=== PATIENT | female | born 1935 | race Caucasian/White ===

== ENCOUNTER 2019-09-27 05:43 | Day surgery (SDC) | payer MEDICARE, BC ==
[2019-09-24 12:20] VITALS: BMI 39.8
[2019-09-27] MEDS ORDERED: LACTATED RINGERS 1,000 ML IV SCH (05:56)
[2019-09-27] MEDS ORDERED: SODIUM CHLORIDE 0.9% 1,000 ML IV SCH ×2 (05:56)
[2019-09-27 06:38] LABS: Basophils # (A) 0.1 k/uL (0-0.2); Basophils % (A) 1 %; Eosinophils # (A) 0.2 k/uL (0-0.7); Eosinophils % (A) 2 %; HGB 14.3 gm/dL (11.4-16.0); Lymphocytes # (A) 1.1 k/uL (1.0-4.8); Lymphocytes % (A) 14 %; MCH 30.5 pg (25.0-35.0); MCHC 33.2 g/dL (31.0-37.0); MCV 91.9 fL (80.0-100.0); Mean Platelet Volume 8.2; Monocytes # (A) 0.4 k/uL (0-1.0); Monocytes % (A) 5 %; Neutrophils % (A) 77 %; Platelet Count 179 k/uL (150-450); RBC 4.68 m/uL (3.80-5.40); RDW 13.7 % (11.5-15.5); WBC 7.8 k/uL (3.8-10.6)
[2019-09-27 06:41] LABS: Prothrombin Time 19.2 sec (9.0-12.0)
[2019-09-27 06:56] LABS: Calcium 9.5 mg/dL (8.4-10.2); Potassium 4.6 mmol/L (3.5-5.1)
[2019-09-27] MEDS ORDERED: ceFAZolin 1,000 MG in SODIUM CHLORIDE 0.9% IRRIGATIO 250 ML IRRIGATION ONE (07:00)
[2019-09-27] MEDS ORDERED: PROPOFOL 10 MG/ML 20 ML VIAL IV ONE (07:13)
[2019-09-27] MEDS ORDERED: VANCOMYCIN 1,000 MG VIAL ONE (07:13)
[2019-09-27] MEDS ORDERED: MIDAZOLAM 2 MG/2 ML VIAL ONE (07:13)
[2019-09-27] MEDS ORDERED: fentaNYL (PF) 50 MCG/ML 2 ML AMP ONE (07:13)
[2019-09-27] MEDS ORDERED: IOPAMIDOL-250 50ML BTL IV ONE (08:05)
[2019-09-27] MEDS ORDERED: LIDOCAINE 1% INJ 10MG/ML (20 ML MDV) SQ ONE (08:37)
[2019-09-27] MEDS ORDERED: ACETAMINOPHEN IV (For NPO) 1,000 MG in EMPTY BAG 1 BAG IVPB ONE (10:29)
[2019-09-27] MEDS ORDERED: HYDROcodone/APAP 5-325MG 1 EACH TAB PO PRN (10:29)
[2019-09-27] MEDS ORDERED: ACETAMINOPHEN TAB 325 MG TAB PO PRN (10:29)
[2019-09-27] MEDS ORDERED: FUROSEMIDE 20 MG TAB PO PRN (10:31)
[2019-09-27] MEDS ORDERED: METOPROLOL SUCCINATE (ER) 50 MG TAB.ER.24H PO STA (13:03)
--- NOTE | 2019-09-27 17:48 | PCN ---
PROCEDURE NOTE This patient is an 84-year-old female with a history of nonischemic cardiomyopathy and class 2 CHF, severe LV dysfunction, ejection fraction 35%, and an underlying QRS which is very wide at 187 milliseconds, right bundle branch block morphology, left anterior fascicular block. Her device is at [facility] and she was brought in for an ICD generator change with likely upgrade for physiologic septal pacing. Patient was brought to the EP lab in a fasting state. Written informed consent was obtained prior to the procedure. IV antibiotics were administered. An incision was made directly over the previous surgical site and carried down to the level of the generator. The generator was explanted. A left upper extremity venogram had been performed previously which showed a patent subclavian venous system. This was accessed and an 8-Emirati sheath was placed. Via this, a His bundle sheath and a His bundle lead were placed in the right atrium for physiologic septal pacing. The His bundle lead was secured in the His bundle area. Current of injury was noted in the His bundle. Narrowing of the QRS with near-normalization was noted. With His bundle pacing, QRS width was about 127 milliseconds, significant narrowing of the QRS with near-normalization of the morphology. The sheaths were removed. The lead was secured to the underlying pectoralis muscle and the new generator was implanted. The chronic atrial lead was capped and secured to the muscle. The His bundle lead, model #[id number], was connected to the atrial port. The ICD lead was connected to the usual RV port and the SVC port was plugged. To promote physiologic septal pacing, DDD mode at 80 beats was programmed. Currently the patient is on 50 mg of metoprolol and I am increasing the dose to 100 mg p.o. daily; and subsequently we will cut down the rate to 60 bpm in the next one week. The RV threshold was 1.5 V at 1 millisecond. Pacing impedance 475 ohms. R-waves 8.9 mV. The absolute loss of capture in the His bundle lead was 1.5 V at 1 millisecond, pacing impedance of 456 ohms. Near-selective His bundle pacing was noted. The sequence of His bundle pacing was as follows: At high output there was non- selective capture with near-normalization followed by selective capture with normalization followed by fusion with RV inflow capture. The patient tolerated the procedure well without any acute complications. DFT was deferred at this time, and she will be brought back in the future for DFT testing in about 3 months. The patient tolerated the procedure well without any acute complications. A dual- chamber ICD was implanted. The dual-chamber ICD was [employer] model number [id number], serial number [id number]. JULISSA / WENDY: [id number] /
[2019-09-27] MEDS ORDERED: ATORVASTATIN 10 MG TAB PO SCH (21:00)
[2019-09-27] MEDS ORDERED: MELATONIN 3 MG TABLET PO SCH (21:00)
[2019-09-28 06:25] LABS: INR 1.7 (<1.2); Prothrombin Time 17.1 sec (9.0-12.0)
--- NOTE | 2019-09-28 07:20 | XR ---
EXAMINATION TYPE: XR chest 2V DATE OF EXAM: 09/28/2019 COMPARISON: 08/22/2013 HISTORY: Shortness of breath TECHNIQUE: Frontal and lateral views of the chest are obtained. FINDINGS: Scattered senescent parenchymal changes noted. Hyperinflation compatible with COPD. No evidence for infiltrate. No evidence for atelectasis. Heart size is stable. Mediastinal structures are stable and grossly unremarkable. No evidence for hilar prominence. Degenerative changes dorsal spine. IMPRESSION: 1. No evidence for acute pulmonary disease.
--- NOTE | 2019-09-28 08:02 | P.DS ---
Providers Attending physician: Fritz Castrejon Primary care physician: [facility] Course: Patient is doing well. No chest discomfort dizziness tightness. She does have tenderness in the left pectoral area but no hematoma no swelling Breath sounds are clear no rhonchi no crackles Normal heart sounds no murmurs no gallops No lower extremity edema No JVD Impression Upgrade to physiologic septal pacing yesterday His bundle lead implanted Dual-chamber ICD generator change His bundle connected to the atrial port Plan Device interrogation today Chest x-ray is within normal limits IV antibiotics are completed If interrogation is within normal limits she may go home today Device VAD programmed to a base rate of 60 bpm Dose of metoprolol is being increased to 100 mg by mouth daily She will take lisinopril 20 mg daily in the evening Discussed with patient Plan - Discharge Summary Discharge Rx Participant: No New Discharge Prescriptions: New Metoprolol Succinate (ER) [Toprol XL] 100 mg PO DAILY #90 tab Continue Spironolactone [Aldactone] 25 mg PO DAILY Meloxicam 15 mg PO DAILY Atorvastatin [Lipitor] 10 mg PO HS Acetaminophen [Tylenol] 325 mg PO Q4H PRN PRN Reason: Pain Warfarin [Coumadin] 5 mg PO DAILY Furosemide [Lasix] 20 mg PO DIRECTED PRN PRN Reason: Edema Lisinopril 20 mg PO DAILY Discontinued Metoprolol Succinate (ER) [Toprol Xl] 50 mg PO DAILY Discharge Medication List Acetaminophen [Tylenol] 325 mg PO Q4H PRN 08/20/13 [History] Atorvastatin [Lipitor] 10 mg PO HS 08/20/13 [History] Meloxicam 15 mg PO DAILY 08/20/13 [History] Spironolactone [Aldactone] 25 mg PO DAILY 08/20/13 [History] Furosemide [Lasix] 20 mg PO DIRECTED PRN 09/24/19 [History] Lisinopril 20 mg PO DAILY 09/24/19 [History] Warfarin [Coumadin] 5 mg PO DAILY 09/24/19 [History] Metoprolol Succinate (ER) [Toprol XL] 100 mg PO DAILY #90 tab 09/27/19 [Rx] Follow up Appointment(s)/Referral(s): Fritz Castrejon MD [STAFF PHYSICIAN] - 1 Week Activity/Diet/Wound Care/Special Instructions: PATIENT EDUCATION MATERIAL Instructions following a heart rhythm device implant. 1. Keep dressing DRY for 5 DAYS. You may cover the area with Saran or Cling Wrap, prior to a shower. 2. The dressing will be removed in the Device Clinic at [facility]. Absorbable sutures were used to close the wound. 3. Avoid raising the left arm above the shoulder level. 4 week restriction 4. Avoid arm movements, like backscratching, rubbing the head, or pulling on a cord. 4 weeks restriction 5. Gentle range of motion movements of the shoulder, closest to the incision should be performed to avoid a frozen shoulder. (Pendulum exercises of the shoulder) 6. The opposite arm may be used freely. 7. Avoid driving for 7 days. 8. Avoid activities such as golfing, swimming, weed whacking, lifting more than 10 pounds weight, bowling, gymnastics and weight training/lifting. (6 weeks restriction) 9. Activities such as wood chopping with an axe, pull-ups in the gymnasium, power lifting, arc-welding, being close to home induction cooktops will always be a problem. 10. Arm sling is only a reminder not to raise the arm above the head. You do not need to keep the arm completely immobilized. Your free to move the arm and use it and for normal activities. In case of any problems, please call [facility], Barrett Ugalde, @ [phone], Attention: Device Clinic Device clinic follow-up in 5 days Follow-up with primary newsroom intern in 2-3 months Increase metoprolol succinate to 100 mg by mouth daily in a.m. Continue all other medications as before Lisinopril to be taken in the evening
[2019-09-28 08:03] VITALS: BP 133/63; PULSE 80; RESP 18; TEMP 97.5
[2019-09-28] MEDS ORDERED: lisinopriL 20 MG TAB PO SCH ×2 (09:00→21:00)
[2019-09-28] MEDS ORDERED: WARFARIN 2.5 MG TAB PO ONE (09:00)
[2019-09-28] MEDS ORDERED: METOPROLOL SUCCINATE (ER) 50 MG TAB.ER.24H PO SCH (09:00)
[2019-09-28] MEDS ORDERED: SPIRONOLACTONE 25 MG TAB PO SCH (09:00)
[2019-09-28] MEDS ORDERED: WARFARIN 5 MG TAB PO SCH (18:00)
== END 2019-09-28 13:24 | disposition home or self-care (01) ==
LOC: CATHEP 05:43 → 1SOBS 11:28 → CATHEP 09-28 13:24
PROVIDERS: ATTEND Internal Medicine Clinical Cardiac Electrophysiology
DX: I42.0 Dilated cardiomyopathy (principal); I11.0 Hypertensive heart disease with heart failure; I50.1 Left ventricular failure, unspecified; I45.2 Bifascicular block; I48.11 Longstanding persistent atrial fibrillation; I08.1 Rheumatic disorders of both mitral and tricuspid valves; I27.20 Pulmonary hypertension, unspecified; E78.5 Hyperlipidemia, unspecified; I49.5 Sick sinus syndrome; R60.0 Localized edema; I25.10 Atherosclerotic heart disease of native coronary artery without angina pectoris; E66.9 Obesity, unspecified; Z68.39 Body mass index [BMI] 39.0-39.9, adult; Z79.01 Long term (current) use of anticoagulants; Z95.810 Presence of automatic (implantable) cardiac defibrillator; Z79.899 Other long term (current) drug therapy; Z79.1 Long term (current) use of non-steroidal anti-inflammatories (NSAID); Z88.8 Allergy status to other drugs, medicaments and biological substances; Z97.2 Presence of dental prosthetic device (complete) (partial); Z87.891 Personal history of nicotine dependence; Z98.890 Other specified postprocedural states; Z90.710 Acquired absence of both cervix and uterus; Z82.49 Family history of ischemic heart disease and other diseases of the circulatory system
CPT/HCPCS: 93005; 33225; 33263; 80048; 85025; 85610 ×2; 71046; C1769 ×2; C1892; C1898; C1721; J2250; J3370; J0690 ×2; J2001; J3010; J2704; Q9966

== ENCOUNTER 2019-10-24 12:38 | Inpatient (IN) | payer MEDICARE, BC ==
[2019-10-24] MEDS ORDERED: SODIUM CHLORIDE 0.9% 500 ML 500 ML IV STA (13:05)
[2019-10-24] MEDS ORDERED: DIPH,PERTUS(ACELL)TETVAC-LF 0.5 ML VIAL IM ONE (13:08)
--- NOTE | 2019-10-24 13:10 | ED ---
General Adult HPI - General Chief complaint: Fall Stated complaint: Weakness and fall Time Seen by Provider: 10/24/19 12:54 Source: patient, EMS, RN notes reviewed, old records reviewed Mode of arrival: EMS Limitations: physical limitation - History of Present Illness Initial comments: 84-year-old female presents status post fall. Patient fell yesterday evening around 6 PM. She was unable to stand after the fall and had to wait for her son to calm at 11 AM this morning. She states she tripped which was reason for her fall. She does report several episodes of vomiting over the past 72 hours after eating a sandwich that she states was "not right". She denies fever. She denies head or neck trauma. She denies loss of consciousness. She has no pain complaints the time my evaluation. She states she did hit her right elbow and had some minimal bleeding in the skin tear at this location. No current abdominal pain. No chest pain. She had pacemaker placed 2 weeks ago at this institution. - Related Data Home Medications Medication Instructions Recorded Confirmed Atorvastatin [Lipitor] 10 mg PO HS 08/20/13 09/27/19 Meloxicam 15 mg PO DAILY 08/20/13 09/27/19 Spironolactone [Aldactone] 25 mg PO DAILY 08/20/13 09/27/19 Warfarin [Coumadin] 5 mg PO DAILY 09/24/19 09/27/19 lisinopriL 20 mg PO DAILY 09/24/19 09/27/19 Warfarin [Coumadin] 2.5 mg PO MOWEFR@2100 10/24/19 10/24/19 Previous Rx's Medication Instructions Recorded Metoprolol Succinate (ER) [Toprol 100 mg PO DAILY #90 tab 09/27/19 XL] Allergies Allergy/AdvReac Type Severity Reaction Status Date / Time dofetilide [From Tikosyn] Allergy Severe Unknown Verified 10/24/19 16:28 prolonged QT medications Allergy Severe Unknown Uncoded 10/24/19 16:28 Review of Systems ROS Statement: Those systems with pertinent positive or pertinent negative responses have been documented in the HPI. ROS Other: All systems not noted in ROS Statement are negative. Past Medical History Past Medical History: Atrial Fibrillation, Hypertension, Osteoarthritis (OA) Additional Past Medical History / Comment(s): pacemaker/aicd, See [facility] History of Any Multi-Drug Resistant Organisms: None Reported Past Surgical History: Bladder Surgery, Cardiac Ablation, Heart Catheterization, Hysterectomy Additional Past Surgical History / Comment(s): cardioversion, D & C, 08-21-13 DUAL CHAMBER A.I.C.D IMPLANTED Past Anesthesia/Blood Transfusion Reactions: No Reported Reaction Type of Cardiac Device: Permanent Pacemaker, AICD Device Placement Date:: 08-21-13 Past Psychological History: No Psychological Hx Reported Smoking Status: Former smoker Past Alcohol Use History: None Reported Past Drug Use History: None Reported - Past Family History Mother Family Medical History: Cancer Sister(s) Family Medical History: No Reported History General Exam Limitations: physical limitation General appearance: alert, in no apparent distress Head exam: Present: atraumatic, normocephalic Eye exam: Present: normal appearance, PERRL ENT exam: Present: mucous membranes dry Neck exam: Present: normal inspection. Absent: tenderness, meningismus Respiratory exam: Present: normal lung sounds bilaterally. Absent: respiratory distress, wheezes Cardiovascular Exam: Present: regular rate, normal rhythm GI/Abdominal exam: Present: soft. Absent: distended, tenderness, guarding Extremities exam: Present: other (2 cm skin tear on the right elbow, no active bleeding, no repairable laceration, normal range of motion.) Neurological exam: Present: alert, oriented X3, CN II-XII intact. Absent: motor sensory deficit Psychiatric exam: Present: normal affect, normal mood Skin exam: Present: warm, dry, abrasion (Right elbow) Course Vital Signs 10/24/19 10/24/19 10/24/19 12:44 14:09 15:48 Temperature 97.3 F L 98.9 F Pulse Rate 98 91 90 Respiratory 18 18 18 Rate Blood Pressure 121/73 134/74 154/81 O2 Sat by Pulse 95 96 95 Oximetry EKG Findings - EKG Comments: EKG Findings:: Wide-complex rhythm, irregular, Rate of 87, QRS duration 168, QTC 527, I do not see pacer spikes he is to read bundle branch block, left anterior fascicular block. Medical Decision Making - Medical Decision Making 84-year-old female presenting with fall and a significant amount of downtime, laying on the floor. She has no real complaints time my evaluation. She has a skin tear to the left elbow, otherwise no external signs of trauma. She does not have head or neck trauma. Patient has an x-ray of the chest is negative for acute cardio pulmonary disease, pelvis x-ray obtained negative for fracture dislocation, x-ray of the elbow is negative for fracture dislocation. Laboratory testing is delayed secondary to difficulty obtaining blood samples. She has a white blood cell count of 18,000, her INR is elevated at 6 and she is on Coumadin, no active bleeding and a stable hemoglobin of 14.7. She has a lactic acid of 3.0 which I suspect is predominantly from dehydration. She has elevated AST and ALT as well as on significantly elevated total bilirubin of 6.5. She has no abdominal pain or tenderness. She did report several episodes of vomiting over the past several days. Her creatinine kinase is elevated at 4000. Urinalysis is consistent with UTI and infection. She's given IV hydration, placed on continuous normal saline infusion, started on IV antibiotics. Ultrasound is obtained these results are pending and this elevated bilirubin. Her Coumadin will be held. She will be admitted to Dr. Arshad who is aware of the patient. - Lab Data Result diagrams: 10/24/19 15:07 10/24/19 15:07 Lab Results 10/24/19 10/24/19 10/24/19 Range/Units 15:07 15:07 15:07 WBC 18.6 H (3.8-10.6) k/uL RBC 4.97 (3.80-5.40) m/uL Hgb 14.6 (11.4-16.0) gm/dL Hct 46.6 H (34.0-46.0) % MCV 93.7 (80.0-100.0) fL MCH 29.4 (25.0-35.0) pg MCHC 31.4 (31.0-37.0) g/dL RDW 14.0 (11.5-15.5) % Plt Count 169 (150-450) k/uL Neutrophils % 95 % Lymphocytes % 1 % Monocytes % 3 % Eosinophils % 0 % Basophils % 0 % Neutrophils # 17.6 H (1.3-7.7) k/uL Lymphocytes # 0.3 L (1.0-4.8) k/uL Monocytes # 0.5 (0-1.0) k/uL Eosinophils # 0.0 (0-0.7) k/uL Basophils # 0.1 (0-0.2) k/uL Hypochromasia Slight PT 60.2 H (9.0-12.0) sec INR 6.0 H* (<1.2) APTT 47.0 H (22.0-30.0) sec Sodium 135 L (137-145) mmol/L Potassium 4.0 (3.5-5.1) mmol/L Chloride 102 (98-107) mmol/L Carbon Dioxide 24 (22-30) mmol/L Anion Gap 9 mmol/L BUN 24 H (7-17) mg/dL Creatinine 0.95 (0.52-1.04) mg/dL Est GFR (CKD-EPI)AfAm 65 (>60 ml/min/1.73 sqM) Est GFR (CKD-EPI)NonAf 56 (>60 ml/min/1.73 sqM) Glucose 248 H (74-99) mg/dL Plasma Lactic Acid Sammy (0.7-2.0) mmol/L Calcium 8.8 (8.4-10.2) mg/dL Magnesium 1.4 L (1.6-2.3) mg/dL Total Bilirubin 6.5 H (0.2-1.3) mg/dL AST 216 H (14-36) U/L ALT 97 H (4-34) U/L Alkaline Phosphatase 816 H (38-126) U/L Creatine Kinase 4046 H* (30-135) U/L Total Protein 6.7 (6.3-8.2) g/dL Albumin 3.5 (3.5-5.0) g/dL Urine Color Urine Appearance (Clear) Urine pH (5.0-8.0) Ur Specific Beaver (1.001-1.035) Urine Protein (Negative) Urine Glucose (UA) (Negative) Urine Ketones (Negative) Urine Blood (Negative) Urine Nitrite (Negative) Urine Bilirubin (Negative) Urine Urobilinogen (<2.0) mg/dL Ur Leukocyte Esterase (Negative) Urine RBC (0-5) /hpf Urine WBC (0-5) /hpf Ur Squamous Epith Cells (0-4) /hpf Amorphous Sediment (None) /hpf Urine Bacteria (None) /hpf Hyaline Casts (0-2) /lpf Urine Mucus (None) /hpf 10/24/19 10/24/19 Range/Units 15:07 15:47 WBC (3.8-10.6) k/uL RBC (3.80-5.40) m/uL Hgb (11.4-16.0) gm/dL Hct (34.0-46.0) % MCV (80.0-100.0) fL MCH (25.0-35.0) pg MCHC (31.0-37.0) g/dL RDW (11.5-15.5) % Plt Count (150-450) k/uL Neutrophils % % Lymphocytes % % Monocytes % % Eosinophils % % Basophils % % Neutrophils # (1.3-7.7) k/uL Lymphocytes # (1.0-4.8) k/uL Monocytes # (0-1.0) k/uL Eosinophils # (0-0.7) k/uL Basophils # (0-0.2) k/uL Hypochromasia PT (9.0-12.0) sec INR (<1.2) APTT (22.0-30.0) sec Sodium (137-145) mmol/L Potassium (3.5-5.1) mmol/L Chloride (98-107) mmol/L Carbon Dioxide (22-30) mmol/L Anion Gap mmol/L BUN (7-17) mg/dL Creatinine (0.52-1.04) mg/dL Est GFR (CKD-EPI)AfAm (>60 ml/min/1.73 sqM) Est GFR (CKD-EPI)NonAf (>60 ml/min/1.73 sqM) Glucose (74-99) mg/dL Plasma Lactic Acid Sammy 3.0 H* (0.7-2.0) mmol/L Calcium (8.4-10.2) mg/dL Magnesium (1.6-2.3) mg/dL Total Bilirubin (0.2-1.3) mg/dL AST (14-36) U/L ALT (4-34) U/L Alkaline Phosphatase (38-126) U/L Creatine Kinase (30-135) U/L Total Protein (6.3-8.2) g/dL Albumin (3.5-5.0) g/dL Urine Color Dark Yellow Urine Appearance Cloudy H (Clear) Urine pH 5.5 (5.0-8.0) Ur Specific Beaver 1.022 (1.001-1.035) Urine Protein 1+ H (Negative) Urine Glucose (UA) Trace H (Negative) Urine Ketones Trace H (Negative) Urine Blood Large H (Negative) Urine Nitrite Positive H (Negative) Urine Bilirubin 2+ H (Negative) Urine Urobilinogen 4.0 (<2.0) mg/dL Ur Leukocyte Esterase Moderate H (Negative) Urine RBC 8 H (0-5) /hpf Urine WBC 26 H (0-5) /hpf Ur Squamous Epith Cells 1 (0-4) /hpf Amorphous Sediment Rare H (None) /hpf Urine Bacteria Moderate H (None) /hpf Hyaline Casts 1 (0-2) /lpf Urine Mucus Rare H (None) /hpf Critical Care Time Critical Care Time: Yes Total Critical Care Time: 35 Disposition Clinical Impression: Rhabdomyolysis, Dehydration, Supratherapeutic INR, Hypomagnesemia, UTI (urinary tract infection) Disposition: ADMITTED IP TO THIS [facility] Condition: Stable Is patient prescribed a controlled substance at d/c from ED?: No Referrals: Alaina Ambrose MD [Primary Care Provider] - 1-2 days Decision to Admit Reason: Admit from EC Decision Date: 10/24/19 Decision Time: 16:54
--- NOTE | 2019-10-24 14:48 | XR ---
EXAMINATION TYPE: XR pelvis AP view DATE OF EXAM: 10/24/2019 CLINICAL HISTORY: Fall injury with pain. TECHNIQUE: A single AP view of the pelvis is obtained. COMPARISON: None. FINDINGS: Suboptimal due to body habitus. There is no acute fracture/dislocation evident in the pelv is. Moderate axial joint space loss in both hips with moderate acetabular spurring. Pubic symphysis i s intact. Sacroiliac joints felt within normal limits. Some left-sided vascular calcification. Occasi onal scattered pelvic phleboliths. IMPRESSION: There is no acute fracture or dislocation in the pelvis.
--- NOTE | 2019-10-24 14:59 | XR ---
EXAMINATION TYPE: XR elbow complete RT DATE OF EXAM: 10/24/2019 COMPARISON: None HISTORY: Fall, pain TECHNIQUE: Three-view right elbow FINDINGS: Radius aligns normally humerus. No acute fractures or dislocations are evident. Tiny (spur is present. Anterior fat pad is normal. No elevation posterior fat pad is evident. IMPRESSION: 1. Normal three-view right elbow. 2. Follow-up exams can be performed 7-10 days from acute trauma for continued pain.
--- NOTE | 2019-10-24 15:00 | XR ---
EXAMINATION TYPE: XR chest 2V DATE OF EXAM: 10/24/2019 COMPARISON: 09/28/2019 INDICATION: Weakness TECHNIQUE: Frontal and lateral views of the chest are obtained. FINDINGS: The heart size is enlarged. There is a pacemaker overlies left chest. The pulmonary vasculature is normal. The lungs are clear. IMPRESSION: 1. No acute pulmonary process.
[2019-10-24 15:32] LABS: Basophils # (A) 0.1 k/uL (0-0.2); Basophils % (A) 0 %; Eosinophils % (A) 0 %; HCT 46.6 % (34.0-46.0); HGB 14.6 gm/dL (11.4-16.0); Hypochromasia Slight; Lymphocytes # (A) 0.3 k/uL (1.0-4.8); Lymphocytes % (A) 1 %; MCH 29.4 pg (25.0-35.0); MCHC 31.4 g/dL (31.0-37.0); MCV 93.7 fL (80.0-100.0); Mean Platelet Volume 8.7; Monocytes # (A) 0.5 k/uL (0-1.0); Monocytes % (A) 3 %; Neutrophils # (A) 17.6 k/uL (1.3-7.7); Neutrophils % (A) 95 %; Platelet Count 169 k/uL (150-450); RBC 4.97 m/uL (3.80-5.40); WBC 18.6 k/uL (3.8-10.6)
[2019-10-24 15:51] LABS: Albumin 3.5 g/dL (3.5-5.0); Calcium 8.8 mg/dL (8.4-10.2); Magnesium 1.4 mg/dL (1.6-2.3); Total Bilirubin 6.5 mg/dL (0.2-1.3); Total Protein 6.7 g/dL (6.3-8.2)
[2019-10-24 16:06] LABS: Prothrombin Time 60.2 sec (9.0-12.0)
[2019-10-24 16:12] LABS: Amorphous Sediment,Urine Rare /hpf; Appearance,Urine Cloudy (Clear); Bacteria,Urine Moderate /hpf; Bilirubin,Urine 2+ (Negative); Blood,Urine Large (Negative); Color,Urine Dark Yellow; Glucose,Urine (UA) Trace (Negative); Hyaline Casts,Urine 1 /lpf (0-2); Ketones,Urine Trace (Negative); Leukocyte Esterase,Urine Moderate (Negative); Mucus,Urine Rare /hpf; Nitrite,Urine Positive (Negative); PH, Urine 5.5 (5.0-8.0); Protein,Urine 1+ (Negative); RBC,Urine 8 /hpf (0-5); Specific Gravity,Urine 1.022 (1.001-1.035); Squamous Epithelial Cell,Urine 1 /hpf (0-4); WBC,Urine 26 /hpf (0-5)
[2019-10-24] MEDS ORDERED: cefTRIAXone IN SWFI 1,000 MG/10 ML SYRINGE IVP STA (16:26)
[2019-10-24] MEDS ORDERED: SODIUM CHLORIDE 0.9% 500 ML 500 ML IV ONE (16:26)
[2019-10-24] MEDS ORDERED: NALOXONE 0.4 MG/ML 1 ML VIAL IV PRN (16:31)
[2019-10-24] MEDS: SODIUM CHLORIDE 0.9% 1,000 ML IV SCH ×2 (16:45→20:11)
[2019-10-24] MEDS ORDERED: MAGNESIUM SULFATE-D5W PMX 1 GM in DEXTROSE/WATER 1 100ML.BAG IVPB ONE (16:47)
--- NOTE | 2019-10-24 17:27 | US ---
EXAMINATION TYPE: US gallbladder DATE OF EXAM: 10/24/2019 COMPARISON: NONE CLINICAL HISTORY: vomiting. EXAM MEASUREMENTS: Liver Length: 15.5 cm Gallbladder Wall: 0.3 cm CBD: 0.2 cm Right Kidney: 10.0 x 4.6 x 4.7 cm Patient of large body habitus with severe overlying bowel gas. Pancreas: hyperechoic, mostly obscured by bowel gas Liver: there appears to be thrombus in the portal vein, unable to visualize liver in it's entirety d ue to overlying bowel gas Gallbladder: sludge ball Evidence for sonographic Jasmine's sign: CBD: wnl, as seen Right Kidney: No hydronephrosis or masses seen, partial visualization IMPRESSION: There is portal vein thrombosis. Liver shows no focal defect. No dilated ducts. Echogenic bile and large area of the gallbladder. No gallstones seen. No ascites.
[2019-10-24] MEDS ORDERED: IPRATROPIUM-ALBUTEROL 3 ML NEB INHALATION PRN (18:40)
[2019-10-24] MEDS: IPRATROPIUM-ALBUTEROL 3 ML NEB INHALATION SCH (19:33)
[2019-10-24] MEDS ORDERED: DEXTROSE 5% IN WATER 100 ML with AMIODARONE 150 MG IV ONE (20:00)
[2019-10-24] MEDS ORDERED: AMIODARONE 360 MG in DEXTROSE 5% IN WATER 200 ML IV ONE ×2 (20:00)
[2019-10-24 20:10] LABS: Glucose,Whole Blood 243 mg/dL (75-99)
[2019-10-24] MEDS ORDERED: SODIUM CHLORIDE 0.9% 1,000 ML IV ONE (20:10)
[2019-10-24] MEDS ORDERED: Potassium Replacement Protocol 1 EACH MISC MISCELLANE PRN (20:29)
[2019-10-24] MEDS ORDERED: Magnesium Replacement Protocol 1 EACH MISC MISCELLANE PRN (20:29)
[2019-10-24 20:44] LABS: Glucose,Whole Blood 235 mg/dL (75-99)
[2019-10-24 20:46] LABS: Calcium 8.4 mg/dL (8.4-10.2); Magnesium 1.7 mg/dL (1.6-2.3); Potassium 4.2 mmol/L (3.5-5.1)
--- NOTE | 2019-10-24 21:08 | XR ---
EXAMINATION TYPE: XR chest 1V portable DATE OF EXAM: 10/24/2019 COMPARISON: 10/24/2019. 6 hours ago. HISTORY: Respiratory distress TECHNIQUE: FINDINGS: Heart is enlarged. There is minimal reticular interstitial density at the lateral right vibha g base. There is no heart failure. Thoracic aorta shows mild atheromatous change. There is left axill keila pacemaker. There is no pleural effusion or pneumothorax. IMPRESSION: Mild pulmonary interstitial density. Inspiration slightly decreased compared to recent ex am. No heart failure seen.
[2019-10-24 21:10] LABS: ABG Base Excess -6.7 mmol/L; ABG HCO3 18 mmol/L (21-25); ABG Oxygen Saturation 99.6 % (94-97); ABG PCO2 31 mmHg (35-45); ABG PH 7.38 (7.35-7.45); ABG PO2 387 mmHg (83-108); ABG TCO2 19 mmol/L (19-24); Allen Test Performed? Yes
--- NOTE | 2019-10-24 21:30 | HP ---
HISTORY AND PHYSICAL CHIEF COMPLAINTS: Fall and weakness. HISTORY OF PRESENT ILLNESS: This 84-year-old woman with a past medical history of multiple medical problems including atrial fibrillation, hypertension, DJD, history of pacemaker, history of bladder surgery, cardiac ablation, cardioversion, being followed by Dr. Ambrose in the outpatient setting, apparently fell yesterday. The exact details of the fall is unknown at this time. The patient probably tripped, but the patient never lost any consciousness. Patient was unable to get up and the patient was lying there at least half a day according to her and subsequently patient was complaining of some weakness and fall and patient taken to [facility] and admitted to the hospital for further evaluation and treatment. The admission labs showed WBC 18.6, hemoglobin is 14.6. Lactic acid 3 and creatinine kinase is 4046 indicating acute rhabdomyolysis. UA was abnormal with possible UTI and the patient also had a chest x-ray which was reviewed personally by me showed some minimal increased bronchovascular markings with no acute pulmonary process. The patient had some fever prior to admission and also complains of cough and some nausea also. The patient did not have any sick contacts with any individuals, but apparently patient is pretty independent doing things like chores like shopping by herself. There is no history of any fever, rigor or chills at this time. PAST MEDICAL HISTORY: History of atrial fibrillation, hypertension, DJD, pacemaker, bladder surgery, cardiac ablation. MEDICATIONS: Home medications are: 1. Lipitor. 2. Lisinopril. 3. Coumadin. 4. Aldactone. 5. Toprol-XL. 7. Doses reviewed. ALLERGIES: TIKOSYN MEDICATION. FAMILY HISTORY: History of cancer. SOCIAL HISTORY: Previous history of smoking. REVIEW OF SYSTEMS: ENT diminished vision. Diminished hearing. CARDIOVASCULAR system as mentioned earlier. RESPIRATORY: As mentioned earlier. GI: As mentioned earlier. : As mentioned earlier. NERVOUS SYSTEM as mentioned earlier. ALLERGY/IMMUNOLOGY: No asthma or hayfever. MUSCULOSKELETAL as mentioned earlier. HEMATOLOGY/ONCOLOGY: No history of anemia. ENDOCRINE: No history of diabetes or hypothyroidism. CONSTITUTIONAL: As mentioned earlier. DERMATOLOGY: Negative. RHEUMATOLOGY: Negative. PSYCHIATRIC: As mentioned earlier. PHYSICAL EXAM: Alert and oriented times three. Pulse 91, blood pressure 130/70, respiration 18, temp 97.8, pulse ox 96% on room air. HEENT: Conjunctivae normal. Oral mucosa moist. NECK is no jugular venous distention. No carotid bruit. No lymph node enlargement. CARDIOVASCULAR: S1, S2 muffled. No S3, no S4. RESPIRATIONS: Breath sounds diminished in the bases. A few scattered rhonchi. No crackles. ABDOMEN: Soft, obese, nontender. No mass palpable. LEGS: Bilateral leg edema. NERVOUS SYSTEM: Higher functions as mentioned earlier. Moves all 4 limbs. No focal motor or sensory deficits. LYMPHATICS: No lymph nodes palpable in the neck, axillae or groin. SKIN: No ulcer, rash or bleeding. JOINTS: No active deforming arthropathy. LABS: WBC 18.6. INR is 6. Sodium is 135. Other labs are noted. ASSESSMENT: 1. Fall and acute rhabdomyolysis. 2. Fever, possible acute bilateral interstitial pneumonia possibly aspiration pneumonia, rule out COVID-19 with sepsis. 3. Increased WBC. 4. Coagulopathy Coumadin. 5. Hyponatremia. 6. Diabetes mellitus type 2. 7. Elevated plasma lactic acid secondary to sepsis. 8. Hypomagnesemia. 9. Hyperbilirubinemia with acute hepatitis. 10.Increased creatinine kinase and alk phosphatase. 11.Possible acute urinary tract infection present on admission. 12.Atrial fibrillation. 13.Hypertension. 14.Pacemaker AICD. 15.Cardiac ablation. 16.History of cardioversion. 17.Remote history of nicotine dependence. 18.Obesity with body mass of 35.4. RECOMMENDATIONS AND DISCUSSION: This 84-year-old woman who presented with multiple complex medical issues, at this time we will monitor the patient closely, continue the current medications, symptomatic treatment. We will initiate broad-spectrum IV antibiotics. Otherwise cardiology evaluation. Telemetry. Cautious IV fluids. Monitor creatinine kinase closely. The patient also had jaundice and hyperbilirubinemia at this time. Avoid hepatotoxic medications. Overall prognosis extremely guarded because of multiple complex medical issues. Further recommendations to follow. I would also recommend a 2D echo with Doppler as well. A copy of this dictation being forwarded to Dr. Ambrose who is the primary physician. Also recommend PT/OT evaluation and evaluate the patient for possible ECF rehab also. MMODL / IJN: [id number] / MTDPiter
[2019-10-24] MEDS ORDERED: ACETAMINOPHEN TAB 500 MG TAB PO PRN (21:41)
[2019-10-24] MEDS: METOPROLOL SUCCINATE (ER) 100 MG TAB.ER.24H PO SCH (22:13)
[2019-10-24] MEDS: PANTOPRAZOLE 40 MG/10 ML VIAL IVP SCH (22:13)
[2019-10-24] MEDS: PIPERACILLIN-TAZOBACTAM 3.375 GM in SODIUM CHLORIDE 0.9% 100 ML IVPB SCH ×2 (22:14→23:57)
[2019-10-25] MEDS: AMIODARONE 300 MG in DEXTROSE 5% IN WATER 250 ML IV SCH ×4 (02:39→07:12)
[2019-10-25 03:55] LABS: Hepatitis A Antibody IgM Non-Reactive (Non-Reactive); Hepatitis B Core IgM Non-Reactive (Non-Reactive); Hepatitis B Surface Antigen Non-Reactive (Non-Reactive); Hepatitis C IgG Antibody Non-Reactive (Non-Reactive)
[2019-10-25] MEDS: PIPERACILLIN-TAZOBACTAM 3.375 GM in SODIUM CHLORIDE 0.9% 100 ML IVPB SCH ×3 (04:21→18:12)
[2019-10-25 05:11] LABS: HCT 40.3 % (34.0-46.0); HGB 12.9 gm/dL (11.4-16.0); Hypochromasia Slight; MCH 30.3 pg (25.0-35.0); MCHC 31.9 g/dL (31.0-37.0); Mean Platelet Volume 8.6; Platelet Count 146 k/uL (150-450); RBC 4.25 m/uL (3.80-5.40); RDW 14.1 % (11.5-15.5); WBC 22.5 k/uL (3.8-10.6)
[2019-10-25 05:19] LABS: Prothrombin Time 63.6 sec (9.0-12.0)
[2019-10-25 05:20] LABS: INR 6.3 (<1.2)
[2019-10-25 05:24] LABS: Albumin 2.8 g/dL (3.5-5.0); Calcium 8.1 mg/dL (8.4-10.2); Potassium 3.8 mmol/L (3.5-5.1); Total Bilirubin 6.7 mg/dL (0.2-1.3); Total Protein 5.5 g/dL (6.3-8.2)
[2019-10-25 05:40] LABS: Band Neutrophils % 20 %; Lymphocytes # (M) 0.68 k/uL (1.0-4.8); Metamyelocytes # (M) 0.23 k/uL (0); Metamyelocytes % 1 %; Neutrophils % (M) 72 %; Nucleated Red Blood Cells 0 /100 WBC (0-0); Total Cells Counted 200
[2019-10-25 05:41] LABS: Toxic Granulation Present; Toxic Vacuolation Present
[2019-10-25 06:03] LABS: Glucose,Whole Blood 271 mg/dL (75-99)
[2019-10-25] MEDS: SODIUM CHLORIDE 0.9% 1,000 ML IV SCH ×2 (06:15→11:44)
[2019-10-25] MEDS: INSULIN ASPART (NovoLOG) 100 UNIT/ML VIAL SQ SCH ×4 (06:20→19:45)
[2019-10-25] MEDS ORDERED: Potassium Replacement Protocol 1 EACH MISC MISCELLANE PRN (06:30)
[2019-10-25] MEDS: MAGNESIUM SULFATE-D5W PMX 1 GM in DEXTROSE/WATER 1 100ML.BAG IVPB SCH ×2 (06:49→09:29)
[2019-10-25] MEDS ORDERED: POTASSIUM CHLORIDE ER 20 MEQ TAB.ER PO SCH (07:00)
[2019-10-25] MEDS: IPRATROPIUM-ALBUTEROL 3 ML NEB INHALATION SCH ×3 (07:03→19:28)
--- NOTE | 2019-10-25 07:31 | P.CRDCN ---
History of Present Illness Consult date: 10/25/19 Chief complaint: Generalized weakness History of present illness: This is a very pleasant 84-year-old male patient with a past medical history si gnificant for nonischemic cardiomyopathy and status post AICD, long standing persistent atrial fibrillation on oral anticoagulation with Coumadin, who was admitted to the hospital for further evaluation and management of rhabdomyolysis. The patient was in her usual state of health until yesterday w hen she fell at home without losing her consciousness. She does not recall having any symptoms of dizziness or lightheadedness, heart racing or fluttering, or loss of consciousness. No symptoms of chest pain or chest discomfort. No fever or chills. No cough or sputum production. She was laying on the floor for several hours before she was able to call her son. Subsequently the patient was brought to the hospital for further evaluation. She was diagnosed with rhabdomyolysis. CK was more than 1000. Subsequently the patient was admitted to the intensive care unit and she was started on IV fluid. She was seen this morning. Overall she is feeling better. She remains asymptomatic from a cardiovascular standpoint of view. She remains in atrial fibrillation was controlled heart rate. Currently she is on amiodarone IV. She is on oral anticoagulation was Coumadin INR this morning is more than 6. I am going to decrease the dose of IV fluid to 75 mL per hour. We'll obtain a BNP. Please note that the chest x-ray yesterday showed no evidence of pulmonary vascular congestions with this morning did show mild pulmonary vascular congestions. I would hold Coumadin for today because the INR is elevated. We'll repeat INR tomorrow. Also will obtain an echocardiogram was Doppler. Beside that I'm going to stop the amiodarone in view of the elevated liver function tests. She is in atrial fibrillation with her heart rate has been under reasonable control at this point. We'll continue following up with the patient. Past Medical History Past Medical History: Atrial Fibrillation, Hypertension, Osteoarthritis (OA) Additional Past Medical History / Comment(s): pacemaker/aicd, See Cardiology [facility]. History of Any Multi-Drug Resistant Organisms: None Reported Past Surgical History: Bladder Surgery, Cardiac Ablation, Heart Catheterization, Hysterectomy Additional Past Surgical History / Comment(s): cardioversion, D & C, 08-21-13 DUAL CHAMBER A.I.C.D IMPLANTED Past Anesthesia/Blood Transfusion Reactions: No Reported Reaction Type of Cardiac Device: Permanent Pacemaker, AICD Device Placement Date:: 08-21-13 Past Psychological History: No Psychological Hx Reported Smoking Status: Former smoker Past Alcohol Use History: None Reported Additional Past Alcohol Use History / Comment(s): quit smoking 12-13 yrs ago (2007) Past Drug Use History: None Reported - Past Family History Mother Family Medical History: Cancer Sister(s) Family Medical History: No Reported History Medications and Allergies Home Medications Medication Instructions Recorded Confirmed Type Atorvastatin [Lipitor] 10 mg PO HS 08/20/13 10/24/19 History Meloxicam 15 mg PO DAILY PRN 08/20/13 10/24/19 History Spironolactone [Aldactone] 25 mg PO DAILY 08/20/13 10/24/19 History Warfarin [Coumadin] 5 mg PO SUTUTHSA@2100 09/24/19 10/24/19 History lisinopriL 20 mg PO HS 09/24/19 10/24/19 History Metoprolol Succinate (ER) [Toprol 100 mg PO DAILY #90 tab 09/27/19 10/24/19 Rx XL] Warfarin [Coumadin] 2.5 mg PO MOWEFR@2100 10/24/19 10/24/19 History Allergies Allergy/AdvReac Type Severity Reaction Status Date / Time dofetilide [From Tikosyn] Allergy Severe Unknown Verified 10/24/19 16:28 prolonged QT medications Allergy Severe Unknown Uncoded 10/24/19 16:28 Physical Exam Vitals: Vital Signs Temp Pulse Pulse Pulse Resp BP BP 10/25/19 07:17 70 10/25/19 07:03 68 10/25/19 07:00 64 23 99/60 10/25/19 06:00 65 20 117/54 10/25/19 05:00 64 14 111/68 10/25/19 04:00 99.3 F 65 20 112/48 10/25/19 03:00 64 36 H 98/47 10/25/19 02:00 99.7 F H 64 23 101/51 10/25/19 01:00 75 34 H 108/42 10/25/19 00:09 85 24 108/42 10/25/19 00:00 101.1 F H 89 32 H 109/57 10/24/19 23:00 100.9 F H 96 12 107/53 10/24/19 22:00 99 30 H 103/59 10/24/19 21:50 93 29 H 103/59 10/24/19 21:40 110 H 38 H 103/59 10/24/19 21:30 103 F H 101 H 32 H 130/67 10/24/19 21:20 108 H 37 H 130/67 10/24/19 21:10 102 H 24 130/67 10/24/19 21:00 109 H 40 H 135/56 10/24/19 20:12 152 H 110/74 10/24/19 20:00 100.9 F H 174 H 22 10/24/19 19:44 88 18 10/24/19 19:33 84 18 10/24/19 18:15 98.4 F 81 81 18 10/24/19 18:01 99.9 F H 84 18 117/88 10/24/19 17:29 99.1 F 10/24/19 17:23 89 18 135/88 10/24/19 15:48 98.9 F 90 18 154/81 10/24/19 14:09 91 18 134/74 10/24/19 12:44 97.3 F L 98 18 121/73 BP Pulse Ox 10/25/19 07:17 10/25/19 07:03 10/25/19 07:00 97 10/25/19 06:00 97 10/25/19 05:00 92 L 10/25/19 04:00 96 10/25/19 03:00 95 10/25/19 02:00 96 10/25/19 01:00 95 10/25/19 00:09 96 10/25/19 00:00 96 10/24/19 23:00 96 10/24/19 22:00 96 10/24/19 21:50 95 10/24/19 21:40 94 L 10/24/19 21:30 94 L 10/24/19 21:20 94 L 10/24/19 21:10 96 10/24/19 21:00 96 10/24/19 20:12 10/24/19 20:00 120/74 100 10/24/19 19:44 10/24/19 19:33 98 10/24/19 18:15 180/79 90 L 10/24/19 18:01 98 10/24/19 17:29 10/24/19 17:23 94 L 10/24/19 15:48 95 10/24/19 14:09 96 10/24/19 12:44 95 Intake and Output 10/24/19 10/25/19 10/25/19 22:59 06:59 14:59 Intake Total 230 1200 75 Output Total 115 20 Balance 230 1085 55 Intake: IV 150 1200 75 Sodium Chloride 0.9% 1, 150 1200 75 000 ml @ 75 mls/hr IV . [id number] Rx#:[id number] Oral 80 Output: Urine 115 20 Other: Voiding Method Indwelling Catheter # Voids 1 0 Weight 102.4 kg 102.4 kg - Constitutional General appearance: no acute distress - Respiratory Respiratory: bilateral: diminished - Cardiovascular Rhythm: irregularly irregular Heart sounds: normal: S1, S2 Results 10/25/19 04:46 10/25/19 04:46 Cardiac Enzymes 10/24/19 10/25/19 Range/Units 15:07 04:46 AST 216 H 178 H (14-36) U/L Coagulation 10/24/19 10/25/19 Range/Units 15:07 04:46 PT 60.2 H 63.6 H (9.0-12.0) sec APTT 47.0 H (22.0-30.0) sec CBC 10/24/19 10/25/19 Range/Units 15:07 04:46 WBC 18.6 H 22.5 H (3.8-10.6) k/uL RBC 4.97 4.25 (3.80-5.40) m/uL Hgb 14.6 12.9 (11.4-16.0) gm/dL Hct 46.6 H 40.3 (34.0-46.0) % Plt Count 169 146 L (150-450) k/uL Comprehensive Metabolic Panel 10/24/19 10/24/19 10/25/19 Range/Units 15:07 20:10 04:46 Sodium 135 L 135 L 133 L (137-145) mmol/L Potassium 4.0 4.2 3.8 (3.5-5.1) mmol/L Chloride 102 103 102 (98-107) mmol/L Carbon Dioxide 24 19 L 20 L (22-30) mmol/L BUN 24 H 23 H 26 H (7-17) mg/dL Creatinine 0.95 0.93 1.23 H (0.52-1.04) mg/dL Glucose 248 H 236 H 262 H (74-99) mg/dL Calcium 8.8 8.4 8.1 L (8.4-10.2) mg/dL AST 216 H 178 H (14-36) U/L ALT 97 H 90 H (4-34) U/L Alkaline Phosphatase 816 H 728 H (38-126) U/L Total Protein 6.7 5.5 L (6.3-8.2) g/dL Albumin 3.5 2.8 L (3.5-5.0) g/dL Current Medications Generic Name Dose Route Start Last Admin Trade Name Freq PRN Reason Stop Dose Admin Acetaminophen 500 mg 10/24/19 21:41 Tylenol Tab PO Q6HR PRN Fever and/ or Pain Albuterol/Ipratropium 3 ml 10/24/19 20:00 10/25/19 07:03 Duoneb 0.5 Mg-3 Mg/3 Ml Soln INHALATION 3 ml RT-TID ANUJA Administration Albuterol/Ipratropium 3 ml 10/24/19 18:40 Duoneb 0.5 Mg-3 Mg/3 Ml Soln INHALATION RT-TID PRN Shortness Of Breath Or Wheezing Hydromorphone HCl 0.5 mg 10/24/19 18:41 Dilaudid IVP Q6HR PRN Severe Pain Sodium Chloride 1,000 mls @ 75 mls/hr 10/24/19 16:30 10/25/19 06:15 Saline 0.9% IV Not Given .[id number] ANUJA Piperacillin Sod/Tazobactam 100 mls @ 25 mls/hr 10/24/19 19:00 10/25/19 04:21 Sod 3.375 gm/ Sodium Chloride IVPB 25 mls/hr Q8H ANUJA Administration Magnesium Sulfate/Dextrose 1 100 mls @ 100 mls/hr 10/25/19 07:00 10/25/19 06:49 gm/ IV Solution IVPB 10/25/19 08:59 100 mls/hr Q1H ANUJA Administration Insulin Aspart 0 unit 10/25/19 07:30 10/25/19 06:20 Novolog SQ 4 unit ACHS ANUJA Administration Protocol Metoprolol Succinate 100 mg 10/24/19 19:46 10/24/19 22:13 Toprol Xl PO 100 mg DAILY ANUJA Administration Miscellaneous Information 1 each 10/24/19 20:29 Magnesium Per Protocol MISCELLANE DAILY PRN Per Protocol Protocol Miscellaneous Information 1 each 10/24/19 20:29 Potassium Per Protocol MISCELLANE DAILY PRN Per Protocol Protocol Miscellaneous Information 1 each 10/25/19 06:30 Potassium Per Protocol MISCELLANE DAILY PRN Per Protocol Protocol Naloxone HCl 0.2 mg 10/24/19 16:31 Narcan IV Q2M PRN Opioid Reversal Pantoprazole Sodium 40 mg 10/24/19 18:45 10/24/19 22:13 Protonix IVP 40 mg DAILY ANUJA Administration Intake and Output 10/24/19 10/25/19 10/25/19 22:59 06:59 14:59 Intake Total 230 1200 75 Output Total 115 20 Balance 230 1085 55 Intake: IV 150 1200 75 Sodium Chloride 0.9% 1, 150 1200 75 000 ml @ 75 mls/hr IV . [id number] ANUJA Rx#:[id number] Oral 80 Output: Urine 115 20 Other: Voiding Method Indwelling Catheter # Voids 1 0 Weight 102.4 kg 102.4 kg 10/25/19 04:46 10/25/19 04:46 Assessment and Plan Assessment: Assessment #1 rhabdomyolysis #2 atrial fibrillation was controlled heart rate. The patient does have long-standing persistent atrial fibrillation #3 nonischemic cardiomyopathy and status post AICD #4 supratherapeutic INR #5 multiple comorbid conditions Plan #1 decrease the dose of IV fluid to followed #2 obtain BNP #3 obtain an echocardiogram was Doppler #4 stop amiodarone #5 continue the rest of the current medical regimen #6 hold Coumadin today #7 monitor the INR #8 follow-up with the patient
[2019-10-25] MEDS ORDERED: PHYTONADIONE ORAL 5 MG/5 ML ORAL.SYRG PO STA (07:46)
[2019-10-25] MEDS ORDERED: IOPAMIDOL CONTRAST (ORAL USE) VIAL PO PRN (07:47)
[2019-10-25] MEDS ORDERED: METOPROLOL SUCCINATE (ER) 100 MG TAB.ER.24H PO SCH (09:00)
[2019-10-25] MEDS ORDERED: AMIODARONE 200 MG TAB PO SCH (09:00)
[2019-10-25] MEDS: METOPROLOL SUCCINATE (ER) 100 MG TAB.ER.24H PO SCH (09:29)
[2019-10-25] MEDS: PANTOPRAZOLE 40 MG/10 ML VIAL IVP SCH (09:29)
--- NOTE | 2019-10-25 09:35 | CT ---
EXAMINATION TYPE: CT abdomen pelvis w con DATE OF EXAM: 10/25/2019 HISTORY: Portal vein thrombosis. Abnormal ultrasound. CT DLP: 2018mGycm Automated Exposure Control for Dose Reduction was Utilized. CONTRAST: CT scan of the abdomen and pelvis is performed without oral but with IV Contrast, patient injected wi th 80 mL of Isovue 300. COMPARISON: Gallbladder ultrasound earlier today. FINDINGS: LUNG BASES: There is cardiomegaly with right-sided pacemaker leads. Moderate to severe biatrial dilat ation and moderate left ventricular dilatation. [id number] right basilar linear scarring and/or atelectasis. LIVER/GB: Visualized liver is heterogeneously hypodense corresponding to heterogeneity on ultrasound. Some lobulated contour is present. Liver size is normal. Portal vein is patent and not dilated. Ther e is however moderate to severe extrahepatic biliary dilatation greatest at chandni hepatis with some t apering towards the ampulla. There is additional mild to moderate central intrahepatic biliary dilata tion. Gallbladder has distended margins with intraluminal gallstones and gallbladder sludge. Suspect technologist misinterpreted biliary dilatation as portal vein thrombus. PANCREAS: No pancreatic ductal dilatation. SPLEEN: Mild splenomegaly at 13.5 cm long axis coronal image 73. Scattered low dense lesions througho ut the spleen. ADRENALS: Slight nodular thickening to both adrenal glands favoring benign lipid rich hyperplasia. KIDNEYS: Some cortical thinning in both kidneys without hydronephrosis seen bilaterally. Sheridan cathet er in decompressed bladder. BOWEL: Some hyperdense material in right and transverse colon could reflect ingested medication. No s uspicious small or large bowel dilatation. Stomach is poorly distended and thus suboptimally evaluate d. Sigmoid colonic diverticulosis. There is 2.4 cm duodenal diverticulum along mesenteric surface bor kevin of second and third portions of duodenum coronal image 49. UTERUS/ADNEXA: Uterus is surgically absent or markedly atrophic. Scattered pelvic phleboliths are see n. LYMPH NODES: No greater than 1cm abdominal or pelvic lymph nodes are appreciated. OSSEOUS STRUCTURES: Slight underlying scoliotic curvature with moderate to severe multilevel spurring . Multilevel facet arthropathy in the mid to lower lumbar spine. Moderate to severe narrowing and mod erate spurring in both hip joints. OTHER: Moderate calcified plaque of the aorta extending into branch vessels. Tortuous course without aneurysm. IMPRESSION: 1. Patent nondilated portal vein. Moderate to severe extrahepatic along with mild to moderate intrahe patic biliary dilatation. Gallbladder has small stones and gallbladder sludge with distended margins. Consider obstructing CBD stone near ampulla. No pancreatic ductal dilatation. Advise ERCP to further evaluate and/or treat. Cannot exclude underlying cirrhosis. Correlate clinically. 2. Nonspecific scattered low dense lesions throughout the spleen majority subcentimeter in size favor ed benign in etiology. Follow-up advised.
--- NOTE | 2019-10-25 09:50 | ECHOF ---
Referral Reason:heart failure MEASUREMENTS -------- HEIGHT: 160.0 cm WEIGHT: 102.1 kg BP: 117/54 IVSd: 1.6 cm (0.6 - 1.1) LVIDd: 4.4 cm (3.9 - 5.3) LVPWd: 1.4 cm (0.6 - 1.1) IVSs: 1.6 cm LVIDs: 4.5 cm LVPWs: 1.7 cm LA Diam: 4.0 cm (2.7 - 3.8) RVIDd: 3.5 cm (< 3.3) LAESV Index (A-L): 30.71 ml/m Ao Diam: 3.0 cm (2.0 - 3.7) AV Cusp: 1.3 cm (1.5 - 2.6) EPSS: 1.6 cm RAP: 15.00 mmHg RVSP: 41.33 mmHg MV EF SLOPE: 17.79 mm/s (70 - 150) MV EXCURSION: 11.39 mm (> 18.000) FINDINGS -------- Paced rhythm. This was a technically difficult study with suboptimal views. The left ventricular size is normal. There is moderate concentric left ventricular hypertrophy. O verall left ventricular systolic function is moderate-severely impaired with, an EF between 30 - 35 % . Basal inferior LV wall motion is hypokinetic. Basal inferoseptal LV wall motion is hypokinetic . The right ventricle is mildly enlarged. LA is midly dilated 29-33ml/m2. The right atrium is normal in size. Lumason used Interatrial and interventricular septum intact. There is mild aortic valve sclerosis. The mitral valve leaflets are mildly thickened. Mild mitral annular calcification present. Mild m itral regurgitation is present. Mild tricuspid regurgitation present. There is mild pulmonary hypertension. The right ventricular systolic pressure, as measured by Doppler, is 41.33mmHg. Trace/mild (physiologic) pulmonic regurgitation. The aortic root size is normal. Normal inferior vena cava with less than 50% inspiratory collapse consistent with estimated right atr ial pressure of 15 mmHg. There is no pericardial effusion. CONCLUSIONS -------- 1. Paced rhythm. 2. The left ventricular size is normal. 3. There is moderate concentric left ventricular hypertrophy. 4. Overall left ventricular systolic function is moderate-severely impaired with, an EF between 30 - 35 %. 5. Basal inferior LV wall motion is hypokinetic. 6. Basal inferoseptal LV wall motion is hypokinetic. 7. The right ventricle is mildly enlarged. 8. LA is midly dilated 29-33ml/m2. 9. Lumason used 10. There is mild aortic valve sclerosis. 11. The mitral valve leaflets are mildly thickened. 12. Mild mitral annular calcification present. 13. Mild mitral regurgitation is present. 14. Mild tricuspid regurgitation present. 15. There is mild pulmonary hypertension. 16. The right ventricular systolic pressure, as measured by Doppler, is 41.33mmHg. 17. Trace/mild (physiologic) pulmonic regurgitation. 18. Normal inferior vena cava with less than 50% inspiratory collapse consistent with estimated right atrial pressure of 15 mmHg. 19. There is no pericardial effusion. REHABILITATION DIRECTOR: Jossie Eller RDCS
--- NOTE | 2019-10-25 11:39 | P.CNPUL ---
History of Present Illness Consult date: 10/25/19 Chief complaint: Atrial fibrillation, fall, rhabdomyolysis History of present illness: 84-year-old female patient was found on the floor as the patient tripped and she was unable to get herself up. She is known to have advanced cardiac disease, nonischemic artery myopathy was been followed up by Dr. Murray on outpatient basis. The patient has a AICD in place. She has a long history of persistent atrial fibrillation and she has limited articulation with warfarin. The patient denied having any loss in consciousness. She felt a week. She denies having any chest pain. No focal neurological deficit. No change in her speech. No headaches. No neck stiffness. No change in her vision. She stayed on the floor for several hours and her son picked her up and she was brought into the emergency room with the patient was found to be a mild degree of rhabdomyolysis. The liver function tests were also abnormal and the patient underwent an ultrasound of the liver that also raised the possibility of a portal vein thrombosis. Overnight, the patient got transferred to the intensive care unit as the patient became tachycardic with atrial fibrillation. She was given amiodarone and this was discontinued this morning by cardiology after patient had is up-to-date on the better control. She is currently on metoprolol in the milligrams by mouth daily and she is also on no Coumadin as the patient's PT/INR was supratherapeutic above 6. No nausea. No vomiting. No abdominal pain. No chest pain. She is still in atrial fibrillation at this point in time. No abdominal distention. Review of Systems Constitutional: Reports fatigue, Reports weakness Eyes: denies as per HPI, denies blurred vision, denies bulging eye, denies decreased vision, denies diplopia, denies discharge, denies dry eye, denies irritation, denies itching, denies pain, denies photophobia, denies loss of peripheral vision, denies loss of vision, denies tunnel vision/blind spots Ears: deny: decreased hearing, ear discharge, earache, tinnitus Ears, nose, mouth and throat: Denies headache, Denies sore throat Breasts: absent: as per HPI, change in shape, gynecomastia, masses, nipple discharge, pain, skin changes, swelling Cardiovascular: Reports decreased exercise tolerance, Reports dyspnea on exertion, Reports shortness of breath Respiratory: Reports dyspnea Gastrointestinal: Reports as per HPI Genitourinary: Reports as per HPI Menstruation: Reports as per HPI Musculoskeletal: Reports as per HPI, Reports frequent falls Musculoskeletal: absent: ankle pain, ankle stiffness, ankle swelling Integumentary: Reports as per HPI Neurological: Reports as per HPI, Reports weakness Psychiatric: Reports as per HPI Endocrine: Reports as per HPI, Reports fatigue Allergic/Immunologic: Reports as per HPI Past Medical History Past Medical History: Atrial Fibrillation, Heart Failure, Hyperlipidemia, Hypertension, Osteoarthritis (OA) Additional Past Medical History / Comment(s): pacemaker/AICD History of Any Multi-Drug Resistant Organisms: None Reported Past Surgical History: Bladder Surgery, Cardiac Ablation, Heart Catheterization, Hysterectomy Additional Past Surgical History / Comment(s): cardioversion, D & C, 08-21-13 DUAL CHAMBER A.I.C.D IMPLANTED Past Anesthesia/Blood Transfusion Reactions: No Reported Reaction Type of Cardiac Device: Permanent Pacemaker, AICD Device Placement Date:: 08-21-13 Past Psychological History: No Psychological Hx Reported Smoking Status: Former smoker Past Alcohol Use History: None Reported Additional Past Alcohol Use History / Comment(s): quit smoking 12-13 yrs ago ( 2007) Past Drug Use History: None Reported - Past Family History Mother Family Medical History: Cancer Sister(s) Family Medical History: No Reported History Medications and Allergies Home Medications Medication Instructions Recorded Confirmed Type Atorvastatin [Lipitor] 10 mg PO HS 08/20/13 10/24/19 History Meloxicam 15 mg PO DAILY PRN 08/20/13 10/24/19 History Spironolactone [Aldactone] 25 mg PO DAILY 08/20/13 10/24/19 History Warfarin [Coumadin] 5 mg PO SUTUTHSA@209909/24/19 10/24/19 History lisinopriL 20 mg PO HS 09/24/19 10/24/19 History Metoprolol Succinate (ER) [Toprol 100 mg PO DAILY #90 tab 09/27/19 10/24/19 Rx XL] Warfarin [Coumadin] 2.5 mg PO MOWEFR@209910/24/19 10/24/19 History Allergies Allergy/AdvReac Type Severity Reaction Status Date / Time dofetilide [From Tikosyn] Allergy Severe Unknown Verified 10/24/19 16:28 prolonged QT medications Allergy Severe Unknown Uncoded 10/24/19 16:28 Physical Exam Vitals: Vital Signs Temp Pulse Pulse Pulse Resp BP BP 10/25/19 10:00 62 17 115/54 10/25/19 09:00 97/45 10/25/19 08:00 99.0 F 65 20 113/56 10/25/19 07:17 70 10/25/19 07:03 68 10/25/19 07:00 64 23 99/60 10/25/19 06:00 65 20 117/54 10/25/19 05:00 64 14 111/68 10/25/19 04:00 99.3 F 65 20 112/48 10/25/19 03:00 64 36 H 98/47 10/25/19 02:00 99.7 F H 64 23 101/51 10/25/19 01:00 75 34 H 108/42 10/25/19 00:09 85 24 108/42 10/25/19 00:00 101.1 F H 89 32 H 109/57 10/24/19 23:00 100.9 F H 96 12 107/53 10/24/19 22:00 99 30 H 103/59 10/24/19 21:50 93 29 H 103/59 10/24/19 21:40 110 H 38 H 103/59 10/24/19 21:30 103 F H 101 H 32 H 130/67 10/24/19 21:20 108 H 37 H 130/67 10/24/19 21:10 102 H 24 130/67 10/24/19 21:00 109 H 40 H 135/56 10/24/19 20:12 152 H 110/74 10/24/19 20:00 100.9 F H 174 H 22 10/24/19 19:44 88 18 10/24/19 19:33 84 18 10/24/19 18:15 98.4 F 81 81 18 10/24/19 18:01 99.9 F H 84 18 117/88 10/24/19 17:29 99.1 F 10/24/19 17:23 89 18 135/88 10/24/19 15:48 98.9 F 90 18 154/81 10/24/19 14:09 91 18 134/74 10/24/19 12:44 97.3 F L 98 18 121/73 BP Pulse Ox 10/25/19 10:00 91 L 10/25/19 09:00 10/25/19 08:00 96 10/25/19 07:17 10/25/19 07:03 10/25/19 07:00 97 10/25/19 06:00 97 10/25/19 05:00 92 L 10/25/19 04:00 96 10/25/19 03:00 95 10/25/19 02:00 96 10/25/19 01:00 95 10/25/19 00:09 96 10/25/19 00:00 96 10/24/19 23:00 96 10/24/19 22:00 96 10/24/19 21:50 95 10/24/19 21:40 94 L 10/24/19 21:30 94 L 10/24/19 21:20 94 L 10/24/19 21:10 96 10/24/19 21:00 96 10/24/19 20:12 10/24/19 20:00 120/74 100 10/24/19 19:44 10/24/19 19:33 98 10/24/19 18:15 180/79 90 L 10/24/19 18:01 98 10/24/19 17:29 10/24/19 17:23 94 L 10/24/19 15:48 95 10/24/19 14:09 96 10/24/19 12:44 95 Intake and Output 10/24/19 10/25/19 10/25/19 22:59 06:59 14:59 Intake Total 230 1200 640 Output Total 115 120 Balance 230 1085 520 Intake: IV 150 1200 300 Sodium Chloride 0.9% 1, 150 1200 300 000 ml @ 75 mls/hr IV . [id number] ANUJA Rx#:[id number] Intake, IV Titration 100 Amount Magnesium Sulfate-D5w Pmx 100 1 gm In Dextrose/Water 1 100ml.bag @ 100 mls/hr IVPB Q1H ANUJA Rx#: [id number] Oral 80 240 Output: Urine 115 120 Other: Voiding Method Indwelling Catheter Indwelling Catheter # Voids 1 0 Weight 102.4 kg 102.4 kg Gen. appearance, comfortable no acute distress Head exam was generally normal. There was no scleral icterus or corneal arcus. Mucous membranes were moist. Neck was supple and without jugular venous distension, thyromegaly, or carotid bruits. Carotids were easily palpable bilaterally. There was no adenopathy. Lungs sounds are diminished bilaterally especially in lung bases Cardiac exam revealed the PMI to be normally situated and sized. The rhythm is irregular consistent with atrial fibrillation. There is no extrasystoles were noted during several minutes of auscultation. The first and second heart sounds were normal and physiologic splitting of the second heart sound was noted. There were no murmurs, rubs, clicks, or gallops. Abdominal exam revealed normal bowel sounds. The abdomen was soft, non-tender, and without masses, organomegaly, or appreciable enlargement of the abdominal aorta. Examination of the extremities revealed easily palpable radial, femoral and pedal pulses. There was no cyanosis, clubbing or edema. Examination of the skin revealed no evidence of significant rashes, suspicious appearing nevi or other concerning lesions. Neurologically, the patient is awake and alert and the patient does not have any focal neurological deficit. Cranial nerves are essentially intact. Results - Laboratory Findings CBC and BMP: 10/25/19 04:46 10/25/19 04:46 ABG ABG pH 7.38 (7.35-7.45) 10/24/19 21:05 ABG pCO2 31 mmHg (35-45) L 10/24/19 21:05 ABG pO2 387 mmHg (83-108) H 10/24/19 21:05 ABG O2 Saturation 99.6 % (94-97) H 10/24/19 21:05 PT/INR, D-dimer PT 63.6 sec (9.0-12.0) H 10/25/19 04:46 INR 6.3 (<1.2) H* 10/25/19 04:46 Abnormal lab findings: Abnormal Labs 10/24/19 10/24/19 10/24/19 15:07 15:07 15:07 WBC 18.6 H Hct 46.6 H Plt Count Neutrophils # 17.6 H Neutrophils # (Manual) Lymphocytes # 0.3 L Lymphocytes # (Manual) Metamyelocytes # (Man) PT 60.2 H INR 6.0 H* APTT 47.0 H ABG pCO2 ABG pO2 ABG HCO3 ABG O2 Saturation Sodium 135 L Carbon Dioxide BUN 24 H Creatinine Glucose 248 H POC Glucose (mg/dL) Plasma Lactic Acid Sammy Calcium Magnesium 1.4 L Total Bilirubin 6.5 H AST 216 H ALT 97 H Alkaline Phosphatase 816 H Creatine Kinase 4046 H* Total Protein Albumin Urine Appearance Urine Protein Urine Glucose (UA) Urine Ketones Urine Blood Urine Nitrite Urine Bilirubin Ur Leukocyte Esterase Urine RBC Urine WBC Amorphous Sediment Urine Bacteria Urine Mucus 10/24/19 10/24/19 10/24/19 15:07 15:47 18:38 WBC Hct Plt Count Neutrophils # Neutrophils # (Manual) Lymphocytes # Lymphocytes # (Manual) Metamyelocytes # (Man) PT INR APTT ABG pCO2 ABG pO2 ABG HCO3 ABG O2 Saturation Sodium Carbon Dioxide BUN Creatinine Glucose POC Glucose (mg/dL) Plasma Lactic Acid Sammy 3.0 H* 2.8 H* Calcium Magnesium Total Bilirubin AST ALT Alkaline Phosphatase Creatine Kinase Total Protein Albumin Urine Appearance Cloudy H Urine Protein 1+ H Urine Glucose (UA) Trace H Urine Ketones Trace H Urine Blood Large H Urine Nitrite Positive H Urine Bilirubin 2+ H Ur Leukocyte Esterase Moderate H Urine RBC 8 H Urine WBC 26 H Amorphous Sediment Rare H Urine Bacteria Moderate H Urine Mucus Rare H 10/24/19 10/24/19 10/24/19 19:51 20:10 20:10 WBC Hct Plt Count Neutrophils # Neutrophils # (Manual) Lymphocytes # Lymphocytes # (Manual) Metamyelocytes # (Man) PT INR APTT ABG pCO2 ABG pO2 ABG HCO3 ABG O2 Saturation Sodium 135 L Carbon Dioxide 19 L BUN 23 H Creatinine Glucose 236 H POC Glucose (mg/dL) 243 H Plasma Lactic Acid Sammy 4.0 H* Calcium Magnesium Total Bilirubin AST ALT Alkaline Phosphatase Creatine Kinase Total Protein Albumin Urine Appearance Urine Protein Urine Glucose (UA) Urine Ketones Urine Blood Urine Nitrite Urine Bilirubin Ur Leukocyte Esterase Urine RBC Urine WBC Amorphous Sediment Urine Bacteria Urine Mucus 10/24/19 10/24/19 10/24/19 20:43 21:05 23:40 WBC Hct Plt Count Neutrophils # Neutrophils # (Manual) Lymphocytes # Lymphocytes # (Manual) Metamyelocytes # (Man) PT INR APTT ABG pCO2 31 L ABG pO2 387 H ABG HCO3 18 L ABG O2 Saturation 99.6 H Sodium Carbon Dioxide BUN Creatinine Glucose POC Glucose (mg/dL) 235 H Plasma Lactic Acid Sammy 2.7 H* Calcium Magnesium Total Bilirubin AST ALT Alkaline Phosphatase Creatine Kinase Total Protein Albumin Urine Appearance Urine Protein Urine Glucose (UA) Urine Ketones Urine Blood Urine Nitrite Urine Bilirubin Ur Leukocyte Esterase Urine RBC Urine WBC Amorphous Sediment Urine Bacteria Urine Mucus 10/25/19 10/25/19 10/25/19 02:42 04:46 04:46 WBC 22.5 H Hct Plt Count 146 L Neutrophils # Neutrophils # (Manual) 20.70 H Lymphocytes # Lymphocytes # (Manual) 0.68 L Metamyelocytes # (Man) 0.23 H PT 63.6 H INR 6.3 H* APTT ABG pCO2 ABG pO2 ABG HCO3 ABG O2 Saturation Sodium Carbon Dioxide BUN Creatinine Glucose POC Glucose (mg/dL) Plasma Lactic Acid Sammy 2.1 H* Calcium Magnesium Total Bilirubin AST ALT Alkaline Phosphatase Creatine Kinase Total Protein Albumin Urine Appearance Urine Protein Urine Glucose (UA) Urine Ketones Urine Blood Urine Nitrite Urine Bilirubin Ur Leukocyte Esterase Urine RBC Urine WBC Amorphous Sediment Urine Bacteria Urine Mucus 10/25/19 10/25/19 04:46 06:02 WBC Hct Plt Count Neutrophils # Neutrophils # (Manual) Lymphocytes # Lymphocytes # (Manual) Metamyelocytes # (Man) PT INR APTT ABG pCO2 ABG pO2 ABG HCO3 ABG O2 Saturation Sodium 133 L Carbon Dioxide 20 L BUN 26 H Creatinine 1.23 H Glucose 262 H POC Glucose (mg/dL) 271 H Plasma Lactic Acid Sammy Calcium 8.1 L Magnesium Total Bilirubin 6.7 H AST 178 H ALT 90 H Alkaline Phosphatase 728 H Creatine Kinase 1439 H* Total Protein 5.5 L Albumin 2.8 L Urine Appearance Urine Protein Urine Glucose (UA) Urine Ketones Urine Blood Urine Nitrite Urine Bilirubin Ur Leukocyte Esterase Urine RBC Urine WBC Amorphous Sediment Urine Bacteria Urine Mucus - Diagnostic Findings Chest x-ray: image reviewed Assessment and Plan Plan: 1 fall without any significant skeletal injuries 2 mild rhabdomyolysis 3 portal vein thrombosis, will need further investigation. 4 nonischemic cardiomyopathy compensated at this point in time. 5 history of AICD placement or cardiomyopathy 6 chronic atrial fibrillation 7 supratherapeutic PT/INR without evidence of any bleed 8 hypertension 9 osteoarthritis Plan Hold Coumadin Give the patient to milligrams of vitamin K orally Repeat PT/INR CAT scan of the abdomen and pelvis with oral contrast and delayed images regarding the possibility of portal vein thrombosis Continue monitoring the renal function Gentle hydration with normal saline at rate of 75 mL's an hour Monitor CPK levels Discontinue the amiodarone and the patient is currently on oral metoprolol for rate control Dilaudid for pain control We'll continue following this patient ICU
[2019-10-25 13:05] LABS: Glucose,Whole Blood 318 mg/dL (75-99)
--- NOTE | 2019-10-25 16:47 | PN ---
PROGRESS NOTE DATE OF SERVICE: 10/25/2019 This 84-year-old woman who was admitted with a fall and acute rhabdomyolysis is being closely monitored at this time. The patient also had a fever with possible acute interstitial pneumonia. Multiple consultants are following the patient closely. The patient also had a 2D echo with Doppler which showed ejection fraction about 30% to 35%, indicating chronic systolic dysfunction. A CT scan of the abdomen and pelvis was also done which showed a patent non-dilated portal vein; no evidence of any clot was noted. Gallbladder had small stones and sludge and distended margin also. ERCP was recommended. Patient is being closely monitored at this time. The gallbladder ultrasound showed suspected portal thrombosis and lab-williamson the WBC is still elevated 22.5. INR is 6.3. Creatinine is 1.23, creatinine kinase 1439. The patient is on broad- spectrum IV antibiotics in the form of Zosyn. The culture which was ordered yesterday was negative so far. Past medical history reviewed. REVIEW OF SYSTEMS: CARDIOVASCULAR SYSTEM: No angina, palpitations. RESPIRATORY SYSTEM: As mentioned earlier. GI: As mentioned earlier. : No dysuria or retention. NERVOUS SYSTEM: No numbness, weakness. CURRENT MEDICATIONS: Reviewed. They include Tylenol, DuoNeb, Dilaudid, NovoLog, Toprol-XL, replacement protocol, Protonix, Zosyn. PHYSICAL EXAMINATION: Patient alert and oriented x2. Pulse 69, blood pressure 114/59, respiration 30, temperature normal, pulse ox 94% on 2 L. HEENT: Conjunctivae normal. Oral mucosa moist. NECK: No jugular venous distention. No carotid bruit. No lymph node enlargement. CARDIOVASCULAR SYSTEM: S1, S2 muffled. RESPIRATORY SYSTEM: Breath sounds diminished at the bases. No rhonchi. No crackles. ABDOMEN: Soft, non-tender. No mass palpable. LEGS: No edema. No swelling. NERVOUS SYSTEM: Diffusely weak. LABS: WBC 22.5. INR 6.3. Creatine kinase 1439. Hepatitis panel is negative. ASSESSMENT: 1. Fall and acute rhabdomyolysis. 2. Fever, possible acute bilateral interstitial pneumonia, possibly aspiration. Rule out COVID-19 with sepsis. 3. Increased white count. 4. Coagulopathy Coumadin. 5. Hyponatremia. 6. Diabetes mellitus, type 2. 7. Elevated plasma lactic acid secondary to sepsis. 8. Hypomagnesemia. 9. Hypobilirubinemia with acute hepatitis. 10.Possible cholelithiasis and common bile duct obstruction with a dilated bile duct without any evidence of portal vein thrombosis. 11.Increased creatine kinase with alkaline phosphatase. 12.Possible acute urinary tract infection, present on admission. 13.Atrial fibrillation, chronic. 14.Hypertension. 15.Pacemaker, automated implantable cardioverter defibrillator. 16.History of cardiac ablation. 17.History of cardioversion. 18.Remote history of nicotine dependence. 19.Obesity with body mass index of 35.4. 20.FULL CODE. RECOMMENDATIONS AND DISCUSSION: In this 84-year-old woman who presented with multiple complex medical issues, we will monitor the patient closely, continue the current medications, continue symptomatic treatment, continue with the broad-spectrum antibiotics. Closely follow with multiple consultants. Otherwise, repeat labs. I would also recommend gastroenterology surgical evaluation because of the CBD and other gallbladder issues. The prognosis is guarded because of multiple complex medical issues. Further recommendations to follow. MMODL / IJN: [id number] /
[2019-10-25 17:20] LABS: Glucose,Whole Blood 195 mg/dL (75-99)
[2019-10-25] MEDS: METOCLOPRAMIDE 5 MG/ML 2 ML VIAL IVP PRN (19:18)
[2019-10-25] MEDS: HYDROmorphone 0.5 MG/0.5 ML SYRINGE IVP PRN (19:42)
[2019-10-25 19:46] LABS: Glucose,Whole Blood 191 mg/dL (75-99)
[2019-10-26] MEDS: SODIUM CHLORIDE 0.9% 1,000 ML IV SCH ×2 (01:25→15:47)
[2019-10-26] MEDS: HYDROmorphone 0.5 MG/0.5 ML SYRINGE IVP PRN (03:59)
[2019-10-26] MEDS: PIPERACILLIN-TAZOBACTAM 3.375 GM in SODIUM CHLORIDE 0.9% 100 ML IVPB SCH ×3 (03:59→19:19)
[2019-10-26] MEDS: METOCLOPRAMIDE 5 MG/ML 2 ML VIAL IVP PRN (03:59)
[2019-10-26 05:06] LABS: INR 3.2 (<1.2); Prothrombin Time 31.5 sec (9.0-12.0)
[2019-10-26 05:19] LABS: Basophils % (A) 0 %; Eosinophils # (A) 0.1 k/uL (0-0.7); Eosinophils % (A) 1 %; HCT 43.4 % (34.0-46.0); HGB 13.4 gm/dL (11.4-16.0); Hypochromasia Slight; Lymphocytes # (A) 0.3 k/uL (1.0-4.8); Lymphocytes % (A) 3 %; MCV 93.8 fL (80.0-100.0); Mean Platelet Volume 9.1; Monocytes # (A) 0.4 k/uL (0-1.0); Monocytes % (A) 3 %; Neutrophils % (A) 91 %; Platelet Count 136 k/uL (150-450); RBC 4.63 m/uL (3.80-5.40); RDW 14.1 % (11.5-15.5)
[2019-10-26 05:36] LABS: Albumin 2.6 g/dL (3.5-5.0); Calcium 8.3 mg/dL (8.4-10.2); Magnesium 2.5 mg/dL (1.6-2.3); Potassium 3.9 mmol/L (3.5-5.1); Total Bilirubin 6.1 mg/dL (0.2-1.3); Total Protein 5.3 g/dL (6.3-8.2)
--- NOTE | 2019-10-26 07:27 | P.PN ---
Subjective Progress Note Date: 10/26/19 Principal diagnosis: Rhabdomyolysis This is a very pleasant 84-year-old male patient with a past medical history significant for nonischemic cardiomyopathy and status post AICD, long standing persistent atrial fibrillation on oral anticoagulation with Coumadin, who was admitted to the hospital for further evaluation and management of rhabdomyolysis. The patient was in her usual state of health until yesterday when she fell at home without losing her consciousness. She does not recall having any symptoms of dizziness or lightheadedness, heart racing or fluttering, or loss of consciousness. No symptoms of chest pain or chest discomfort. No fever or chills. No cough or sputum production. She was laying on the floor for several hours before she was able to call her son. Subsequently the patient was brought to the hospital for further evaluation. She was diagnosed with rhabdomyolysis. CK was more than 1000. Subsequently the patient was admitted to the intensive care unit and she was started on IV fluid. She was seen this morning. Overall she is feeling better. She remains asymptomatic from a cardiovascular standpoint of view. She remains in atrial fibrillation was controlled heart rate. Currently she is on amiodarone IV. She is on oral anticoagulation was Coumadin INR this morning is more than 6. I am going to decrease the dose of IV fluid to 75 mL per hour. We'll obtain a BNP. Please note that the chest x-ray yesterday showed no evidence of pulmonary vascular congestions with this morning did show mild pulmonary vascular congestions. The patient was seen today, October [id number]. Clinically she is doing better. Hemodynamically she is a stable was marginally low blood pressure. She is only on metoprolol which I would keep to control the heart rate in view of her long- standing persistent atrial fibrillation. The CK has came down. The INR is better as well. She underwent a CT of the abdomen which showed patent portal vein. From the cardiovascular standpoint overview, the patient can be transferred out of the ICU. I would continue the current medical regimen. Continue monitor the INR. And give the Coumadin based on the INR. Please note that the echo revealed impaired LV function was EF around 30-35%. Objective - Vital Signs Vital signs: Vital Signs Temp 97.9 F 10/26/19 04:00 Pulse 79 10/26/19 07:00 Resp 22 10/26/19 07:00 BP 110/88 10/26/19 07:00 Pulse Ox 91 L 10/26/19 07:00 Intake & Output 10/25/19 10/26/19 10/26/19 18:59 06:59 18:59 Intake Total 1340 1000 75 Output Total 370 645 Balance 970 355 75 Weight 103.1 kg Intake: IV 900 900 75 Sodium Chloride 0.9% 1, 900 900 75 000 ml @ 75 mls/hr IV . [id number] ANUJA Rx#:[id number] Intake, IV Titration 200 100 Amount Magnesium Sulfate-D5w Pmx 100 1 gm In Dextrose/Water 1 100ml.bag @ 100 mls/hr IVPB Q1H ANUJA Rx#: [id number] Piperacillin-Tazobactam 3 100 100 .375 gm In Sodium Chloride 0.9% 100 ml @ 25 mls/hr IVPB Q8H ANUJA Rx#: [id number] Oral 240 Output: Urine 370 645 Other: Voiding Method Indwelling Catheter Indwelling Catheter # Voids 0 - Constitutional General appearance: Present: no acute distress - Respiratory Respiratory: bilateral: diminished - Cardiovascular Rhythm: irregularly irregular Heart sounds: normal: S1, S2 - Labs CBC & Chem 7: 10/26/19 04:41 10/26/19 04:41 Labs: Abnormal Lab Results - Last 24 Hours (Table) 10/25/19 10/25/19 10/25/19 Range/Units 13:04 17:18 19:45 WBC (3.8-10.6) k/uL Plt Count (150-450) k/uL Neutrophils # (1.3-7.7) k/uL Lymphocytes # (1.0-4.8) k/uL PT (9.0-12.0) sec INR (<1.2) Sodium (137-145) mmol/L Carbon Dioxide (22-30) mmol/L BUN (7-17) mg/dL Glucose (74-99) mg/dL POC Glucose (mg/dL) 318 H 195 H 191 H (75-99) mg/dL Calcium (8.4-10.2) mg/dL Magnesium (1.6-2.3) mg/dL Total Bilirubin (0.2-1.3) mg/dL AST (14-36) U/L ALT (4-34) U/L Alkaline Phosphatase (38-126) U/L Creatine Kinase (30-135) U/L Total Protein (6.3-8.2) g/dL Albumin (3.5-5.0) g/dL 10/26/19 10/26/19 10/26/19 Range/Units 04:41 04:41 04:41 WBC 11.0 H (3.8-10.6) k/uL Plt Count 136 L (150-450) k/uL Neutrophils # 10.0 H (1.3-7.7) k/uL Lymphocytes # 0.3 L (1.0-4.8) k/uL PT 31.5 H (9.0-12.0) sec INR 3.2 H (<1.2) Sodium 135 L (137-145) mmol/L Carbon Dioxide 21 L (22-30) mmol/L BUN 32 H (7-17) mg/dL Glucose 118 H (74-99) mg/dL POC Glucose (mg/dL) (75-99) mg/dL Calcium 8.3 L (8.4-10.2) mg/dL Magnesium 2.5 H (1.6-2.3) mg/dL Total Bilirubin 6.1 H (0.2-1.3) mg/dL AST 216 H (14-36) U/L ALT 130 H (4-34) U/L Alkaline Phosphatase 671 H (38-126) U/L Creatine Kinase 381 H (30-135) U/L Total Protein 5.3 L (6.3-8.2) g/dL Albumin 2.6 L (3.5-5.0) g/dL Microbiology - Last 24 Hours (Table) 10/24/19 18:38 Blood Culture - Preliminary Blood No Growth after 24 hours 10/24/19 15:47 Urine Culture - Preliminary Urine,Catheterized Gram Neg Bacilli Assessment and Plan Assessment: Assessment #1 rhabdomyolysis #2 atrial fibrillation was controlled heart rate. The patient does have long- standing persistent atrial fibrillation #3 nonischemic cardiomyopathy and status post AICD #4 supratherapeutic INR #5 multiple comorbid conditions Plan #1 continue the current medical regimen #2 continue monitor the INR #3 continue the Coumadin #4 the patient can be transferred out of the ICU
[2019-10-26] MEDS: INSULIN ASPART (NovoLOG) 100 UNIT/ML VIAL SQ SCH ×4 (07:33→21:41)
[2019-10-26] MEDS: IPRATROPIUM-ALBUTEROL 3 ML NEB INHALATION SCH ×3 (07:38→19:51)
[2019-10-26] MEDS: PANTOPRAZOLE 40 MG/10 ML VIAL IVP SCH (09:25)
[2019-10-26] MEDS: METOPROLOL SUCCINATE (ER) 100 MG TAB.ER.24H PO SCH (09:25)
[2019-10-26 11:47] LABS: Glucose,Whole Blood 131 mg/dL (75-99)
--- NOTE | 2019-10-26 12:09 | P.PN ---
Subjective Progress Note Date: 10/26/19 84-year-old female patient was found on the floor as the patient tripped and she was unable to get herself up. She is known to have advanced cardiac disease, nonischemic artery myopathy was been followed up by Dr. Murray on outpatient basis. The patient has a AICD in place. She has a long history of persistent atrial fibrillation and she has limited articulation with warfarin. The patient denied having any loss in consciousness. She felt a week. She denies having any chest pain. No focal neurological deficit. No change in her speech. No headaches. No neck stiffness. No change in her vision. She stayed on the floor for several hours and her son picked her up and she was brought into the emergency room with the patient was found to be a mild degree of rhabdomyolysis. The liver function tests were also abnormal and the patient underwent an ultrasound of the liver that also raised the possibility of a portal vein thrombosis. Overnight, the patient got transferred to the intensive care unit as the patient became tachycardic with atrial fibrillation. She was given amiodarone and this was discontinued this morning by cardiology after patient had is up-to-date on the better control. She is currently on metoprolol in the milligrams by mouth daily and she is also on no Coumadin as the patient's PT/INR was supratherapeutic above 6. No nausea. No vomiting. No abdominal pain. No chest pain. She is still in atrial fibrillation at this point in time. No abdominal distention. 10/26/2019, the patient is doing well. No specific complaints. She has some abdominal tenderness patient the right upper quadrant. I repeated the CAT scan of the abdomen and pelvis and I reviewed the films. There is no evidence of any portal vein thrombosis. Nevertheless, there is dilatation of the intrahepatic and extrahepatic biliary ducts and dilation of the common bile duct. Gallbladde r is also distended and the weeks are thickened and the patient has sludge. There is also cholelithiasis. LFTs are normal including elevated bilirubin and the patient may have an obstructive pattern on the liver function tests. GI has been consulted for the possibility or the need of ERCP. The patient is on antibiotics. The patient is doing well and she has diminished appetite and she has been taken on a clear liquid diet. Room air pulse ox 95%. She remains on normal saline at the rate of 75 mL an hour. CPK has dropped and the patient is recovering from a rhabdomyolysis. No signs of any fluid overload. No signs of any respiratory distress. Awaiting a GI consultation for possible ERCP. Coagulopathy has been reversed after being given 2 mg of vitamin K and INR is down to 3.2. Objective - Vital Signs Vital signs: Vital Signs Temp 97.8 F 10/26/19 08:00 Pulse 80 10/26/19 11:00 Resp 17 10/26/19 11:00 BP 115/68 10/26/19 11:00 Pulse Ox 91 L 10/26/19 11:00 Intake & Output 10/25/19 10/26/19 10/26/19 18:59 06:59 18:59 Intake Total 1340 1000 375 Output Total 370 645 350 Balance 970 355 25 Weight 103.1 kg Intake: IV 900 900 375 Sodium Chloride 0.9% 1, 900 900 375 000 ml @ 75 mls/hr IV . [id number] ANUJA Rx#:[id number] Intake, IV Titration 200 100 Amount Magnesium Sulfate-D5w Pmx 100 1 gm In Dextrose/Water 1 100ml.bag @ 100 mls/hr IVPB Q1H ANUJA Rx#: [id number] Piperacillin-Tazobactam 3 100 100 .375 gm In Sodium Chloride 0.9% 100 ml @ 25 mls/hr IVPB Q8H ANUJA Rx#: [id number] Oral 240 Output: Urine 370 645 350 Other: Voiding Method Indwelling Catheter Indwelling Catheter Indwelling Catheter # Voids 0 - Exam Gen. appearance, comfortable no acute distress Head exam was generally normal. There was no scleral icterus or corneal arcus. Mucous membranes were moist. Neck was supple and without jugular venous distension, thyromegaly, or carotid bruits. Carotids were easily palpable bilaterally. There was no adenopathy. Lungs sounds are diminished bilaterally especially in lung bases Cardiac exam revealed the PMI to be normally situated and sized. The rhythm is irregular consistent with atrial fibrillation. There is no extrasystoles were noted during several minutes of auscultation. The first and second heart sounds were normal and physiologic splitting of the second heart sound was noted. There were no murmurs, rubs, clicks, or gallops. Abdominal exam revealed normal bowel sounds. The abdomen was soft, and without masses, organomegaly, or appreciable enlargement of the abdominal aorta. The patient has some tenderness in the right upper quadrant. Examination of the extremities revealed easily palpable radial, femoral and pedal pulses. There was no cyanosis, clubbing or edema. Examination of the skin revealed no evidence of significant rashes, suspicious appearing nevi or other concerning lesions. Neurologically, the patient is awake and alert and the patient does not have any focal neurological deficit. Cranial nerves are essentially intact. - Labs CBC & Chem 7: 10/26/19 04:41 10/26/19 04:41 Labs: Abnormal Lab Results - Last 24 Hours (Table) 10/25/19 10/25/19 10/25/19 Range/Units 13:04 17:18 19:45 WBC (3.8-10.6) k/uL Plt Count (150-450) k/uL Neutrophils # (1.3-7.7) k/uL Lymphocytes # (1.0-4.8) k/uL PT (9.0-12.0) sec INR (<1.2) Sodium (137-145) mmol/L Carbon Dioxide (22-30) mmol/L BUN (7-17) mg/dL Glucose (74-99) mg/dL POC Glucose (mg/dL) 318 H 195 H 191 H (75-99) mg/dL Calcium (8.4-10.2) mg/dL Magnesium (1.6-2.3) mg/dL Total Bilirubin (0.2-1.3) mg/dL AST (14-36) U/L ALT (4-34) U/L Alkaline Phosphatase (38-126) U/L Creatine Kinase (30-135) U/L Total Protein (6.3-8.2) g/dL Albumin (3.5-5.0) g/dL 10/26/19 10/26/19 10/26/19 Range/Units 04:41 04:41 04:41 WBC 11.0 H (3.8-10.6) k/uL Plt Count 136 L (150-450) k/uL Neutrophils # 10.0 H (1.3-7.7) k/uL Lymphocytes # 0.3 L (1.0-4.8) k/uL PT 31.5 H (9.0-12.0) sec INR 3.2 H (<1.2) Sodium 135 L (137-145) mmol/L Carbon Dioxide 21 L (22-30) mmol/L BUN 32 H (7-17) mg/dL Glucose 118 H (74-99) mg/dL POC Glucose (mg/dL) (75-99) mg/dL Calcium 8.3 L (8.4-10.2) mg/dL Magnesium 2.5 H (1.6-2.3) mg/dL Total Bilirubin 6.1 H (0.2-1.3) mg/dL AST 216 H (14-36) U/L ALT 130 H (4-34) U/L Alkaline Phosphatase 671 H (38-126) U/L Creatine Kinase 381 H (30-135) U/L Total Protein 5.3 L (6.3-8.2) g/dL Albumin 2.6 L (3.5-5.0) g/dL 10/26/19 Range/Units 11:46 WBC (3.8-10.6) k/uL Plt Count (150-450) k/uL Neutrophils # (1.3-7.7) k/uL Lymphocytes # (1.0-4.8) k/uL PT (9.0-12.0) sec INR (<1.2) Sodium (137-145) mmol/L Carbon Dioxide (22-30) mmol/L BUN (7-17) mg/dL Glucose (74-99) mg/dL POC Glucose (mg/dL) 131 H (75-99) mg/dL Calcium (8.4-10.2) mg/dL Magnesium (1.6-2.3) mg/dL Total Bilirubin (0.2-1.3) mg/dL AST (14-36) U/L ALT (4-34) U/L Alkaline Phosphatase (38-126) U/L Creatine Kinase (30-135) U/L Total Protein (6.3-8.2) g/dL Albumin (3.5-5.0) g/dL Microbiology - Last 24 Hours (Table) 10/24/19 18:38 Blood Culture - Preliminary Blood No Growth after 24 hours 10/24/19 15:47 Urine Culture - Preliminary Urine,Catheterized Gram Neg Bacilli Assessment and Plan Plan: 1 fall without any significant skeletal injuries 2 mild rhabdomyolysis, improving and the CPKs on the decline 3 obstructive jaundice with moderate to severe extrahepatic along with some mild intrahepatic biliary dilatation. There are gallstones and biliary sludge and possible obstruction of the common bile duct related to a stone at the level of the ampulla. GI consultation is pending. The patient does have some right upper quadrant tenderness.. 4 nonischemic cardiomyopathy compensated at this point in time. 5 history of AICD placement or cardiomyopathy 6 chronic atrial fibrillation 7 supratherapeutic PT/INR without evidence of any bleed, INR is down to 3 after being given vitamin K. 8 hypertension 9 osteoarthritis Plan Keep the Coumadin on Hold Coumadin Repeat PT/INR CAT scan of the abdomen and pelvis with oral contrast and delayed images showed no evidence of any portal vein thrombosis. The patient has dilatation of common bile duct with possible stone and the patient may need an ERCP and GI consultation has been placed. The patient is currently on IV Zosyn. Continue monitoring the renal function Gentle hydration with normal saline at rate of 75 mL's an hour CPK levels have been dropping and the patient's abnormal masses improving. Dilaudid for pain control We'll continue following this patient ICU
--- NOTE | 2019-10-26 14:05 | P.GSCN ---
History of Present Illness Consult date: 10/26/19 History of present illness: CHIEF COMPLAINT: abdominal pain HISTORY OF PRESENT ILLNESS: this is a 84-year-old female with a known history of atrial fibrillation anticoagulated with Coumadin, nonischemic cardiomyopathy with AICD, hyperlipidemia and hypertension. She initially presented to the hospital after having a fall in which she laid on the ground for several hours and was found to have evidence of rhabdomyolysis. she had no loss of consciousness. patient had elevated LFTs and then underwent ultrasound of the liver that also showed evidence of portal vein thrombosis. and no gallstones. However, patient did complain of right upper quadrant abdominal pain with nausea over the last couple of days after eating a [employer] sandwich. She is currently seen and examined in the ICU. She is in the ICU after having an episode of tachycardia with her atrial fibrillation. Cardiology is following closely. Patient denies any change in bowel movements. She denies any vomiting. Denies any fevers chills or sweats. Patient did have a fever of 101.1 yesterday mor joshua. PAST MEDICAL HISTORY: See list. PAST SURGICAL HISTORY: See list. MEDICATIONS: See list. ALLERGIES: See list. SOCIAL HISTORY: No illicit drug use. REVIEW OF SYSTEMS: CONSTITUTIONAL: Denies fever or chills. HEENT: Denies blurred vision, vision changes, or eye pain. Denies hemoptysis CARDIOVASCULAR: Denies chest pain or pressure. RESPIRATORY: No shortness of breath. GASTROINTESTINAL: See HPI for pertinent findings HEMATOLOGIC: Denies bleeding disorders. GENITOURINARY: Denies any blood in urine or increased urinary frequency. SKIN: Denies pruitis. Denies rash. PHYSICAL EXAM: VITAL SIGNS: Reviewed GENERAL: Well-developed in no acute distress. HEENT: No sclera icterus. Extraocular movements grossly intact. Moist buccal mucosa. Head is atraumatic, normocephalic. No nasal drainage. ABDOMEN: Soft. Nondistended. Tenderness with palpation to right upper quadrant NEUROLOGIC: Alert and oriented. Cranial nerves II through XII grossly intact. LABORATORY DATA: white count 22.5 down to 11, lactic acid 2.7 down to 1.7, INR 3.2, total bilirubin 6.5 down to 6.1, AST 216, ALT 1:30 alk phos 671 lipase normal at 101 IMAGING: computed tomography scan of the abdomen showing patent non-dilated portal vein. Moderate to severe extrahepatic with mild to moderate intrahepatic biliary dilation. Gallbladder has small stones and gallbladder sludge with distended margins. Consider obstructing CBD stone near ampulla. No pancreatic ductal dilation. ASSESSMENT: 1. Probable chronic cholecystitis 2. Nonischemic cardiomyopathy with history of AICD 3. Chronic atrial fibrillation anticoagulated with Coumadin 4. Rhabdomyolysis PLAN: 1. Anticipate laparoscopic cholecystectomy when patient is medically stable. Physician Bearingizer note has been reviewed by physician. Signing provider agrees with the documented findings, assessment, and plan of care. Past Medical History Past Medical History: Atrial Fibrillation, Heart Failure, Hyperlipidemia, Hypertension, Osteoarthritis (OA) Additional Past Medical History / Comment(s): pacemaker/AICD History of Any Multi-Drug Resistant Organisms: None Reported Past Surgical History: Bladder Surgery, Cardiac Ablation, Heart Catheterization, Hysterectomy Additional Past Surgical History / Comment(s): cardioversion, D & C, 08-21-13 DUAL CHAMBER A.I.C.D IMPLANTED Past Anesthesia/Blood Transfusion Reactions: No Reported Reaction Type of Cardiac Device: Permanent Pacemaker, AICD Device Placement Date:: 08-21-13 Past Psychological History: No Psychological Hx Reported Smoking Status: Former smoker Past Alcohol Use History: None Reported Additional Past Alcohol Use History / Comment(s): quit smoking 12-13 yrs ago (2007) Past Drug Use History: None Reported - Past Family History Mother Family Medical History: Cancer Sister(s) Family Medical History: No Reported History Medications and Allergies Home Medications Medication Instructions Recorded Confirmed Type Atorvastatin [Lipitor] 10 mg PO HS 08/20/13 10/24/19 History Meloxicam 15 mg PO DAILY PRN 08/20/13 10/24/19 History Spironolactone [Aldactone] 25 mg PO DAILY 08/20/13 10/24/19 History Warfarin [Coumadin] 5 mg PO SUTUTHSA@209909/24/19 10/24/19 History lisinopriL 20 mg PO HS 09/24/19 10/24/19 History Metoprolol Succinate (ER) [Toprol 100 mg PO DAILY #90 tab 09/27/19 10/24/19 Rx XL] Warfarin [Coumadin] 2.5 mg PO MOWEFR@209910/24/19 10/24/19 History Allergies Allergy/AdvReac Type Severity Reaction Status Date / Time dofetilide [From Tikosyn] Allergy Severe Unknown Verified 10/24/19 16:28 prolonged QT medications Allergy Severe Unknown Uncoded 10/24/19 16:28 Surgical - Exam Vital Signs Temp Pulse Resp BP Pulse Ox 97.3 F L 98 18 121/73 95 10/24/19 12:44 10/24/19 12:44 10/24/19 12:44 10/24/19 12:44 10/24/19 12:44 Results - Labs 10/26/19 04:41 10/26/19 04:41 Abnormal Lab Results - Last 24 Hours (Table) 10/25/19 10/25/19 10/26/19 Range/Units 17:18 19:45 04:41 WBC 11.0 H (3.8-10.6) k/uL Plt Count 136 L (150-450) k/uL Neutrophils # 10.0 H (1.3-7.7) k/uL Lymphocytes # 0.3 L (1.0-4.8) k/uL PT (9.0-12.0) sec INR (<1.2) Sodium (137-145) mmol/L Carbon Dioxide (22-30) mmol/L BUN (7-17) mg/dL Glucose (74-99) mg/dL POC Glucose (mg/dL) 195 H 191 H (75-99) mg/dL Calcium (8.4-10.2) mg/dL Magnesium (1.6-2.3) mg/dL Total Bilirubin (0.2-1.3) mg/dL AST (14-36) U/L ALT (4-34) U/L Alkaline Phosphatase (38-126) U/L Creatine Kinase (30-135) U/L Total Protein (6.3-8.2) g/dL Albumin (3.5-5.0) g/dL 10/26/19 10/26/19 10/26/19 Range/Units 04:41 04:41 11:46 WBC (3.8-10.6) k/uL Plt Count (150-450) k/uL Neutrophils # (1.3-7.7) k/uL Lymphocytes # (1.0-4.8) k/uL PT 31.5 H (9.0-12.0) sec INR 3.2 H (<1.2) Sodium 135 L (137-145) mmol/L Carbon Dioxide 21 L (22-30) mmol/L BUN 32 H (7-17) mg/dL Glucose 118 H (74-99) mg/dL POC Glucose (mg/dL) 131 H (75-99) mg/dL Calcium 8.3 L (8.4-10.2) mg/dL Magnesium 2.5 H (1.6-2.3) mg/dL Total Bilirubin 6.1 H (0.2-1.3) mg/dL AST 216 H (14-36) U/L ALT 130 H (4-34) U/L Alkaline Phosphatase 671 H (38-126) U/L Creatine Kinase 381 H (30-135) U/L Total Protein 5.3 L (6.3-8.2) g/dL Albumin 2.6 L (3.5-5.0) g/dL Microbiology - Last 24 Hours (Table) 10/24/19 18:38 Blood Culture - Preliminary Blood No Growth after 24 hours 10/24/19 15:47 Urine Culture - Preliminary Urine,Catheterized Gram Neg Bacilli Diabetes panel 10/26/19 Range/Units 04:41 Sodium 135 L (137-145) mmol/L Potassium 3.9 (3.5-5.1) mmol/L Chloride 105 (98-107) mmol/L Carbon Dioxide 21 L (22-30) mmol/L BUN 32 H (7-17) mg/dL Creatinine 1.04 (0.52-1.04) mg/dL Glucose 118 H (74-99) mg/dL Calcium 8.3 L (8.4-10.2) mg/dL AST 216 H (14-36) U/L ALT 130 H (4-34) U/L Alkaline Phosphatase 671 H (38-126) U/L Total Protein 5.3 L (6.3-8.2) g/dL Albumin 2.6 L (3.5-5.0) g/dL Calcium panel 10/26/19 Range/Units 04:41 Calcium 8.3 L (8.4-10.2) mg/dL Albumin 2.6 L (3.5-5.0) g/dL Pituitary panel 10/26/19 Range/Units 04:41 Sodium 135 L (137-145) mmol/L Potassium 3.9 (3.5-5.1) mmol/L Chloride 105 (98-107) mmol/L Carbon Dioxide 21 L (22-30) mmol/L BUN 32 H (7-17) mg/dL Creatinine 1.04 (0.52-1.04) mg/dL Glucose 118 H (74-99) mg/dL Calcium 8.3 L (8.4-10.2) mg/dL Adrenal panel 10/26/19 Range/Units 04:41 Sodium 135 L (137-145) mmol/L Potassium 3.9 (3.5-5.1) mmol/L Chloride 105 (98-107) mmol/L Carbon Dioxide 21 L (22-30) mmol/L BUN 32 H (7-17) mg/dL Creatinine 1.04 (0.52-1.04) mg/dL Glucose 118 H (74-99) mg/dL Calcium 8.3 L (8.4-10.2) mg/dL Total Bilirubin 6.1 H (0.2-1.3) mg/dL AST 216 H (14-36) U/L ALT 130 H (4-34) U/L Alkaline Phosphatase 671 H (38-126) U/L Total Protein 5.3 L (6.3-8.2) g/dL Albumin 2.6 L (3.5-5.0) g/dL
[2019-10-26] MEDS ORDERED: PHYTONADIONE 10 MG in SODIUM CHLORIDE 0.9% 50 ML IVPB STA (15:13)
--- NOTE | 2019-10-26 16:00 | PN ---
PROGRESS NOTE DATE OF SERVICE: 10/26/2019 This 84-year-old woman who was admitted with a fall and acute rhabdomyolysis also had a fever. The patient is being followed by multiple consultants, including Dr. Layne. There is no evidence of portal vein thrombosis at this time. Surgery has seen the patient and recommended laparoscopic cholecystectomy when the patient is stable. Patient is being closely monitored. Past medical history reviewed. REVIEW OF SYSTEMS: CARDIOVASCULAR SYSTEM: No angina, palpitations. RESPIRATORY SYSTEM: As mentioned earlier. GI: As mentioned earlier. : No dysuria or retention. NERVOUS SYSTEM: No numbness, weakness. CURRENT MEDICATIONS: Reviewed. They include: 1. Tylenol p.r.n. 2. [place] 5 mg. 3. DuoNeb q.i.d. and p.r.n. 4. Dilaudid. 5. NovoLog. 6. Reglan. 7. Toprol-XL. 8. Replacement protocol. 9. Protonix. 10.Zosyn. PHYSICAL EXAMINATION: Patient is alert, oriented x3. Pulse is 73, blood pressure 118/95, respiration 20, temperature 98.4, pulse ox 92% on room air. HEENT: Conjunctivae normal. NECK: No jugular venous distention. CARDIOVASCULAR SYSTEM: S1, S2 muffled. RESPIRATORY SYSTEM: Breath sounds diminished at the bases. No rhonchi. No crackles. ABDOMEN: Soft. Mild diffuse discomfort on palpation. LEGS: No edema. No swelling. NERVOUS SYSTEM: No focal deficit. LABS: WBC 11. Multiple abnormalities noted. INR is 3.2. Otherwise, magnesium is 2.5. Total bilirubin 6.1. AST is 216, ALT is 130. Creatine kinase is elevated at 671. Acute hepatitis panel is negative. ASSESSMENT: 1. Fall and acute rhabdomyolysis. 2. Fever; possible acute bilateral interstitial pneumonia, possibly aspiration. COVID- 19 ruled out. Possible sepsis. 3. Increased white count. 4. Coumadin coagulopathy. 5. Hyponatremia. 6. Elevated AST, ALT, possibly hepatitis secondary to sepsis. 7. Diabetes mellitus, type 2. 8. Elevated plasma lactic acid secondary to sepsis. 9. Hypomagnesemia. 10.Hyperbilirubinemia and acute hepatitis. 11.Possible cholelithiasis and common bile duct obstruction with dilated bile duct without any evidence of any portal vein thrombosis. 12.Possible chronic cholecystitis per Surgery. 13.Increased creatinine kinase with alkaline phosphatase. 14.Possible acute urinary tract infection, present on admission. 15.Atrial fibrillation, chronic. 16.Hypertension. 17.Pacemaker, AICD. 18.History of cardiac ablation. 19.History of cardioversion. 20.Remote history of nicotine dependence. 21.Obesity with body mass index of 35.4. 22.FULL CODE. RECOMMENDATIONS AND DISCUSSION: I recommend to continue current medications, continue with the monitoring, symptomatic treatment. Urine culture showed Gram-negative bacilli. I would recommend continuing with the empiric antibiotics, IV Zosyn. Continue the rest of the medications. Surgery evaluation appreciated. Continue with the cautious IV fluids. Repeat labs. Avoid hepatotoxic medications. Prognosis guarded because of multiple complex medical issues. Further recommendations to follow. Discussed with staff. The patient is being monitored in the ICU at this time. JULISSA / WENDY: [id number] /
[2019-10-26 17:45] LABS: Glucose,Whole Blood 150 mg/dL (75-99)
[2019-10-26] MEDS: HYDROcodone/APAP 5-325MG 1 EACH TAB PO PRN (19:56)
[2019-10-26 20:38] LABS: Prothrombin Time 19.3 sec (9.0-12.0)
[2019-10-26 21:39] LABS: Glucose,Whole Blood 137 mg/dL (75-99)
[2019-10-26] MEDS ORDERED: PHYTONADIONE 10 MG in SODIUM CHLORIDE 0.9% 50 ML IVPB ONE (22:00)
[2019-10-27] MEDS: PIPERACILLIN-TAZOBACTAM 3.375 GM in SODIUM CHLORIDE 0.9% 100 ML IVPB SCH ×3 (03:03→18:22)
[2019-10-27] MEDS: SODIUM CHLORIDE 0.9% 1,000 ML IV SCH (04:29)
[2019-10-27 04:47] LABS: Basophils % (A) 0 %; Eosinophils # (A) 0.1 k/uL (0-0.7); Eosinophils % (A) 1 %; HCT 40.6 % (34.0-46.0); HGB 12.4 gm/dL (11.4-16.0); Hypochromasia Moderate; Lymphocytes # (A) 0.4 k/uL (1.0-4.8); Lymphocytes % (A) 3 %; MCH 28.8 pg (25.0-35.0); MCHC 30.5 g/dL (31.0-37.0); MCV 94.5 fL (80.0-100.0); Mean Platelet Volume 9.3; Monocytes # (A) 0.3 k/uL (0-1.0); Monocytes % (A) 3 %; Neutrophils % (A) 91 %; Platelet Count 152 k/uL (150-450); RDW 14.3 % (11.5-15.5); WBC 12.1 k/uL (3.8-10.6)
[2019-10-27 04:55] LABS: INR 1.3 (<1.2); Prothrombin Time 12.6 sec (9.0-12.0)
[2019-10-27 04:57] LABS: Albumin 2.5 g/dL (3.5-5.0); Calcium 8.5 mg/dL (8.4-10.2); Potassium 4.1 mmol/L (3.5-5.1); Total Bilirubin 8.4 mg/dL (0.2-1.3); Total Protein 5.2 g/dL (6.3-8.2)
--- NOTE | 2019-10-27 06:23 | P.PN ---
Subjective Progress Note Date: 10/27/19 Principal diagnosis: Rhabdomyolysis This is a very pleasant 84-year-old male patient with a past medical history significant for nonischemic cardiomyopathy and status post AICD, long standing persistent atrial fibrillation on oral anticoagulation with Coumadin, who was admitted to the hospital for further evaluation and management of rhabdomyolysis. The patient was in her usual state of health until yesterday when she fell at home without losing her consciousness. She does not recall having any symptoms of dizziness or lightheadedness, heart racing or fluttering, or loss of consciousness. No symptoms of chest pain or chest discomfort. No fever or chills. No cough or sputum production. She was laying on the floor for several hours before she was able to call her son. Subsequently the patient was brought to the hospital for further evaluation. She was diagnosed with rhabdomyolysis. CK was more than 1000. Subsequently the patient was admitted to the intensive care unit and she was started on IV fluid. She was seen this morning. Overall she is feeling better. She remains asymptomatic from a cardiovascular standpoint of view. She remains in atrial fibrillation was controlled heart rate. Currently she is on amiodarone IV. She is on oral anticoagulation was Coumadin INR this morning is more than 6. I am going to decrease the dose of IV fluid to 75 mL per hour. We'll obtain a BNP. Please note that the chest x-ray yesterday showed no evidence of pulmonary vascular congestions with this morning did show mild pulmonary vascular congestions. The patient was seen today 10/27/2019. Clinically she denies any chest pain or chest discomfort but she does have some abdominal discomfort. She is in process of having ERCP later on today and for that reason the Coumadin is on hold. I advised to restart the patient on Coumadin as well as heparin as soon as finishing the ERCP because she is at high risk of stroke. The echo revealed impaired LV function was EF between 30-35%. She is in atrial fibrillation was controlled heart rate and sometimes paced rhythm. Objective - Vital Signs Vital signs: Vital Signs Temp 98.0 F 10/27/19 04:00 Pulse 74 10/27/19 06:00 Resp 18 10/27/19 06:00 BP 129/82 10/27/19 06:00 Pulse Ox 92 L 10/27/19 06:00 Intake & Output 10/26/19 10/26/19 10/27/19 06:59 18:59 06:59 Intake Total 1000 900 900 Output Total 645 680 550 Balance 355 220 350 Weight 103.1 kg 105.1 kg Intake: IV 900 900 900 Sodium Chloride 0.9% 1, 900 900 900 000 ml @ 75 mls/hr IV . [id number] COUNT INCLUDES THE [facility] Rx#:[id number] Intake, IV Titration 100 Amount Piperacillin-Tazobactam 3 100 .375 gm In Sodium Chloride 0.9% 100 ml @ 25 mls/hr IVPB Q8H ANU[facility] Rx#: [id number] Output: Urine 645 680 550 Other: Voiding Method Indwelling Catheter Indwelling Catheter Indwelling Catheter - Constitutional General appearance: Present: no acute distress - Respiratory Respiratory: bilateral: diminished - Cardiovascular Rhythm: irregularly irregular Heart sounds: normal: S1, S2 - Labs CBC & Chem 7: 10/27/19 04:23 10/27/19 04:23 Labs: Abnormal Lab Results - Last 24 Hours (Table) 10/26/19 10/26/19 10/26/19 Range/Units 11:46 17:42 20:05 WBC (3.8-10.6) k/uL MCHC (31.0-37.0) g/dL Neutrophils # (1.3-7.7) k/uL Lymphocytes # (1.0-4.8) k/uL PT 19.3 H (9.0-12.0) sec INR 2.0 H (<1.2) Sodium (137-145) mmol/L Carbon Dioxide (22-30) mmol/L BUN (7-17) mg/dL Glucose (74-99) mg/dL POC Glucose (mg/dL) 131 H 150 H (75-99) mg/dL Total Bilirubin (0.2-1.3) mg/dL AST (14-36) U/L ALT (4-34) U/L Alkaline Phosphatase (38-126) U/L Total Protein (6.3-8.2) g/dL Albumin (3.5-5.0) g/dL 10/26/19 10/27/19 10/27/19 Range/Units 21:36 04:23 04:23 WBC 12.1 H (3.8-10.6) k/uL MCHC 30.5 L (31.0-37.0) g/dL Neutrophils # 11.0 H (1.3-7.7) k/uL Lymphocytes # 0.4 L (1.0-4.8) k/uL PT 12.6 H (9.0-12.0) sec INR 1.3 H (<1.2) Sodium (137-145) mmol/L Carbon Dioxide (22-30) mmol/L BUN (7-17) mg/dL Glucose (74-99) mg/dL POC Glucose (mg/dL) 137 H (75-99) mg/dL Total Bilirubin (0.2-1.3) mg/dL AST (14-36) U/L ALT (4-34) U/L Alkaline Phosphatase (38-126) U/L Total Protein (6.3-8.2) g/dL Albumin (3.5-5.0) g/dL 10/27/19 Range/Units 04:23 WBC (3.8-10.6) k/uL MCHC (31.0-37.0) g/dL Neutrophils # (1.3-7.7) k/uL Lymphocytes # (1.0-4.8) k/uL PT (9.0-12.0) sec INR (<1.2) Sodium 136 L (137-145) mmol/L Carbon Dioxide 16 L (22-30) mmol/L BUN 33 H (7-17) mg/dL Glucose 135 H (74-99) mg/dL POC Glucose (mg/dL) (75-99) mg/dL Total Bilirubin 8.4 H (0.2-1.3) mg/dL AST 120 H (14-36) U/L ALT 107 H (4-34) U/L Alkaline Phosphatase 862 H (38-126) U/L Total Protein 5.2 L (6.3-8.2) g/dL Albumin 2.5 L (3.5-5.0) g/dL Microbiology - Last 24 Hours (Table) 10/24/19 15:47 Urine Culture - Final Urine,Catheterized Escherichia coli 10/24/19 18:38 Blood Culture - Preliminary Blood No Growth after 48 hours Assessment and Plan Assessment: Assessment #1 rhabdomyolysis #2 atrial fibrillation was controlled heart rate. The patient does have long- standing persistent atrial fibrillation #3 nonischemic cardiomyopathy and status post AICD #4 supratherapeutic INR #5 multiple comorbid conditions Plan #1 continue the current medical regimen #2 restart the patient back on Coumadin with heparin as soon as the ERCPs over #3 follow-up with the patient
[2019-10-27 07:08] LABS: Glucose,Whole Blood 141 mg/dL (75-99)
[2019-10-27] MEDS: INSULIN ASPART (NovoLOG) 100 UNIT/ML VIAL SQ SCH ×4 (07:11→22:52)
[2019-10-27] MEDS: IPRATROPIUM-ALBUTEROL 3 ML NEB INHALATION SCH ×3 (07:54→20:28)
[2019-10-27] MEDS: METOPROLOL SUCCINATE (ER) 100 MG TAB.ER.24H PO SCH (08:23)
[2019-10-27] MEDS: PANTOPRAZOLE 40 MG/10 ML VIAL IVP SCH (08:23)
[2019-10-27] MEDS ORDERED: INDOMETHACIN 50MG SUPPOSITORY RECTAL ONE ×2 (10:00→10:41)
[2019-10-27] MEDS ORDERED: SUCCINYLCHOLINE CHLORIDE 100 MG/5 ML SYR IV ONE (10:27)
[2019-10-27] MEDS ORDERED: fentaNYL (PF) 50 MCG/ML 2 ML AMP ONE (10:27)
[2019-10-27] MEDS ORDERED: LIDOCAINE 1% INJ 10MG/ML (20 ML MDV) ONE (10:27)
[2019-10-27] MEDS ORDERED: IV FLUID CONTINUATION 1,000 ML IV ONE (10:27)
[2019-10-27] MEDS ORDERED: PROPOFOL 10 MG/ML 20 ML VIAL IV ONE (10:27)
--- NOTE | 2019-10-27 10:36 | P.CONS ---
History of Present Illness - Reason for Consult Consult date: 10/26/19 Elevated bilirubin, dilated bile ducts Requesting physician: Ana Layne - Chief Complaint Mechanical fall - History of Present Illness 84-year-old pleasant female with medical history significant for nonischemic cardiomyopathy with AICD, hyperlipidemia, hypertension and known atrophic relation on anticoagulation therapy who presented to the hospital after a mechanical fall. She denies any loss of consciousness and is being treated for rhabdomyolysis. Patient was found to have elevation in her liver enzymes on presentation and underwent ultrasound of the liver with suggestion of possible portal vein thrombosis. The patient denied any right upper quadrant abdominal pain but did report some tenderness in that area as well as nausea over the past few days worse with eating. Currently the patient is being treated in the ICU where she is been started on broad-spectrum antibiotic therapy. Patient underwent further imaging with computed tomography scan of the abdomen showing a patent nondilated portal vein with intra-and extrahepatic biliary dilation. L aboratory evaluation was significant for total bilirubin 6.1, alkaline phosphatase 671, AST 2016 and ALT 130. Review of Systems REVIEW OF SYSTEMS: CONSTITUTIONAL: Denies any fevers, chills, weight change or fatigue, the patient did have fevers reported on presentation. CARDIOVASCULAR: Denies any chest pain, palpitations high or low blood pressures RESPIRATORY: Denies any shortness of breath, hemoptysis or cough. GENITOURINARY: No dysuria or hematuria. MUSCULOSKELETAL: No weakness reported. SKIN: Denies any new rashes or lesions, or pallor jaundice noted PSYCHIATRIC: Denies any depression or anxiety. NEUROLOGY: Denies headache, denies any new focal deficits. EARS/NOSE/THROAT: No recent hearing change, congestion, nasal discharge or sore throat. EYES: No pain in eyes, discharge or change in vision. GASTROINTESTINAL: As per HPI. Past Medical History Past Medical History: Atrial Fibrillation, Heart Failure, Hyperlipidemia, Hypertension, Osteoarthritis (OA) Additional Past Medical History / Comment(s): pacemaker/AICD History of Any Multi-Drug Resistant Organisms: None Reported Past Surgical History: Bladder Surgery, Cardiac Ablation, Heart Catheterization, Hysterectomy Additional Past Surgical History / Comment(s): cardioversion, D & C, 08-21-13 DUAL CHAMBER A.I.C.D IMPLANTED Past Anesthesia/Blood Transfusion Reactions: No Reported Reaction Type of Cardiac Device: Permanent Pacemaker, AICD Device Placement Date:: 6-3-14 Past Psychological History: No Psychological Hx Reported Smoking Status: Former smoker Past Alcohol Use History: None Reported Additional Past Alcohol Use History / Comment(s): quit smoking 12-13 yrs ago (2007) Past Drug Use History: None Reported - Past Family History Mother Family Medical History: Cancer Sister(s) Family Medical History: No Reported History Medications and Allergies Home Medications Medication Instructions Recorded Confirmed Type Atorvastatin [Lipitor] 10 mg PO HS 08/20/13 10/24/19 History Meloxicam 15 mg PO DAILY PRN 08/20/13 10/24/19 History Spironolactone [Aldactone] 25 mg PO DAILY 08/20/13 10/24/19 History Warfarin [Coumadin] 5 mg PO SUTUTHSA@209909/24/19 10/24/19 History lisinopriL 20 mg PO HS 09/24/19 10/24/19 History Metoprolol Succinate (ER) [Toprol 100 mg PO DAILY #90 tab 09/27/19 10/24/19 Rx XL] Warfarin [Coumadin] 2.5 mg PO MOWEFR@209910/24/19 10/24/19 History Allergies Allergy/AdvReac Type Severity Reaction Status Date / Time dofetilide [From Tikosyn] Allergy Severe Unknown Verified 10/24/19 16:28 prolonged QT medications Allergy Severe Unknown Uncoded 10/24/19 16:28 Physical Exam Vitals: Vital Signs Temp Pulse Resp BP Pulse Ox 10/26/19 18:00 86 18 108/87 93 L 10/26/19 17:00 69 21 116/79 93 L 10/26/19 16:00 98.2 F 77 23 112/47 93 L 10/26/19 15:00 71 27 H 98/57 94 L 10/26/19 14:00 79 25 H 112/79 91 L 10/26/19 13:00 80 33 H 126/71 91 L 10/26/19 12:00 98.4 F 73 28 H 118/95 92 L 10/26/19 11:00 80 17 115/68 91 L 10/26/19 10:00 81 16 122/78 92 L 10/26/19 09:00 80 27 H 104/82 94 L 10/26/19 08:00 97.8 F 81 15 135/73 91 L 10/26/19 07:00 79 22 110/88 91 L 10/26/19 06:00 82 13 98/50 90 L 10/26/19 05:00 85 26 H 122/69 88 L 10/26/19 04:00 97.9 F 81 24 106/68 92 L 10/26/19 03:00 71 21 119/73 92 L 10/26/19 02:00 69 23 117/68 92 L 10/26/19 01:00 82 17 112/71 93 L 10/26/19 00:03 75 18 112/71 91 L 10/26/19 00:00 98.4 F 71 18 115/55 91 L 10/25/19 23:00 64 16 103/71 90 L 10/25/19 22:00 70 17 110/64 92 L 10/25/19 21:00 72 16 116/57 91 L 10/25/19 20:00 97.7 F 73 16 125/80 89 L 10/25/19 19:00 73 29 H 107/78 94 L Intake and Output 10/26/19 10/26/19 10/26/19 06:59 14:59 22:59 Intake Total 600 600 300 Output Total 580 450 230 Balance 20 150 70 Intake: IV 600 600 300 Sodium Chloride 0.9% 1, 600 600 300 000 ml @ 75 mls/hr IV . [id number] [facility] Rx#:[id number] Output: Urine 580 450 230 Other: Voiding Method Indwelling Catheter Indwelling Catheter Indwelling Catheter Weight 103.1 kg On physical examination, patient appears comfortable in no apparent distress. HEAD: Normocephalic, atraumatic. EYES: Scleral icterus. No conjunctival injection. MOUTH: No lesions, tongue midline. NECK: Trachea midline, no gross abnormalities. CHEST: Decreased air entry in all lung garcia. HEART: S1-S2 appreciated. ABDOMEN: Soft, mildly distended tender to palpation in the right upper quadrant. Bowel sounds are positive. No organomegaly. No guarding or rigidity. EXTREMITIES: No pedal edema. SKIN: No rashes, jaundice. NEUROLOGIC: Alert and oriented x3. No focal deficits. Results CBC & Chem 7: 10/27/19 04:23 10/27/19 04:23 Labs: Abnormal Lab Results - Last 24 Hours (Table) 10/25/19 10/26/19 10/26/19 Range/Units 19:45 04:41 04:41 WBC 11.0 H (3.8-10.6) k/uL Plt Count 136 L (150-450) k/uL Neutrophils # 10.0 H (1.3-7.7) k/uL Lymphocytes # 0.3 L (1.0-4.8) k/uL PT 31.5 H (9.0-12.0) sec INR 3.2 H (<1.2) Sodium (137-145) mmol/L Carbon Dioxide (22-30) mmol/L BUN (7-17) mg/dL Glucose (74-99) mg/dL POC Glucose (mg/dL) 191 H (75-99) mg/dL Calcium (8.4-10.2) mg/dL Magnesium (1.6-2.3) mg/dL Total Bilirubin (0.2-1.3) mg/dL AST (14-36) U/L ALT (4-34) U/L Alkaline Phosphatase (38-126) U/L Creatine Kinase (30-135) U/L Total Protein (6.3-8.2) g/dL Albumin (3.5-5.0) g/dL 10/26/19 10/26/19 10/26/19 Range/Units 04:41 11:46 17:42 WBC (3.8-10.6) k/uL Plt Count (150-450) k/uL Neutrophils # (1.3-7.7) k/uL Lymphocytes # (1.0-4.8) k/uL PT (9.0-12.0) sec INR (<1.2) Sodium 135 L (137-145) mmol/L Carbon Dioxide 21 L (22-30) mmol/L BUN 32 H (7-17) mg/dL Glucose 118 H (74-99) mg/dL POC Glucose (mg/dL) 131 H 150 H (75-99) mg/dL Calcium 8.3 L (8.4-10.2) mg/dL Magnesium 2.5 H (1.6-2.3) mg/dL Total Bilirubin 6.1 H (0.2-1.3) mg/dL AST 216 H (14-36) U/L ALT 130 H (4-34) U/L Alkaline Phosphatase 671 H (38-126) U/L Creatine Kinase 381 H (30-135) U/L Total Protein 5.3 L (6.3-8.2) g/dL Albumin 2.6 L (3.5-5.0) g/dL Microbiology - Last 24 Hours (Table) 10/24/19 18:38 Blood Culture - Preliminary Blood No Growth after 24 hours 10/24/19 15:47 Urine Culture - Preliminary Urine,Catheterized Gram Neg Bacilli CT scan - abdomen: report reviewed (Computed tomography scan of the abdomen showing a patent nondilated portal vein with intra-and extrahepatic biliary dilation) Assessment and Plan (1) Dilated bile duct Narrative/Plan: 84-year-old female multiple medical comorbidities who presented to the hospital due to mechanical fall and was being treated in the ICU for abnormalities this. Patient had persistently elevated liver enzymes with total bilirubin 6.1, alkaline phosphatase 671, AST 2016 and ALT 130 with computed tomography scan of the abdomen performed in evaluation significant for dilated bile ducts. Concern is for possible biliary obstruction either from stricturing, external compr ession or biliary stone. Patient has AICD and has not candidate for MRCP. Current Visit: Yes Status: Acute Code(s): K83.8 - OTHER SPECIFIED DISEASES OF BILIARY TRACT SNOMED Code(s): 740562821 (2) Elevated liver enzymes Current Visit: Yes Status: Acute Code(s): R74.8 - ABNORMAL LEVELS OF OTHER SERUM ENZYMES SNOMED Code(s): 260636676 (3) Elevated bilirubin Current Visit: Yes Status: Acute Code(s): R17 - UNSPECIFIED JAUNDICE SNOMED Code(s): 62092078 (4) Rhabdomyolysis Current Visit: Yes Status: Acute Code(s): M62.82 - RHABDOMYOLYSIS SNOMED Code(s): 005007299 Plan: Supportive care Okay for diet Nothing by mouth after midnight Plan for ERCP for evaluation tomorrow All of the risks, benefits and possible palpitations of the procedure discussed with the patient at length with all of her questions answered to her satisfaction. Continue broad-spectrum antibiotic therapy Thank you for allowing us to participate in the care of the patient
--- NOTE | 2019-10-27 10:43 | P.PN ---
Subjective Progress Note Date: 10/27/19 Principal diagnosis: Biliary obstruction Patient denies pain. She does state it hurts when people examine her upper abdomen particularly on the right-hand side. White blood cell count 12.1, bilirubin 8.4, alk phos 862. Liver enzymes have increased. Scheduled for ERCP today. Objective - Vital Signs Vital signs: Vital Signs Temp 97.4 F L 10/27/19 08:00 Pulse 75 10/27/19 10:00 Resp 14 10/27/19 10:00 BP 132/87 10/27/19 10:00 Pulse Ox 94 L 10/27/19 10:00 Intake & Output 10/26/19 10/27/19 10/27/19 18:59 06:59 18:59 Intake Total 900 900 300 Output Total 680 550 190 Balance 220 350 110 Weight 105.1 kg Intake: IV 900 900 300 Sodium Chloride 0.9% 1, 900 900 300 000 ml @ 75 mls/hr IV . [id number] [facility] Rx#:[id number] Output: Urine 680 550 190 Other: Voiding Method Indwelling Catheter Indwelling Catheter Indwelling Catheter - Exam Abdomen: Soft, mild distention, mild right upper quadrant tenderness - Labs CBC & Chem 7: 10/27/19 04:23 10/27/19 04:23 Labs: Abnormal Lab Results - Last 24 Hours (Table) 10/26/19 10/26/19 10/26/19 Range/Units 11:46 17:42 20:05 WBC (3.8-10.6) k/uL MCHC (31.0-37.0) g/dL Neutrophils # (1.3-7.7) k/uL Lymphocytes # (1.0-4.8) k/uL PT 19.3 H (9.0-12.0) sec INR 2.0 H (<1.2) Sodium (137-145) mmol/L Carbon Dioxide (22-30) mmol/L BUN (7-17) mg/dL Glucose (74-99) mg/dL POC Glucose (mg/dL) 131 H 150 H (75-99) mg/dL Total Bilirubin (0.2-1.3) mg/dL AST (14-36) U/L ALT (4-34) U/L Alkaline Phosphatase (38-126) U/L Total Protein (6.3-8.2) g/dL Albumin (3.5-5.0) g/dL 10/26/19 10/27/19 10/27/19 Range/Units 21:36 04:23 04:23 WBC 12.1 H (3.8-10.6) k/uL MCHC 30.5 L (31.0-37.0) g/dL Neutrophils # 11.0 H (1.3-7.7) k/uL Lymphocytes # 0.4 L (1.0-4.8) k/uL PT 12.6 H (9.0-12.0) sec INR 1.3 H (<1.2) Sodium (137-145) mmol/L Carbon Dioxide (22-30) mmol/L BUN (7-17) mg/dL Glucose (74-99) mg/dL POC Glucose (mg/dL) 137 H (75-99) mg/dL Total Bilirubin (0.2-1.3) mg/dL AST (14-36) U/L ALT (4-34) U/L Alkaline Phosphatase (38-126) U/L Total Protein (6.3-8.2) g/dL Albumin (3.5-5.0) g/dL 10/27/19 10/27/19 Range/Units 04:23 07:06 WBC (3.8-10.6) k/uL MCHC (31.0-37.0) g/dL Neutrophils # (1.3-7.7) k/uL Lymphocytes # (1.0-4.8) k/uL PT (9.0-12.0) sec INR (<1.2) Sodium 136 L (137-145) mmol/L Carbon Dioxide 16 L (22-30) mmol/L BUN 33 H (7-17) mg/dL Glucose 135 H (74-99) mg/dL POC Glucose (mg/dL) 141 H (75-99) mg/dL Total Bilirubin 8.4 H (0.2-1.3) mg/dL AST 120 H (14-36) U/L ALT 107 H (4-34) U/L Alkaline Phosphatase 862 H (38-126) U/L Total Protein 5.2 L (6.3-8.2) g/dL Albumin 2.5 L (3.5-5.0) g/dL Microbiology - Last 24 Hours (Table) 10/24/19 15:47 Urine Culture - Final Urine,Catheterized Escherichia coli 10/24/19 18:38 Blood Culture - Preliminary Blood No Growth after 48 hours Assessment and Plan (1) Dilated bile duct Narrative/Plan: Await ERCP today. Continue antibiotics. Will follow. Current Visit: Yes Status: Acute Code(s): K83.8 - OTHER SPECIFIED DISEASES OF BILIARY TRACT SNOMED Code(s): 666002863
[2019-10-27] MEDS ORDERED: IOPAMIDOL-300 50ML BTL MISCELLANE ONE (11:00)
[2019-10-27] MEDS ORDERED: SODIUM CHLORIDE 0.9% 1,000 ML IV ONE ×2 (11:00→14:33)
[2019-10-27] MEDS: DEXTROSE 5% IN WATER 1,000 ML with SODIUM BICARB (1 MEQ/ML) 150 ML IV SCH (11:10)
--- NOTE | 2019-10-27 11:47 | P.PCN ---
Date of Procedure: 10/27/19 Description of Procedure: Brief history: 84-year-old pleasant female with medical history significant for nonischemic cardiomyopathy with AICD, hyperlipidemia, hypertension and known atrophic relation on anticoagulation therapy who presented to the hospital after a mechanical fall. She denies any loss of consciousness and is being treated for rhabdomyolysis. Patient was found to have elevation in her liver enzymes on presentation and underwent ultrasound of the liver with suggestion of possible portal vein thrombosis. The patient denied any right upper quadrant abdominal pain but did report some tenderness in that area as well as nausea over the past few days worse with eating. Currently the patient is being treated in the ICU where she is been started on broad-spectrum antibiotic therapy. Patient underwent further imaging with computed tomography scan of the abdomen showing a patent nondilated portal vein with intra-and extrahepatic biliary dilation. Laboratory evaluation was significant for total bilirubin 6.1, alkaline phosphatase 671, AST 216 and ALT 130. Procedure performed: ERCP with cholangiogram, and biliary stent placement Preoperative diagnoses: Elevated bilirubin, abnormal computed tomography scan abdomen, elevated liver enzymes, suspected choledocholithiasis, CBD dilation IV sedation per anesthesia Estimated blood loss: Minimal. Procedure: After informed consent was obtained from the patient and after the risks benefits and complications including bleeding perforation and pancreatitis explained in detail the patient was brought into the endoscopy unit. The patient was placed in prone position and IV conscious sedation was administered by anesthesia under continuous monitoring. The Olympus side-viewing duodenoscope was then inserted into the mouth and esophagus intubated without any difficulty. The scope was gradually advanced into the stomach and duodenum. The major papilla was identified with some technical difficulty as the ampulla was located in a diverticulum. The common duct bile duct was able to be cannulated with a sphincterotome and wire passed into the CBD. Cholangiogram was performed and significant for a diffusely dilated CBD with smooth tapering of the CBD before the ampulla. There did appear to be filling defects suggestive of choledocholithiasis. Given the difficult position and sphincterotomy was not performed and the sphincterotome was exchanged over the wire for a 7 cm 5-Chinese double pigtail stent which was placed in the CBD. The patient tolerated the procedure well. The pancreatic duct was not cannulated or injected. Impression: Ampulla with a diverticular relationship. Diffuse CBD dilation with tapering in the distal CBD and filling defect suggestive of choledocholithiasis. ERCP with cholangiogram and placement of a double pigtail biliary plastic stent. Recommendations: The findings of this examination were discussed with the patient. Okay for diet. Continue respiratory antibiotic therapy. Continue other medical management. Patient sent back to the ICU for continued care. Patient will need referral to tertiary center for ERCP and possible EUS after discharge.
--- NOTE | 2019-10-27 11:51 | FL ---
EXAMINATION TYPE: FL ERCP HISTORY: Fluoroscopy time Impression: 1. Fluoroscopy support provided to the referring physician. 8 Seconds provided.
[2019-10-27 12:10] LABS: Glucose,Whole Blood 154 mg/dL (75-99)
--- NOTE | 2019-10-27 12:10 | P.PN ---
Subjective Progress Note Date: 10/27/19 84-year-old female patient was found on the floor as the patient tripped and she was unable to get herself up. She is known to have advanced cardiac disease, nonischemic artery myopathy was been followed up by Dr. Murray on outpatient basis. The patient has a AICD in place. She has a long history of persistent atrial fibrillation and she has limited articulation with warfarin. The patient denied having any loss in consciousness. She felt a week. She denies having any chest pain. No focal neurological deficit. No change in her speech. No headaches. No neck stiffness. No change in her vision. She stayed on the floor for several hours and her son picked her up and she was brought into the emergency room with the patient was found to be a mild degree of rhabdomyolysis. The liver function tests were also abnormal and the patient underwent an ultrasound of the liver that also raised the possibility of a portal vein thrombosis. Overnight, the patient got transferred to the intensive care unit as the patient became tachycardic with atrial fibrillation. She was given amiodarone and this was discontinued this morning by cardiology after patient had is up-to-date on the better control. She is currently on metoprolol in the milligrams by mouth daily and she is also on no Coumadin as the patient's PT/INR was supratherapeutic above 6. No nausea. No vomiting. No abdominal pain. No chest pain. She is still in atrial fibrillation at this point in time. No abdominal distention. 10/26/2019, the patient is doing well. No specific complaints. She has some abdominal tenderness patient the right upper quadrant. I repeated the CAT scan of the abdomen and pelvis and I reviewed the films. There is no evidence of any portal vein thrombosis. Nevertheless, there is dilatation of the intrahepatic and extrahepatic biliary ducts and dilation of the common bile duct. Gallbladde r is also distended and the weeks are thickened and the patient has sludge. There is also cholelithiasis. LFTs are normal including elevated bilirubin and the patient may have an obstructive pattern on the liver function tests. GI has been consulted for the possibility or the need of ERCP. The patient is on antibiotics. The patient is doing well and she has diminished appetite and she has been taken on a clear liquid diet. Room air pulse ox 95%. She remains on normal saline at the rate of 75 mL an hour. CPK has dropped and the patient is recovering from a rhabdomyolysis. No signs of any fluid overload. No signs of any respiratory distress. Awaiting a GI consultation for possible ERCP. Coagulopathy has been reversed after being given 2 mg of vitamin K and INR is down to 3.2. 10/27/2019, the patient is on room air oxygen. No respiratory difficulties. She still having some abdominal tenderness specifically in the right upper quadrant area. Bilirubin is on the rise. She has jaundice. Her total bilirubin is at 8.4. AST is 120. ALT is 107. Alkaline phosphatase is 862. Total protein is at 5.2 with a albumin level of 2.5. INR is down to 1.3. The patient will be undergoing an ERCP this morning. The patient is on empiric antibiotic coverage with IV Zosyn. The patient is nothing by mouth awaiting her ERCP. The patient also is normal saline and the serum bicarb is down to 16 and the patient will be. Sodium bicarb infusion. No other significant events otherwise for now. She was given vitamin K which further improved her coagulopathy. Objective - Vital Signs Vital signs: Vital Signs Temp 97.4 F L 10/27/19 08:00 Pulse 75 10/27/19 10:00 Resp 14 10/27/19 10:00 BP 132/87 10/27/19 10:00 Pulse Ox 94 L 10/27/19 10:00 Intake & Output 10/26/19 10/27/19 10/27/19 18:59 06:59 18:59 Intake Total 590 327 7365 Output Total 680 550 190 Balance 873 316 8717 Weight 105.1 kg 105.1 kg Intake: IV 490 557 7658 Sodium Chloride 0.9% 1, 900 900 300 000 ml @ 75 mls/hr IV . [id number] [facility] Rx#:[id number] Output: Urine 680 550 190 Other: Voiding Method Indwelling Catheter Indwelling Catheter Indwelling Catheter - Exam Gen. appearance, comfortable no acute distress Head exam was generally normal. There was no scleral icterus or corneal arcus. Mucous membranes were moist. Neck was supple and without jugular venous distension, thyromegaly, or carotid bruits. Carotids were easily palpable bilaterally. There was no adenopathy. Lungs sounds are diminished bilaterally especially in lung bases Cardiac exam revealed the PMI to be normally situated and sized. The rhythm is irregular consistent with atrial fibrillation. There is no extrasystoles were noted during several minutes of auscultation. The first and second heart sounds were normal and physiologic splitting of the second heart sound was noted. There were no murmurs, rubs, clicks, or gallops. Abdominal exam revealed normal bowel sounds. The abdomen was soft, and without masses, organomegaly, or appreciable enlargement of the abdominal aorta. The patient has some tenderness in the right upper quadrant. Examination of the extremities revealed easily palpable radial, femoral and pedal pulses. There was no cyanosis, clubbing or edema. Examination of the skin revealed no evidence of significant rashes, suspicious appearing nevi or other concerning lesions. Neurologically, the patient is awake and alert and the patient does not have any focal neurological deficit. Cranial nerves are essentially intact. - Labs CBC & Chem 7: 10/27/19 04:23 10/27/19 04:23 Labs: Abnormal Lab Results - Last 24 Hours (Table) 10/26/19 10/26/19 10/26/19 Range/Units 17:42 20:05 21:36 WBC (3.8-10.6) k/uL MCHC (31.0-37.0) g/dL Neutrophils # (1.3-7.7) k/uL Lymphocytes # (1.0-4.8) k/uL PT 19.3 H (9.0-12.0) sec INR 2.0 H (<1.2) Sodium (137-145) mmol/L Carbon Dioxide (22-30) mmol/L BUN (7-17) mg/dL Glucose (74-99) mg/dL POC Glucose (mg/dL) 150 H 137 H (75-99) mg/dL Total Bilirubin (0.2-1.3) mg/dL AST (14-36) U/L ALT (4-34) U/L Alkaline Phosphatase (38-126) U/L Total Protein (6.3-8.2) g/dL Albumin (3.5-5.0) g/dL 10/27/19 10/27/19 10/27/19 Range/Units 04:23 04:23 04:23 WBC 12.1 H (3.8-10.6) k/uL MCHC 30.5 L (31.0-37.0) g/dL Neutrophils # 11.0 H (1.3-7.7) k/uL Lymphocytes # 0.4 L (1.0-4.8) k/uL PT 12.6 H (9.0-12.0) sec INR 1.3 H (<1.2) Sodium 136 L (137-145) mmol/L Carbon Dioxide 16 L (22-30) mmol/L BUN 33 H (7-17) mg/dL Glucose 135 H (74-99) mg/dL POC Glucose (mg/dL) (75-99) mg/dL Total Bilirubin 8.4 H (0.2-1.3) mg/dL AST 120 H (14-36) U/L ALT 107 H (4-34) U/L Alkaline Phosphatase 862 H (38-126) U/L Total Protein 5.2 L (6.3-8.2) g/dL Albumin 2.5 L (3.5-5.0) g/dL 10/27/19 Range/Units 07:06 WBC (3.8-10.6) k/uL MCHC (31.0-37.0) g/dL Neutrophils # (1.3-7.7) k/uL Lymphocytes # (1.0-4.8) k/uL PT (9.0-12.0) sec INR (<1.2) Sodium (137-145) mmol/L Carbon Dioxide (22-30) mmol/L BUN (7-17) mg/dL Glucose (74-99) mg/dL POC Glucose (mg/dL) 141 H (75-99) mg/dL Total Bilirubin (0.2-1.3) mg/dL AST (14-36) U/L ALT (4-34) U/L Alkaline Phosphatase (38-126) U/L Total Protein (6.3-8.2) g/dL Albumin (3.5-5.0) g/dL Microbiology - Last 24 Hours (Table) 10/24/19 15:47 Urine Culture - Final Urine,Catheterized Escherichia coli 10/24/19 18:38 Blood Culture - Preliminary Blood No Growth after 48 hours Assessment and Plan Plan: 1 fall without any significant skeletal injuries 2 mild rhabdomyolysis, improving and the CPKs on the decline, and CPK has essentially normalized 3 obstructive jaundice with moderate to severe extrahepatic along with some mild intrahepatic biliary dilatation. There are gallstones and biliary sludge and possible obstruction of the common bile duct related to a stone at the level of the ampulla. GI consultation is pending. The patient does have some right upper quadrant tenderness.. The patient is an On IV Zosyn. The patient will be taken for ERCP today. 4 nonischemic cardiomyopathy compensated at this point in time. 5 history of AICD placement or cardiomyopathy 6 chronic atrial fibrillation, rate is controlled and the patient is on no anticoagulants for now 7 supratherapeutic PT/INR, treated in the patient's INR is down to 1.3 awaiting ERCP 8 hypertension 9 osteoarthritis 10 non-anion gap metabolic acidosis Plan Switch this patient to a bicarb infusion at the rate of 75 mL an hour Keep the Coumadin on hold ERCP today Possible intubation and mechanical ventilation at time of the procedure Continue IV Zosyn Switch this patient a bicarb infusion GI is on the case General surgeries on the case We'll continue to follow
[2019-10-27 16:51] LABS: Glucose,Whole Blood 173 mg/dL (75-99)
[2019-10-27 22:49] LABS: Glucose,Whole Blood 209 mg/dL (75-99)
[2019-10-28] MEDS: DEXTROSE 5% IN WATER 1,000 ML with SODIUM BICARB (1 MEQ/ML) 150 ML IV SCH ×2 (01:39→17:08)
[2019-10-28] MEDS: PIPERACILLIN-TAZOBACTAM 3.375 GM in SODIUM CHLORIDE 0.9% 100 ML IVPB SCH ×3 (03:16→18:51)
[2019-10-28 04:32] LABS: Basophils % (A) 0 %; Eosinophils # (A) 0.1 k/uL (0-0.7); Eosinophils % (A) 1 %; HCT 40.5 % (34.0-46.0); HGB 12.3 gm/dL (11.4-16.0); Hypochromasia Marked; Lymphocytes # (A) 0.5 k/uL (1.0-4.8); Lymphocytes % (A) 5 %; MCHC 30.4 g/dL (31.0-37.0); MCV 95.2 fL (80.0-100.0); Mean Platelet Volume 8.9; Monocytes # (A) 0.4 k/uL (0-1.0); Monocytes % (A) 4 %; Neutrophils # (A) 7.5 k/uL (1.3-7.7); Neutrophils % (A) 88 %; Platelet Count 138 k/uL (150-450); RBC 4.25 m/uL (3.80-5.40); RDW 13.9 % (11.5-15.5); WBC 8.6 k/uL (3.8-10.6)
[2019-10-28 04:55] LABS: Calcium 7.9 mg/dL (8.4-10.2); Potassium 3.6 mmol/L (3.5-5.1)
[2019-10-28] MEDS: HYDROmorphone 0.5 MG/0.5 ML SYRINGE IVP PRN (06:12)
[2019-10-28 06:32] LABS: Glucose,Whole Blood 211 mg/dL (75-99)
[2019-10-28] MEDS: INSULIN ASPART (NovoLOG) 100 UNIT/ML VIAL SQ SCH ×4 (06:38→20:14)
[2019-10-28] MEDS ORDERED: Potassium Replacement Protocol 1 EACH MISC MISCELLANE PRN (06:47)
--- NOTE | 2019-10-28 06:54 | P.PN ---
Subjective Progress Note Date: 10/28/19 Principal diagnosis: Rhabdomyolysis This is a very pleasant 84-year-old male patient with a past medical history significant for nonischemic cardiomyopathy and status post AICD, long standing persistent atrial fibrillation on oral anticoagulation with Coumadin, who was admitted to the hospital for further evaluation and management of rhabdomyolysis. The patient was in her usual state of health until yesterday when she fell at home without losing her consciousness. She does not recall having any symptoms of dizziness or lightheadedness, heart racing or fluttering, or loss of consciousness. No symptoms of chest pain or chest discomfort. No fever or chills. No cough or sputum production. She was laying on the floor for several hours before she was able to call her son. Subsequently the patient was brought to the hospital for further evaluation. She was diagnosed with rhabdomyolysis. CK was more than 1000. Subsequently the patient was admitted to the intensive care unit and she was started on IV fluid. She was experiencing abdominal discomfort and ultrasound of the liver was performed and revealed common bile duct dilatation. The patient was seen today October [id number]. She is feeling better indeterminable of abdominal discomfort. No chest pain or chest discomfort. No shortness of breath at this point. She underwent yesterday an ERCP and placeme nt of stent in the common bile duct for "a filling defect grossing narrowing in the common bile duct". I am going to restart the patient back on Coumadin and giving the patient 5 mg of Coumadin today and continue monitoring the INR. Otherwise he with intermittent she continues to be in atrial fibrillation was controlled heart rate. She is hemodynamic is stable as well in terms off of pressure. Objective - Vital Signs Vital signs: Vital Signs Temp 97.7 F 10/28/19 00:00 Pulse 90 10/28/19 06:00 Resp 16 10/28/19 06:00 BP 113/51 10/28/19 06:00 Pulse Ox 96 10/28/19 06:00 Intake & Output 10/27/19 10/27/19 10/28/19 06:59 18:59 06:59 Intake Total 900 2975 840 Output Total 550 315 225 Balance 350 2660 615 Weight 105.1 kg 105.1 kg 107.5 kg Intake: IV 900 1350 Sodium Chloride 0.9% 1, 900 300 000 ml @ 75 mls/hr IV . [id number] [facility] Rx#:[id number] Intake, IV Titration 1625 840 Amount Dextrose 5% in Water 1, 525 765 000 ml @ 75 mls/hr IV . [id number] [facility] with Sodium Bicarb (1 Meq/ml) 150 ml Rx#:[id number] Piperacillin-Tazobactam 3 100 .375 gm In Sodium Chloride 0.9% 100 ml @ 25 mls/hr IVPB Q8H [facility] Rx#: [id number] Sodium Chloride 0.9% 1, 1000 75 000 ml @ 999 mls/hr IV . Q1H1M [facility] Rx#:[id number] Output: Urine 550 315 225 Other: Voiding Method Indwelling Catheter Indwelling Catheter Indwelling Catheter - Constitutional General appearance: Present: no acute distress - Respiratory Respiratory: bilateral: diminished - Cardiovascular Rhythm: irregularly irregular Heart sounds: normal: S1, S2 - Labs CBC & Chem 7: 10/28/19 03:46 10/28/19 03:46 Labs: Abnormal Lab Results - Last 24 Hours (Table) 10/27/19 10/27/19 10/27/19 Range/Units 07:06 12:09 16:49 MCHC (31.0-37.0) g/dL Plt Count (150-450) k/uL Lymphocytes # (1.0-4.8) k/uL Sodium (137-145) mmol/L BUN (7-17) mg/dL Glucose (74-99) mg/dL POC Glucose (mg/dL) 141 H 154 H 173 H (75-99) mg/dL Calcium (8.4-10.2) mg/dL 10/27/19 10/28/19 10/28/19 Range/Units 22:47 03:46 03:46 MCHC 30.4 L (31.0-37.0) g/dL Plt Count 138 L (150-450) k/uL Lymphocytes # 0.5 L (1.0-4.8) k/uL Sodium 136 L (137-145) mmol/L BUN 38 H (7-17) mg/dL Glucose 205 H (74-99) mg/dL POC Glucose (mg/dL) 209 H (75-99) mg/dL Calcium 7.9 L (8.4-10.2) mg/dL 10/28/19 Range/Units 06:30 MCHC (31.0-37.0) g/dL Plt Count (150-450) k/uL Lymphocytes # (1.0-4.8) k/uL Sodium (137-145) mmol/L BUN (7-17) mg/dL Glucose (74-99) mg/dL POC Glucose (mg/dL) 211 H (75-99) mg/dL Calcium (8.4-10.2) mg/dL Microbiology - Last 24 Hours (Table) 10/24/19 18:38 Blood Culture - Preliminary Blood No Growth after 72 hours Assessment and Plan Assessment: Assessment #1 rhabdomyolysis #2 atrial fibrillation was controlled heart rate. The patient does have long-s tanding persistent atrial fibrillation #3 nonischemic cardiomyopathy and status post AICD #4 supratherapeutic INR #5 status post common bile duct stenting Plan #1 continue the current medical regimen #2 restart the patient on Coumadin #3 follow-up with the patient
[2019-10-28] MEDS ORDERED: POTASSIUM CHLORIDE ER 20 MEQ TAB.ER PO SCH (07:00)
[2019-10-28] MEDS: IPRATROPIUM-ALBUTEROL 3 ML NEB INHALATION SCH ×3 (07:33→19:23)
[2019-10-28] MEDS: METOPROLOL SUCCINATE (ER) 100 MG TAB.ER.24H PO SCH (08:04)
[2019-10-28] MEDS: PANTOPRAZOLE 40 MG/10 ML VIAL IVP SCH (08:04)
[2019-10-28 09:33] LABS: Prothrombin Time 10.3 sec (9.0-12.0)
[2019-10-28 10:44] LABS: Albumin 2.4 g/dL (3.5-5.0); Bilirubin, Conjugated 3.5 mg/dL (0.0-0.3); Bilirubin,Unconjugated 1.2 mg/dL (0.0-1.1); Total Bilirubin 6.7 mg/dL (0.2-1.3); Total Protein 4.9 g/dL (6.3-8.2)
--- NOTE | 2019-10-28 11:01 | P.PN ---
Subjective Progress Note Date: 10/28/19 Principal diagnosis: Biliary obstruction Patient doing well today. Says her pain is improved. Bilirubin down to 6. ERCP results noted. Stent was placed. Probable stone distal CBD. Objective - Vital Signs Vital signs: Vital Signs Temp 97.5 F L 10/28/19 08:00 Pulse 89 10/28/19 10:00 Resp 12 10/28/19 10:00 BP 99/60 10/28/19 10:00 Pulse Ox 95 10/28/19 10:00 Intake & Output 10/27/19 10/28/19 10/28/19 18:59 06:59 18:59 Intake Total 2975 840 150 Output Total 315 225 40 Balance 2660 615 110 Weight 105.1 kg 107.5 kg Intake: IV 1350 Sodium Chloride 0.9% 1, 300 000 ml @ 75 mls/hr IV . [id number] [facility] Rx#:[id number] Intake, IV Titration 1625 840 150 Amount Dextrose 5% in Water 1, 525 765 150 000 ml @ 75 mls/hr IV . [id number] [facility] with Sodium Bicarb (1 Meq/ml) 150 ml Rx#:[id number] Piperacillin-Tazobactam 3 100 .375 gm In Sodium Chloride 0.9% 100 ml @ 25 mls/hr IVPB Q8H [facility] Rx#: [id number] Sodium Chloride 0.9% 1, 1000 75 000 ml @ 999 mls/hr IV . Q1H1M [facility] Rx#:[id number] Output: Urine 315 225 40 Other: Voiding Method Indwelling Catheter Indwelling Catheter Indwelling Catheter - Exam Abdomen: Soft, mild right upper quadrant tenderness, no rebound or guarding - Labs CBC & Chem 7: 10/28/19 03:46 10/28/19 09:02 Labs: Abnormal Lab Results - Last 24 Hours (Table) 10/27/19 10/27/19 10/27/19 Range/Units 12:09 16:49 22:47 MCHC (31.0-37.0) g/dL Plt Count (150-450) k/uL Lymphocytes # (1.0-4.8) k/uL Sodium (137-145) mmol/L BUN (7-17) mg/dL Glucose (74-99) mg/dL POC Glucose (mg/dL) 154 H 173 H 209 H (75-99) mg/dL Calcium (8.4-10.2) mg/dL Total Bilirubin (0.2-1.3) mg/dL Conjugated Bilirubin (0.0-0.3) mg/dL Unconjugated Bilirubin (0.0-1.1) mg/dL Delta Bilirubin (0.0-0.2) mg/dL AST (14-36) U/L ALT (4-34) U/L Alkaline Phosphatase (38-126) U/L Total Protein (6.3-8.2) g/dL Albumin (3.5-5.0) g/dL 10/28/19 10/28/19 10/28/19 Range/Units 03:46 03:46 06:30 MCHC 30.4 L (31.0-37.0) g/dL Plt Count 138 L (150-450) k/uL Lymphocytes # 0.5 L (1.0-4.8) k/uL Sodium 136 L (137-145) mmol/L BUN 38 H (7-17) mg/dL Glucose 205 H (74-99) mg/dL POC Glucose (mg/dL) 211 H (75-99) mg/dL Calcium 7.9 L (8.4-10.2) mg/dL Total Bilirubin (0.2-1.3) mg/dL Conjugated Bilirubin (0.0-0.3) mg/dL Unconjugated Bilirubin (0.0-1.1) mg/dL Delta Bilirubin (0.0-0.2) mg/dL AST (14-36) U/L ALT (4-34) U/L Alkaline Phosphatase (38-126) U/L Total Protein (6.3-8.2) g/dL Albumin (3.5-5.0) g/dL 10/28/19 Range/Units 09:02 MCHC (31.0-37.0) g/dL Plt Count (150-450) k/uL Lymphocytes # (1.0-4.8) k/uL Sodium (137-145) mmol/L BUN (7-17) mg/dL Glucose (74-99) mg/dL POC Glucose (mg/dL) (75-99) mg/dL Calcium (8.4-10.2) mg/dL Total Bilirubin 6.7 H (0.2-1.3) mg/dL Conjugated Bilirubin 3.5 H (0.0-0.3) mg/dL Unconjugated Bilirubin 1.2 H (0.0-1.1) mg/dL Delta Bilirubin 2.0 H (0.0-0.2) mg/dL AST 69 H (14-36) U/L ALT 74 H (4-34) U/L Alkaline Phosphatase 798 H (38-126) U/L Total Protein 4.9 L (6.3-8.2) g/dL Albumin 2.4 L (3.5-5.0) g/dL Microbiology - Last 24 Hours (Table) 10/24/19 18:38 Blood Culture - Preliminary Blood No Growth after 72 hours Assessment and Plan (1) Dilated bile duct Narrative/Plan: Patient doing better. Resume diet. Continue empiric antibiotics. Will eventually require advanced endoscopic evaluation with stent removal and stone extraction. Current Visit: Yes Status: Acute Code(s): K83.8 - OTHER SPECIFIED DISEASES OF BILIARY TRACT SNOMED Code(s): 192804023
[2019-10-28 11:46] LABS: Glucose,Whole Blood 255 mg/dL (75-99)
--- NOTE | 2019-10-28 11:52 | P.PN ---
Subjective Progress Note Date: 10/28/19 84-year-old female patient was found on the floor as the patient tripped and she was unable to get herself up. She is known to have advanced cardiac disease, nonischemic artery myopathy was been followed up by Dr. Murray on outpatient basis. The patient has a AICD in place. She has a long history of persistent atrial fibrillation and she has limited articulation with warfarin. The patient denied having any loss in consciousness. She felt a week. She denies having any chest pain. No focal neurological deficit. No change in her speech. No headaches. No neck stiffness. No change in her vision. She stayed on the floor for several hours and her son picked her up and she was brought into the emergency room with the patient was found to be a mild degree of rhabdomyolysis. The liver function tests were also abnormal and the patient underwent an ultrasound of the liver that also raised the possibility of a portal vein thrombosis. Overnight, the patient got transferred to the intensive care unit as the patient became tachycardic with atrial fibrillation. She was given amiodarone and this was discontinued this morning by cardiology after patient had is up-to-date on the better control. She is currently on metoprolol in the milligrams by mouth daily and she is also on no Coumadin as the patient's PT/INR was supratherapeutic above 6. No nausea. No vomiting. No abdominal pain. No chest pain. She is still in atrial fibrillation at this point in time. No abdominal distention. 10/26/2019, the patient is doing well. No specific complaints. She has some abdominal tenderness patient the right upper quadrant. I repeated the CAT scan of the abdomen and pelvis and I reviewed the films. There is no evidence of any portal vein thrombosis. Nevertheless, there is dilatation of the intrahepatic and extrahepatic biliary ducts and dilation of the common bile duct. Gallbladde r is also distended and the weeks are thickened and the patient has sludge. There is also cholelithiasis. LFTs are normal including elevated bilirubin and the patient may have an obstructive pattern on the liver function tests. GI has been consulted for the possibility or the need of ERCP. The patient is on antibiotics. The patient is doing well and she has diminished appetite and she has been taken on a clear liquid diet. Room air pulse ox 95%. She remains on normal saline at the rate of 75 mL an hour. CPK has dropped and the patient is recovering from a rhabdomyolysis. No signs of any fluid overload. No signs of any respiratory distress. Awaiting a GI consultation for possible ERCP. Coagulopathy has been reversed after being given 2 mg of vitamin K and INR is down to 3.2. 10/27/2019, the patient is on room air oxygen. No respiratory difficulties. She still having some abdominal tenderness specifically in the right upper quadrant area. Bilirubin is on the rise. She has jaundice. Her total bilirubin is at 8.4. AST is 120. ALT is 107. Alkaline phosphatase is 862. Total protein is at 5.2 with a albumin level of 2.5. INR is down to 1.3. The patient will be undergoing an ERCP this morning. The patient is on empiric antibiotic coverage with IV Zosyn. The patient is nothing by mouth awaiting her ERCP. The patient also is normal saline and the serum bicarb is down to 16 and the patient will be. Sodium bicarb infusion. No other significant events otherwise for now. She was given vitamin K which further improved her coagulopathy. 10/28/2019, the patient is doing well. The patient's post-ERCP and insertion of a biliary stent. The bilirubin is down to 6.7 on today's evaluation. LFTs are also improving with AST of 69, ALT of 74, alkaline phosphatase of 794. The renal function is stable. Creatinine is at 0.8. The patient has no significant tenderness in the right upper quadrant. White cell count at 8.6. Hemoglobin is at 12.4. The patient remains on empiric antibiotic coverage with IV Zosyn. Coumadin is on hold and this will be restarted today at a dose of 5 mg by mouth daily. She remains on bicarb infusion at the rate of 75 mL an hour. No other significant events over night. She is on 2 L about 2 by nasal cannula. Objective - Vital Signs Vital signs: Vital Signs Temp 97.5 F L 10/28/19 08:00 Pulse 75 10/28/19 11:00 Resp 21 10/28/19 11:00 BP 121/81 10/28/19 11:00 Pulse Ox 97 10/28/19 11:00 Intake & Output 10/27/19 10/28/19 10/28/19 18:59 06:59 18:59 Intake Total 2975 840 475 Output Total 315 225 130 Balance 2668 755 345 Weight 105.1 kg 107.5 kg Intake: IV 1350 Sodium Chloride 0.9% 1, 300 000 ml @ 75 mls/hr IV . [id number] ANUJA Rx#:[id number] Intake, IV Titration 1625 840 475 Amount Dextrose 5% in Water 1, 525 765 375 000 ml @ 75 mls/hr IV . [id number] ANUJA with Sodium Bicarb (1 Meq/ml) 150 ml Rx#:[id number] Piperacillin-Tazobactam 3 100 100 .375 gm In Sodium Chloride 0.9% 100 ml @ 25 mls/hr IVPB Q8H ANUJA Rx#: [id number] Sodium Chloride 0.9% 1, 1000 75 000 ml @ 999 mls/hr IV . Q1H1M ONE Rx#:[id number] Output: Urine 315 225 130 Other: Voiding Method Indwelling Catheter Indwelling Catheter Indwelling Catheter - Exam Gen. appearance, comfortable no acute distress Head exam was generally normal. There was no scleral icterus or corneal arcus. Mucous membranes were moist. Neck was supple and without jugular venous distension, thyromegaly, or carotid bruits. Carotids were easily palpable bilaterally. There was no adenopathy. Lungs sounds are diminished bilaterally especially in lung bases Cardiac exam revealed the PMI to be normally situated and sized. The rhythm is irregular consistent with atrial fibrillation. There is no extrasystoles were noted during several minutes of auscultation. The first and second heart sounds were normal and physiologic splitting of the second heart sound was noted. There were no murmurs, rubs, clicks, or gallops. Abdominal exam revealed normal bowel sounds. The abdomen was soft, and without masses, organomegaly, or appreciable enlargement of the abdominal aorta. The patient has some tenderness in the right upper quadrant. Examination of the extremities revealed easily palpable radial, femoral and pedal pulses. There was no cyanosis, clubbing or edema. Examination of the skin revealed no evidence of significant rashes, suspicious appearing nevi or other concerning lesions. Neurologically, the patient is awake and alert and the patient does not have any focal neurological deficit. Cranial nerves are essentially intact. - Labs CBC & Chem 7: 10/28/19 03:46 10/28/19 09:02 Labs: Abnormal Lab Results - Last 24 Hours (Table) 10/27/19 10/27/19 10/27/19 Range/Units 12:09 16:49 22:47 MCHC (31.0-37.0) g/dL Plt Count (150-450) k/uL Lymphocytes # (1.0-4.8) k/uL Sodium (137-145) mmol/L BUN (7-17) mg/dL Glucose (74-99) mg/dL POC Glucose (mg/dL) 154 H 173 H 209 H (75-99) mg/dL Calcium (8.4-10.2) mg/dL Total Bilirubin (0.2-1.3) mg/dL Conjugated Bilirubin (0.0-0.3) mg/dL Unconjugated Bilirubin (0.0-1.1) mg/dL Delta Bilirubin (0.0-0.2) mg/dL AST (14-36) U/L ALT (4-34) U/L Alkaline Phosphatase (38-126) U/L Total Protein (6.3-8.2) g/dL Albumin (3.5-5.0) g/dL 10/28/19 10/28/19 10/28/19 Range/Units 03:46 03:46 06:30 MCHC 30.4 L (31.0-37.0) g/dL Plt Count 138 L (150-450) k/uL Lymphocytes # 0.5 L (1.0-4.8) k/uL Sodium 136 L (137-145) mmol/L BUN 38 H (7-17) mg/dL Glucose 205 H (74-99) mg/dL POC Glucose (mg/dL) 211 H (75-99) mg/dL Calcium 7.9 L (8.4-10.2) mg/dL Total Bilirubin (0.2-1.3) mg/dL Conjugated Bilirubin (0.0-0.3) mg/dL Unconjugated Bilirubin (0.0-1.1) mg/dL Delta Bilirubin (0.0-0.2) mg/dL AST (14-36) U/L ALT (4-34) U/L Alkaline Phosphatase (38-126) U/L Total Protein (6.3-8.2) g/dL Albumin (3.5-5.0) g/dL 10/28/19 10/28/19 Range/Units 09:02 11:43 MCHC (31.0-37.0) g/dL Plt Count (150-450) k/uL Lymphocytes # (1.0-4.8) k/uL Sodium (137-145) mmol/L BUN (7-17) mg/dL Glucose (74-99) mg/dL POC Glucose (mg/dL) 255 H (75-99) mg/dL Calcium (8.4-10.2) mg/dL Total Bilirubin 6.7 H (0.2-1.3) mg/dL Conjugated Bilirubin 3.5 H (0.0-0.3) mg/dL Unconjugated Bilirubin 1.2 H (0.0-1.1) mg/dL Delta Bilirubin 2.0 H (0.0-0.2) mg/dL AST 69 H (14-36) U/L ALT 74 H (4-34) U/L Alkaline Phosphatase 798 H (38-126) U/L Total Protein 4.9 L (6.3-8.2) g/dL Albumin 2.4 L (3.5-5.0) g/dL Microbiology - Last 24 Hours (Table) 10/24/19 18:38 Blood Culture - Preliminary Blood No Growth after 72 hours Assessment and Plan Plan: 1 fall without any significant skeletal injuries 2 mild rhabdomyolysis, improving and the CPKs on the decline, and CPK has essentially normalized 3 obstructive jaundice with moderate to severe extrahepatic along with some mild intrahepatic biliary dilatation. There are gallstones and biliary sludge and possible obstruction of the common bile duct related to a stone at the level of the ampulla. GI consultation is pending. The patient does have some right upper quadrant tenderness.. The patient is an On IV Zosyn. The patient underwen t ERCP yesterday and the patient had a insertion of a biliary stent. LFTs are slightly improved compared to yesterday. The patient remains jaundiced. We'll continue monitoring liver function tests. These the patient remains on IV Zosyn. The patient has taken clear liquid diet. 4 nonischemic cardiomyopathy compensated at this point in time. 5 history of AICD placement or cardiomyopathy 6 chronic atrial fibrillation, rate is controlled and the patient is on no anticoagulants for now 7 long-term articulation with warfarin and this will be restarted today 8 hypertension 9 osteoarthritis 10 non-anion gap metabolic acidosis, currently on a bicarb infusion Plan bicarb infusion at the rate of 75 mL an hour Coumadin to be restarted at a dose of 5 mg by mouth daily with daily PT/INR m onitoring ERCP completed and will going to monitor the LFTs Continue IV Zosyn GI is on the case General surgeries on the case We'll continue to follow
[2019-10-28 12:04] LABS: Glucose,Whole Blood 308 mg/dL (75-99)
[2019-10-28 12:04] LABS: Glucose,Whole Blood 242 mg/dL (75-99)
[2019-10-28 16:52] LABS: Glucose,Whole Blood 263 mg/dL (75-99)
[2019-10-28] MEDS ORDERED: WARFARIN 5 MG TAB PO ONE (18:00)
[2019-10-28] MEDS: HYDROcodone/APAP 5-325MG 1 EACH TAB PO PRN (20:13)
[2019-10-28 20:14] LABS: Glucose,Whole Blood 242 mg/dL (75-99)
--- NOTE | 2019-10-28 21:15 | P.PN ---
Subjective Progress Note Date: 10/28/19 Principal diagnosis: Elevated liver enzymes, elevated bilirubin, dilated bile duct, suspected choledocholithiasis Patient is seen sitting bedside today. She is denying any abdominal pain. She is tolerating her diet reporting decreased appetite. Objective - Vital Signs Vital signs: Vital Signs Temp 97.5 F L 10/28/19 08:00 Pulse 89 10/28/19 10:00 Resp 12 10/28/19 10:00 BP 99/60 10/28/19 10:00 Pulse Ox 95 10/28/19 10:00 Intake & Output 10/27/19 10/28/19 10/28/19 18:59 06:59 18:59 Intake Total 2975 840 150 Output Total 315 225 40 Balance 2660 615 110 Weight 105.1 kg 107.5 kg Intake: IV 1350 Sodium Chloride 0.9% 1, 300 000 ml @ 75 mls/hr IV . [id number] ANUJA Rx#:[id number] Intake, IV Titration 1625 840 150 Amount Dextrose 5% in Water 1, 525 765 150 000 ml @ 75 mls/hr IV . [id number] ANUJA with Sodium Bicarb (1 Meq/ml) 150 ml Rx#:[id number] Piperacillin-Tazobactam 3 100 .375 gm In Sodium Chloride 0.9% 100 ml @ 25 mls/hr IVPB Q8H ANUJA Rx#: [id number] Sodium Chloride 0.9% 1, 1000 75 000 ml @ 999 mls/hr IV . Q1H1M ONE Rx#:[id number] Output: Urine 315 225 40 Other: Voiding Method Indwelling Catheter Indwelling Catheter Indwelling Catheter - Exam On physical examination, patient appears comfortable in no apparent distress. HEAD: Normocephalic, atraumatic. EYES: No scleral icterus. No conjunctival injection. MOUTH: No lesions, tongue midline. NECK: Trachea midline, no gross abnormalities. ABDOMEN: Soft, obese. Bowel sounds are positive. No organomegaly. No guarding or rigidity. EXTREMITIES: No pedal edema. SKIN: No rashes, no jaundice. NEUROLOGIC: Alert and oriented x3. No focal deficits. - Labs CBC & Chem 7: 10/28/19 03:46 10/28/19 09:02 Labs: Abnormal Lab Results - Last 24 Hours (Table) 10/27/19 10/27/1910/26/20 Range/Units 12:09 16:49 22:47 MCHC (31.0-37.0) g/dL Plt Count (150-450) k/uL Lymphocytes # (1.0-4.8) k/uL Sodium (137-145) mmol/L BUN (7-17) mg/dL Glucose (74-99) mg/dL POC Glucose (mg/dL) 154 H 173 H 209 H (75-99) mg/dL Calcium (8.4-10.2) mg/dL Total Bilirubin (0.2-1.3) mg/dL Conjugated Bilirubin (0.0-0.3) mg/dL Unconjugated Bilirubin (0.0-1.1) mg/dL Delta Bilirubin (0.0-0.2) mg/dL AST (14-36) U/L ALT (4-34) U/L Alkaline Phosphatase (38-126) U/L Total Protein (6.3-8.2) g/dL Albumin (3.5-5.0) g/dL 10/28/19 10/28/19 10/28/19 Range/Units 03:46 03:46 06:30 MCHC 30.4 L (31.0-37.0) g/dL Plt Count 138 L (150-450) k/uL Lymphocytes # 0.5 L (1.0-4.8) k/uL Sodium 136 L (137-145) mmol/L BUN 38 H (7-17) mg/dL Glucose 205 H (74-99) mg/dL POC Glucose (mg/dL) 211 H (75-99) mg/dL Calcium 7.9 L (8.4-10.2) mg/dL Total Bilirubin (0.2-1.3) mg/dL Conjugated Bilirubin (0.0-0.3) mg/dL Unconjugated Bilirubin (0.0-1.1) mg/dL Delta Bilirubin (0.0-0.2) mg/dL AST (14-36) U/L ALT (4-34) U/L Alkaline Phosphatase (38-126) U/L Total Protein (6.3-8.2) g/dL Albumin (3.5-5.0) g/dL 10/28/19 Range/Units 09:02 MCHC (31.0-37.0) g/dL Plt Count (150-450) k/uL Lymphocytes # (1.0-4.8) k/uL Sodium (137-145) mmol/L BUN (7-17) mg/dL Glucose (74-99) mg/dL POC Glucose (mg/dL) (75-99) mg/dL Calcium (8.4-10.2) mg/dL Total Bilirubin 6.7 H (0.2-1.3) mg/dL Conjugated Bilirubin 3.5 H (0.0-0.3) mg/dL Unconjugated Bilirubin 1.2 H (0.0-1.1) mg/dL Delta Bilirubin 2.0 H (0.0-0.2) mg/dL AST 69 H (14-36) U/L ALT 74 H (4-34) U/L Alkaline Phosphatase 798 H (38-126) U/L Total Protein 4.9 L (6.3-8.2) g/dL Albumin 2.4 L (3.5-5.0) g/dL Microbiology - Last 24 Hours (Table) 10/24/19 18:38 Blood Culture - Preliminary Blood No Growth after 72 hours Assessment and Plan (1) Dilated bile duct Narrative/Plan: 84-year-old female multiple medical comorbidities who presented to the hospital due to mechanical fall and was being treated in the ICU for abnormalities this. Patient had persistently elevated liver enzymes with total bilirubin 6.1, alkaline phosphatase 671, AST 2016 and ALT 130 with computed tomography scan of the abdomen performed in evaluation significant for dilated bile ducts. ERCP performed with findings of a markedly dilated bile duct with filling defect suggestive of choledocholithiasis and tapering in the distal CBD status post stent placement. Current Visit: Yes Status: Acute Code(s): K83.8 - OTHER SPECIFIED DISEASES OF BILIARY TRACT SNOMED Code(s): 480569652 (2) Elevated liver enzymes Current Visit: Yes Status: Acute Code(s): R74.8 - ABNORMAL LEVELS OF OTHER SERUM ENZYMES SNOMED Code(s): 658839657 (3) Elevated bilirubin Current Visit: Yes Status: Acute Code(s): R17 - UNSPECIFIED JAUNDICE SN OMED Code(s): 54172819 (4) Rhabdomyolysis Current Visit: Yes Status: Acute Code(s): M62.82 - RHABDOMYOLYSIS SNOMED Code(s): 862311116 Plan: Supportive care Okay for diet Continue broad-spectrum antibiotic therapy Continue to monitor CBC, BMP, LFTs Okay to resume Coumadin Patient is status post ERCP with stent placement, technically difficult secondary to the ampulla being located within a diverticulum, patient will need follow-up with gastroenterology and referral to a tertiary center for ERCP with stent removal as well as possible sphincterotomy after discharge Thank you for allowing us to participate in the care of the patient
--- NOTE | 2019-10-28 22:55 | P.PN ---
Subjective Progress Note Date: 10/27/19 Principal diagnosis: S/P Fall Ms. Rios is a 84-year-old female with a past medical history of atrial fibrillation, congestive heart failure status post AICD placement, hypertension, hyperlipidemia, osteoarthritis admitted to the hospital after having a fall. Patient stayed on the floor for several hours before her son could get her to the hospital. She was found to have mild degree of rhabdomyolysis. Eventually she was transferred to the ICU as she became tachycardic with atrial fibrillation. Currently multiple consultants following the patient. She had a CT of the abdomen and pelvis with no evidence of portal vein thrombosis. Patient continues to be in the ICU setting. Overnight no acute events reported by nursing staff. Patient states that she still has right-sided abdominal pain, but denies having any nausea or vomiting. She also thinks that she has increased swelling of her legs as she is not moving much. Patient's vitals have been reviewed and are within normal limits. Active Medications Acetaminophen (Tylenol Tab) 500 mg PO Q6HR PRN Hydrocodone Bitart/Acetaminophen (Wisner 5-325) 1 each PO Q6HR PRN Albuterol/Ipratropium (Duoneb 0.5 Mg-3 Mg/3 Ml Soln) 3 ml INHALATION RT-TID ANUJA Albuterol/Ipratropium (Duoneb 0.5 Mg-3 Mg/3 Ml Soln) 3 ml INHALATION RT-TID PRN Hydromorphone HCl (Dilaudid) 0.5 mg IVP Q6HR PRN Piperacillin Sod/Tazobactam (Sod 3.375 gm/ Sodium Chloride) 100 mls @ 25 mls/hr IVPB Q8H ANUJA Sodium Bicarbonate 150 ml/ (Dextrose/Water) 1,150 mls @ 75 mls/hr IV .[id number] ANUJA Insulin Aspart (Novolog) 0 unit SQ ACHS ANUJA; Protocol Metoclopramide HCl (Reglan) 5 mg IVP Q6HR PRN Metoprolol Succinate (Toprol Xl) 100 mg PO DAILY Pantoprazole Sodium (Protonix) 40 mg IVP DAILY ANUJA Objective - Vital Signs Vital signs: Vital Signs Temp 98.1 F 10/27/19 16:00 Pulse 64 10/27/19 16:00 Resp 28 H 10/27/19 16:00 BP 135/73 10/27/19 16:00 Pulse Ox 95 10/27/19 16:00 Intake & Output 10/26/19 10/27/19 10/27/19 18:59 06:59 18:59 Intake Total 766 260 5968 Output Total 680 550 280 Balance 963 562 4058 Weight 105.1 kg 105.1 kg Intake: IV 969 560 6100 Sodium Chloride 0.9% 1, 900 900 300 000 ml @ 75 mls/hr IV . [id number] ANUJA Rx#:[id number] Intake, IV Titration 1475 Amount Dextrose 5% in Water 1, 375 000 ml @ 75 mls/hr IV . [id number] ANUJA with Sodium Bicarb (1 Meq/ml) 150 ml Rx#:[id number] Piperacillin-Tazobactam 3 100 .375 gm In Sodium Chloride 0.9% 100 ml @ 25 mls/hr IVPB Q8H ANUJA Rx#: [id number] Sodium Chloride 0.9% 1, 1000 000 ml @ 999 mls/hr IV . Q1H1M ONE Rx#:[id number] Output: Urine 680 550 280 Other: Voiding Method Indwelling Catheter Indwelling Catheter Indwelling Catheter - Exam PHYSICAL EXAM GENERAL :patient is alert oriented x3, appears to be no acute distress HEENT: Conjunctiva is normal, sclerae icterus positive CARDIOVASCULAR: Space S1-S2 heard RESPIRATORY: Bilateral breath sounds diminished in the lower lung bases. No wheeze or crackles. GI: Abdomen is soft, tenderness positive in the right upper quadrant. Bowel sounds positive. 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 - Labs CBC & Chem 7: 10/28/19 03:46 10/28/19 09:02 Labs: Abnormal Lab Results - Last 24 Hours (Table) 10/26/19 10/26/19 10/26/19 Range/Units 17:42 20:05 21:36 WBC (3.8-10.6) k/uL MCHC (31.0-37.0) g/dL Neutrophils # (1.3-7.7) k/uL Lymphocytes # (1.0-4.8) k/uL PT 19.3 H (9.0-12.0) sec INR 2.0 H (<1.2) Sodium (137-145) mmol/L Carbon Dioxide (22-30) mmol/L BUN (7-17) mg/dL Glucose (74-99) mg/dL POC Glucose (mg/dL) 150 H 137 H (75-99) mg/dL Total Bilirubin (0.2-1.3) mg/dL AST (14-36) U/L ALT (4-34) U/L Alkaline Phosphatase (38-126) U/L Total Protein (6.3-8.2) g/dL Albumin (3.5-5.0) g/dL 10/27/19 10/27/19 10/27/19 Range/Units 04:23 04:23 04:23 WBC 12.1 H (3.8-10.6) k/uL MCHC 30.5 L (31.0-37.0) g/dL Neutrophils # 11.0 H (1.3-7.7) k/uL Lymphocytes # 0.4 L (1.0-4.8) k/uL PT 12.6 H (9.0-12.0) sec INR 1.3 H (<1.2) Sodium 136 L (137-145) mmol/L Carbon Dioxide 16 L (22-30) mmol/L BUN 33 H (7-17) mg/dL Glucose 135 H (74-99) mg/dL POC Glucose (mg/dL) (75-99) mg/dL Total Bilirubin 8.4 H (0.2-1.3) mg/dL AST 120 H (14-36) U/L ALT 107 H (4-34) U/L Alkaline Phosphatase 862 H (38-126) U/L Total Protein 5.2 L (6.3-8.2) g/dL Albumin 2.5 L (3.5-5.0) g/dL 10/27/19 10/27/19 Range/Units 07:06 12:09 WBC (3.8-10.6) k/uL MCHC (31.0-37.0) g/dL Neutrophils # (1.3-7.7) k/uL Lymphocytes # (1.0-4.8) k/uL PT (9.0-12.0) sec INR (<1.2) Sodium (137-145) mmol/L Carbon Dioxide (22-30) mmol/L BUN (7-17) mg/dL Glucose (74-99) mg/dL POC Glucose (mg/dL) 141 H 154 H (75-99) mg/dL Total Bilirubin (0.2-1.3) mg/dL AST (14-36) U/L ALT (4-34) U/L Alkaline Phosphatase (38-126) U/L Total Protein (6.3-8.2) g/dL Albumin (3.5-5.0) g/dL Microbiology - Last 24 Hours (Table) 10/24/19 15:47 Urine Culture - Final Urine,Catheterized Escherichia coli 10/24/19 18:38 Blood Culture - Preliminary Blood No Growth after 48 hours Assessment and Plan Assessment: ASSESSMENT Acute rhabdomyolysis status post fall Obstructive jaundice with moderate to severe extrahepatic biliary dilation Hypercoagulability-Coumadin toxicity Hyponatremia Acute hepatitis Type 2 diabetes mellitus Hypomagnesemia Possible cholelithiasis Chronic atrial fibrillation Acute kidney injury Urinary tract infection with E. coli Hypertension Pacemaker /AICD History of cardiac ablation History of cardioversion Remote history of nicotine dependence Obesity with BMI of 35.4 Moderate protein calorie malnutrition Plan: She is status post ERCP with stent placement, LFTs slowly trending down. PT/INR trended down, patient has been restarted on Coumadin. Continue with broad-spectrum antibiotic coverage with Zosyn. Continue with the rest of her current medication regimen. Overall prognosis is poor secondary to chronic multiple medical conditions. Further recommendations depending on the progress of the patient.
--- NOTE | 2019-10-28 22:58 | P.PN ---
Subjective Progress Note Date: 10/28/19 Principal diagnosis: S/P Fall Ms. Rios is a 84-year-old female with a past medical history of atrial fibrillation, congestive heart failure status post AICD placement, hypertension, hyperlipidemia, osteoarthritis admitted to the hospital after having a fall. Patient stayed on the floor for several hours before her son could get her to the hospital. She was found to have mild degree of rhabdomyolysis. Eventually she was transferred to the ICU as she became tachycardic with atrial fibrillation. Currently multiple consultants following the patient. She had a CT of the abdomen and pelvis with no evidence of portal vein thrombosis. Patient continues to be in the ICU setting. Overnight no acute events reported by nursing staff. Patient states that she still has right-sided abdominal pain, but denies having any nausea or vomiting. She also thinks that she has increased swelling of her legs as she is not moving much. Patient's vitals have been reviewed and are within normal limits. On 10/28/2019 -patient is still in the ICU. Overnight no acute events reported by nursing staff. Patient still complains of pain in the right upper quadrant of her abdomen. She denies having any nausea or vomiting. Patient states that her last bowel movement was couple of days back. Patient vitals have been reviewed afebrile for the past 24 hours, blood pressure 102/70, saturating at 95% on room air. Patient's labs are reviewed LFTs trending down, bilirubin trending down. Blood sugars trending on the higher side. Active Medications Acetaminophen (Tylenol Tab) 500 mg PO Q6HR PRN PRN Reason: Fever and/ or Pain Last Admin: 10/26/19 12:58 Dose: 500 mg Documented by: Hydrocodone Bitart/Acetaminophen ([place] 5-325) 1 each PO Q6HR PRN PRN Reason: Pain Last Admin: 10/28/19 20:13 Dose: 1 each Documented by: Albuterol/Ipratropium (Duoneb 0.5 Mg-3 Mg/3 Ml Soln) 3 ml INHALATION RT-TID ANUJA Last Admin: 10/28/19 19:23 Dose: Not Given Documented by: Albuterol/Ipratropium (Duoneb 0.5 Mg-3 Mg/3 Ml Soln) 3 ml INHALATION RT-TID PRN PRN Reason: Shortness Of Breath Or Wheezing Hydromorphone HCl (Dilaudid) 0.5 mg IVP Q6HR PRN PRN Reason: Severe Pain Last Admin: 10/28/19 06:12 Dose: 0.5 mg Documented by: Piperacillin Sod/Tazobactam (Sod 3.375 gm/ Sodium Chloride) 100 mls @ 25 mls/hr IVPB Q8H [facility] Last Admin: 10/28/19 18:51 Dose: 25 mls/hr Documented by: Sodium Bicarbonate 150 ml/ (Dextrose/Water) 1,150 mls @ 75 mls/hr IV .[id number] [facility] Last Admin: 10/28/19 17:08 Dose: 75 mls/hr Documented by: Insulin Aspart (Novolog) 0 unit SQ ACHS [facility]; Protocol Last Admin: 10/28/19 20:14 Dose: 3 unit Documented by: Metoclopramide HCl (Reglan) 5 mg IVP Q6HR PRN PRN Reason: Nausea And Vomiting Last Admin: 10/26/19 03:59 Dose: 5 mg Documented by: Metoprolol Succinate (Toprol Xl) 100 mg PO DAILY [facility] Last Admin: 10/28/19 08:04 Dose: 100 mg Documented by: Miscellaneous Information (Magnesium Per Protocol) 1 each MISCELLANE DAILY PRN; Protocol PRN Reason: Per Protocol Miscellaneous Information (Potassium Per Protocol) 1 each MISCELLANE DAILY PRN; Protocol PRN Reason: Per Protocol Miscellaneous Information (Potassium Per Protocol) 1 each MISCELLANE DAILY PRN; Protocol PRN Reason: Per Protocol Miscellaneous Information (Potassium Per Protocol) 1 each MISCELLANE DAILY PRN; Protocol PRN Reason: Per Protocol Miscellaneous Information (Coumadin Per Pharmacy) 0 each MISCELLANE DIRECTED PRN PRN Reason: INR Naloxone HCl (Narcan) 0.2 mg IV Q2M PRN PRN Reason: Opioid Reversal Pantoprazole Sodium (Protonix) 40 mg IVP DAILY [facility] Last Admin: 10/28/19 08:04 Dose: 40 mg Documented by: Objective - Vital Signs Vital signs: Vital Signs Temp 98 F 10/28/19 20:00 Pulse 75 10/28/19 21:00 Resp 16 10/28/19 21:00 BP 115/64 10/28/19 21:00 Pulse Ox 95 10/28/19 21:00 Intake & Output 10/28/19 10/28/19 10/29/19 06:59 18:59 06:59 Intake Total 840 1000 225 Output Total 225 406 115 Balance 615 594 110 Weight 107.5 kg Intake: IV 150 Dextrose 5% in Water 1, 150 000 ml @ 75 mls/hr IV . [id number] ANUJA with Sodium Bicarb (1 Meq/ml) 150 ml Rx#:[id number] Intake, IV Titration 840 1000 75 Amount Dextrose 5% in Water 1, 765 900 75 000 ml @ 75 mls/hr IV . [id number] ANUJA with Sodium Bicarb (1 Meq/ml) 150 ml Rx#:[id number] Piperacillin-Tazobactam 3 100 .375 gm In Sodium Chloride 0.9% 100 ml @ 25 mls/hr IVPB Q8H ANUJA Rx#: [id number] Sodium Chloride 0.9% 1, 75 000 ml @ 999 mls/hr IV . Q1H1M ONE Rx#:[id number] Output: Urine 225 406 115 Other: Voiding Method Indwelling Catheter Indwelling Catheter Indwelling Catheter - Exam PHYSICAL EXAM GENERAL :patient is alert oriented x3, appears to be no acute distress HEENT: Conjunctiva is normal, sclerae icterus positive CARDIOVASCULAR: Space S1-S2 heard RESPIRATORY: Bilateral breath sounds diminished in the lower lung bases. No wheeze or crackles. GI: Abdomen is soft, tenderness positive in the right upper quadrant. Bowel sounds positive. EXTREMITIES: Mild pitting edema CLINICAL IMMUNOLOGIST: No focal neurological deficits on gross exam SKIN : No rash - Labs CBC & Chem 7: 10/28/19 03:46 10/28/19 09:02 Labs: Abnormal Lab Results - Last 24 Hours (Table) 10/27/19 10/28/19 10/28/19 Range/Units 22:47 03:46 03:46 MCHC 30.4 L (31.0-37.0) g/dL Plt Count 138 L (150-450) k/uL Lymphocytes # 0.5 L (1.0-4.8) k/uL Sodium 136 L (137-145) mmol/L BUN 38 H (7-17) mg/dL Glucose 205 H (74-99) mg/dL POC Glucose (mg/dL) 209 H (75-99) mg/dL Calcium 7.9 L (8.4-10.2) mg/dL Total Bilirubin (0.2-1.3) mg/dL Conjugated Bilirubin (0.0-0.3) mg/dL Unconjugated Bilirubin (0.0-1.1) mg/dL Delta Bilirubin (0.0-0.2) mg/dL AST (14-36) U/L ALT (4-34) U/L Alkaline Phosphatase (38-126) U/L Total Protein (6.3-8.2) g/dL Albumin (3.5-5.0) g/dL 10/28/19 10/28/19 10/28/19 Range/Units 06:30 09:02 11:43 MCHC (31.0-37.0) g/dL Plt Count (150-450) k/uL Lymphocytes # (1.0-4.8) k/uL Sodium (137-145) mmol/L BUN (7-17) mg/dL Glucose (74-99) mg/dL POC Glucose (mg/dL) 211 H 255 H (75-99) mg/dL Calcium (8.4-10.2) mg/dL Total Bilirubin 6.7 H (0.2-1.3) mg/dL Conjugated Bilirubin 3.5 H (0.0-0.3) mg/dL Unconjugated Bilirubin 1.2 H (0.0-1.1) mg/dL Delta Bilirubin 2.0 H (0.0-0.2) mg/dL AST 69 H (14-36) U/L ALT 74 H (4-34) U/L Alkaline Phosphatase 798 H (38-126) U/L Total Protein 4.9 L (6.3-8.2) g/dL Albumin 2.4 L (3.5-5.0) g/dL 10/28/19 10/28/19 10/28/19 Range/Units 12:01 12:02 16:50 MCHC (31.0-37.0) g/dL Plt Count (150-450) k/uL Lymphocytes # (1.0-4.8) k/uL Sodium (137-145) mmol/L BUN (7-17) mg/dL Glucose (74-99) mg/dL POC Glucose (mg/dL) 308 H 242 H 263 H (75-99) mg/dL Calcium (8.4-10.2) mg/dL Total Bilirubin (0.2-1.3) mg/dL Conjugated Bilirubin (0.0-0.3) mg/dL Unconjugated Bilirubin (0.0-1.1) mg/dL Delta Bilirubin (0.0-0.2) mg/dL AST (14-36) U/L ALT (4-34) U/L Alkaline Phosphatase (38-126) U/L Total Protein (6.3-8.2) g/dL Albumin (3.5-5.0) g/dL 10/28/19 Range/Units 20:02 MCHC (31.0-37.0) g/dL Plt Count (150-450) k/uL Lymphocytes # (1.0-4.8) k/uL Sodium (137-145) mmol/L BUN (7-17) mg/dL Glucose (74-99) mg/dL POC Glucose (mg/dL) 242 H (75-99) mg/dL Calcium (8.4-10.2) mg/dL Total Bilirubin (0.2-1.3) mg/dL Conjugated Bilirubin (0.0-0.3) mg/dL Unconjugated Bilirubin (0.0-1.1) mg/dL Delta Bilirubin (0.0-0.2) mg/dL AST (14-36) U/L ALT (4-34) U/L Alkaline Phosphatase (38-126) U/L Total Protein (6.3-8.2) g/dL Albumin (3.5-5.0) g/dL Microbiology - Last 24 Hours (Table) 10/24/19 18:38 Blood Culture - Preliminary Blood No Growth after 96 hours Assessment and Plan Assessment: ASSESSMENT Acute rhabdomyolysis status post fall Obstructive jaundice with moderate to severe extrahepatic biliary dilation Hypercoagulability-Coumadin toxicity - resolved Hyponatremia Acute hepatitis Type 2 diabetes mellitus Hypomagnesemia Possible cholelithiasis Chronic atrial fibrillation Acute kidney injury Urinary tract infection with E. coli Hypertension Pacemaker /AICD History of cardiac ablation History of cardioversion Remote history of nicotine dependence Obesity with BMI of 35.4 Moderate protein calorie malnutrition Plan: She is status post ERCP with stent placement, LFTs slowly trending down. PT/INR trended down, patient has been restarted on Coumadin. Continue with b road-spectrum antibiotic coverage with Zosyn. Continue with the rest of her current medication regimen. Overall prognosis is poor secondary to chronic multiple medical conditions. Further recommendations depending on the progress of the patient.
[2019-10-29] MEDS: PIPERACILLIN-TAZOBACTAM 3.375 GM in SODIUM CHLORIDE 0.9% 100 ML IVPB SCH ×3 (02:56→19:53)
[2019-10-29 04:24] LABS: HCT 37.4 % (34.0-46.0); HGB 11.4 gm/dL (11.4-16.0); Hypochromasia Moderate; MCH 28.8 pg (25.0-35.0); MCHC 30.6 g/dL (31.0-37.0); MCV 94.2 fL (80.0-100.0); Mean Platelet Volume 9.1; Platelet Count 124 k/uL (150-450); RBC 3.97 m/uL (3.80-5.40); RDW 14.2 % (11.5-15.5); WBC 7.8 k/uL (3.8-10.6)
[2019-10-29 04:28] LABS: Prothrombin Time 10.3 sec (9.0-12.0)
[2019-10-29 04:38] LABS: African American GFR (CKD) >90 (>60 ml/min/1.73 sqM); Anion Gap 4 mmol/L; Blood Urea Nitrogen 32 mg/dL (7-17); Calcium 7.7 mg/dL (8.4-10.2); Carbon Dioxide 29 mmol/L (22-30); Chloride 101 mmol/L (98-107); Glucose 156 mg/dL (74-99); Non-African American GFR(CKD) 84 (>60 ml/min/1.73 sqM); Potassium 3.6 mmol/L (3.5-5.1); Sodium 134 mmol/L (137-145)
[2019-10-29] MEDS ORDERED: POTASSIUM BICARBONATE/CIT AC 20 MEQ TABLET.EFF NG-TUBE SCH (06:00)
[2019-10-29 06:49] LABS: Glucose,Whole Blood 165 mg/dL (75-99)
[2019-10-29] MEDS: INSULIN ASPART (NovoLOG) 100 UNIT/ML VIAL SQ SCH ×4 (06:49→20:14)
[2019-10-29] MEDS: IPRATROPIUM-ALBUTEROL 3 ML NEB INHALATION SCH ×3 (07:11→20:03)
[2019-10-29] MEDS: DEXTROSE 5% IN WATER 1,000 ML with SODIUM BICARB (1 MEQ/ML) 150 ML IV SCH (09:17)
[2019-10-29] MEDS: METOPROLOL SUCCINATE (ER) 100 MG TAB.ER.24H PO SCH (09:19)
[2019-10-29] MEDS: PANTOPRAZOLE 40 MG/10 ML VIAL IVP SCH (09:19)
[2019-10-29] MEDS ORDERED: ONDANSETRON 4 MG/2 ML VIAL IVP PRN (09:40)
[2019-10-29 09:46] LABS: ALT 59 U/L (4-34); AST 54 U/L (14-36); Alkaline Phosphatase 734 U/L (38-126); Total Bilirubin 4.4 mg/dL (0.2-1.3); Total Protein 4.4 g/dL (6.3-8.2)
--- NOTE | 2019-10-29 11:54 | PN ---
PROGRESS NOTE Mrs. Rios is an 84-year-old female with history of nonischemic cardiomyopathy, ICD implantation, history of atrial fibrillation, anticoagulated, who presented with rhabdomyolysis. She is more awake and alert this morning. She has underwent ERCP with frequent stenting. Her abdomen feels better, although her appetite is poor. She denies any symptoms of chest pain. She denies any dizziness or palpitation. She denies any nausea. Her urine output has been stable. She continues to be at this time on metoprolol succinate 100 mg daily. She is on IV sodium bicarb and was started back on Coumadin yesterday. PHYSICAL EXAMINATION: Blood pressure running in the 110s with a heart rate in 60s to 70s. LUNGS: Clear. HEART: Irregular, regular, S1, S2. No S3 with a systolic murmur, no diastolic murmur. ABDOMEN: Soft, nontender. EXTREMITIES: No edema. LAB DATA: Revealed from yesterday, BUN and creatinine 38 and 0.88. Her total bilirubin yesterday was 6.7. IMPRESSION: 1. Rhabdomyolysis. 2. Chronic persistent atrial fibrillation. 3. Nonischemic cardiomyopathy, status post ICD implantation. 4. Status post ERCP and placement of stent. RECOMMENDATION: From the cardiac standpoint will continue present therapy, follow her INR, continue anticoagulation. Follow her blood pressure to see further adjustment for antihypertensive regimen is needed. MMODL / IJN: [id number] /
[2019-10-29 11:55] LABS: Glucose,Whole Blood 261 mg/dL (75-99)
--- NOTE | 2019-10-29 12:44 | P.PN ---
Subjective Progress Note Date: 10/29/19 Principal diagnosis: Obstructive jaundice and acute rhabdomyolysis secondary to fall. 84-year-old female patient was found on the floor as the patient tripped and she was unable to get herself up. She is known to have advanced cardiac disease, nonischemic artery myopathy was been followed up by Dr. Murray on outpatient basis. The patient has a AICD in place. She has a long history of persistent atrial fibrillation and she has limited articulation with warfarin. The patient denied having any loss in consciousness. She felt a week. She denies having any chest pain. No focal neurological deficit. No change in her speech. No headaches. No neck stiffness. No change in her vision. She stayed on the floor for several hours and her son picked her up and she was brought into the emergency room with the patient was found to be a mild degree of rhabdomyolysis. The liver function tests were also abnormal and the patient underwent an ultrasound of the liver that also raised the possibility of a portal vein thrombosis. Overnight, the patient got transferred to the intensive care unit as the patient became tachycardic with atrial fibrillation. She was given amiod arone and this was discontinued this morning by cardiology after patient had is up-to-date on the better control. She is currently on metoprolol in the milligrams by mouth daily and she is also on no Coumadin as the patient's PT/INR was supratherapeutic above 6. No nausea. No vomiting. No abdominal pain. No chest pain. She is still in atrial fibrillation at this point in time. No abdominal distention. 10/26/2019, the patient is doing well. No specific complaints. She has some abdominal tenderness patient the right upper quadrant. I repeated the CAT scan of the abdomen and pelvis and I reviewed the films. There is no evidence of any portal vein thrombosis. Nevertheless, there is dilatation of the intrahepatic and extrahepatic biliary ducts and dilation of the common bile duct. Gallbladder is also distended and the weeks are thickened and the patient has sludge. There is also cholelithiasis. LFTs are normal including elevated bilirubin and the patient may have an obstructive pattern on the liver function tests. GI has been consulted for the possibility or the need of ERCP. The patient is on antibiotics. The patient is doing well and she has diminished appetite and she has been taken on a clear liquid diet. Room air pulse ox 95%. She remains on normal saline at the rate of 75 mL an hour. CPK has dropped and the patient is recovering from a rhabdomyolysis. No signs of any fluid overload. No signs of any respiratory distress. Awaiting a GI consultation for possible ERCP. Coagulopathy has been reversed after being given 2 mg of vitamin K and INR is down to 3.2. 10/27/2019, the patient is on room air oxygen. No respiratory difficulties. She still having some abdominal tenderness specifically in the right upper quadrant area. Bilirubin is on the rise. She has jaundice. Her total bilirubin is at 8.4. AST is 120. ALT is 107. Alkaline phosphatase is 862. Total protein is at 5.2 with a albumin level of 2.5. INR is down to 1.3. The patient will be undergoing an ERCP this morning. The patient is on empiric antibiotic coverage with IV Zosyn. The patient is nothing by mouth awaiting her ERCP. The patient also is normal saline and the serum bicarb is down to 16 and the patient will be. Sodium bicarb infusion. No other significant events otherwise for now. She was given vitamin K which further improved her coagulopathy. 10/28/2019, the patient is doing well. The patient's post-ERCP and insertion of a biliary stent. The bilirubin is down to 6.7 on today's evaluation. LFTs are also improving with AST of 69, ALT of 74, alkaline phosphatase of 794. The renal function is stable. Creatinine is at 0.8. The patient has no significant tenderness in the right upper quadrant. White cell count at 8.6. Hemoglobin is at 12.4. The patient remains on empiric antibiotic coverage with IV Zosyn. Coumadin is on hold and this will be restarted today at a dose of 5 mg by mouth daily. She remains on bicarb infusion at the rate of 75 mL an hour. No other significant events over night. She is on 2 L about 2 by nasal cannula. Patient was reevaluated today on 10/29/19, remains in the ICU. Patient is status post biliary stent placement, and her liver profile seems to be steadily improving. Her CPK is also improving and renal profile is almost back to normal. Patient denies any specific complaints. She is on 2 L nasal cannula, O2 saturations 97%. CBC is relatively normal basic metabolic profile is normal total bilirubin is down to 4.4. And her renal profile showed a BUN of 52 creatinine 0.63. Overall the patient is doing great. Hence the plan is to discontinue sodium bicarb. Patient is back on her oral Coumadin. She remains in atrial fibrillation but rate seems to be fairly well controlled. Plan is to transfer the patient out of the ICU to a monitor bed on selective Objective - Vital Signs Vital signs: Vital Signs Temp 97.7 F 10/29/19 08:00 Pulse 80 10/29/19 09:00 Resp 10 L 10/29/19 09:00 BP 117/53 10/29/19 09:00 Pulse Ox 97 10/29/19 09:00 Intake & Output 10/28/19 10/29/19 10/29/19 18:59 06:59 18:59 Intake Total 1000 900 220 Output Total 406 450 190 Balance 594 450 30 Weight 109.3 kg 109.3 kg Intake: IV 825 150 Dextrose 5% in Water 1, 825 150 000 ml @ 75 mls/hr IV . [id number] ANUJA with Sodium Bicarb (1 Meq/ml) 150 ml Rx#:[id number] Intake, IV Titration 1000 75 Amount Dextrose 5% in Water 1, 900 75 000 ml @ 75 mls/hr IV . [id number] ANUJA with Sodium Bicarb (1 Meq/ml) 150 ml Rx#:[id number] Piperacillin-Tazobactam 3 100 .375 gm In Sodium Chloride 0.9% 100 ml @ 25 mls/hr IVPB Q8H ANUJA Rx#: [id number] Oral 70 Output: Urine 406 450 190 Other: Voiding Method Indwelling Catheter Indwelling Catheter Indwelling Catheter - Exam Physical Exam: Revealed a 85-year-old female, pleasant, in no distress. Head: Atraumatic normocephalic. HEENT:[Neck is supple.] [No neck masses.] [No thyromegaly.] [No JVD.] EOMI, slight icterus noted. Chest: [Diminished at the bases symmetrical chest expansion no crackles or rhonchi or wheezes. Cardiac Exam: Irregular irregular rhythm. [Normal S1 and S2, no S3 gallop, no murmur.] Abdomen: [Soft, nontender, no megaly, no rebound, no guarding, normal bowel sounds.] Extremities: [No clubbing, no edema, no cyanosis.] Good pulses bilaterally. Neurological Exam: [No focal neurologic deficit.] Alert oriented 3. Psychiatric: Normal mood affect and normal mental status examination. Skin: No rashes. Lymphatics: No lymphadenopathy. - Labs CBC & Chem 7: 10/29/19 03:57 10/29/19 03:57 Labs: Abnormal Lab Results - Last 24 Hours (Table) 10/28/19 10/28/19 10/29/19 Range/Units 16:50 20:02 03:57 MCHC 30.6 L (31.0-37.0) g/dL Plt Count 124 L (150-450) k/uL Sodium (137-145) mmol/L BUN (7-17) mg/dL Glucose (74-99) mg/dL POC Glucose (mg/dL) 263 H 242 H (75-99) mg/dL Calcium (8.4-10.2) mg/dL Total Bilirubin (0.2-1.3) mg/dL AST (14-36) U/L ALT (4-34) U/L Alkaline Phosphatase (38-126) U/L Total Protein (6.3-8.2) g/dL Albumin (3.5-5.0) g/dL 10/29/19 10/29/19 10/29/19 Range/Units 03:57 06:36 11:54 MCHC (31.0-37.0) g/dL Plt Count (150-450) k/uL Sodium 134 L (137-145) mmol/L BUN 32 H (7-17) mg/dL Glucose 156 H (74-99) mg/dL POC Glucose (mg/dL) 165 H 261 H (75-99) mg/dL Calcium 7.7 L (8.4-10.2) mg/dL Total Bilirubin 4.4 H (0.2-1.3) mg/dL AST 54 H (14-36) U/L ALT 59 H (4-34) U/L Alkaline Phosphatase 734 H (38-126) U/L Total Protein 4.4 L (6.3-8.2) g/dL Albumin 2.0 L (3.5-5.0) g/dL Microbiology - Last 24 Hours (Table) 10/24/19 18:38 Blood Culture - Preliminary Blood No Growth after 96 hours Assessment and Plan Assessment: Impression: Acute mild rhabdomyolysis secondary to fall and increased CPK. Normalized at present. Fall without any significant skeletal injuries. Obstructive jaundice requiring biliary stent placement. ERCP. Liver profile is improving. Nonischemic cardiomyopathy. History of AICD placement for her cardiomyopathy. Chronic atrial fibrillation. Benign essential hypertension. Non-anion gap metabolic acidosis, resolved. Recommendation: Discontinue sodium bicarb and IV fluid. Continue Coumadin until therapeutic and the dose will be adjusted accordingly. Continue to monitor liver profile on a daily basis. Arrange for the patient to transfer out of the ICU to a monitor bed on selective. Will continue to follow. Time with Patient: Less than 30
--- NOTE | 2019-10-29 13:03 | P.PN ---
Subjective Progress Note Date: 10/29/19 CHIEF COMPLAINT: Biliary obstruction HISTORY OF PRESENT ILLNESS: Patient sitting up in bed today. Remains in ICU. Tolerating diet. Occasional nausea. Denies any abdominal pain. INR 1.0. AST 54 ALT 59 alk phos 734 total bilirubin 4.4 WBC 7.8. Afebrile. PHYSICAL EXAM: VITAL SIGNS: Reviewed. GENERAL: Well-developed in no acute distress. HEENT: No sclera icterus. Extraocular movements grossly intact. Moist buccal mucosa. Head is atraumatic, normocephalic. ABDOMEN: Soft. Nondistended. Nontender. NEUROLOGIC: Alert and oriented. Cranial nerves II through XII grossly intact. ASSESSMENT: 1. Dilated bile ducts status post ERCP with biliary stent placement by GI service 2. Choledocholithiasis 3. Probable Chronic cholecystitis: gallbladder has small stones and gallbladder sludge with distended margins noted on CAT scan 4. Rhabdomyolysis 5. Chronic atrial fibrillation 6. Nonischemic cardiomyopathy with history of AICD PLAN: -Continue antibiotics -Patient will eventually require advanced endoscopic evaluation with stent removal and stone extraction. -Patient will need laparoscopic cholecystectomy when stable -Patient to be transferred to [address] [place] [address] Physician Asphalt Worker note has been reviewed by physician. Signing provider agrees with the documented findings, assessment, and plan of care. Objective - Vital Signs Vital signs: Vital Signs Temp 97.7 F 10/29/19 08:00 Pulse 80 10/29/19 09:00 Resp 10 L 10/29/19 09:00 BP 117/53 10/29/19 09:00 Pulse Ox 97 10/29/19 09:00 Intake & Output 10/28/19 10/29/19 10/29/19 18:59 06:59 18:59 Intake Total 1000 900 150 Output Total 406 450 115 Balance 594 450 35 Weight 109.3 kg Intake: IV 825 150 Dextrose 5% in Water 1, 825 150 000 ml @ 75 mls/hr IV . [id number] ANUJA with Sodium Bicarb (1 Meq/ml) 150 ml Rx#:[id number] Intake, IV Titration 1000 75 Amount Dextrose 5% in Water 1, 900 75 000 ml @ 75 mls/hr IV . [id number] ANUJA with Sodium Bicarb (1 Meq/ml) 150 ml Rx#:[id number] Piperacillin-Tazobactam 3 100 .375 gm In Sodium Chloride 0.9% 100 ml @ 25 mls/hr IVPB Q8H [facility] Rx#: [id number] Output: Urine 406 450 115 Other: Voiding Method Indwelling Catheter Indwelling Catheter Indwelling Catheter - Labs CBC & Chem 7: 10/29/19 03:57 10/29/19 03:57 Labs: Abnormal Lab Results - Last 24 Hours (Table) 10/28/19 10/28/19 10/28/19 Range/Units 09:02 11:43 12:01 MCHC (31.0-37.0) g/dL Plt Count (150-450) k/uL Sodium (137-145) mmol/L BUN (7-17) mg/dL Glucose (74-99) mg/dL POC Glucose (mg/dL) 255 H 308 H (75-99) mg/dL Calcium (8.4-10.2) mg/dL Total Bilirubin 6.7 H (0.2-1.3) mg/dL Conjugated Bilirubin 3.5 H (0.0-0.3) mg/dL Unconjugated Bilirubin 1.2 H (0.0-1.1) mg/dL Delta Bilirubin 2.0 H (0.0-0.2) mg/dL AST 69 H (14-36) U/L ALT 74 H (4-34) U/L Alkaline Phosphatase 798 H (38-126) U/L Total Protein 4.9 L (6.3-8.2) g/dL Albumin 2.4 L (3.5-5.0) g/dL 10/28/19 10/28/19 10/28/19 Range/Units 12:02 16:50 20:02 MCHC (31.0-37.0) g/dL Plt Count (150-450) k/uL Sodium (137-145) mmol/L BUN (7-17) mg/dL Glucose (74-99) mg/dL POC Glucose (mg/dL) 242 H 263 H 242 H (75-99) mg/dL Calcium (8.4-10.2) mg/dL Total Bilirubin (0.2-1.3) mg/dL Conjugated Bilirubin (0.0-0.3) mg/dL Unconjugated Bilirubin (0.0-1.1) mg/dL Delta Bilirubin (0.0-0.2) mg/dL AST (14-36) U/L ALT (4-34) U/L Alkaline Phosphatase (38-126) U/L Total Protein (6.3-8.2) g/dL Albumin (3.5-5.0) g/dL 10/29/19 10/29/19 10/29/19 Range/Units 03:57 03:57 06:36 MCHC 30.6 L (31.0-37.0) g/dL Plt Count 124 L (150-450) k/uL Sodium 134 L (137-145) mmol/L BUN 32 H (7-17) mg/dL Glucose 156 H (74-99) mg/dL POC Glucose (mg/dL) 165 H (75-99) mg/dL Calcium 7.7 L (8.4-10.2) mg/dL Total Bilirubin (0.2-1.3) mg/dL Conjugated Bilirubin (0.0-0.3) mg/dL Unconjugated Bilirubin (0.0-1.1) mg/dL Delta Bilirubin (0.0-0.2) mg/dL AST (14-36) U/L ALT (4-34) U/L Alkaline Phosphatase (38-126) U/L Total Protein (6.3-8.2) g/dL Albumin (3.5-5.0) g/dL Microbiology - Last 24 Hours (Table) 10/24/19 18:38 Blood Culture - Preliminary Blood No Growth after 96 hours
[2019-10-29] MEDS: HYDROcodone/APAP 5-325MG 1 EACH TAB PO PRN (14:09)
[2019-10-29 17:23] LABS: Glucose,Whole Blood 188 mg/dL (75-99)
[2019-10-29] MEDS ORDERED: WARFARIN 5 MG TAB PO ONE (18:00)
[2019-10-29] MEDS ORDERED: SENNOSIDES 8.6 MG TAB PO PRN (19:33)
[2019-10-29 20:14] LABS: Glucose,Whole Blood 197 mg/dL (75-99)
--- NOTE | 2019-10-30 01:45 | P.PN ---
Subjective Progress Note Date: 10/29/19 Principal diagnosis: S/P Fall Ms. Rios is a 84-year-old female with a past medical history of atrial fibrillation, congestive heart failure status post AICD placement, hypertension, hyperlipidemia, osteoarthritis admitted to the hospital after having a fall. Patient stayed on the floor for several hours before her son could get her to the hospital. She was found to have mild degree of rhabdomyolysis. Eventually she was transferred to the ICU as she became tachycardic with atrial fibrillation. Currently multiple consultants following the patient. She had a CT of the abdomen and pelvis with no evidence of portal vein thrombosis. Patient continues to be in the ICU setting. Overnight no acute events reported by nursing staff. Patient states that she still has right-sided abdominal pain, but denies having any nausea or vomiting. She also thinks that she has increased swelling of her legs as she is not moving much. Patient's vitals have been reviewed and are within normal limits. On 10/28/2019 -patient is still in the ICU. Overnight no acute events reported by nursing staff. Patient still complains of pain in the right upper quadrant of her abdomen. She denies having any nausea or vomiting. Patient states that her last bowel movement was couple of days back. Patient vitals have been reviewed afebrile for the past 24 hours, blood pressure 102/70, saturating at 95% on room air. Patient's labs are reviewed LFTs trending down, bilirubin trending down. Blood sugars trending on the higher side. On 10/28 - Patient is comfortably lying in the bed, still in the ICU. No acute events reported by nursing staff. Patient's vitals from this morning are reviewed temperature 98.4, blood pressure 100 x 61, saturating at 97% on 2 L of nasal cannula. Patient denies having any acute complaints. She continues to be on antibiotic in the form of Zosyn. On reviewing her labs her LFTs are trending down. Active Medications Acetaminophen (Tylenol Tab) 500 mg PO Q6HR PRN PRN Reason: Fever and/ or Pain Last Admin: 10/26/19 12:58 Dose: 500 mg Documented by: Hydrocodone Bitart/Acetaminophen (Lyndon 5-325) 1 each PO Q6HR PRN PRN Reason: Pain Last Admin: 10/29/19 14:09 Dose: 1 each Documented by: Albuterol/Ipratropium (Duoneb 0.5 Mg-3 Mg/3 Ml Soln) 3 ml INHALATION RT-TID [facility] Last Admin: 10/29/19 20:03 Dose: Not Given Documented by: Albuterol/Ipratropium (Duoneb 0.5 Mg-3 Mg/3 Ml Soln) 3 ml INHALATION RT-TID PRN PRN Reason: Shortness Of Breath Or Wheezing Docusate Sodium (Colace) 100 mg PO DAILY PRN PRN Reason: Constipation Hydromorphone HCl (Dilaudid) 0.5 mg IVP Q6HR PRN PRN Reason: Severe Pain Last Admin: 10/28/19 06:12 Dose: 0.5 mg Documented by: Piperacillin Sod/Tazobactam (Sod 3.375 gm/ Sodium Chloride) 100 mls @ 25 mls/hr IVPB Q8H [facility] Last Admin: 10/29/19 19:53 Dose: 25 mls/hr Documented by: Insulin Aspart (Novolog) 0 unit SQ ACHS [facility]; Protocol Last Admin: 10/29/19 20:14 Dose: 2 unit Documented by: Metoclopramide HCl (Reglan) 5 mg IVP Q6HR PRN PRN Reason: Nausea And Vomiting Last Admin: 10/26/19 03:59 Dose: 5 mg Documented by: Metoprolol Succinate (Toprol Xl) 100 mg PO DAILY [facility] Last Admin: 10/29/19 09:19 Dose: 100 mg Documented by: Miscellaneous Information (Magnesium Per Protocol) 1 each MISCELLANE DAILY PRN; Protocol PRN Reason: Per Protocol Miscellaneous Information (Potassium Per Protocol) 1 each MISCELLANE DAILY PRN; Protocol PRN Reason: Per Protocol Miscellaneous Information (Coumadin Per Pharmacy) 0 each MISCELLANE DIRECTED PRN PRN Reason: INR Naloxone HCl (Narcan) 0.2 mg IV Q2M PRN PRN Reason: Opioid Reversal Ondansetron HCl (Zofran) 4 mg IVP Q6HR PRN PRN Reason: Nausea And Vomiting Pantoprazole Sodium (Protonix) 40 mg IVP DAILY [facility] Last Admin: 10/29/19 09:19 Dose: 40 mg Documented by: Senna (Senokot) 8.6 mg PO DAILY PRN PRN Reason: Constipation Objective - Vital Signs Vital signs: Vital Signs Temp 99.0 F 10/29/19 12:00 Pulse 80 10/29/19 13:00 Resp 23 10/29/19 13:00 BP 121/58 10/29/19 13:00 Pulse Ox 97 10/29/19 13:00 Intake & Output 10/28/19 10/29/19 10/29/19 18:59 06:59 18:59 Intake Total 1000 900 370 Output Total 406 450 300 Balance 594 450 70 Weight 109.3 kg 109.3 kg Intake: IV 825 150 Dextrose 5% in Water 1, 825 150 000 ml @ 75 mls/hr IV . [id number] ANUJA with Sodium Bicarb (1 Meq/ml) 150 ml Rx#:[id number] Intake, IV Titration 1000 75 Amount Dextrose 5% in Water 1, 900 75 000 ml @ 75 mls/hr IV . [id number] ANJUA with Sodium Bicarb (1 Meq/ml) 150 ml Rx#:[id number] Piperacillin-Tazobactam 3 100 .375 gm In Sodium Chloride 0.9% 100 ml @ 25 mls/hr IVPB Q8H ANUJA Rx#: [id number] Oral 220 Output: Urine 406 450 300 Other: Voiding Method Indwelling Catheter Indwelling Catheter Indwelling Catheter - Exam PHYSICAL EXAM GENERAL :patient is alert oriented x3, appears to be no acute distress HEENT: Conjunctiva is normal, sclerae icterus positive CARDIOVASCULAR: Space S1-S2 heard RESPIRATORY: Bilateral breath sounds diminished in the lower lung bases. No wheeze or crackles. GI: Abdomen is soft, tenderness positive in the right upper quadrant. Bowel sounds positive. EXTREMITIES: Mild pitting edema [employer]: No focal neurological deficits on gross exam SKIN : Actinic keratosis - Labs CBC & Chem 7: 10/29/19 03:57 10/29/19 03:57 Labs: Abnormal Lab Results - Last 24 Hours (Table) 10/28/19 10/29/19 10/29/19 Range/Units 20:02 03:57 03:57 MCHC 30.6 L (31.0-37.0) g/dL Plt Count 124 L (150-450) k/uL Sodium 134 L (137-145) mmol/L BUN 32 H (7-17) mg/dL Glucose 156 H (74-99) mg/dL POC Glucose (mg/dL) 242 H (75-99) mg/dL Calcium 7.7 L (8.4-10.2) mg/dL Total Bilirubin 4.4 H (0.2-1.3) mg/dL AST 54 H (14-36) U/L ALT 59 H (4-34) U/L Alkaline Phosphatase 734 H (38-126) U/L Total Protein 4.4 L (6.3-8.2) g/dL Albumin 2.0 L (3.5-5.0) g/dL 10/29/19 10/29/19 10/29/19 Range/Units 06:36 11:54 17:21 MCHC (31.0-37.0) g/dL Plt Count (150-450) k/uL Sodium (137-145) mmol/L BUN (7-17) mg/dL Glucose (74-99) mg/dL POC Glucose (mg/dL) 165 H 261 H 188 H (75-99) mg/dL Calcium (8.4-10.2) mg/dL Total Bilirubin (0.2-1.3) mg/dL AST (14-36) U/L ALT (4-34) U/L Alkaline Phosphatase (38-126) U/L Total Protein (6.3-8.2) g/dL Albumin (3.5-5.0) g/dL Microbiology - Last 24 Hours (Table) 10/24/19 18:38 Blood Culture - Preliminary Blood No Growth after 96 hours Assessment and Plan Assessment: ASSESSMENT Acute rhabdomyolysis status post fall Obstructive jaundice with moderate to severe extrahepatic biliary dilation Hypercoagulability-Coumadin toxicity - resolved Hyponatremia Acute hepatitis Type 2 diabetes mellitus Hypomagnesemia Possible cholelithiasis Chronic atrial fibrillation Acute kidney injury Urinary tract infection with E. coli Hypertension Pacemaker /AICD History of cardiac ablation History of cardioversion Remote history of nicotine dependence Obesity with BMI of 35.4 Moderate protein calorie malnutrition Plan: She is status post ERCP with stent placement, LFTs slowly trending down. Patient has been restarted on Coumadin but her INR is still around ~1 . Continue with broad-spectrum antibiotic coverage with Zosyn. Continue with the rest of her current medication regimen. Overall prognosis is poor secondary to chronic multiple medical conditions. Further recommendations depending on the progress of the patient.
[2019-10-30] MEDS: PIPERACILLIN-TAZOBACTAM 3.375 GM in SODIUM CHLORIDE 0.9% 100 ML IVPB SCH ×3 (02:09→20:19)
[2019-10-30] MEDS: HYDROcodone/APAP 5-325MG 1 EACH TAB PO PRN (02:16)
[2019-10-30 05:18] LABS: HCT 39.2 % (34.0-46.0); HGB 11.9 gm/dL (11.4-16.0); Hypochromasia Marked; MCH 28.8 pg (25.0-35.0); MCHC 30.3 g/dL (31.0-37.0); Mean Platelet Volume 8.9; Platelet Count 156 k/uL (150-450); RBC 4.13 m/uL (3.80-5.40); RDW 13.8 % (11.5-15.5); WBC 8.5 k/uL (3.8-10.6)
[2019-10-30 05:23] LABS: INR 1.1 (<1.2)
[2019-10-30 05:24] LABS: Prothrombin Time 10.9 sec (9.0-12.0)
[2019-10-30 05:26] LABS: ALT 48 U/L (4-34); AST 51 U/L (14-36); African American GFR (CKD) >90 (>60 ml/min/1.73 sqM); Albumin 2.3 g/dL (3.5-5.0); Alkaline Phosphatase 884 U/L (38-126); Anion Gap 5 mmol/L; Blood Urea Nitrogen 23 mg/dL (7-17); Calcium 7.8 mg/dL (8.4-10.2); Carbon Dioxide 31 mmol/L (22-30); Chloride 98 mmol/L (98-107); Glucose 125 mg/dL (74-99); Non-African American GFR(CKD) 85 (>60 ml/min/1.73 sqM); Potassium 3.8 mmol/L (3.5-5.1); Sodium 134 mmol/L (137-145); Total Bilirubin 3.8 mg/dL (0.2-1.3); Total Protein 4.9 g/dL (6.3-8.2)
--- NOTE | 2019-10-30 06:24 | P.PN ---
Subjective Progress Note Date: 10/29/19 Principal diagnosis: Elevated liver enzymes, elevated bilirubin, dilated bile duct, suspected choledocholithiasis Patient is seen sitting bedside again today. She continues to report no nausea or vomiting that she is tolerating her diet. No signs or symptoms of GI bleeding. Objective - Vital Signs Vital signs: Vital Signs Temp 99.0 F 10/29/19 12:00 Pulse 80 10/29/19 13:00 Resp 23 10/29/19 13:00 BP 121/58 10/29/19 13:00 Pulse Ox 97 10/29/19 13:00 Intake & Output 10/28/19 10/29/19 10/29/19 18:59 06:59 18:59 Intake Total 1000 900 370 Output Total 406 450 270 Balance 594 450 100 Weight 109.3 kg 109.3 kg Intake: IV 825 150 Dextrose 5% in Water 1, 825 150 000 ml @ 75 mls/hr IV . [id number] ANUJA with Sodium Bicarb (1 Meq/ml) 150 ml Rx#:[id number] Intake, IV Titration 1000 75 Amount Dextrose 5% in Water 1, 900 75 000 ml @ 75 mls/hr IV . [id number] ANUJA with Sodium Bicarb (1 Meq/ml) 150 ml Rx#:[id number] Piperacillin-Tazobactam 3 100 .375 gm In Sodium Chloride 0.9% 100 ml @ 25 mls/hr IVPB Q8H ANUJA Rx#: [id number] Oral 220 Output: Urine 406 450 270 Other: Voiding Method Indwelling Catheter Indwelling Catheter Indwelling Catheter - Exam On physical examination, patient appears comfortable in no apparent distress. HEAD: Normocephalic, atraumatic. EYES: No scleral icterus. No conjunctival injection. MOUTH: No lesions, tongue midline. NECK: Trachea midline, no gross abnormalities. ABDOMEN: Soft, obese. Bowel sounds are positive. No organomegaly. No guarding or rigidity. EXTREMITIES: No pedal edema. SKIN: No rashes, no jaundice. NEUROLOGIC: Alert and oriented x3. No focal deficits. - Labs CBC & Chem 7: 10/30/19 04:47 10/30/19 04:47 Labs: Abnormal Lab Results - Last 24 Hours (Table) 10/28/19 10/28/19 10/29/19 Range/Units 16:50 20:02 03:57 MCHC 30.6 L (31.0-37.0) g/dL Plt Count 124 L (150-450) k/uL Sodium (137-145) mmol/L BUN (7-17) mg/dL Glucose (74-99) mg/dL POC Glucose (mg/dL) 263 H 242 H (75-99) mg/dL Calcium (8.4-10.2) mg/dL Total Bilirubin (0.2-1.3) mg/dL AST (14-36) U/L ALT (4-34) U/L Alkaline Phosphatase (38-126) U/L Total Protein (6.3-8.2) g/dL Albumin (3.5-5.0) g/dL 10/29/19 10/29/19 10/29/19 Range/Units 03:57 06:36 11:54 MCHC (31.0-37.0) g/dL Plt Count (150-450) k/uL Sodium 134 L (137-145) mmol/L BUN 32 H (7-17) mg/dL Glucose 156 H (74-99) mg/dL POC Glucose (mg/dL) 165 H 261 H (75-99) mg/dL Calcium 7.7 L (8.4-10.2) mg/dL Total Bilirubin 4.4 H (0.2-1.3) mg/dL AST 54 H (14-36) U/L ALT 59 H (4-34) U/L Alkaline Phosphatase 734 H (38-126) U/L Total Protein 4.4 L (6.3-8.2) g/dL Albumin 2.0 L (3.5-5.0) g/dL Microbiology - Last 24 Hours (Table) 10/24/19 18:38 Blood Culture - Preliminary Blood No Growth after 96 hours Assessment and Plan (1) Dilated bile duct Narrative/Plan: 84-year-old female multiple medical comorbidities who presented to the hospital due to mechanical fall and was being treated in the ICU for abnormalities this. Patient had persistently elevated liver enzymes with total bilirubin 6.1, alkaline phosphatase 671, AST 2016 and ALT 130 with computed tomography scan of the abdomen performed in evaluation significant for dilated bile ducts. ERCP performed with findings of a markedly dilated bile duct with filling defect suggestive of choledocholithiasis and tapering in the distal CBD status post stent placement. Current Visit: Yes Status: Acute Code(s): K83.8 - OTHER SPECIFIED DISEASES OF BILIARY TRACT SNOMED Code(s): 472016136 (2) Elevated liver enzymes Current Visit: Yes Status: Acute Code(s): R74.8 - ABNORMAL LEVELS OF OTHER SERUM ENZYMES SNOMED Code(s): 177306296 (3) Elevated bilirubin Current Visit: Yes Status: Acute Code(s): R17 - UNSPECIFIED JAUNDICE SNOMED Code(s): 06441332 (4) Rhabdomyolysis Current Visit: Yes Status: Acute Code(s): M62.82 - RHABDOMYOLYSIS SNOMED Code(s): 998390379 Plan: Supportive care Okay for diet Continue broad-spectrum antibiotic therapy Continue to monitor CBC, BMP, LFTs Okay to resume Coumadin Patient is status post ERCP with stent placement, technically difficult secondary to the ampulla being located within a diverticulum, patient will need follow-up with gastroenterology and referral to a tertiary center for ERCP with stent removal as well as possible sphincterotomy after discharge Thank you for allowing us to participate in the care of the patient
[2019-10-30] MEDS: INSULIN ASPART (NovoLOG) 100 UNIT/ML VIAL SQ SCH ×4 (06:37→21:17)
[2019-10-30 06:42] LABS: Glucose,Whole Blood 120 mg/dL (75-99)
[2019-10-30] MEDS: IPRATROPIUM-ALBUTEROL 3 ML NEB INHALATION SCH ×3 (07:14→20:10)
--- NOTE | 2019-10-30 09:18 | PN ---
PROGRESS NOTE Mrs. Rios is an 84-year-old female who has history of atrial fibrillation, anticoagulated who presented with rhabdomyolysis. She has a known history of nonischemic cardiomyopathy, status post ICD implantation. She is feeling better overall. Her appetite remains poor, but she has no chest discomfort. Her breathing is stable. She denies any dizziness or palpitation. She denies any nausea. Hemodynamically, she has been stable. She continues to be at this time on metoprolol succinate 100 mg daily and she was restarted on Coumadin. PHYSICAL EXAMINATION: Blood pressure 107/60 with a heart rate in the 60s. LUNGS: Clear. HEART: Irregular, regular, S1, S2. No S3 with systolic murmur, no diastolic murmur, no rub. ABDOMEN: Soft, nontender, positive bowel sounds. EXTREMITIES: No edema. LAB DATA: Revealed hemoglobin of 11.9, BUN and creatinine 23 and 0.6. Her INR is 1.1. Her AST is 51, ALT is 48, alkaline phosphatase 884. IMPRESSION: 1. History of nonischemic cardiomyopathy status post ICD implantation, stable. 2. Acute rhabdomyolysis, resolving. 3. Obstructive jaundice with biliary stent with improvement liver function test. 4. Chronic persistent atrial fibrillation, anticoagulation re-initiated. 5. History of hypertension. RECOMMENDATION: From the cardiac standpoint, will continue on the anticoagulation with Coumadin. Will follow her INR and increase her activity. I would expect she should be able to transfer to the telemetry floor and depending on her progress, further recommendation will be made. MMODL / IJN: [id number] /
[2019-10-30] MEDS: PANTOPRAZOLE 40 MG/10 ML VIAL IVP SCH (09:50)
[2019-10-30] MEDS: METOPROLOL SUCCINATE (ER) 100 MG TAB.ER.24H PO SCH (09:50)
[2019-10-30] MEDS: DOCUSATE 100 MG CAP PO PRN (09:50)
--- NOTE | 2019-10-30 11:26 | P.PN ---
Subjective Progress Note Date: 10/30/19 CHIEF COMPLAINT: Biliary obstruction HISTORY OF PRESENT ILLNESS: Patient sitting up in bed today. Remains in ICU as overflow. Tolerating diet. Denies any abdominal pain. She is passing gas. No nausea or vomiting. It is been a few days since a bowel movement. Stool softeners ordered by medicine. Afebrile. WBC 8.5, total bilirubin 3.8, AST 51, ALT 54, alk phos 884 PHYSICAL EXAM: VITAL SIGNS: Reviewed. GENERAL: Well-developed in no acute distress. HEENT: No sclera icterus. Extraocular movements grossly intact. Moist buccal mucosa. Head is atraumatic, normocephalic. ABDOMEN: Soft. Nondistended. Nontender. NEUROLOGIC: Alert and oriented. Cranial nerves II through XII grossly intact. ASSESSMENT: 1. Dilated bile ducts status post ERCP with biliary stent placement by GI service 2. Choledocholithiasis 3. Probable Chronic cholecystitis: gallbladder has small stones and gallbladder sludge with distended margins noted on CAT scan PLAN: -Continue antibiotics -Patient will eventually require advanced endoscopic evaluation with stent removal and stone extraction. -Patient will need laparoscopic cholecystectomy when stable -Patient to be transferred to regular medical floor today Physician Clinical Coordinator note has been reviewed by physician. Signing provider agrees with the documented findings, assessment, and plan of care. Objective - Vital Signs Vital signs: Vital Signs Temp 97.5 F L 10/30/19 08:00 Pulse 71 10/30/19 08:00 Resp 27 H 10/30/19 08:00 BP 121/62 10/30/19 08:00 Pulse Ox 97 10/30/19 00:00 Intake & Output 10/29/19 10/30/19 10/30/19 18:59 06:59 18:59 Intake Total 520 120 Output Total 430 420 165 Balance 90 -420 -45 Weight 109.3 kg 109.7 kg Intake: IV 150 Dextrose 5% in Water 1, 150 000 ml @ 75 mls/hr IV . [id number] ANUJA with Sodium Bicarb (1 Meq/ml) 150 ml Rx#:[id number] Oral 370 120 Output: Urine 430 420 165 Other: Voiding Method Indwelling Catheter Indwelling Catheter - Labs CBC & Chem 7: 10/30/19 04:47 10/30/19 04:47 Labs: Abnormal Lab Results - Last 24 Hours (Table) 10/29/19 10/29/19 10/29/19 Range/Units 11:54 17:21 20:12 MCHC (31.0-37.0) g/dL Sodium (137-145) mmol/L Carbon Dioxide (22-30) mmol/L BUN (7-17) mg/dL Glucose (74-99) mg/dL POC Glucose (mg/dL) 261 H 188 H 197 H (75-99) mg/dL Calcium (8.4-10.2) mg/dL Total Bilirubin (0.2-1.3) mg/dL AST (14-36) U/L ALT (4-34) U/L Alkaline Phosphatase (38-126) U/L Total Protein (6.3-8.2) g/dL Albumin (3.5-5.0) g/dL 10/30/19 10/30/19 10/30/19 Range/Units 04:47 04:47 06:31 MCHC 30.3 L (31.0-37.0) g/dL Sodium 134 L (137-145) mmol/L Carbon Dioxide 31 H (22-30) mmol/L BUN 23 H (7-17) mg/dL Glucose 125 H (74-99) mg/dL POC Glucose (mg/dL) 120 H (75-99) mg/dL Calcium 7.8 L (8.4-10.2) mg/dL Total Bilirubin 3.8 H (0.2-1.3) mg/dL AST 51 H (14-36) U/L ALT 48 H (4-34) U/L Alkaline Phosphatase 884 H (38-126) U/L Total Protein 4.9 L (6.3-8.2) g/dL Albumin 2.3 L (3.5-5.0) g/dL Microbiology - Last 24 Hours (Table) 10/24/19 18:38 Blood Culture - Preliminary Blood No Growth after 120 hours
[2019-10-30 12:05] LABS: Glucose,Whole Blood 171 mg/dL (75-99)
--- NOTE | 2019-10-30 13:06 | P.PN ---
Subjective Progress Note Date: 10/30/19 Principal diagnosis: Obstructive jaundice and acute rhabdomyolysis secondary to fall. 84-year-old female patient was found on the floor as the patient tripped and she was unable to get herself up. She is known to have advanced cardiac disease, nonischemic artery myopathy was been followed up by Dr. Murray on outpatient basis. The patient has a AICD in place. She has a long history of persistent atrial fibrillation and she has limited articulation with warfarin. The patient denied having any loss in consciousness. She felt a week. She denies having any chest pain. No focal neurological deficit. No change in her speech. No headaches. No neck stiffness. No change in her vision. She stayed on the floor for several hours and her son picked her up and she was brought into the emergency room with the patient was found to be a mild degree of rhabdomyolysis. The liver function tests were also abnormal and the patient underwent an ultrasound of the liver that also raised the possibility of a portal vein thrombosis. Overnight, the patient got transferred to the intensive care unit as the patient became tachycardic with atrial fibrillation. She was given amiod arone and this was discontinued this morning by cardiology after patient had is up-to-date on the better control. She is currently on metoprolol in the milligrams by mouth daily and she is also on no Coumadin as the patient's PT/INR was supratherapeutic above 6. No nausea. No vomiting. No abdominal pain. No chest pain. She is still in atrial fibrillation at this point in time. No abdominal distention. 10/26/2019, the patient is doing well. No specific complaints. She has some abdominal tenderness patient the right upper quadrant. I repeated the CAT scan of the abdomen and pelvis and I reviewed the films. There is no evidence of any portal vein thrombosis. Nevertheless, there is dilatation of the intrahepatic and extrahepatic biliary ducts and dilation of the common bile duct. Gallbladder is also distended and the weeks are thickened and the patient has sludge. There is also cholelithiasis. LFTs are normal including elevated bilirubin and the patient may have an obstructive pattern on the liver function tests. GI has been consulted for the possibility or the need of ERCP. The patient is on antibiotics. The patient is doing well and she has diminished appetite and she has been taken on a clear liquid diet. Room air pulse ox 95%. She remains on normal saline at the rate of 75 mL an hour. CPK has dropped and the patient is recovering from a rhabdomyolysis. No signs of any fluid overload. No signs of any respiratory distress. Awaiting a GI consultation for possible ERCP. Coagulopathy has been reversed after being given 2 mg of vitamin K and INR is down to 3.2. 10/27/2019, the patient is on room air oxygen. No respiratory difficulties. She still having some abdominal tenderness specifically in the right upper quadrant area. Bilirubin is on the rise. She has jaundice. Her total bilirubin is at 8.4. AST is 120. ALT is 107. Alkaline phosphatase is 862. Total protein is at 5.2 with a albumin level of 2.5. INR is down to 1.3. The patient will be undergoing an ERCP this morning. The patient is on empiric antibiotic coverage with IV Zosyn. The patient is nothing by mouth awaiting her ERCP. The patient also is normal saline and the serum bicarb is down to 16 and the patient will be. Sodium bicarb infusion. No other significant events otherwise for now. She was given vitamin K which further improved her coagulopathy. 10/28/2019, the patient is doing well. The patient's post-ERCP and insertion of a biliary stent. The bilirubin is down to 6.7 on today's evaluation. LFTs are also improving with AST of 69, ALT of 74, alkaline phosphatase of 794. The renal function is stable. Creatinine is at 0.8. The patient has no significant tenderness in the right upper quadrant. White cell count at 8.6. Hemoglobin is at 12.4. The patient remains on empiric antibiotic coverage with IV Zosyn. Coumadin is on hold and this will be restarted today at a dose of 5 mg by mouth daily. She remains on bicarb infusion at the rate of 75 mL an hour. No other significant events over night. She is on 2 L about 2 by nasal cannula. Patient was reevaluated today on 10/29/19, remains in the ICU. Patient is status post biliary stent placement, and her liver profile seems to be steadily improving. Her CPK is also improving and renal profile is almost back to normal. Patient denies any specific complaints. She is on 2 L nasal cannula, O2 saturations 97%. CBC is relatively normal basic metabolic profile is normal total bilirubin is down to 4.4. And her renal profile showed a BUN of 52 creatinine 0.63. Overall the patient is doing great. Hence the plan is to discontinue sodium bicarb. Patient is back on her oral Coumadin. She remains in atrial fibrillation but rate seems to be fairly well controlled. Plan is to transfer the patient out of the ICU to a monitor bed on selective Reevaluated today on 10/30/19, patient is doing well, remains in the ICU as an overflow. She is on oxygen at 2 L/m. Her liver profile seems to be improving except for slight increase in her alkaline phosphatase. Patient denies any nausea vomiting or abdominal pain. Remains on Zosyn. WBC count is 8.5 hemoglobin 11.9 alkaline phosphatase 884 bilirubin is down to 3.8. Electrolytes are normal renal profile is normal. Objective - Vital Signs Vital signs: Vital Signs Temp 98.1 F 10/30/19 12:00 Pulse 82 10/30/19 12:00 Resp 19 10/30/19 12:00 BP 127/75 10/30/19 12:00 Pulse Ox 97 10/30/19 00:00 Intake & Output 10/29/19 10/30/19 10/30/19 18:59 06:59 18:59 Intake Total 520 500 Output Total 430 420 315 Balance 90 -420 185 Weight 109.3 kg 109.7 kg Intake: IV 150 380 .9 Na Cl KVO 80 Dextrose 5% in Water 1, 150 000 ml @ 75 mls/hr IV . [id number] ANUJA with Sodium Bicarb (1 Meq/ml) 150 ml Rx#:[id number] Piperacillin-Tazobactam 3 300 .375 gm In Sodium Chloride 0.9% 100 ml @ 25 mls/hr IVPB Q8H ANUJA Rx#: [id number] Oral 370 120 Output: Urine 430 420 315 Other: Voiding Method Indwelling Catheter Indwelling Catheter Indwelling Catheter - Exam Physical Exam: Revealed a 85-year-old female, pleasant, in no distress. Head: Atraumatic normocephalic. HEENT:[Neck is supple.] [No neck masses.] [No thyromegaly.] [No JVD.] EOMI, slight icterus noted. Chest: [Diminished at the bases symmetrical chest expansion no crackles or rhonchi or wheezes. Cardiac Exam: Irregular irregular rhythm. [Normal S1 and S2, no S3 gallop, no murmur.] Abdomen: [Soft, nontender, no megaly, no rebound, no guarding, normal bowel sounds.] Extremities: [No clubbing, no edema, no cyanosis.] Good pulses bilaterally. Neurological Exam: [No focal neurologic deficit.] Alert oriented 3. Psychiatric: Normal mood affect and normal mental status examination. Skin: No rashes. Lymphatics: No lymphadenopathy. - Labs CBC & Chem 7: 10/30/19 04:47 10/30/19 04:47 Labs: Abnormal Lab Results - Last 24 Hours (Table) 10/29/19 10/29/19 10/30/19 Range/Units 17:21 20:12 04:47 MCHC (31.0-37.0) g/dL Sodium 134 L (137-145) mmol/L Carbon Dioxide 31 H (22-30) mmol/L BUN 23 H (7-17) mg/dL Glucose 125 H (74-99) mg/dL POC Glucose (mg/dL) 188 H 197 H (75-99) mg/dL Calcium 7.8 L (8.4-10.2) mg/dL Total Bilirubin 3.8 H (0.2-1.3) mg/dL AST 51 H (14-36) U/L ALT 48 H (4-34) U/L Alkaline Phosphatase 884 H (38-126) U/L Total Protein 4.9 L (6.3-8.2) g/dL Albumin 2.3 L (3.5-5.0) g/dL 10/30/19 10/30/19 10/30/19 Range/Units 04:47 06:31 12:04 MCHC 30.3 L (31.0-37.0) g/dL Sodium (137-145) mmol/L Carbon Dioxide (22-30) mmol/L BUN (7-17) mg/dL Glucose (74-99) mg/dL POC Glucose (mg/dL) 120 H 171 H (75-99) mg/dL Calcium (8.4-10.2) mg/dL Total Bilirubin (0.2-1.3) mg/dL AST (14-36) U/L ALT (4-34) U/L Alkaline Phosphatase (38-126) U/L Total Protein (6.3-8.2) g/dL Albumin (3.5-5.0) g/dL Microbiology - Last 24 Hours (Table) 10/24/19 18:38 Blood Culture - Preliminary Blood No Growth after 120 hours Assessment and Plan Assessment: Impression: Acute mild rhabdomyolysis secondary to fall, resolved. Fall without any significant skeletal injuries. Obstructive jaundice requiring biliary stent placement. This is likely secondary to choledocholithiasis. Being followed by gastroenterology. Nonischemic cardiomyopathy. History of AICD placement for her cardiomyopathy. Chronic atrial fibrillation. Benign essential hypertension. Non-anion gap metabolic acidosis, resolved. Recommendation: Continue present supportive care measures. Advanced diet as tolerated. Patient has a poor appetite. Continue Coumadin until therapeutic and the dose will be adjusted accordingly. Continue to monitor liver profile on a daily basis. Arrange for the patient to transfer out of the ICU to a monitor bed Will continue to follow. Time with Patient: Less than 30
--- NOTE | 2019-10-30 15:59 | CDI ---
Documentation Clarification Form Date: 10/30/2019 03:25:57 PM From: Octavia Douglas RN CCDS Admit Date: 10/24/2019 04:31:00 PM Patient Name: Loyda Rios Visit Number: [id number] Discharge Date: ATTENTION: The Clinical Documentation Specialists (CDI) and [facility] Coding Staff appreciate your assistance in clarifying documentation. Please respond to the clarification below the line at the bottom and electronically sign. The CDI & [facility] Coding staff will review the response and follow-up if needed. Please note: Queries are made part of the Legal Health Record. If you have any questions, please contact the author of this message via ITS. Ailyn Flores MD The diagnosis Sepsis was documented in the H&P thru progress note 10/25 but is not noted in subsequent documentation. History/Risk Factors: 84-year-old female presents to the ED after a fall at home. The patient was lying on the floor for at least a half of a day. The patient has a fever, cough and nausea. Clinical Indicators: 10/23 VSS: B/P: 121/73; HR: 98; Temp: 97.3; RR: 18; SpO2: 95% room air Labs: Wbc 18.6; Neutrophils 17.6; Lactic Acid 3.0; 2.8; 2.7; 10/24 2.1; 10/[address]: Moderate to severe extrahepatic along with mild to moderate intrahepatic biliary dilatation. Gallbladder has small stones and gallbladder sludge with distended margins. Consider CBD stone near ampulla. 10/25 Internal medicine progress note: Fall and acute rhabdomyolysis; Fever: possible acute bilateral interstitial pneumonia, possibly aspiration, COVID 19 ruled out. Possible sepsis. 10/28 Internal medicine progress note: Acute rhabdomyolysis s/p fall; Obstructive jaundice with moderate to severe extrahepatic biliary dilation. Hypercoagulability coumadin toxicity resolved. Hyponatremia. Acute hepatitis; Type 2 DM ; possible cholelithiasis , JON and UTI Treatment: Meds: 10/23 Rocephin Ivpb x1; 10/23 Zosyn Ivpb; 10/23 0.9ns bolus 2 L followed by 75cchr d/c 10/26; 0.9ns 1L bolus Please clarify if the Sepsis was: Present/active this admission Treated and resolved this admission Ruled out Other, please specify Clinically unable to determine (Last Query Form Revision: November 2018) Sepsis was: Present at the time of admission and is being treated MTDD
[2019-10-30] MEDS: METOCLOPRAMIDE 5 MG/ML 2 ML VIAL IVP PRN ×2 (16:07→21:17)
[2019-10-30 17:10] LABS: Glucose,Whole Blood 163 mg/dL (75-99)
[2019-10-30] MEDS ORDERED: WARFARIN 5 MG TAB PO ONE (18:00)
[2019-10-30 21:18] LABS: Glucose,Whole Blood 136 mg/dL (75-99)
--- NOTE | 2019-10-30 21:45 | P.PN ---
Subjective Progress Note Date: 10/30/19 Ms. Rios is a 84-year-old female with a past medical history of atrial fibrillation, congestive heart failure status post AICD placement, hypertension, hyperlipidemia, osteoarthritis admitted to the hospital after having a fall. Patient stayed on the floor for several hours before her son could get her to the hospital. She was found to have mild degree of rhabdomyolysis. Eventually she was transferred to the ICU as she became tachycardic with atrial fibrillation. Currently multiple consultants following the patient. She had a CT of the abdomen and pelvis with no evidence of portal vein thrombosis. Patient continues to be in the ICU setting. Overnight no acute events reported by nursing staff. Patient states that she still has right-sided abdominal pain, but denies having any nausea or vomiting. She also thinks that she has increased swelling of her legs as she is not moving much. Patient's vitals have been reviewed and are within normal limits. On 10/28/2019 -patient is still in the ICU. Overnight no acute events reported by nursing staff. Patient still complains of pain in the right upper quadrant of her abdomen. She denies having any nausea or vomiting. Patient states that her last bowel movement was couple of days back. Patient vitals have been reviewed afebrile for the past 24 hours, blood pressure 102/70, saturating at 95% on room air. Patient's labs are reviewed LFTs trending down, bilirubin trending down. Blood sugars trending on the higher side. On 10/28 - Patient is comfortably lying in the bed, still in the ICU. No acute events reported by nursing staff. Patient's vitals from this morning are reviewed temperature 98.4, blood pressure 100 x 61, saturating at 97% on 2 L of nasal cannula. Patient denies having any acute complaints. She continues to be on antibiotic in the form of Zosyn. On reviewing her labs her LFTs are trending down. On 10/30/2019 -patient has been transferred out of the ICU. She is seen in [facility] today, patient is lying in bed comfortably. She denies having any acute complaints. Patient denies having any fevers chills or rigors, no cough or difficulty breathing. No chest pain or palpitations. Vitals have been stable, maintaining sats above 99 on 2 L of oxygen. On reviewing the labs patient's AST ALT trending down, slight increase in alkaline phosphatase. She is being continued on Zosyn for UTI. Active Medications Acetaminophen (Tylenol Tab) 500 mg PO Q6HR PRN PRN Reason: Fever and/ or Pain Last Admin: 10/26/19 12:58 Dose: 500 mg Documented by: Hydrocodone Bitart/Acetaminophen ([place] 5-325) 1 each PO Q6HR PRN PRN Reason: Pain Last Admin: 10/30/19 02:16 Dose: 1 each Documented by: Albuterol/Ipratropium (Duoneb 0.5 Mg-3 Mg/3 Ml Soln) 3 ml INHALATION RT-TID ANUJA Last Admin: 10/30/19 12:02 Dose: Not Given Documented by: Albuterol/Ipratropium (Duoneb 0.5 Mg-3 Mg/3 Ml Soln) 3 ml INHALATION RT-TID PRN PRN Reason: Shortness Of Breath Or Wheezing Docusate Sodium (Colace) 100 mg PO DAILY PRN PRN Reason: Constipation Last Admin: 10/30/19 09:50 Dose: 100 mg Documented by: Hydromorphone HCl (Dilaudid) 0.5 mg IVP Q6HR PRN PRN Reason: Severe Pain Last Admin: 10/28/19 06:12 Dose: 0.5 mg Documented by: Piperacillin Sod/Tazobactam (Sod 3.375 gm/ Sodium Chloride) 100 mls @ 25 mls/hr IVPB Q8H [facility] Last Admin: 10/30/19 11:35 Dose: 25 mls/hr Documented by: Insulin Aspart (Novolog) 0 unit SQ ACHS [facility]; Protocol Last Admin: 10/30/19 12:29 Dose: 2 unit Documented by: Metoclopramide HCl (Reglan) 5 mg IVP Q6HR PRN PRN Reason: Nausea And Vomiting Last Admin: 10/26/19 03:59 Dose: 5 mg Documented by: Metoprolol Succinate (Toprol Xl) 100 mg PO DAILY [facility] Last Admin: 10/30/19 09:50 Dose: 100 mg Documented by: Miscellaneous Information (Magnesium Per Protocol) 1 each MISCELLANE DAILY PRN; Protocol PRN Reason: Per Protocol Miscellaneous Information (Potassium Per Protocol) 1 each MISCELLANE DAILY PRN; Protocol PRN Reason: Per Protocol Miscellaneous Information (Coumadin Per Pharmacy) 0 each MISCELLANE DIRECTED PRN PRN Reason: INR Naloxone HCl (Narcan) 0.2 mg IV Q2M PRN PRN Reason: Opioid Reversal Ondansetron HCl (Zofran) 4 mg IVP Q6HR PRN PRN Reason: Nausea And Vomiting Pantoprazole Sodium (Protonix) 40 mg IVP DAILY ANUJA Last Admin: 10/30/19 09:50 Dose: 40 mg Documented by: Lucio (Senokot) 8.6 mg PO DAILY PRN PRN Reason: Constipation Last Admin: 10/30/19 09:50 Dose: 8.6 mg Documented by: Warfarin Sodium (Coumadin) 5 mg PO ONCE@1800 ONE; Protocol Stop: 10/30/19 18:01 Objective - Vital Signs Vital signs: Vital Signs Temp 98.2 F 10/30/19 14:16 Pulse 81 10/30/19 14:16 Resp 18 10/30/19 14:16 BP 120/85 10/30/19 14:16 Pulse Ox 99 10/30/19 14:16 Intake & Output 10/29/19 10/30/19 10/30/19 18:59 06:59 18:59 Intake Total 520 500 Output Total 430 420 315 Balance 90 -420 185 Weight 109.3 kg 109.7 kg Intake: IV 150 380 .9 Na Cl KVO 80 Dextrose 5% in Water 1, 150 000 ml @ 75 mls/hr IV . [id number] ANUJA with Sodium Bicarb (1 Meq/ml) 150 ml Rx#:[id number] Piperacillin-Tazobactam 3 300 .375 gm In Sodium Chloride 0.9% 100 ml @ 25 mls/hr IVPB Q8H ANUJA Rx#: [id number] Oral 370 120 Output: Urine 430 420 315 Other: Voiding Method Indwelling Catheter Indwelling Catheter Indwelling Catheter - Exam PHYSICAL EXAM GENERAL : patient is alert oriented x3, appears to be no acute distress HEENT: Conjunctiva is normal, sclerae icterus positive CARDIOVASCULAR: Space S1-S2 heard RESPIRATORY: Bilateral breath sounds diminished in the lower lung bases. No wheeze or crackles. GI: Abdomen is soft, tenderness positive in the right upper quadrant. Bowel sounds positive. EXTREMITIES: Mild pitting edema [employer]CR[employer]ATOR: No focal neurological deficits on gross exam SKIN : Actinic keratosis - Labs CBC & Chem 7: 10/30/19 04:47 10/30/19 04:47 Labs: Abnormal Lab Results - Last 24 Hours (Table) 10/29/19 10/29/19 10/30/19 Range/Units 17:21 20:12 04:47 MCHC (31.0-37.0) g/dL Sodium 134 L (137-145) mmol/L Carbon Dioxide 31 H (22-30) mmol/L BUN 23 H (7-17) mg/dL Glucose 125 H (74-99) mg/dL POC Glucose (mg/dL) 188 H 197 H (75-99) mg/dL Calcium 7.8 L (8.4-10.2) mg/dL Total Bilirubin 3.8 H (0.2-1.3) mg/dL AST 51 H (14-36) U/L ALT 48 H (4-34) U/L Alkaline Phosphatase 884 H (38-126) U/L Total Protein 4.9 L (6.3-8.2) g/dL Albumin 2.3 L (3.5-5.0) g/dL 10/30/19 10/30/19 10/30/19 Range/Units 04:47 06:31 12:04 MCHC 30.3 L (31.0-37.0) g/dL Sodium (137-145) mmol/L Carbon Dioxide (22-30) mmol/L BUN (7-17) mg/dL Glucose (74-99) mg/dL POC Glucose (mg/dL) 120 H 171 H (75-99) mg/dL Calcium (8.4-10.2) mg/dL Total Bilirubin (0.2-1.3) mg/dL AST (14-36) U/L ALT (4-34) U/L Alkaline Phosphatase (38-126) U/L Total Protein (6.3-8.2) g/dL Albumin (3.5-5.0) g/dL Microbiology - Last 24 Hours (Table) 10/24/19 18:38 Blood Culture - Preliminary Blood No Growth after 120 hours Assessment and Plan Assessment: ASSESSMENT Acute rhabdomyolysis status post fall Obstructive jaundice with moderate to severe extrahepatic biliary dilation Hypercoagulability-Coumadin toxicity - resolved Hyponatremia - resolved Acute hepatitis Type 2 diabetes mellitus Hypomagnesemia Possible cholelithiasis Chronic atrial fibrillation Acute kidney injury Urinary tract infection with E. coli Hypertension Pacemaker /AICD History of cardiac ablation History of cardioversion Remote history of nicotine dependence Obesity with BMI of 35.4 Moderate protein calorie malnutrition Plan: She is status post ERCP with stent placement, LFTs slowly trending down. Patient has been restarted on Coumadin but her INR is still around ~1, pharamcy has been dosing . Continue with Zosyn for UTI. Continue with the rest of her current medication regimen. Overall prognosis is poor secondary to chronic multiple medical conditions. Further recommendations depending on the progress of the patient.
--- NOTE | 2019-10-30 21:54 | P.PN ---
Subjective Progress Note Date: 10/30/19 Principal diagnosis: Elevated liver enzymes, elevated bilirubin, dilated bile duct, suspected choledocholithiasis Attempted to see the patient today, however she was not in her room. Liver enzymes continue to improve status post ERCP with biliary stent placement. 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 The GI service will stand by, please call us back with any questions or concerns. Objective - Vital Signs Vital signs: Vital Signs Temp 98.1 F 10/30/19 12:00 Pulse 82 10/30/19 12:00 Resp 19 10/30/19 12:00 BP 127/75 10/30/19 12:00 Pulse Ox 97 10/30/19 00:00 Intake & Output 10/29/19 10/30/19 10/30/19 18:59 06:59 18:59 Intake Total 520 500 Output Total 430 420 315 Balance 90 -420 185 Weight 109.3 kg 109.7 kg Intake: IV 150 380 .9 Na Cl KVO 80 Dextrose 5% in Water 1, 150 000 ml @ 75 mls/hr IV . [id number] ANUJA with Sodium Bicarb (1 Meq/ml) 150 ml Rx#:[id number] Piperacillin-Tazobactam 3 300 .375 gm In Sodium Chloride 0.9% 100 ml @ 25 mls/hr IVPB Q8H ANUJA Rx#: [id number] Oral 370 120 Output: Urine 430 420 315 Other: Voiding Method Indwelling Catheter Indwelling Catheter Indwelling Catheter - Labs CBC & Chem 7: 10/30/19 04:47 10/30/19 04:47 Labs: Abnormal Lab Results - Last 24 Hours (Table) 10/29/19 10/29/19 10/30/19 Range/Units 17:21 20:12 04:47 MCHC (31.0-37.0) g/dL Sodium 134 L (137-145) mmol/L Carbon Dioxide 31 H (22-30) mmol/L BUN 23 H (7-17) mg/dL Glucose 125 H (74-99) mg/dL POC Glucose (mg/dL) 188 H 197 H (75-99) mg/dL Calcium 7.8 L (8.4-10.2) mg/dL Total Bilirubin 3.8 H (0.2-1.3) mg/dL AST 51 H (14-36) U/L ALT 48 H (4-34) U/L Alkaline Phosphatase 884 H (38-126) U/L Total Protein 4.9 L (6.3-8.2) g/dL Albumin 2.3 L (3.5-5.0) g/dL 10/30/19 10/30/19 10/30/19 Range/Units 04:47 06:31 12:04 MCHC 30.3 L (31.0-37.0) g/dL Sodium (137-145) mmol/L Carbon Dioxide (22-30) mmol/L BUN (7-17) mg/dL Glucose (74-99) mg/dL POC Glucose (mg/dL) 120 H 171 H (75-99) mg/dL Calcium (8.4-10.2) mg/dL Total Bilirubin (0.2-1.3) mg/dL AST (14-36) U/L ALT (4-34) U/L Alkaline Phosphatase (38-126) U/L Total Protein (6.3-8.2) g/dL Albumin (3.5-5.0) g/dL Microbiology - Last 24 Hours (Table) 10/24/19 18:38 Blood Culture - Preliminary Blood No Growth after 120 hours Assessment and Plan (1) Dilated bile duct Current Visit: Yes Status: Acute Code(s): K83.8 - OTHER SPECIFIED DISEASES OF BILIARY TRACT SNOMED Code(s): 228651302 (2) Elevated liver enzymes Current Visit: Yes Status: Acute Code(s): R74.8 - ABNORMAL LEVELS OF OTHER SERUM ENZYMES SNOMED Code(s): 737609705 (3) Elevated bilirubin Current Visit: Yes Status: Acute Code(s): R17 - UNSPECIFIED JAUNDICE SNOMED Code(s): 65150170 (4) Rhabdomyolysis Current Visit: Yes Status: Acute Code(s): M62.82 - RHABDOMYOLYSIS SNOMED Code(s): 407907040
[2019-10-31] MEDS: PIPERACILLIN-TAZOBACTAM 3.375 GM in SODIUM CHLORIDE 0.9% 100 ML IVPB SCH ×3 (03:25→18:42)
[2019-10-31] MEDS: METOCLOPRAMIDE 5 MG/ML 2 ML VIAL IVP PRN (03:25)
[2019-10-31] MEDS: HYDROcodone/APAP 5-325MG 1 EACH TAB PO PRN (04:28)
[2019-10-31 07:22] LABS: Glucose,Whole Blood 163 mg/dL (75-99)
[2019-10-31] MEDS: INSULIN ASPART (NovoLOG) 100 UNIT/ML VIAL SQ SCH ×4 (07:52→20:55)
[2019-10-31] MEDS: PANTOPRAZOLE 40 MG/10 ML VIAL IVP SCH (07:52)
[2019-10-31] MEDS: METOPROLOL SUCCINATE (ER) 100 MG TAB.ER.24H PO SCH (07:53)
[2019-10-31] MEDS: IPRATROPIUM-ALBUTEROL 3 ML NEB INHALATION SCH ×3 (08:15→19:48)
[2019-10-31 09:50] LABS: INR 1.5 (<1.2); Prothrombin Time 14.9 sec (9.0-12.0)
[2019-10-31 10:06] LABS: African American GFR (CKD) >90 (>60 ml/min/1.73 sqM); Anion Gap 5 mmol/L; Blood Urea Nitrogen 16 mg/dL (7-17); Calcium 7.9 mg/dL (8.4-10.2); Carbon Dioxide 31 mmol/L (22-30); Chloride 99 mmol/L (98-107); Glucose 138 mg/dL (74-99); Non-African American GFR(CKD) 85 (>60 ml/min/1.73 sqM); Potassium 4.3 mmol/L (3.5-5.1); Sodium 135 mmol/L (137-145)
[2019-10-31 11:27] LABS: Glucose,Whole Blood 143 mg/dL (75-99)
--- NOTE | 2019-10-31 11:39 | P.PN ---
Subjective This is a pleasant 84-year-old female past medical history significant for atrial fibrillation on long-term anticoagulation, nonischemic cardiomyopathy status post AICD implantation and hypertension. She presented to the hospital with rhabdomyolysis and obstructive jaundice with biliary stent. She is seen and examined sitting up in bed. She is complaining of feeling uncomfortable all over. She states her lower back hurts and her legs are achy. She denies symptoms of chest pain, shortness of breath, dizziness or palpitations. She states she was quite nauseous last night however that has resolved. Her Coumadin has been resumed. Blood pressure is 120/65 heart rate 74 afebrile maintaining oxygen saturation on nasal cannula. Laboratory data reviewed, INR 1.5, sodium 135, potassium 4.3 and creatinine 0.6. Currently maintained on Coumadin and Toprol 100 mg daily. GENERAL: Well-appearing, well-nourished and in no acute distress. NECK: Supple without JVD or thyromegaly. LUNGS: Breath sounds clear to auscultation bilaterally. Respiration equal and unlabored. No wheezes, rales or rhonchi. HEART: Irregular rate and rhythm with systolic ejection murmur at the left sternal border, no rubs or gallops. S1 and S2 heard. EXTREMITIES: Normal range of motion, no edema. No clubbing or cyanosis. Peripheral pulses intact. ASSESSMENT Rhabdomyolysis, resolved Biliary dilatation causing obstructive jaundice Hypercoagulability Chronic systolic heart failure, clinically euvolemic. Ejection fraction 30-35%. Cardiomyopathy status post AICD Chronic persistent atrial fibrillation on long-term anticoagulation with Coumadin Hypertension PLAN Continue current medical regimen. Follow up with Dr. Potter upon discharge. Nurse Practitioner note has been reviewed, I agree with a documented findings and plan of care. Patient was seen and examined. Objective - Vital Signs Vital signs: Vital Signs Temp 97.9 F 10/31/19 07:00 Pulse 63 10/31/19 08:25 Resp 16 10/31/19 08:00 BP 120/65 10/31/19 07:00 Pulse Ox 95 10/31/19 07:00 Intake & Output 10/30/19 10/31/19 10/31/19 18:59 06:59 18:59 Intake Total 500 Output Total 315 975 Balance 185 -975 Intake: IV 380 .9 Na Cl KVO 80 Piperacillin-Tazobactam 3 300 .375 gm In Sodium Chloride 0.9% 100 ml @ 25 mls/hr IVPB Q8H [facility] Rx#: [id number] Oral 120 Output: Urine 315 975 Other: Voiding Method Indwelling Catheter Indwelling Catheter Indwelling Catheter - Labs CBC & Chem 7: 10/30/19 04:47 10/31/19 09:07 Labs: Abnormal Lab Results - Last 24 Hours (Table) 10/30/19 10/30/19 10/30/19 Range/Units 12:04 17:09 21:08 PT (9.0-12.0) sec INR (<1.2) Sodium (137-145) mmol/L Carbon Dioxide (22-30) mmol/L Glucose (74-99) mg/dL POC Glucose (mg/dL) 171 H 163 H 136 H (75-99) mg/dL Calcium (8.4-10.2) mg/dL 10/31/19 10/31/19 10/31/19 Range/Units 07:21 09:07 09:07 PT 14.9 H (9.0-12.0) sec INR 1.5 H (<1.2) Sodium 135 L (137-145) mmol/L Carbon Dioxide 31 H (22-30) mmol/L Glucose 138 H (74-99) mg/dL POC Glucose (mg/dL) 163 H (75-99) mg/dL Calcium 7.9 L (8.4-10.2) mg/dL Microbiology - Last 24 Hours (Table) 10/24/19 18:38 Blood Culture - Final Blood No Growth after 144 hours
--- NOTE | 2019-10-31 12:24 | P.PN ---
Subjective Progress Note Date: 10/31/19 CHIEF COMPLAINT: Biliary obstruction HISTORY OF PRESENT ILLNESS: Patient is complaining of epigastric right upper quadrant abdominal pain. Poor oral intake. She is only a few bites of food. She is passing gas. No nausea or vomiting. It is been a few days since a bowel movement. Stool softeners ordered by medicine. She is trying to have a bowel movement now. Patient transferred out of the ICU yesterday. Afebrile. INR 1.5 PHYSICAL EXAM: VITAL SIGNS: Reviewed. GENERAL: Well-developed in no acute distress. HEENT: No sclera icterus. Extraocular movements grossly intact. Moist buccal mucosa. Head is atraumatic, normocephalic. ABDOMEN: Soft. Nondistended. Nontender. NEUROLOGIC: Alert and oriented. Cranial nerves II through XII grossly intact. ASSESSMENT: 1. Dilated bile ducts status post ERCP with biliary stent placement by GI service 2. Choledocholithiasis 3. Probable Chronic cholecystitis: gallbladder has small stones and gallbladder sludge with distended margins noted on CAT scan PLAN: -Continue antibiotics -Patient will eventually require advanced endoscopic evaluation with stent removal and stone extraction. -Patient will need laparoscopic cholecystectomy when stable Physician Medical Esthetician note has been reviewed by physician. Signing provider agrees with the documented findings, assessment, and plan of care. Objective - Vital Signs Vital signs: Vital Signs Temp 97.9 F 10/31/19 07:00 Pulse 63 10/31/19 08:25 Resp 16 10/31/19 08:00 BP 120/65 10/31/19 07:00 Pulse Ox 95 10/31/19 07:00 Intake & Output 10/30/19 10/31/19 10/31/19 18:59 06:59 18:59 Intake Total 500 Output Total 315 975 Balance 185 -975 Intake: IV 380 .9 Na Cl KVO 80 Piperacillin-Tazobactam 3 300 .375 gm In Sodium Chloride 0.9% 100 ml @ 25 mls/hr IVPB Q8H [facility] Rx#: [id number] Oral 120 Output: Urine 315 975 Other: Voiding Method Indwelling Catheter Indwelling Catheter Indwelling Catheter - Labs CBC & Chem 7: 10/30/19 04:47 10/31/19 09:07 Labs: Abnormal Lab Results - Last 24 Hours (Table) 10/30/19 10/30/19 10/30/19 Range/Units 12:04 17:09 21:08 PT (9.0-12.0) sec INR (<1.2) Sodium (137-145) mmol/L Carbon Dioxide (22-30) mmol/L Glucose (74-99) mg/dL POC Glucose (mg/dL) 171 H 163 H 136 H (75-99) mg/dL Calcium (8.4-10.2) mg/dL 10/31/19 10/31/19 10/31/19 Range/Units 07:21 09:07 09:07 PT 14.9 H (9.0-12.0) sec INR 1.5 H (<1.2) Sodium 135 L (137-145) mmol/L Carbon Dioxide 31 H (22-30) mmol/L Glucose 138 H (74-99) mg/dL POC Glucose (mg/dL) 163 H (75-99) mg/dL Calcium 7.9 L (8.4-10.2) mg/dL Microbiology - Last 24 Hours (Table) 10/24/19 18:38 Blood Culture - Final Blood No Growth after 144 hours
[2019-10-31 16:52] LABS: Glucose,Whole Blood 200 mg/dL (75-99)
[2019-10-31] MEDS ORDERED: WARFARIN 5 MG TAB PO ONE (18:00)
[2019-10-31 20:01] LABS: Glucose,Whole Blood 137 mg/dL (75-99)
[2019-10-31] MEDS: MAGNESIUM SULFATE-D5W PMX 1 GM in DEXTROSE/WATER 1 100ML.BAG IVPB SCH ×2 (22:29→23:39)
[2019-11-01] MEDS: MAGNESIUM SULFATE-D5W PMX 1 GM in DEXTROSE/WATER 1 100ML.BAG IVPB SCH (00:48)
[2019-11-01 06:43] LABS: Glucose,Whole Blood 124 mg/dL (75-99)
[2019-11-01] MEDS: INSULIN ASPART (NovoLOG) 100 UNIT/ML VIAL SQ SCH ×4 (07:06→21:24)
[2019-11-01] MEDS: IPRATROPIUM-ALBUTEROL 3 ML NEB INHALATION SCH ×3 (08:35→20:28)
--- NOTE | 2019-11-01 09:30 | P.PN ---
Subjective Progress Note Date: 10/31/19 Principal diagnosis: Ms. Rios is a 84-year-old female with a past medical history of atrial fibrillation, congestive heart failure status post AICD placement, hypertension, hyperlipidemia, osteoarthritis admitted to the hospital after having a fall. Patient stayed on the floor for several hours before her son could get her to the hospital. She was found to have mild degree of rhabdomyolysis. Eventually she was transferred to the ICU as she became tachycardic with atrial fibrillation. Currently multiple consultants following the patient. She had a CT of the abdomen and pelvis with no evidence of portal vein thrombosis. Patient continues to be in the ICU setting. Overnight no acute events reported by nursing staff. Patient states that she still has right-sided abdominal pain, but denies having any nausea or vomiting. She also thinks that she has increased swelling of her legs as she is not moving much. Patient's vitals have been reviewed and are within normal limits. On 10/28/2019 -patient is still in the ICU. Overnight no acute events reported by nursing staff. Patient still complains of pain in the right upper quadrant of her abdomen. She denies having any nausea or vomiting. Patient states that her last bowel movement was couple of days back. Patient vitals have been reviewed afebrile for the past 24 hours, blood pressure 102/70, saturating at 95% on room air. Patient's labs are reviewed LFTs trending down, bilirubin trending down. Blood sugars trending on the higher side. On 10/28 - Patient is comfortably lying in the bed, still in the ICU. No acute events reported by nursing staff. Patient's vitals from this morning are reviewed temperature 98.4, blood pressure 100 x 61, saturating at 97% on 2 L of nasal cannula. Patient denies having any acute complaints. She continues to be on antibiotic in the form of Zosyn. On reviewing her labs her LFTs are trending down. On 10/30/2019 -patient has been transferred out of the ICU. She is seen in selective care today, patient is lying in bed comfortably. She denies having any acute complaints. Patient denies having any fevers chills or rigors, no cough or difficulty breathing. No chest pain or palpitations. Vitals have been stable, maintaining sats above 99 on 2 L of oxygen. On reviewing the labs patient's AST ALT trending down, slight increase in alkaline phosphatase. She is being continued on Zosyn for UTI. 10/31/2019 Patient is seen and evaluated and follow-up continues to have some abdominal discomfort and states she needs to have a bowel movement. Patient states that she has not had a bowel movement in almost a week. Patient is currently maintained on 2 L of oxygen and will continue at this time. Patient was on IV antibiotics in the form of Zosyn for an acute urinary tract infection and cultures finalized showing E. coli. She had been on antibiotics for over a week. INR is 1.5 today and pharmacy has been dosing the Coumadin. Will repeat a.m. labs. Currently no reports of chest pain or palpitations. Patient continues to have shortness of breath intermittently with exertion. No reports of nausea or vomiting and patient tolerating diet although she states she feels slightly constipated and requesting an enema she has not had a bowel movement in a week as mentioned previously. Multiple medical consultations following. Will continue to monitor closely. Objective - Vital Signs Vital signs: Vital Signs Temp 97.5 F L 11/01/19 07:00 Pulse 65 11/01/19 07:00 Resp 18 11/01/19 07:00 BP 129/75 11/01/19 07:00 Pulse Ox 100 11/01/19 07:00 Intake & Output 10/31/19 11/01/19 11/01/19 18:59 06:59 18:59 Output Total 500 750 Balance -500 -750 Weight 109.7 kg Output: Urine 500 750 Other: Voiding Method Indwelling Catheter Indwelling Catheter # Voids 2 # Bowel Movements 2 1 - Exam GENERAL : patient is alert oriented x3, appears to be no acute distress HEENT: Conjunctiva is normal, sclerae icterus positive CARDIOVASCULAR: Space S1-S2 heard RESPIRATORY: Bilateral breath sounds diminished in the lower lung bases. No wheeze or crackles. GI: Abdomen is soft, mild tenderness noted on palpation in the right upper quadrant. Bowel sounds positive. EXTREMITIES: Mild pitting edema PUBLIC INFORMATION SPECIALIST: No focal neurological deficits on gross exam, diffusely weak SKIN : Actinic keratosis - Labs CBC & Chem 7: 10/30/19 04:47 10/31/19 09:07 Labs: Abnormal Lab Results - Last 24 Hours (Table) 10/31/19 10/31/19 10/31/19 Range/Units 09:07 09:07 09:07 PT 14.9 H (9.0-12.0) sec INR 1.5 H (<1.2) Sodium 135 L (137-145) mmol/L Carbon Dioxide 31 H (22-30) mmol/L Glucose 138 H (74-99) mg/dL POC Glucose (mg/dL) (75-99) mg/dL Calcium 7.9 L (8.4-10.2) mg/dL Magnesium 1.5 L (1.6-2.3) mg/dL 10/31/19 10/31/19 10/31/19 Range/Units 11:26 16:51 19:59 PT (9.0-12.0) sec INR (<1.2) Sodium (137-145) mmol/L Carbon Dioxide (22-30) mmol/L Glucose (74-99) mg/dL POC Glucose (mg/dL) 143 H 200 H 137 H (75-99) mg/dL Calcium (8.4-10.2) mg/dL Magnesium (1.6-2.3) mg/dL 11/01/19 Range/Units 06:42 PT (9.0-12.0) sec INR (<1.2) Sodium (137-145) mmol/L Carbon Dioxide (22-30) mmol/L Glucose (74-99) mg/dL POC Glucose (mg/dL) 124 H (75-99) mg/dL Calcium (8.4-10.2) mg/dL Magnesium (1.6-2.3) mg/dL Assessment and Plan Assessment: Acute rhabdomyolysis status post fall Sepsis, present on admission, currently being treated Obstructive jaundice with moderate to severe extrahepatic biliary dilation Hypercoagulability-Coumadin toxicity - resolved Hyponatremia - resolved Acute hepatitis Type 2 diabetes mellitus Hypomagnesemia Possible cholelithiasis Chronic atrial fibrillation Acute kidney injury Urinary tract infection with E. coli Hypertension Pacemaker /AICD History of cardiac ablation History of cardioversion Remote history of nicotine dependence Obesity with BMI of 35.4 Moderate protein calorie malnutrition Plan: Continue current medications, management, and symptomatic treatment. Patient was resumed on Coumadin and INR today is 1.5. Will repeat a.m. labs. Pharmacy to dose. Patient is requesting an enema as she states she has not had a bowel movement in one week. Patient was on Zosyn for urinary tract infection as urine cultures finalized showing E. coli. Will continue to monitor closely. Due to multiple complex medical issues, prognosis is guarded. Further recommendations to follow. Case management and social work following as patient continues to be quite weak and will be going to ECF once stabilized and discharged. The plan is for patient to go to [facility] for continued PT/OT therapy.
[2019-11-01] MEDS: METOPROLOL SUCCINATE (ER) 100 MG TAB.ER.24H PO SCH (09:38)
[2019-11-01] MEDS: PANTOPRAZOLE 40 MG/10 ML VIAL IVP SCH (09:38)
[2019-11-01 09:39] LABS: INR 1.6 (<1.2); Prothrombin Time 15.5 sec (9.0-12.0)
[2019-11-01] MEDS: PIPERACILLIN-TAZOBACTAM 3.375 GM in SODIUM CHLORIDE 0.9% 100 ML IVPB SCH ×2 (09:39→16:16)
[2019-11-01 10:12] LABS: HGB 12.1 gm/dL (11.4-16.0); Hypochromasia Moderate; MCH 28.8 pg (25.0-35.0); MCHC 30.2 g/dL (31.0-37.0); MCV 95.3 fL (80.0-100.0); Mean Platelet Volume 8.8; Platelet Count 138 k/uL (150-450); RDW 14.2 % (11.5-15.5); WBC 8.1 k/uL (3.8-10.6)
[2019-11-01 10:33] LABS: Band Neutrophils % 3 %; Eosinophils # (M) 0.08 k/uL (0-0.7); Lymphocytes # (M) 0.89 k/uL (1.0-4.8); Metamyelocytes # (M) 0.24 k/uL (0); Metamyelocytes % 3 %; Monocytes # (M) 0.41 k/uL (0-1.0); Myelocytes # (M) 0.49 k/uL (0); Myelocytes % 6 %; Neutrophils % (M) 72 %; Nucleated Red Blood Cells 0 /100 WBC (0-0); Total Cells Counted 200
[2019-11-01 10:34] LABS: Poikilocytosis (M) Present
[2019-11-01 11:10] LABS: ALT 44 U/L (4-34); AST 77 U/L (14-36); African American GFR (CKD) >90 (>60 ml/min/1.73 sqM); Anion Gap 8 mmol/L; Blood Urea Nitrogen 13 mg/dL (7-17); Calcium 8.2 mg/dL (8.4-10.2); Carbon Dioxide 29 mmol/L (22-30); Chloride 96 mmol/L (98-107); Glucose 129 mg/dL (74-99); Non-African American GFR(CKD) 89 (>60 ml/min/1.73 sqM); Sodium 133 mmol/L (137-145)
[2019-11-01 11:13] LABS: Potassium 4.5 mmol/L (3.5-5.1)
[2019-11-01 11:40] LABS: Glucose,Whole Blood 181 mg/dL (75-99)
[2019-11-01] MEDS ORDERED: PHYTONADIONE 10 MG in SODIUM CHLORIDE 0.9% 50 ML IVPB STA (11:50)
--- NOTE | 2019-11-01 12:59 | P.PN ---
Subjective Progress Note Date: 11/01/19 CHIEF COMPLAINT: Biliary obstruction HISTORY OF PRESENT ILLNESS: Patient is complaining of epigastric right upper quadrant abdominal pain. Poor oral intake. She is only a few bites of food. She did have a bowel movement yesterday after enema. No nausea or vomiting. Afebrile. INR 1.6 PHYSICAL EXAM: VITAL SIGNS: Reviewed. GENERAL: Well-developed in no acute distress. HEENT: No sclera icterus. Extraocular movements grossly intact. Moist buccal mucosa. Head is atraumatic, normocephalic. ABDOMEN: Soft. Nondistended. Nontender. NEUROLOGIC: Alert and oriented. Cranial nerves II through XII grossly intact. ASSESSMENT: 1. Probable Chronic cholecystitis: gallbladder has small stones and gallbladder sludge with distended margins noted on CAT scan 2. Dilated bile ducts status post ERCP with biliary stent placement by GI service 3. Choledocholithiasis PLAN: -Patient is scheduled for elective Cholecystectomy on 11/03/[address] Adams -Patient will be placed on nothing by mouth after midnight on Tuesday -Hold Coumadin tonight and tomorrow night for surgery -Check PT/INR tomorrow and Tuesday morning -We'll give a dose of vitamin K 10 mg IV 1 -Continue antibiotics -Patient will eventually require advanced endoscopic evaluation with stent removal and stone extraction. Physician Line Assembler Aircraft note has been reviewed by physician. Signing provider agrees with the documented findings, assessment, and plan of care. Objective - Vital Signs Vital signs: Vital Signs Temp 97.5 F L 11/01/19 07:00 Pulse 65 11/01/19 07:00 Resp 18 11/01/19 07:00 BP 129/75 11/01/19 07:00 Pulse Ox 100 11/01/19 07:00 Intake & Output 10/31/19 11/01/19 11/01/19 18:59 06:59 18:59 Intake Total 340 Output Total 500 750 Balance -500 -750 340 Weight 109.7 kg Intake: IV 100 Piperacillin-Tazobactam 3 100 .375 gm In Sodium Chloride 0.9% 100 ml @ 25 mls/hr IVPB Q8H [facility] Rx#: [id number] Oral 240 Output: Urine 500 750 Other: Voiding Method Indwelling Catheter Indwelling Catheter Indwelling Catheter # Voids 2 # Bowel Movements 2 1 - Labs CBC & Chem 7: 11/01/19 09:15 11/01/19 09:15 Labs: Abnormal Lab Results - Last 24 Hours (Table) 10/31/19 10/31/19 10/31/19 Range/Units 09:07 16:51 19:59 MCHC (31.0-37.0) g/dL Plt Count (150-450) k/uL Lymphocytes # (Manual) (1.0-4.8) k/uL Metamyelocytes # (Man) (0) k/uL Myelocytes # (Manual) (0) k/uL PT (9.0-12.0) sec INR (<1.2) Sodium (137-145) mmol/L Chloride (98-107) mmol/L Glucose (74-99) mg/dL POC Glucose (mg/dL) 200 H 137 H (75-99) mg/dL Calcium (8.4-10.2) mg/dL Magnesium 1.5 L (1.6-2.3) mg/dL AST (14-36) U/L ALT (4-34) U/L 11/01/19 11/01/19 11/01/19 Range/Units 06:42 09:15 09:15 MCHC 30.2 L (31.0-37.0) g/dL Plt Count 138 L (150-450) k/uL Lymphocytes # (Manual) 0.89 L (1.0-4.8) k/uL Metamyelocytes # (Man) 0.24 H (0) k/uL Myelocytes # (Manual) 0.49 H (0) k/uL PT 15.5 H (9.0-12.0) sec INR 1.6 H (<1.2) Sodium (137-145) mmol/L Chloride (98-107) mmol/L Glucose (74-99) mg/dL POC Glucose (mg/dL) 124 H (75-99) mg/dL Calcium (8.4-10.2) mg/dL Magnesium (1.6-2.3) mg/dL AST (14-36) U/L ALT (4-34) U/L 11/01/19 11/01/19 Range/Units 09:15 11:37 MCHC (31.0-37.0) g/dL Plt Count (150-450) k/uL Lymphocytes # (Manual) (1.0-4.8) k/uL Metamyelocytes # (Man) (0) k/uL Myelocytes # (Manual) (0) k/uL PT (9.0-12.0) sec INR (<1.2) Sodium 133 L (137-145) mmol/L Chloride 96 L (98-107) mmol/L Glucose 129 H (74-99) mg/dL POC Glucose (mg/dL) 181 H (75-99) mg/dL Calcium 8.2 L (8.4-10.2) mg/dL Magnesium (1.6-2.3) mg/dL AST 77 H (14-36) U/L ALT 44 H (4-34) U/L
[2019-11-01] MEDS: SENNOSIDES 8.6 MG TAB PO SCH ×2 (14:03→21:24)
--- NOTE | 2019-11-01 15:14 | P.PN ---
Subjective Progress Note Date: 11/01/19 Principal diagnosis: Ms. Rios is a 84-year-old female with a past medical history of atrial fibrillation, congestive heart failure status post AICD placement, hypertension, hyperlipidemia, osteoarthritis admitted to the hospital after having a fall. Patient stayed on the floor for several hours before her son could get her to the hospital. She was found to have mild degree of rhabdomyolysis. Eventually she was transferred to the ICU as she became tachycardic with atrial fibrillation. Currently multiple consultants following the patient. She had a CT of the abdomen and pelvis with no evidence of portal vein thrombosis. Patient continues to be in the ICU setting. Overnight no acute events reported by nursing staff. Patient states that she still has right-sided abdominal pain, but denies having any nausea or vomiting. She also thinks that she has increased swelling of her legs as she is not moving much. Patient's vitals have been reviewed and are within normal limits. On 10/28/2019 -patient is still in the ICU. Overnight no acute events reported by nursing staff. Patient still complains of pain in the right upper quadrant of her abdomen. She denies having any nausea or vomiting. Patient states that her last bowel movement was couple of days back. Patient vitals have been reviewed afebrile for the past 24 hours, blood pressure 102/70, saturating at 95% on room air. Patient's labs are reviewed LFTs trending down, bilirubin trending down. Blood sugars trending on the higher side. On 10/28 - Patient is comfortably lying in the bed, still in the ICU. No acute events reported by nursing staff. Patient's vitals from this morning are reviewed temperature 98.4, blood pressure 100 x 61, saturating at 97% on 2 L of nasal cannula. Patient denies having any acute complaints. She continues to be on antibiotic in the form of Zosyn. On reviewing her labs her LFTs are trending down. On 10/30/2019 -patient has been transferred out of the ICU. She is seen in selective care today, patient is lying in bed comfortably. She denies having any acute complaints. Patient denies having any fevers chills or rigors, no cough or difficulty breathing. No chest pain or palpitations. Vitals have been stable, maintaining sats above 99 on 2 L of oxygen. On reviewing the labs patient's AST ALT trending down, slight increase in alkaline phosphatase. She is being continued on Zosyn for UTI. 10/31/2019 Patient is seen and evaluated and follow-up continues to have some abdominal discomfort and states she needs to have a bowel movement. Patient states that she has not had a bowel movement in almost a week. Patient is currently maintained on 2 L of oxygen and will continue at this time. Patient was on IV antibiotics in the form of Zosyn for an acute urinary tract infection and cultures finalized showing E. coli. She had been on antibiotics for over a week. INR is 1.5 today and pharmacy has been dosing the Coumadin. Will repeat a.m. labs. Currently no reports of chest pain or palpitations. Patient continues to have shortness of breath intermittently with exertion. No reports of nausea or vomiting and patient tolerating diet although she states she feels slightly constipated and requesting an enema she has not had a bowel movement in a week as mentioned previously. Multiple medical consultations following. Will continue to monitor closely. 11/01/2019 Patient is seen in follow-up currently sitting up in the chair. Patient states she continues to have some mild upper abdominal discomfort and feels that she needs to have more of a bowel movement. Patient was given an enema yesterday with small amount of output. Will increase Senokot to twice daily scheduled. Patient was maintained on IV antibiotics in the form of Zosyn and will continue at this time. INR today is 1.6 and patient was maintained on Coumadin. Coumadin is going to be held as patient will be undergoing cholecystectomy that is tentatively scheduled for Tuesday. Will repeat a.m. labs and monitor closely. Currently no reports of chest pain, worsening shortness of breath, or palpitations. Patient is afebrile. no reports of nausea or vomiting noted. Objective - Vital Signs Vital signs: Vital Signs Temp 98.1 F 11/01/19 14:45 Pulse 68 11/01/19 14:45 Resp 16 11/01/19 14:45 BP 129/78 11/01/19 14:45 Pulse Ox 93 L 11/01/19 14:45 Intake & Output 10/31/19 11/01/19 11/01/19 18:59 06:59 18:59 Intake Total 340 Output Total 500 750 600 Balance -500 -750 -260 Weight 109.7 kg Intake: IV 100 Piperacillin-Tazobactam 3 100 .375 gm In Sodium Chloride 0.9% 100 ml @ 25 mls/hr IVPB Q8H [facility] Rx#: [id number] Oral 240 Output: Urine 500 750 600 Other: Voiding Method Indwelling Catheter Indwelling Catheter Indwelling Catheter # Voids 2 # Bowel Movements 2 1 - Exam GENERAL : patient is alert oriented x3, sitting up in the chair, well-developed, well-nourished, obese HEENT: Conjunctiva is normal, sclerae icterus positive CARDIOVASCULAR: S1-S2 heard RESPIRATORY: Bilateral breath sounds diminished in the lower lung bases. No wheeze or crackles. GI: Abdomen is soft, mild tenderness noted on palpation in the right upper quadrant. Bowel sounds positive. EXTREMITIES: Mild pitting edema LEAK INSPECTOR: No focal neurological deficits on gross exam, diffusely weak SKIN : Actinic keratosis - Labs CBC & Chem 7: 11/01/19 09:15 11/01/19 09:15 Labs: Abnormal Lab Results - Last 24 Hours (Table) 10/31/19 10/31/19 11/01/19 Range/Units 16:51 19:59 06:42 MCHC (31.0-37.0) g/dL Plt Count (150-450) k/uL Lymphocytes # (Manual) (1.0-4.8) k/uL Metamyelocytes # (Man) (0) k/uL Myelocytes # (Manual) (0) k/uL PT (9.0-12.0) sec INR (<1.2) Sodium (137-145) mmol/L Chloride (98-107) mmol/L Glucose (74-99) mg/dL POC Glucose (mg/dL) 200 H 137 H 124 H (75-99) mg/dL Calcium (8.4-10.2) mg/dL AST (14-36) U/L ALT (4-34) U/L 11/01/19 11/01/19 11/01/19 Range/Units 09:15 09:15 09:15 MCHC 30.2 L (31.0-37.0) g/dL Plt Count 138 L (150-450) k/uL Lymphocytes # (Manual) 0.89 L (1.0-4.8) k/uL Metamyelocytes # (Man) 0.24 H (0) k/uL Myelocytes # (Manual) 0.49 H (0) k/uL PT 15.5 H (9.0-12.0) sec INR 1.6 H (<1.2) Sodium 133 L (137-145) mmol/L Chloride 96 L (98-107) mmol/L Glucose 129 H (74-99) mg/dL POC Glucose (mg/dL) (75-99) mg/dL Calcium 8.2 L (8.4-10.2) mg/dL AST 77 H (14-36) U/L ALT 44 H (4-34) U/L 11/01/19 Range/Units 11:37 MCHC (31.0-37.0) g/dL Plt Count (150-450) k/uL Lymphocytes # (Manual) (1.0-4.8) k/uL Metamyelocytes # (Man) (0) k/uL Myelocytes # (Manual) (0) k/uL PT (9.0-12.0) sec INR (<1.2) Sodium (137-145) mmol/L Chloride (98-107) mmol/L Glucose (74-99) mg/dL POC Glucose (mg/dL) 181 H (75-99) mg/dL Calcium (8.4-10.2) mg/dL AST (14-36) U/L ALT (4-34) U/L Assessment and Plan Assessment: Acute rhabdomyolysis status post fall Sepsis, present on admission, currently being treated Obstructive jaundice with moderate to severe extrahepatic biliary dilation Hypercoagulability-Coumadin toxicity - resolved Hyponatremia - resolved Acute hepatitis Type 2 diabetes mellitus Hypomagnesemia Possible cholelithiasis Chronic atrial fibrillation Acute kidney injury Urinary tract infection with E. coli Hypertension Pacemaker /AICD History of cardiac ablation History of cardioversion Remote history of nicotine dependence Obesity with BMI of 35.4 Moderate protein calorie malnutrition Plan: Continue current medications, management, and symptomatic treatment. Patient was resumed on Coumadin and INR today is 1.6. We'll again hold Coumadin as patient is scheduled to undergo cholecystectomy on Tuesday. Will repeat a.m. labs. Patient was on Zosyn for urinary tract infection as urine cultures finalized showing E. coli. Will continue to monitor closely. Due to multiple complex medical issues, prognosis is guarded. Further recommendations to follow. Case management and social work following as patient continues to be quite weak and will be going to ECF once stabilized and discharged. The plan is for patient to go to [facility] for continued PT/OT therapy.
[2019-11-01 16:52] LABS: Glucose,Whole Blood 130 mg/dL (75-99)
[2019-11-01] MEDS ORDERED: WARFARIN 7.5 MG TAB PO ONE (18:00)
[2019-11-01 20:34] LABS: Glucose,Whole Blood 157 mg/dL (75-99)
[2019-11-01] MEDS: HYDROcodone/APAP 5-325MG 1 EACH TAB PO PRN (21:53)
[2019-11-02] MEDS: PIPERACILLIN-TAZOBACTAM 3.375 GM in SODIUM CHLORIDE 0.9% 100 ML IVPB SCH ×3 (00:12→15:32)
[2019-11-02 07:18] LABS: Glucose,Whole Blood 106 mg/dL (75-99)
[2019-11-02] MEDS: INSULIN ASPART (NovoLOG) 100 UNIT/ML VIAL SQ SCH ×4 (08:10→21:13)
[2019-11-02] MEDS: METOPROLOL SUCCINATE (ER) 100 MG TAB.ER.24H PO SCH (08:30)
[2019-11-02] MEDS: PANTOPRAZOLE 40 MG/10 ML VIAL IVP SCH (08:30)
[2019-11-02] MEDS: SENNOSIDES 8.6 MG TAB PO SCH ×2 (08:30→21:15)
[2019-11-02] MEDS: HYDROcodone/APAP 5-325MG 1 EACH TAB PO PRN ×3 (08:30→20:34)
[2019-11-02] MEDS: IPRATROPIUM-ALBUTEROL 3 ML NEB INHALATION SCH ×3 (09:16→19:44)
[2019-11-02 10:20] LABS: HCT 39.1 % (34.0-46.0); HGB 11.8 gm/dL (11.4-16.0); Hypochromasia Slight; MCH 28.3 pg (25.0-35.0); MCHC 30.1 g/dL (31.0-37.0); MCV 94.1 fL (80.0-100.0); Mean Platelet Volume 8.4; Platelet Count 149 k/uL (150-450); RBC 4.16 m/uL (3.80-5.40); RDW 14.3 % (11.5-15.5); WBC 8.2 k/uL (3.8-10.6)
[2019-11-02 10:24] LABS: INR 1.2 (<1.2); Prothrombin Time 11.7 sec (9.0-12.0)
--- NOTE | 2019-11-02 10:36 | P.PN ---
Subjective Progress Note Date: 11/02/19 CHIEF COMPLAINT: Biliary obstruction HISTORY OF PRESENT ILLNESS: Patient is complaining of epigastric right upper quadrant abdominal pain. Poor oral intake. She is only a few bites of food. She did have a bowel movement. No nausea or vomiting. Afebrile. INR is pending. Patient received 1 dose of vitamin K yesterday for Coumadin reversal PHYSICAL EXAM: VITAL SIGNS: Reviewed. GENERAL: Well-developed in no acute distress. HEENT: No sclera icterus. Extraocular movements grossly intact. Moist buccal mucosa. Head is atraumatic, normocephalic. ABDOMEN: Soft. Nondistended. Epigastric tenderness NEUROLOGIC: Alert and oriented. Cranial nerves II through XII grossly intact. ASSESSMENT: 1. Probable Chronic cholecystitis: gallbladder has small stones and gallbladder sludge with distended margins noted on CAT scan 2. Dilated bile ducts status post ERCP with biliary stent placement by GI service 3. Choledocholithiasis PLAN: -Patient is scheduled for laparoscopic Cholecystectomy on 11/03/[address] Adams -Patient will be placed NPO after midnight on Tuesday -Hold Coumadin tonight and tomorrow night for surgery -Check PT/INR tomorrow and Tuesday morning -Continue antibiotics -Patient will eventually require advanced endoscopic evaluation with stent removal and stone extraction. Physician Zookeeper note has been reviewed by physician. Signing provider agrees with the documented findings, assessment, and plan of care. Objective - Vital Signs Vital signs: Vital Signs Temp 97.7 F 11/02/19 07:00 Pulse 80 11/02/19 09:16 Resp 18 11/02/19 07:00 BP 127/68 11/02/19 07:00 Pulse Ox 91 L 11/02/19 07:00 Intake & Output 11/01/19 11/02/19 11/02/19 18:59 06:59 18:59 Intake Total 340 200 Output Total 900 550 350 Balance -560 -350 -350 Intake: IV 100 Piperacillin-Tazobactam 3 100 .375 gm In Sodium Chloride 0.9% 100 ml @ 25 mls/hr IVPB Q8H [facility] Rx#: [id number] Oral 240 200 Output: Urine 900 550 350 Other: Voiding Method Indwelling Catheter Indwelling Catheter Indwelling Catheter - Labs CBC & Chem 7: 11/02/19 09:54 11/01/19 09:15 Labs: Abnormal Lab Results - Last 24 Hours (Table) 11/01/19 11/01/19 11/01/19 Range/Units 09:15 09:15 11:37 MCHC (31.0-37.0) g/dL Plt Count (150-450) k/uL Lymphocytes # (Manual) 0.89 L (1.0-4.8) k/uL Metamyelocytes # (Man) 0.24 H (0) k/uL Myelocytes # (Manual) 0.49 H (0) k/uL Sodium 133 L (137-145) mmol/L Chloride 96 L (98-107) mmol/L Glucose 129 H (74-99) mg/dL POC Glucose (mg/dL) 181 H (75-99) mg/dL Calcium 8.2 L (8.4-10.2) mg/dL AST 77 H (14-36) U/L ALT 44 H (4-34) U/L 11/01/19 11/01/19 11/02/19 Range/Units 16:50 20:09 07:07 MCHC (31.0-37.0) g/dL Plt Count (150-450) k/uL Lymphocytes # (Manual) (1.0-4.8) k/uL Metamyelocytes # (Man) (0) k/uL Myelocytes # (Manual) (0) k/uL Sodium (137-145) mmol/L Chloride (98-107) mmol/L Glucose (74-99) mg/dL POC Glucose (mg/dL) 130 H 157 H 106 H (75-99) mg/dL Calcium (8.4-10.2) mg/dL AST (14-36) U/L ALT (4-34) U/L 11/02/19 Range/Units 09:54 MCHC 30.1 L (31.0-37.0) g/dL Plt Count 149 L (150-450) k/uL Lymphocytes # (Manual) (1.0-4.8) k/uL Metamyelocytes # (Man) (0) k/uL Myelocytes # (Manual) (0) k/uL Sodium (137-145) mmol/L Chloride (98-107) mmol/L Glucose (74-99) mg/dL POC Glucose (mg/dL) (75-99) mg/dL Calcium (8.4-10.2) mg/dL AST (14-36) U/L ALT (4-34) U/L
[2019-11-02 10:48] LABS: African American GFR (CKD) >90 (>60 ml/min/1.73 sqM); Anion Gap 6 mmol/L; Blood Urea Nitrogen 12 mg/dL (7-17); Calcium 8.1 mg/dL (8.4-10.2); Carbon Dioxide 31 mmol/L (22-30); Chloride 95 mmol/L (98-107); Glucose 140 mg/dL (74-99); Non-African American GFR(CKD) 88 (>60 ml/min/1.73 sqM); Potassium 4.3 mmol/L (3.5-5.1); Sodium 132 mmol/L (137-145)
[2019-11-02 11:11] LABS: Band Neutrophils % 2 %; Lymphocytes # (M) 0.57 k/uL (1.0-4.8); Metamyelocytes # (M) 0.08 k/uL (0); Metamyelocytes % 1 %; Monocytes # (M) 0.33 k/uL (0-1.0); Myelocytes # (M) 0.25 k/uL (0); Myelocytes % 3 %; Neutrophils % (M) 85 %; Nucleated Red Blood Cells 0 /100 WBC (0-0); Total Cells Counted 200
[2019-11-02 11:12] LABS: Toxic Vacuolation Present
[2019-11-02 11:13] LABS: Anisocytosis (M) Present; Poikilocytosis (M) Present; Stomatocytes Present
[2019-11-02 11:49] LABS: Glucose,Whole Blood 148 mg/dL (75-99)
--- NOTE | 2019-11-02 16:13 | P.PN ---
Subjective Progress Note Date: 11/02/19 Principal diagnosis: Ms. Rios is a 84-year-old female with a past medical history of atrial fibrillation, congestive heart failure status post AICD placement, hypertension, hyperlipidemia, osteoarthritis admitted to the hospital after having a fall. Patient stayed on the floor for several hours before her son could get her to the hospital. She was found to have mild degree of rhabdomyolysis. Eventually she was transferred to the ICU as she became tachycardic with atrial fibrillation. Currently multiple consultants following the patient. She had a CT of the abdomen and pelvis with no evidence of portal vein thrombosis. Patient continues to be in the ICU setting. Overnight no acute events reported by nursing staff. Patient states that she still has right-sided abdominal pain, but denies having any nausea or vomiting. She also thinks that she has increased swelling of her legs as she is not moving much. Patient's vitals have been reviewed and are within normal limits. On 10/28/2019 -patient is still in the ICU. Overnight no acute events reported by nursing staff. Patient still complains of pain in the right upper quadrant of her abdomen. She denies having any nausea or vomiting. Patient states that her last bowel movement was couple of days back. Patient vitals have been reviewed afebrile for the past 24 hours, blood pressure 102/70, saturating at 95% on room air. Patient's labs are reviewed LFTs trending down, bilirubin trending down. Blood sugars trending on the higher side. On 10/28 - Patient is comfortably lying in the bed, still in the ICU. No acute events reported by nursing staff. Patient's vitals from this morning are reviewed temperature 98.4, blood pressure 100 x 61, saturating at 97% on 2 L of nasal cannula. Patient denies having any acute complaints. She continues to be on antibiotic in the form of Zosyn. On reviewing her labs her LFTs are trending down. On 10/30/2019 -patient has been transferred out of the ICU. She is seen in selective care today, patient is lying in bed comfortably. She denies having any acute complaints. Patient denies having any fevers chills or rigors, no cough or difficulty breathing. No chest pain or palpitations. Vitals have been stable, maintaining sats above 99 on 2 L of oxygen. On reviewing the labs patient's AST ALT trending down, slight increase in alkaline phosphatase. She is being continued on Zosyn for UTI. 10/31/2019 Patient is seen and evaluated and follow-up continues to have some abdominal discomfort and states she needs to have a bowel movement. Patient states that she has not had a bowel movement in almost a week. Patient is currently maintained on 2 L of oxygen and will continue at this time. Patient was on IV antibiotics in the form of Zosyn for an acute urinary tract infection and cultures finalized showing E. coli. She had been on antibiotics for over a week. INR is 1.5 today and pharmacy has been dosing the Coumadin. Will repeat a.m. labs. Currently no reports of chest pain or palpitations. Patient continues to have shortness of breath intermittently with exertion. No reports of nausea or vomiting and patient tolerating diet although she states she feels slightly constipated and requesting an enema she has not had a bowel movement in a week as mentioned previously. Multiple medical consultations following. Will continue to monitor closely. 11/01/2019 Patient is seen in follow-up currently sitting up in the chair. Patient states she continues to have some mild upper abdominal discomfort and feels that she needs to have more of a bowel movement. Patient was given an enema yesterday with small amount of output. Will increase Senokot to twice daily scheduled. Patient was maintained on IV antibiotics in the form of Zosyn and will continue at this time. INR today is 1.6 and patient was maintained on Coumadin. Coumadin is going to be held as patient will be undergoing cholecystectomy that is tentatively scheduled for Tuesday. Will repeat a.m. labs and monitor closely. Currently no reports of chest pain, worsening shortness of breath, or palpitations. Patient is afebrile. no reports of nausea or vomiting noted. 11/02/2019 Patient is seen and evaluated and follow-up continues to have abdominal discomfort and generalized weakness and overall fatigue. Patient is scheduled to undergo cholecystectomy tomorrow with Dr. Adams. patient to continue with IV antibiotics in the form of Zosyn at this time. INR is 1.2 today and Coumadin is being held. Sodium slightly low at 132, potassium is 4.3, creatinine is 0.55. Patient denies any chest pain or palpitations. Patient is having some intermittent shortness of breath and has DuoNeb treatments as needed. no reports of nausea or vomiting. Objective - Vital Signs Vital signs: Vital Signs Temp 97.4 F L 11/02/19 15:00 Pulse 72 11/02/19 15:00 Resp 18 11/02/19 15:00 BP 143/77 11/02/19 15:00 Pulse Ox 92 L 11/02/19 15:00 Intake & Output 11/01/19 11/02/19 11/02/19 18:59 06:59 18:59 Intake Total 340 200 Output Total 900 550 650 Balance -560 -350 -650 Intake: IV 100 Piperacillin-Tazobactam 3 100 .375 gm In Sodium Chloride 0.9% 100 ml @ 25 mls/hr IVPB Q8H [facility] Rx#: [id number] Oral 240 200 Output: Urine 900 550 650 Other: Voiding Method Indwelling Catheter Indwelling Catheter Indwelling Catheter - Exam GENERAL : patient is alert oriented x3, sitting up in the chair, well-developed, well-nourished, obese HEENT: Conjunctiva is normal, sclerae icterus positive CARDIOVASCULAR: S1-S2 heard RESPIRATORY: Bilateral breath sounds diminished in the lower lung bases. No wheeze or crackles. GI: Abdomen is soft, mild tenderness noted on palpation in the right upper quadr ant. Bowel sounds positive. EXTREMITIES: Mild pitting edema CAVALRY SCOUT: No focal neurological deficits on gross exam, diffusely weak SKIN : Actinic keratosis - Labs CBC & Chem 7: 11/02/19 09:54 11/02/19 09:54 Labs: Abnormal Lab Results - Last 24 Hours (Table) 11/01/19 11/01/19 11/02/19 Range/Units 16:50 20:09 07:07 MCHC (31.0-37.0) g/dL Plt Count (150-450) k/uL Lymphocytes # (Manual) (1.0-4.8) k/uL Metamyelocytes # (Man) (0) k/uL Myelocytes # (Manual) (0) k/uL INR (<1.2) Sodium (137-145) mmol/L Chloride (98-107) mmol/L Carbon Dioxide (22-30) mmol/L Glucose (74-99) mg/dL POC Glucose (mg/dL) 130 H 157 H 106 H (75-99) mg/dL Calcium (8.4-10.2) mg/dL 11/02/19 11/02/19 11/02/19 Range/Units 09:54 09:54 09:54 MCHC 30.1 L (31.0-37.0) g/dL Plt Count 149 L (150-450) k/uL Lymphocytes # (Manual) 0.57 L (1.0-4.8) k/uL Metamyelocytes # (Man) 0.08 H (0) k/uL Myelocytes # (Manual) 0.25 H (0) k/uL INR 1.2 H (<1.2) Sodium 132 L (137-145) mmol/L Chloride 95 L (98-107) mmol/L Carbon Dioxide 31 H (22-30) mmol/L Glucose 140 H (74-99) mg/dL POC Glucose (mg/dL) (75-99) mg/dL Calcium 8.1 L (8.4-10.2) mg/dL 11/02/19 Range/Units 11:47 MCHC (31.0-37.0) g/dL Plt Count (150-450) k/uL Lymphocytes # (Manual) (1.0-4.8) k/uL Metamyelocytes # (Man) (0) k/uL Myelocytes # (Manual) (0) k/uL INR (<1.2) Sodium (137-145) mmol/L Chloride (98-107) mmol/L Carbon Dioxide (22-30) mmol/L Glucose (74-99) mg/dL POC Glucose (mg/dL) 148 H (75-99) mg/dL Calcium (8.4-10.2) mg/dL Assessment and Plan Assessment: Acute rhabdomyolysis status post fall Sepsis, present on admission, currently being treated Obstructive jaundice with moderate to severe extrahepatic biliary dilation Hypercoagulability-Coumadin toxicity - resolved Hyponatremia - resolved Acute hepatitis Type 2 diabetes mellitus Hypomagnesemia Possible cholelithiasis Chronic atrial fibrillation Acute kidney injury Urinary tract infection with E. coli Hypertension Pacemaker /AICD History of cardiac ablation History of cardioversion Remote history of nicotine dependence Obesity with BMI of 35.4 Moderate protein calorie malnutrition Plan: Continue current medications, management, and symptomatic treatment. Patient was resumed on Coumadin and INR today is 1.6. We'll again hold Coumadin as patient is scheduled to undergo cholecystectomy tomorrow morning with Dr. Adams. Will repeat a.m. labs. Patient was on Zosyn for urinary tract infection as urine cultures finalized showing E. coli. Will continue to monitor closely. Due to multiple complex medical issues, prognosis is guarded. Further recommendations to follow. Case management and social work following as patient continues to be quite weak and will be going to ECF once stabilized and discharged. The plan is for patient to go to [facility] for continued PT/OT therapy.
[2019-11-02 17:02] LABS: Glucose,Whole Blood 150 mg/dL (75-99)
[2019-11-02 20:53] LABS: Glucose,Whole Blood 135 mg/dL (75-99)
[2019-11-03] MEDS: PIPERACILLIN-TAZOBACTAM 3.375 GM in SODIUM CHLORIDE 0.9% 100 ML IVPB SCH ×4 (00:12→23:17)
[2019-11-03 06:49] LABS: Glucose,Whole Blood 124 mg/dL (75-99)
[2019-11-03] MEDS: INSULIN ASPART (NovoLOG) 100 UNIT/ML VIAL SQ SCH ×4 (07:11→20:34)
[2019-11-03] MEDS: SENNOSIDES 8.6 MG TAB PO SCH ×2 (07:12→20:36)
[2019-11-03] MEDS: PANTOPRAZOLE 40 MG/10 ML VIAL IVP SCH (07:12)
[2019-11-03] MEDS ORDERED: LACTATED RINGERS 1,000 ML IV ONE (07:46)
[2019-11-03] MEDS ORDERED: ROCURONIUM 10 MG/ML (5 ML VIAL) IV ONE (07:46)
[2019-11-03] MEDS ORDERED: fentaNYL (PF) 50 MCG/ML 2 ML AMP ONE (07:46)
[2019-11-03] MEDS ORDERED: LIDOCAINE 1% INJ 10MG/ML (20 ML MDV) ONE (07:46)
[2019-11-03] MEDS ORDERED: ETOMIDATE 2 MG/ML 10 ML VIAL ONE (07:46)
[2019-11-03] MEDS ORDERED: HEPARIN SODIUM,PORCINE 5,000 UNIT/ML 1 ML VIAL ONE (07:46)
[2019-11-03] MEDS ORDERED: MIDAZOLAM 2 MG/2 ML VIAL ONE (07:46)
[2019-11-03] MEDS ORDERED: PHENYLEPHRINE-0.9% NACL SYG 1 MG/10 ML SYRINGE ONE (07:46)
[2019-11-03] MEDS ORDERED: ONDANSETRON 4 MG/2 ML VIAL ONE (07:46)
[2019-11-03] MEDS ORDERED: SUCCINYLCHOLINE CHLORIDE 100 MG/5 ML SYR IV ONE (07:46)
[2019-11-03] MEDS ORDERED: ceFAZolin 1,000 MG VIAL ONE (07:46)
[2019-11-03] MEDS: IPRATROPIUM-ALBUTEROL 3 ML NEB INHALATION SCH ×3 (08:02→18:45)
[2019-11-03] MEDS ORDERED: BUPIVACAINE (PF) 0.25% 30 ML VIAL SQ ONE (08:04)
--- NOTE | 2019-11-03 08:35 | P.OP ---
Date of Procedure: 11/03/19 Preoperative Diagnosis: Cholecystitis Cholelithiasis Postoperative Diagnosis: Close cholecystitis Cholelithiasis Stones and sludge in cystic duct Procedure(s) Performed: Laparoscopic cholecystectomy Anesthesia: CHINO Surgeon: Ariel Adams Estimated Blood Loss (ml): 15 Pathology: other (gall bladder) Condition: stable Disposition: PACU Description of Procedure: The patient was placed on the operating table. The patient received a general endotracheal tube anesthesia. The patients abdomen was prepped and draped in the usual sterile fashion. Through an infraumbilical stab incision, the fascia of the anterior abdominal wall was grasped with a pair of Kochers and then the Veress needle was placed in the peritoneal cavity. Position of the Veress needle was confirmed with positive drop test. The abdomen was then insufflated. After adequate insufflation, the 10 mm trocar was placed in the peritoneal cavity. Following this the laparoscope was placed in the peritoneal cavity. The patient was placed in the head-up, right side up position and then a 5 mm trocar was placed in the right lateral and right subcostal position under direct visualization. A 8 mm trocar was placed in the epigastric position. The gallbladder was grasped in the fundus and infundibulum. Traction on the gallbladder was placed in the lateral and the cephalad positions. The triangle of Calot was visualized.. The cystic duct was bluntly dissected until the union of the cystic duct and common bile duct was seen. A critical view of safety was achieved. The cystic duct was then ligated with 2-0 Ethibond and the timeout device. The cystic duct was then divided and sealed with the Harmonic scissors. A PDS Endoloop was then placed throughout the cystic duct stump. The cystic artery divided and sealed with the Harmonic scissors. The gallbladder was then removed from the liver bed using Harmonic scissors. The gallbladder was then extracted through the epigastric port site. Operative field was checked for any bleeding spots and Harmonic scissors was used to coagulate the liver bed. The abdomen was irrigated. The trocars were removed. The skin was closed using interrupted 3-0 Vicryl suture. Dermabond dressing were applied. The patient tolerated the procedure well.
[2019-11-03] MEDS ORDERED: HYDROmorphone 0.5 MG/0.5 ML SYRINGE IVP ONE ×4 (09:18→10:00)
[2019-11-03 09:32] LABS: Glucose,Whole Blood 157 mg/dL (75-99)
[2019-11-03] MEDS: METOPROLOL SUCCINATE (ER) 100 MG TAB.ER.24H PO SCH (10:51)
[2019-11-03] MEDS: HYDROmorphone 0.5 MG/0.5 ML SYRINGE IVP PRN ×2 (10:54→20:05)
[2019-11-03 11:07] LABS: Basophils # (A) 0.1 k/uL (0-0.2); Basophils % (A) 1 %; Eosinophils # (A) 0.1 k/uL (0-0.7); Eosinophils % (A) 1 %; HCT 45.9 % (34.0-46.0); HGB 13.6 gm/dL (11.4-16.0); Hypochromasia Marked; Lymphocytes # (A) 0.5 k/uL (1.0-4.8); Lymphocytes % (A) 4 %; MCH 28.8 pg (25.0-35.0); MCHC 29.5 g/dL (31.0-37.0); MCV 97.4 fL (80.0-100.0); Mean Platelet Volume 8.5; Monocytes # (A) 0.3 k/uL (0-1.0); Monocytes % (A) 3 %; Neutrophils # (A) 12.6 k/uL (1.3-7.7); Neutrophils % (A) 92 %; Platelet Count 170 k/uL (150-450); RBC 4.71 m/uL (3.80-5.40); RDW 14.5 % (11.5-15.5); WBC 13.7 k/uL (3.8-10.6)
[2019-11-03 11:09] LABS: African American GFR (CKD) >90 (>60 ml/min/1.73 sqM); Anion Gap 7 mmol/L; Blood Urea Nitrogen 12 mg/dL (7-17); Calcium 8.2 mg/dL (8.4-10.2); Carbon Dioxide 28 mmol/L (22-30); Chloride 98 mmol/L (98-107); Glucose 162 mg/dL (74-99); Non-African American GFR(CKD) 85 (>60 ml/min/1.73 sqM); Sodium 133 mmol/L (137-145)
[2019-11-03 11:27] LABS: Glucose,Whole Blood 151 mg/dL (75-99)
[2019-11-03 12:00] LABS: INR 1.1 (<1.2); Prothrombin Time 11.2 sec (9.0-12.0)
[2019-11-03] MEDS: HYDROmorphone 1 MG/ML 1 ML SYRINGE IVP PRN (14:32)
--- NOTE | 2019-11-03 15:23 | XR ---
EXAMINATION TYPE: XR chest 1V portable DATE OF EXAM: 11/03/2019 COMPARISON: 10/24/2019 HISTORY: Short of breath TECHNIQUE: Single view FINDINGS: Heart is enlarged. There is pulmonary vascular congestion. There is blunting of the costophrenic angl es. There is left axillary pacemaker. Thoracic aorta is atheromatous IMPRESSION: Congestive heart failure with pleural effusions. Heart failure and pleural fluid increased compared t o recent exam.
[2019-11-03 16:20] LABS: Glucose,Whole Blood 147 mg/dL (75-99)
--- NOTE | 2019-11-03 16:35 | PN ---
PROGRESS NOTE DATE OF SERVICE: 11/03/2019 This 84-year-old woman who was originally admitted with a fall and rhabdomyolysis also had features of sepsis and cholecystitis. The patient underwent a laparoscopic cholecystectomy for cholelithiasis, acute cholecystitis, as well as sludge in the cystic duct and as well as multiple medical problems by Dr. Adams. Patient closely monitored. PAST MEDICAL HISTORY: Reviewed. REVIEW OF SYSTEMS: Could not be taken, the patient is sedated after surgery. CURRENT MEDICATIONS: Reviewed and include Tylenol p.r.n., [place] 5 mg, DuoNeb q.i.d. and p.r.n., Colace, Dilaudid, NovoLog, Toprol-XL, magnesium, potassium, Narcan, Zofran, Protonix, Zosyn. PHYSICAL EXAMINATION: Patient is sedated. Pulse 74, blood pressure 150/70, respiration 20, temperature normal, pulse ox 100% on 2 L. HEENT: Conjunctivae normal. Oral mucosa moist. NECK: No jugular venous distention. No lymph node enlargement. CARDIOVASCULAR: S1, S2, muffled. No S3, no S4, RESPIRATORY: Diminished breath sounds at the bases. A few scattered rhonchi and crackles. ABDOMEN: Soft, status post surgery. LEGS: No edema, no swelling. NERVOUS SYSTEM: No focal motor or sensory deficits. LABS: WBC 13.7. ASSESSMENT: 1. Acute cholelithiasis and cholecystitis with possible sepsis present on admission, status post laparoscopic cholecystectomy. 2. Acute rhabdomyolysis after a fall. 3. Obstructive jaundice with moderate to severe extrahepatic biliary obstruction. 4. Hypercoagulability with Coumadin toxicity, resolved. 5. Hyponatremia. 6. Acute hepatitis. 7. Diabetes mellitus type 2. 8. Hypomagnesemia. 9. Chronic atrial fibrillation. 10.Acute kidney injury. 11.Urinary tract infection with E coli. 12.Hypertension. 13.History of pacemaker, AICD. 14.History of cardiac ablation. 15.History of cardioversion. 16.Remote history of nicotine dependence. 17.Obesity of with body mass index of 42.8. 18.Moderate protein-calorie malnutrition. 19.FULL CODE. RECOMMENDATIONS AND DISCUSSION: In this 84-year-old woman who presented with multiple complex medical issues, we will monitor the patient closely, continue the current management and symptomatic treatment. Otherwise, continue with empiric antibiotics. Repeat labs. Pain Management follow closely with Surgery. PT/OT evaluation. Pursue the possible ECF rehab. The most recent LFTs showing elevated AST, ALT, which were done on the . I would repeat CMP and continue to monitor. Once again, the prognosis guarded because of multiple complex medical issues. Further recommendations to follow. Also recommend DVT prophylaxis and as well as GI prophylaxis as well. MMODL / IJN: [id number] /
[2019-11-03 20:33] LABS: Glucose,Whole Blood 147 mg/dL (75-99)
[2019-11-03] MEDS: HEPARIN SODIUM,PORCINE 5,000 UNIT/ML 1 ML VIAL SQ SCH (20:36)
[2019-11-04] MEDS: HYDROmorphone 0.5 MG/0.5 ML SYRINGE IVP PRN ×5 (03:37→22:00)
[2019-11-04 07:04] LABS: Glucose,Whole Blood 153 mg/dL (75-99)
[2019-11-04] MEDS: PANTOPRAZOLE 40 MG/10 ML VIAL IVP SCH (07:12)
[2019-11-04] MEDS: HEPARIN SODIUM,PORCINE 5,000 UNIT/ML 1 ML VIAL SQ SCH ×2 (07:15→20:51)
[2019-11-04] MEDS: SENNOSIDES 8.6 MG TAB PO SCH ×2 (07:17→20:50)
[2019-11-04] MEDS: METOPROLOL SUCCINATE (ER) 100 MG TAB.ER.24H PO SCH (07:18)
[2019-11-04] MEDS: INSULIN ASPART (NovoLOG) 100 UNIT/ML VIAL SQ SCH ×4 (07:21→20:50)
[2019-11-04] MEDS: PIPERACILLIN-TAZOBACTAM 3.375 GM in SODIUM CHLORIDE 0.9% 100 ML IVPB SCH ×3 (07:21→23:19)
[2019-11-04 07:33] LABS: INR 1.1 (<1.2); Prothrombin Time 11.5 sec (9.0-12.0)
[2019-11-04 07:34] LABS: Basophils # (A) 0.1 k/uL (0-0.2); Basophils % (A) 0 %; Eosinophils % (A) 0 %; HCT 41.9 % (34.0-46.0); HGB 12.4 gm/dL (11.4-16.0); Hypochromasia Moderate; Lymphocytes # (A) 0.7 k/uL (1.0-4.8); Lymphocytes % (A) 3 %; MCH 28.1 pg (25.0-35.0); MCHC 29.6 g/dL (31.0-37.0); MCV 95.2 fL (80.0-100.0); Mean Platelet Volume 8.7; Monocytes # (A) 0.8 k/uL (0-1.0); Monocytes % (A) 3 %; Neutrophils # (A) 24.3 k/uL (1.3-7.7); Neutrophils % (A) 93 %; Platelet Count 176 k/uL (150-450); RBC 4.41 m/uL (3.80-5.40); RDW 14.6 % (11.5-15.5); WBC 26.1 k/uL (3.8-10.6)
[2019-11-04 07:51] LABS: Albumin 2.4 g/dL (3.5-5.0); Potassium 4.8 mmol/L (3.5-5.1); Total Bilirubin 3.8 mg/dL (0.2-1.3)
[2019-11-04] MEDS: IPRATROPIUM-ALBUTEROL 3 ML NEB INHALATION SCH ×3 (10:19→19:34)
[2019-11-04 11:19] LABS: Glucose,Whole Blood 152 mg/dL (75-99)
--- NOTE | 2019-11-04 11:38 | P.PN ---
Progress Note - Text Progress Note Date: 11/04/19 The patient's postoperative day 1 from laparoscopic cholecystectomy. Patient's significant biliary sludge and stones within her gallbladder. On exam vital signs are stable. Abdomen soft. Status post laparoscopic close to 3. Patient to receive supportive care.
[2019-11-04 16:39] LABS: Glucose,Whole Blood 164 mg/dL (75-99)
--- NOTE | 2019-11-04 17:19 | PN ---
PROGRESS NOTE DATE OF SERVICE: 11/04/2019 This 84-year-old woman was admitted with fall and rhabdomyolysis and had cholecystitis. Patient underwent laparoscopic cholecystectomy. Patient had significant diminished urine output with dark colored urine. A UA with micro is being requested. Patient had multiple abnormal labs, also. The creatinine is also at 1.15. The patient is being closely monitored at this time. PAST MEDICAL HISTORY: Reviewed. REVIEW OF SYSTEMS: CARDIOVASCULAR SYSTEM: As mentioned earlier. RESPIRATORY SYSTEM: As mentioned earlier. GI: As mentioned earlier. GI: As mentioned earlier. NERVOUS SYSTEMS: No numbness or weakness. CURRENT MEDICATIONS: 1. Tylenol p.r.n. 2. [place] p.r.n. 3. DuoNeb q.i.d. and p.r.n. 4. Dilaudid. 5. NovoLog. 6. Reglan. 7. Toprol-XL. 8. Narcan. 9. Zofran. 10.Protonix. 11.Zosyn IV. PHYSICAL EXAMINATION: Patient is alert, oriented x2. Pulse is 86, blood pressure 116/58, respirations 17, temperature 98.2, pulse ox 94% on 3 L. HEENT: Conjunctivae normal. NECK: No jugular venous distention. CARDIOVASCULAR: S1, S2, muffled. RESPIRATORY: Diminished breath sounds at the bases. A few scattered rhonchi and crackles. ABDOMEN: Soft, nontender. Obese. LEGS: No edema, no swelling. NERVOUS SYSTEM: No focal deficits. LABS: WBC 26.1, sodium 132, potassium 4.2, creatinine is 1.15. ASSESSMENT: 1. Acute cholelithiasis and cholecystitis with possible sepsis present on admission, status post laparoscopic cholecystectomy. 2. Acute rhabdomyolysis after a fall. 3. Obstructive jaundice with moderate to severe extrahepatic biliary obstruction. 4. Bilateral leg atelectasis. 5. Hypercoagulable with Coumadin toxicity, improved. 6. Hyponatremia. 7. Acute hepatitis. 8. Diabetes mellitus type 2. 9. Hypomagnesemia. 10.Chronic atrial fibrillation. 11.Acute kidney injury. 12.Urinary tract infection with E coli. 13.Hypertension. 14.History of pacemaker, automatic implantable cardioverter defibrillator. 15.History of cardiac ablation. 16.History of cardioversion. 17.Remote history of nicotine dependence. 18.Obesity with body mass index of 42.8. 19.Moderate protein calorie malnutrition. 20.FULL CODE. RECOMMENDATIONS AND DISCUSSION: In this 84-year-old woman who presented with multiple complex medical issues, we will monitor the patient closely. Continue the current medications, continue symptomatic treatment. Cautious hydration. The chest x-ray was reviewed. We will continue to monitor the urine output. UA with micro. The fluid overload is always a concern. We will continue to monitor the diet and encourage diet per Surgery. Further recommendations to follow. The creatine kinase has been also requested. MMODL / IJN: [id number] /
[2019-11-04 18:55] LABS: Amorphous Sediment,Urine Rare /hpf; Granular Casts,Urine 3 /lpf (0); Mucus,Urine Rare /hpf; RBC,Urine 2 /hpf (0-5); WBC,Urine 8 /hpf (0-5)
[2019-11-04 18:58] LABS: Appearance,Urine Clear (Clear); Color,Urine Yellow; Protein,Urine 1+ (Negative); Specific Gravity,Urine 1.025 (1.001-1.035)
[2019-11-04 18:59] LABS: Bilirubin,Urine 1+ (Negative); Blood,Urine Small (Negative); Glucose,Urine (UA) Negative (Negative); Ketones,Urine Negative (Negative); Leukocyte Esterase,Urine Negative (Negative); Nitrite,Urine Negative (Negative)
[2019-11-04 20:19] LABS: Glucose,Whole Blood 177 mg/dL (75-99)
[2019-11-05] MEDS: HYDROmorphone 1 MG/ML 1 ML SYRINGE IVP PRN (02:15)
[2019-11-05 06:35] LABS: Glucose,Whole Blood 150 mg/dL (75-99)
[2019-11-05 07:51] LABS: Basophils # (A) 0.1 k/uL (0-0.2); Basophils % (A) 0 %; Eosinophils # (A) 0.1 k/uL (0-0.7); Eosinophils % (A) 0 %; HCT 37.1 % (34.0-46.0); HGB 10.9 gm/dL (11.4-16.0); Hypochromasia Marked; Lymphocytes # (A) 0.5 k/uL (1.0-4.8); Lymphocytes % (A) 3 %; MCH 28.4 pg (25.0-35.0); MCHC 29.4 g/dL (31.0-37.0); MCV 96.6 fL (80.0-100.0); Mean Platelet Volume 9.2; Monocytes # (A) 0.7 k/uL (0-1.0); Monocytes % (A) 4 %; Neutrophils # (A) 17.6 k/uL (1.3-7.7); Neutrophils % (A) 92 %; Platelet Count 137 k/uL (150-450); RBC 3.84 m/uL (3.80-5.40); RDW 14.7 % (11.5-15.5); WBC 19.2 k/uL (3.8-10.6)
[2019-11-05] MEDS: IPRATROPIUM-ALBUTEROL 3 ML NEB INHALATION SCH ×3 (08:09→20:30)
[2019-11-05] MEDS: METOPROLOL SUCCINATE (ER) 100 MG TAB.ER.24H PO SCH (08:10)
[2019-11-05] MEDS: SENNOSIDES 8.6 MG TAB PO SCH ×2 (08:10→19:56)
[2019-11-05] MEDS: INSULIN ASPART (NovoLOG) 100 UNIT/ML VIAL SQ SCH ×4 (08:10→21:20)
[2019-11-05] MEDS: HEPARIN SODIUM,PORCINE 5,000 UNIT/ML 1 ML VIAL SQ SCH ×2 (08:11→19:57)
[2019-11-05] MEDS: HYDROmorphone 0.5 MG/0.5 ML SYRINGE IVP PRN ×2 (08:11→16:15)
[2019-11-05] MEDS: PIPERACILLIN-TAZOBACTAM 3.375 GM in SODIUM CHLORIDE 0.9% 100 ML IVPB SCH ×2 (08:11→16:16)
[2019-11-05] MEDS: PANTOPRAZOLE 40 MG/10 ML VIAL IVP SCH (08:11)
[2019-11-05 08:15] LABS: ALT 28 U/L (4-34); African American GFR (CKD) 81 (>60 ml/min/1.73 sqM); Albumin 2.2 g/dL (3.5-5.0); Anion Gap 6 mmol/L; Blood Urea Nitrogen 23 mg/dL (7-17); Calcium 7.7 mg/dL (8.4-10.2); Carbon Dioxide 29 mmol/L (22-30); Chloride 98 mmol/L (98-107); Creatine Kinase <20 U/L (30-135); Glucose 143 mg/dL (74-99); Non-African American GFR(CKD) 71 (>60 ml/min/1.73 sqM); Sodium 133 mmol/L (137-145); Total Protein 4.8 g/dL (6.3-8.2)
[2019-11-05 08:17] LABS: AST 48 U/L (14-36); Alkaline Phosphatase 396 U/L (38-126); Potassium 4.5 mmol/L (3.5-5.1)
[2019-11-05 11:28] VITALS: BMI 40.2
[2019-11-05 11:32] LABS: Glucose,Whole Blood 147 mg/dL (75-99)
[2019-11-05 12:39] LABS: INR 1.1 (<1.2); Prothrombin Time 11.3 sec (9.0-12.0)
[2019-11-05] MEDS: HYDROcodone/APAP 5-325MG 1 EACH TAB PO PRN ×2 (13:33→19:55)
--- NOTE | 2019-11-05 14:34 | P.PN ---
Subjective Progress Note Date: 11/05/19 CHIEF COMPLAINT: Biliary obstruction HISTORY OF PRESENT ILLNESS: Patient is status post laparoscopic cholecystectomy. She denies any nausea or vomiting. She is passing gas. Denies abdominal pain. She is afebrile. WBC is 19.2 hemoglobin 10.9 total bili 3 AST 48 ALT 28 alk phos 396. PHYSICAL EXAM: VITAL SIGNS: Reviewed. GENERAL: Well-developed in no acute distress. HEENT: No sclera icterus. Extraocular movements grossly intact. Moist buccal mucosa. Head is atraumatic, normocephalic. ABDOMEN: Soft. Nondistended. Mild tenderness with palpation right upper quadrant. Incisions are clean dry and intact minimal bruising NEUROLOGIC: Alert and oriented. Cranial nerves II through XII grossly intact. ASSESSMENT: 1. Chronic cholecystitis, cholelithiasis and stones and sludge and cystic duct status post laparoscopic cholecystectomy postop day #2 2. Dilated bile ducts status post ERCP with biliary stent placement by GI service 3. Choledocholithiasis PLAN: -Advance diet to a full liquid diet -Okay to resume patient's Coumadin discussed with medicine -Continue antibiotics -Patient will eventually require advanced endoscopic evaluation with stent removal and stone extraction. -Continue PT OT Physician Mechanical Maintenance Supervisor note has been reviewed by physician. Signing provider agrees with the documented findings, assessment, and plan of care. Objective - Vital Signs Vital signs: Vital Signs Temp 97.7 F 11/05/19 14:20 Pulse 80 11/05/19 14:20 Resp 12 11/05/19 14:20 BP 103/79 11/05/19 14:20 Pulse Ox 95 11/05/19 14:20 Intake & Output 11/04/19 11/05/19 11/05/19 18:59 06:59 18:59 Intake Total 50 500 320 Output Total 150 500 Balance -100 0 320 Weight 103 kg 103 kg Intake: Intake, IV Titration 500 Amount Piperacillin-Tazobactam 3 100 .375 gm In Sodium Chloride 0.9% 100 ml @ 25 mls/hr IVPB Q8HR [facility] Rx# :[id number] Sodium Chloride 0.9% 1, 400 000 ml @ 0 mls/hr IV .STK -[facility] ONE Rx#:[id number] Oral 50 320 Output: Urine 150 500 Other: Voiding Method Indwelling Catheter Indwelling Catheter Indwelling Catheter - Labs CBC & Chem 7: 11/05/19 07:26 11/05/19 07:26 Labs: Abnormal Lab Results - Last 24 Hours (Table) 11/04/19 11/04/19 11/04/19 Range/Units 15:45 16:37 20:17 WBC (3.8-10.6) k/uL Hgb (11.4-16.0) gm/dL MCHC (31.0-37.0) g/dL Plt Count (150-450) k/uL Neutrophils # (1.3-7.7) k/uL Lymphocytes # (1.0-4.8) k/uL Sodium (137-145) mmol/L BUN (7-17) mg/dL Glucose (74-99) mg/dL POC Glucose (mg/dL) 164 H 177 H (75-99) mg/dL Calcium (8.4-10.2) mg/dL Total Bilirubin (0.2-1.3) mg/dL AST (14-36) U/L Alkaline Phosphatase (38-126) U/L Creatine Kinase (30-135) U/L Total Protein (6.3-8.2) g/dL Albumin (3.5-5.0) g/dL Urine Bilirubin 1+ H (Negative) Urine WBC 8 H (0-5) /hpf Amorphous Sediment Rare H (None) /hpf Urine Mucus Rare H (None) /hpf 11/05/19 11/05/19 11/05/19 Range/Units 06:33 07:26 07:26 WBC 19.2 H (3.8-10.6) k/uL Hgb 10.9 L (11.4-16.0) gm/dL MCHC 29.4 L (31.0-37.0) g/dL Plt Count 137 L (150-450) k/uL Neutrophils # 17.6 H (1.3-7.7) k/uL Lymphocytes # 0.5 L (1.0-4.8) k/uL Sodium 133 L (137-145) mmol/L BUN 23 H (7-17) mg/dL Glucose 143 H (74-99) mg/dL POC Glucose (mg/dL) 150 H (75-99) mg/dL Calcium 7.7 L (8.4-10.2) mg/dL Total Bilirubin 3.0 H (0.2-1.3) mg/dL AST 48 H (14-36) U/L Alkaline Phosphatase 396 H (38-126) U/L Creatine Kinase <20 L (30-135) U/L Total Protein 4.8 L (6.3-8.2) g/dL Albumin 2.2 L (3.5-5.0) g/dL Urine Bilirubin (Negative) Urine WBC (0-5) /hpf Amorphous Sediment (None) /hpf Urine Mucus (None) /hpf 11/05/19 Range/Units 11:30 WBC (3.8-10.6) k/uL Hgb (11.4-16.0) gm/dL MCHC (31.0-37.0) g/dL Plt Count (150-450) k/uL Neutrophils # (1.3-7.7) k/uL Lymphocytes # (1.0-4.8) k/uL Sodium (137-145) mmol/L BUN (7-17) mg/dL Glucose (74-99) mg/dL POC Glucose (mg/dL) 147 H (75-99) mg/dL Calcium (8.4-10.2) mg/dL Total Bilirubin (0.2-1.3) mg/dL AST (14-36) U/L Alkaline Phosphatase (38-126) U/L Creatine Kinase (30-135) U/L Total Protein (6.3-8.2) g/dL Albumin (3.5-5.0) g/dL Urine Bilirubin (Negative) Urine WBC (0-5) /hpf Amorphous Sediment (None) /hpf Urine Mucus (None) /hpf
--- NOTE | 2019-11-05 15:02 | P.PN ---
Subjective Progress Note Date: 11/05/19 Principal diagnosis: Is an 84-year-old female who was recently admitted with a fall and rhabdomyolysis and also was found to have cholecystitis and is being closely monitored. Patient underwent cholecystectomy this past Tuesday and surgery following. Patient's diet being advanced to full liquids with no reports of nausea or vomiting noted. Patient continues to have some abdominal tenderness at the surgical site. Patient states she is passing gas and unsure if she had a bowel movement yesterday. Encourage the patient to increase oral intake and increase activity as tolerated. PT/OT following. Bilirubin trending down and currently 3.0. White blood count trending down and 19.2. Creatinine slightly improved at 0.79 and sodium at 133. Coumadin is being resumed with pharmacy to dose and current INR is 1.1. Will repeat a.m. labs. Patient denies any chest pain, shortness of breath, or palpitations. Patient is afebrile. No reports of nausea or vomiting and patient has been tolerating diet. Objective - Vital Signs Vital signs: Vital Signs Temp 98.2 F 11/05/19 06:49 Pulse 92 11/05/19 08:00 Resp 16 11/05/19 08:00 BP 100/57 11/05/19 06:49 Pulse Ox 93 L 11/05/19 06:49 Intake & Output 11/04/19 11/05/19 11/05/19 18:59 06:59 18:59 Intake Total 50 500 320 Output Total 150 500 Balance -100 0 320 Weight 103 kg 103 kg Intake: Intake, IV Titration 500 Amount Piperacillin-Tazobactam 3 100 .375 gm In Sodium Chloride 0.9% 100 ml @ 25 mls/hr IVPB Q8HR [facility] Rx# :[id number] Sodium Chloride 0.9% 1, 400 000 ml @ 0 mls/hr IV .STK -[facility] Rx#:[id number] Oral 50 320 Output: Urine 150 500 Other: Voiding Method Indwelling Catheter Indwelling Catheter Indwelling Catheter - Exam GENERAL : patient is alert oriented x3, sitting up in the chair, well-developed, well-nourished, obese. Temp is 98.2F, pulse is 89, respirations are 16, blood pressure is 100/57, oxygen saturation is 93% on 3 L via nasal cannula. HEENT: Conjunctiva is normal NECK: No JVD noted, supple CARDIOVASCULAR: S1, S2 are muffled RESPIRATORY: Bilateral breath sounds diminished in the lower lung bases. With a few scattered rhonchi and crackles noted. GI: Abdomen is soft, mild tenderness noted on palpation. Bowel sounds positive. EXTREMITIES: No pedal edema, no swelling EXPANSION JOINT BUILDER: No focal neurological deficits on gross exam, diffusely weak SKIN : Actinic keratosis - Labs CBC & Chem 7: 11/05/19 07:26 11/05/19 07:26 Labs: Abnormal Lab Results - Last 24 Hours (Table) 11/04/19 11/04/19 11/04/19 Range/Units 15:45 16:37 20:17 WBC (3.8-10.6) k/uL Hgb (11.4-16.0) gm/dL MCHC (31.0-37.0) g/dL Plt Count (150-450) k/uL Neutrophils # (1.3-7.7) k/uL Lymphocytes # (1.0-4.8) k/uL Sodium (137-145) mmol/L BUN (7-17) mg/dL Glucose (74-99) mg/dL POC Glucose (mg/dL) 164 H 177 H (75-99) mg/dL Calcium (8.4-10.2) mg/dL Total Bilirubin (0.2-1.3) mg/dL AST (14-36) U/L Alkaline Phosphatase (38-126) U/L Creatine Kinase (30-135) U/L Total Protein (6.3-8.2) g/dL Albumin (3.5-5.0) g/dL Urine Bilirubin 1+ H (Negative) Urine WBC 8 H (0-5) /hpf Amorphous Sediment Rare H (None) /hpf Urine Mucus Rare H (None) /hpf 11/05/19 11/05/19 11/05/19 Range/Units 06:33 07:26 07:26 WBC 19.2 H (3.8-10.6) k/uL Hgb 10.9 L (11.4-16.0) gm/dL MCHC 29.4 L (31.0-37.0) g/dL Plt Count 137 L (150-450) k/uL Neutrophils # 17.6 H (1.3-7.7) k/uL Lymphocytes # 0.5 L (1.0-4.8) k/uL Sodium 133 L (137-145) mmol/L BUN 23 H (7-17) mg/dL Glucose 143 H (74-99) mg/dL POC Glucose (mg/dL) 150 H (75-99) mg/dL Calcium 7.7 L (8.4-10.2) mg/dL Total Bilirubin 3.0 H (0.2-1.3) mg/dL AST 48 H (14-36) U/L Alkaline Phosphatase 396 H (38-126) U/L Creatine Kinase <20 L (30-135) U/L Total Protein 4.8 L (6.3-8.2) g/dL Albumin 2.2 L (3.5-5.0) g/dL Urine Bilirubin (Negative) Urine WBC (0-5) /hpf Amorphous Sediment (None) /hpf Urine Mucus (None) /hpf 11/05/19 Range/Units 11:30 WBC (3.8-10.6) k/uL Hgb (11.4-16.0) gm/dL MCHC (31.0-37.0) g/dL Plt Count (150-450) k/uL Neutrophils # (1.3-7.7) k/uL Lymphocytes # (1.0-4.8) k/uL Sodium (137-145) mmol/L BUN (7-17) mg/dL Glucose (74-99) mg/dL POC Glucose (mg/dL) 147 H (75-99) mg/dL Calcium (8.4-10.2) mg/dL Total Bilirubin (0.2-1.3) mg/dL AST (14-36) U/L Alkaline Phosphatase (38-126) U/L Creatine Kinase (30-135) U/L Total Protein (6.3-8.2) g/dL Albumin (3.5-5.0) g/dL Urine Bilirubin (Negative) Urine WBC (0-5) /hpf Amorphous Sediment (None) /hpf Urine Mucus (None) /hpf Assessment and Plan Assessment: Acute cholelithiasis and cholecystitis with possible sepsis, present on admission, status post laparoscopic cholecystectomy Acute rhabdomyolysis status post fall Sepsis, present on admission, currently being treated Obstructive jaundice with moderate to severe extrahepatic biliary dilation Hypercoagulability-Coumadin toxicity, Improved Bilateral lung atelectasis Hyponatremia Acute hepatitis Type 2 diabetes mellitus Hypomagnesemia Chronic atrial fibrillation Acute kidney injury Urinary tract infection with E. coli Hypertension Pacemaker /AICD History of cardiac ablation History of cardioversion Remote history of nicotine dependence Obesity with BMI of 40.2 Moderate protein calorie malnutrition Full code Plan: Continue current medications, management, and symptomatic treatment. Will resume Coumadin today. Current INR is 1.1 and will repeat a.m. labs. Diet has been advanced to full liquids and tolerating thus far with no reports of nausea or vomiting noted. Patient states she is passing gas and unsure if she has had a bowel movement. PT/OT following and patient needs to increase activity as t olerated. Will repeat a.m. labs. Patient was on Zosyn for urinary tract infection as urine cultures finalized showing E. coli. Will continue to monitor closely. Due to multiple complex medical issues, prognosis is guarded. Further recommendations to follow. Case management and social work following as patient continues to be quite weak and will be going to [facility] once stabilized and discharged. The plan is for patient to go to [facility] for continued PT/OT therapy. Possible discharge in 24-48 hours.
[2019-11-05 16:26] LABS: Glucose,Whole Blood 162 mg/dL (75-99)
[2019-11-05] MEDS ORDERED: WARFARIN 5 MG TAB PO SCH (18:00)
[2019-11-05] MEDS: DOCUSATE 100 MG CAP PO PRN (19:57)
[2019-11-05 21:01] LABS: Glucose,Whole Blood 130 mg/dL (75-99)
[2019-11-06] MEDS: HYDROcodone/APAP 5-325MG 1 EACH TAB PO PRN ×3 (01:08→12:49)
[2019-11-06] MEDS: PIPERACILLIN-TAZOBACTAM 3.375 GM in SODIUM CHLORIDE 0.9% 100 ML IVPB SCH ×2 (01:10→07:20)
[2019-11-06 06:58] LABS: Glucose,Whole Blood 128 mg/dL (75-99)
[2019-11-06] MEDS: INSULIN ASPART (NovoLOG) 100 UNIT/ML VIAL SQ SCH ×2 (07:03→11:09)
[2019-11-06] MEDS: METOPROLOL SUCCINATE (ER) 100 MG TAB.ER.24H PO SCH (07:18)
[2019-11-06] MEDS: SENNOSIDES 8.6 MG TAB PO SCH (07:19)
[2019-11-06] MEDS: HEPARIN SODIUM,PORCINE 5,000 UNIT/ML 1 ML VIAL SQ SCH (07:20)
[2019-11-06] MEDS ORDERED: PANTOPRAZOLE 40 MG TABLET PO SCH (07:30)
[2019-11-06] MEDS: IPRATROPIUM-ALBUTEROL 3 ML NEB INHALATION SCH ×2 (07:40→11:42)
[2019-11-06 07:50] VITALS: BP 121/61; RESP 14; TEMP 98.7
[2019-11-06 07:51] VITALS: PULSE 80
[2019-11-06 08:03] LABS: Basophils % (A) 0 %; Eosinophils # (A) 0.1 k/uL (0-0.7); Eosinophils % (A) 1 %; HCT 36.8 % (34.0-46.0); HGB 11.4 gm/dL (11.4-16.0); Hypochromasia Moderate; Lymphocytes # (A) 0.6 k/uL (1.0-4.8); Lymphocytes % (A) 4 %; MCH 29.3 pg (25.0-35.0); MCHC 30.9 g/dL (31.0-37.0); MCV 94.7 fL (80.0-100.0); Mean Platelet Volume 9.3; Monocytes # (A) 0.6 k/uL (0-1.0); Monocytes % (A) 4 %; Neutrophils # (A) 14.5 k/uL (1.3-7.7); Neutrophils % (A) 91 %; Platelet Count 162 k/uL (150-450); RBC 3.89 m/uL (3.80-5.40); RDW 14.6 % (11.5-15.5)
[2019-11-06 08:17] LABS: INR 1.3 (<1.2); Prothrombin Time 13.3 sec (9.0-12.0)
[2019-11-06 08:20] LABS: ALT 22 U/L (4-34); AST 31 U/L (14-36); African American GFR (CKD) >90 (>60 ml/min/1.73 sqM); Albumin 2.3 g/dL (3.5-5.0); Alkaline Phosphatase 380 U/L (38-126); Anion Gap 6 mmol/L; Blood Urea Nitrogen 20 mg/dL (7-17); Calcium 7.8 mg/dL (8.4-10.2); Carbon Dioxide 31 mmol/L (22-30); Chloride 98 mmol/L (98-107); Creatine Kinase <20 U/L (30-135); Glucose 124 mg/dL (74-99); Non-African American GFR(CKD) 87 (>60 ml/min/1.73 sqM); Potassium 3.8 mmol/L (3.5-5.1); Sodium 135 mmol/L (137-145); Total Bilirubin 2.8 mg/dL (0.2-1.3)
[2019-11-06 11:07] LABS: Glucose,Whole Blood 124 mg/dL (75-99)
--- NOTE | 2019-11-06 12:26 | P.PN ---
Subjective Progress Note Date: 11/06/19 CHIEF COMPLAINT: Biliary obstruction HISTORY OF PRESENT ILLNESS: Patient is status post laparoscopic cholecystectomy. Patient was seen and examined with Dr. Adams. She denies any nausea or vomiting. She is passing gas. Denies abdominal pain. She is afebrile. WBC is 16 hemoglobin 11.4 total bili 2.8 AST 31 ALT 22 alk phos 380. PHYSICAL EXAM: VITAL SIGNS: Reviewed. GENERAL: Well-developed in no acute distress. HEENT: No sclera icterus. Extraocular movements grossly intact. Moist buccal mucosa. Head is atraumatic, normocephalic. ABDOMEN: Soft. Nondistended. Mild tenderness with palpation right upper quadrant. Incisions are clean dry and intact minimal bruising NEUROLOGIC: Alert and oriented. Cranial nerves II through XII grossly intact. ASSESSMENT: 1. Chronic cholecystitis, cholelithiasis and stones and sludge and cystic duct status post laparoscopic cholecystectomy postop day #3 2. Dilated bile ducts status post ERCP with biliary stent placement by GI service 3. Choledocholithiasis PLAN: -Advance to regular -Okay to resume patient's Coumadin discussed with medicine -Continue antibiotics -Patient will eventually require advanced endoscopic evaluation with stent re moval and stone extraction. - patient is surgically stable for discharge - Patient to follow up with Dr. Adams in 1 week Physician Crack Off Person note has been reviewed by physician. Signing provider agrees with the documented findings, assessment, and plan of care. Objective - Vital Signs Vital signs: Vital Signs Temp 98.7 F 11/06/19 07:35 Pulse 80 11/06/19 11:52 Resp 14 11/06/19 07:35 BP 121/61 11/06/19 07:35 Pulse Ox 99 11/06/19 07:35 Intake & Output 11/05/19 11/06/19 11/06/19 18:59 06:59 18:59 Intake Total 320 200 100 Output Total 425 725 Balance -105 -525 100 Weight 103 kg Intake: Oral 320 200 100 Output: Urine 425 725 Other: Voiding Method Indwelling Catheter Indwelling Catheter Indwelling Catheter # Voids 2 # Bowel Movements 1 - Labs CBC & Chem 7: 11/06/19 07:45 11/06/19 07:45 Labs: Abnormal Lab Results - Last 24 Hours (Table) 11/05/19 11/05/19 11/06/19 Range/Units 16:24 20:56 06:56 WBC (3.8-10.6) k/uL MCHC (31.0-37.0) g/dL Neutrophils # (1.3-7.7) k/uL Lymphocytes # (1.0-4.8) k/uL PT (9.0-12.0) sec INR (<1.2) Sodium (137-145) mmol/L Carbon Dioxide (22-30) mmol/L BUN (7-17) mg/dL Glucose (74-99) mg/dL POC Glucose (mg/dL) 162 H 130 H 128 H (75-99) mg/dL Calcium (8.4-10.2) mg/dL Total Bilirubin (0.2-1.3) mg/dL Alkaline Phosphatase (38-126) U/L Creatine Kinase (30-135) U/L Total Protein (6.3-8.2) g/dL Albumin (3.5-5.0) g/dL 11/06/19 11/06/19 11/06/19 Range/Units 07:45 07:45 07:45 WBC 16.0 H (3.8-10.6) k/uL MCHC 30.9 L (31.0-37.0) g/dL Neutrophils # 14.5 H (1.3-7.7) k/uL Lymphocytes # 0.6 L (1.0-4.8) k/uL PT 13.3 H (9.0-12.0) sec INR 1.3 H (<1.2) Sodium 135 L (137-145) mmol/L Carbon Dioxide 31 H (22-30) mmol/L BUN 20 H (7-17) mg/dL Glucose 124 H (74-99) mg/dL POC Glucose (mg/dL) (75-99) mg/dL Calcium 7.8 L (8.4-10.2) mg/dL Total Bilirubin 2.8 H (0.2-1.3) mg/dL Alkaline Phosphatase 380 H (38-126) U/L Creatine Kinase <20 L (30-135) U/L Total Protein 5.0 L (6.3-8.2) g/dL Albumin 2.3 L (3.5-5.0) g/dL 11/06/19 Range/Units 11:06 WBC (3.8-10.6) k/uL MCHC (31.0-37.0) g/dL Neutrophils # (1.3-7.7) k/uL Lymphocytes # (1.0-4.8) k/uL PT (9.0-12.0) sec INR (<1.2) Sodium (137-145) mmol/L Carbon Dioxide (22-30) mmol/L BUN (7-17) mg/dL Glucose (74-99) mg/dL POC Glucose (mg/dL) 124 H (75-99) mg/dL Calcium (8.4-10.2) mg/dL Total Bilirubin (0.2-1.3) mg/dL Alkaline Phosphatase (38-126) U/L Creatine Kinase (30-135) U/L Total Protein (6.3-8.2) g/dL Albumin (3.5-5.0) g/dL
--- NOTE | 2019-11-06 12:50 | P.DS ---
Providers Date of admission: 10/24/19 16:31 Expected date of discharge: 11/06/19 Attending physician: Sagar Arshad Consults: 10/24/19 18:40 Consult Physician Routine Consulting Provider: Lazaro Myrick Consult Reason/Comments: cardiac arrhythmia Do you want consulting provider notified?: Yes 10/24/19 20:31 Consult Physician Stat Consulting Provider: Ana Layne Consult Reason/Comments: ICU management Do you want consulting provider notified?: Yes 10/25/19 16:02 Consult Physician Routine Consulting Provider: Ariel Adams Consult Reason/Comments: cholelithiasis Do you want consulting provider notified?: Yes Primary care physician: Alaina Tinocorecht [facility] Course: Final diagnosis Acute cholelithiasis and cholecystitis with possible sepsis, present on admission, status post laparoscopic cholecystectomy Acute rhabdomyolysis status post fall Covid 19 Ruled out, testing was negative Sepsis, present on admission, currently being treated Obstructive jaundice with moderate to severe extrahepatic biliary dilation Hypercoagulability-Coumadin toxicity, Improved Bilateral lung atelectasis Hyponatremia Acute hepatitis Type 2 diabetes mellitus Hypomagnesemia Chronic atrial fibrillation Acute kidney injury Urinary tract infection with E. coli Hypertension Pacemaker /AICD History of cardiac ablation History of cardioversion Remote history of nicotine dependence Obesity with BMI of 40.2 Moderate protein calorie malnutrition Full code Discharge disposition Patient is being discharged in a stable condition with guarded prognosis to [facility] for continued PT/OT therapy. Patient will follow-up with Dr. Ambrose in the outpatient setting upon discharge. Patient also instructed to follow-up with cardiology, GI, and surgery in the outpatient setting. Patient is to continue with a short course of oral antibiotics in the form of Augmentin twice daily for the next 3 days to complete the course and then may discontinue. Total time taken is greater than 35 minutes. History of present illness This is a 47-year-old female who was recently admitted With A fall and rhabdomyolysis and was being closely monitored. Patient was also found to have cholecystitis. Patient was seen and evaluated by multiple medical consultations including cardiology, GI, and surgery and will be following up in the outpatient setting. Patient continued to have abdominal discomfort status post ERCP with stent placement with GI and was evaluated by surgery and ultimately underwent cholecystectomy. Patient is currently tolerating diet and abdominal discomfort has minimized. Patient will continue with a low fiber diet for the next 2 days and advance slowly as tolerated to a regular heart healthy diet. Patient continues to be quite weak and was evaluated by PT/OT therapy recommending subacute rehab and will be going to [facility] for continued PT/OT therapy for strength and mobility. Patient will follow-up with GI in the outpatient setting with the possibility of stent removal. Patient also had a urinary tract infection during hospitalization and was treated with IV Zosyn and we'll transition to oral Augmentin twice daily for the next 3 days to complete the course. Patient's Coumadin was resumed and INR is currently 1.3. Prescriptions provided to monitor INR to obtain therapeutic levels of 2-3. Patient continues to have severe gait dysfunction and weakness and will continue with heparin subcu injections every 12 hours until INR is therapeutic and patient is up and walking more. Patient underwent Covid 19 testing which was negative. Currently no reports of chest pain, Worsening shortness of breath, or palpitations. Patient is afebrile. No reports of nausea or vomiting and patient is tolerating diet. Patient will be discharged To [facility] today. On exam vital signs are stable. Temp is 98.7F, pulse is 76, respirations are 14, blood pressure is 121/61, oxygen saturation is 99% on 3 L via nasal cannula. Cardio S1, S2 are muffled. Respiratory system shows diminished breath sounds at the bases with no wheezing or rhonchi noted. Abdomen is soft and Mildly tender. Nervous system shows Diffuse weakness. Please refer to medication reconciliation sheet for a list of medications. Patient Condition at Discharge: Stable Plan - Discharge Summary Discharge Rx Participant: Yes New Discharge Prescriptions: New Amoxic-Pot Clav 875-125Mg [Augmentin 875-125] 1 tab PO Q12HR 3 Days #6 tab Docusate [Colace] 100 mg PO DAILY PRN cap PRN Reason: Constipation Ipratropium-Albuterol Nebulize [Duoneb 0.5 mg-3 mg/3 ml Soln] 3 ml INHALATION RT-TID ml Ipratropium-Albuterol Nebulize [Duoneb 0.5 mg-3 mg/3 ml Soln] 3 ml INHALATION RT-TID PRN ml PRN Reason: Shortness Of Breath Or Wheezing Heparin Sodium,Porcine [Heparin Sodium] 5,000 unit SQ Q12HR vial HYDROcodone/APAP 5-325MG [[place] 5-325] 1 each PO Q6HR PRN #12 tab PRN Reason: Moderate Pain INSULIN ASPART (NovoLOG) [NovoLOG (formulary)] 0 unit SQ ACHS vial Pantoprazole [Protonix] 40 mg PO AC-BRKFST tablet. Sennosideemiliana [Senokot] 8.6 mg PO BID tab Sennosides [Senokot] 8.6 mg PO DAILY PRN tab PRN Reason: Constipation Acetaminophen Tab [Tylenol] 500 mg PO Q6HR PRN tab PRN Reason: Fever And/ Or Pain Continue Atorvastatin [Lipitor] 10 mg PO HS Warfarin [Coumadin] 5 mg PO SUTUTHSA@2099 Metoprolol Succinate (ER) [Toprol XL] 100 mg PO DAILY #90 tab Warfarin [Coumadin] 2.5 mg PO MOWEFR@2099 Discontinued Spironolactone [Aldactone] 25 mg PO DAILY Meloxicam 15 mg PO DAILY PRN PRN Reason: Pain lisinopriL 20 mg PO HS Discharge Medication List Atorvastatin [Lipitor] 10 mg PO HS 08/20/13 [History] Warfarin [Coumadin] 5 mg PO SUTUTHSA@209909/24/19 [History] Metoprolol Succinate (ER) [Toprol XL] 100 mg PO DAILY #90 tab 09/27/19 [Rx] Warfarin [Coumadin] 2.5 mg PO MOWEFR@209910/24/19 [History] Acetaminophen Tab [Tylenol] 500 mg PO Q6HR PRN tab 11/06/19 [Rx] Amoxic-Pot Clav 875-125Mg [Augmentin 875-125] 1 tab PO Q12HR 3 Days #6 tab 11/06/19 [Rx] Docusate [Colace] 100 mg PO DAILY PRN cap 11/06/19 [Rx] HYDROcodone/APAP 5-325MG [[place] 5-325] 1 each PO Q6HR PRN #12 tab 11/06/19 [Rx] Heparin Sodium,Porcine [Heparin Sodium] 5,000 unit SQ Q12HR vial 11/06/19 [Rx] INSULIN ASPART (NovoLOG) [NovoLOG (formulary)] 0 unit SQ ACHS vial 11/06/19 [Rx] Ipratropium-Albuterol Nebulize [Duoneb 0.5 mg-3 mg/3 ml Soln] 3 ml INHALATION RT-TID ml 11/06/19 [Rx] Ipratropium-Albuterol Nebulize [Duoneb 0.5 mg-3 mg/3 ml Soln] 3 ml INHALATION RT-TID PRN ml 11/06/19 [Rx] Pantoprazole [Protonix] 40 mg PO AC-BRKFST tablet. 11/06/19 [Rx] Sennosides [Senokot] 8.6 mg PO BID tab 11/06/19 [Rx] Sennosides [Senokot] 8.6 mg PO DAILY PRN tab 11/06/19 [Rx] Follow up Appointment(s)/Referral(s): Alaina Ambrose MD [Primary Care Provider] - 1-2 days Lucio Potter MD [STAFF PHYSICIAN] - 2 Weeks [facility], [NON-STAFF] - 1-2 Days Jose Kay MD [STAFF PHYSICIAN] - 2 Weeks Ariel Adams MD [STAFF PHYSICIAN] - 1 Week Ambulatory/Diagnostic Orders: Comprehensive Metabolic Panel [LAB.AMB] Time Frame: 3 Days, Location: None Selected Prothrombin Time INR [LAB.AMB] Time Frame: 3 Days, Location: None Selected Activity/Diet/Wound Care/Special Instructions: Patient is going to [facility] as tolerated Continue with Low fiber diet and may advance To heart healthy slowly as tolerated In the next 2-3 days Repeat labs in a few days Continue monitoring blood sugars before meals at bedtime and treat accordingly Continue with heparin subcu injections until ambulating More And Coumadin is therapeutic between 2 and 3 INR Continue with PT/OT therapy Continue with antibiotics for the next 3 days then may discontinue Follow-up with primary care provider upon discharge Follow-up with surgery in the outpatient setting Follow-up with GI in the outpatient setting Follow up with cardiology in the outpatient setting Discharge Disposition: TRANSFER TO SNF/ECF
== END 2019-11-06 14:28 | DRG 853 ==
LOC: EC 12:38 → 3SCARD 16:31 → 2SICU 21:05 → 4SSUR 10-30 13:58
PROVIDERS: ADMIT Hospitalist; ATTEND Hospitalist
PROC: 0F798DZ Dilation of Common Bile Duct with Intraluminal Device, Via Natural or Artificial Opening Endoscopic (ICD-10-PCS; 2019-10-27)
PROC: 0FT44ZZ Resection of Gallbladder, Percutaneous Endoscopic Approach (ICD-10-PCS; principal; 2019-11-03 07:30)
DX: A41.9 Sepsis, unspecified organism (principal); K80.67 Calculus of gallbladder and bile duct with acute and chronic cholecystitis with obstruction; E44.0 Moderate protein-calorie malnutrition; E87.2 Acidosis; N17.9 Acute kidney failure, unspecified; I42.8 Other cardiomyopathies; D68.59 Other primary thrombophilia; I48.11 Longstanding persistent atrial fibrillation; E87.1 Hypo-osmolality and hyponatremia; I50.22 Chronic systolic (congestive) heart failure; Z68.41 Body mass index [BMI] 40.0-44.9, adult; N39.0 Urinary tract infection, site not specified; J98.11 Atelectasis; B17.9 Acute viral hepatitis, unspecified; I11.0 Hypertensive heart disease with heart failure; T79.6XXA Traumatic ischemia of muscle, initial encounter; E11.9 Type 2 diabetes mellitus without complications; E66.9 Obesity, unspecified; Z20.828 Contact with and (suspected) exposure to other viral communicable diseases; K57.10 Diverticulosis of small intestine without perforation or abscess without bleeding; E86.0 Dehydration; E83.42 Hypomagnesemia; E78.5 Hyperlipidemia, unspecified; S51.012A Laceration without foreign body of left elbow, initial encounter; R26.9 Unspecified abnormalities of gait and mobility; H91.90 Unspecified hearing loss, unspecified ear; R29.6 Repeated falls; K59.00 Constipation, unspecified; M19.90 Unspecified osteoarthritis, unspecified site; T45.515A Adverse effect of anticoagulants, initial encounter; Z79.1 Long term (current) use of non-steroidal anti-inflammatories (NSAID); Z79.01 Long term (current) use of anticoagulants; Z79.899 Other long term (current) drug therapy; Z71.3 Dietary counseling and surveillance; Z87.891 Personal history of nicotine dependence; Z95.810 Presence of automatic (implantable) cardiac defibrillator; Z90.710 Acquired absence of both cervix and uterus; Z87.42 Personal history of other diseases of the female genital tract; Z86.79 Personal history of other diseases of the circulatory system; Z87.448 Personal history of other diseases of urinary system; Z91.81 History of falling; Z98.890 Other specified postprocedural states; W01.0XXA Fall on same level from slipping, tripping and stumbling without subsequent striking against object, initial encounter; Y92.009 Unspecified place in unspecified non-institutional (private) residence as the place of occurrence of the external cause; Z88.8 Allergy status to other drugs, medicaments and biological substances; Z80.9 Family history of malignant neoplasm, unspecified; B96.20 Unspecified Escherichia coli [E. coli] as the cause of diseases classified elsewhere
CPT/HCPCS: 36415; 36600; 43274; 71045; 71046; 72170; 74177; 74330; 76705; 80048; 80053; 80074; 80076; 81001; 82150; 82550; 82805; 83605; 83690; 83735; 83880; 84132; 84450; 84460; 85025; 85027; 85610; 85730; 87040; 87077; 87086; 87186; 87635; 88304; 90471; 90715; 93005; 93306; 94640; 94760; 96365; 96375; 99291

== ENCOUNTER 2019-11-28 17:10 | Emergency (ER) | payer MEDICARE, BC ==
[2019-11-28 17:18] VITALS: RESP 18
[2019-11-28] MEDS ORDERED: IPRATROPIUM-ALBUTEROL 3 ML NEB INHALATION STA (17:37)
--- NOTE | 2019-11-28 17:38 | ED ---
Recheck HPI - General Chief Complaint: Recheck/Abnormal Lab/Rx Stated Complaint: Abnormal Labs Time Seen by Provider: 11/28/19 17:22 Source: patient, RN notes reviewed, old records reviewed Limitations: no limitations - History of Present Illness Initial Comments: This is a 4-year-old female Kat presents today for evaluation, patient presents for evaluation regards to abnormal outpatient lab tests patient suffers no complaints unsure why she is in the hospital. Recent hospital admission was prolonged and patient's been in rehab since MD Complaint: abnormal lab (Possible low oxygen) -: unknown Returns Today for: request for prescription Symptoms Since Prior Visit: no new symptoms Associated Symptoms: none - Related Data Home Medications Medication Instructions Recorded Confirmed Atorvastatin [Lipitor] 10 mg PO HS 08/20/13 10/24/19 Warfarin [Coumadin] 5 mg PO SUTUTHSA@209909/24/19 10/24/19 Warfarin [Coumadin] 2.5 mg PO MOWEFR@209910/24/19 10/24/19 Previous Rx's Medication Instructions Recorded Metoprolol Succinate (ER) [Toprol 100 mg PO DAILY #90 tab 09/27/19 XL] Acetaminophen Tab [Tylenol] 500 mg PO Q6HR PRN tab 11/06/19 Amoxic-Pot Clav 875-125Mg 1 tab PO Q12HR 3 Days #6 tab 11/06/19 [Augmentin 875-125] Docusate [Colace] 100 mg PO DAILY PRN cap 11/06/19 HYDROcodone/APAP 5-325MG [[place] 1 each PO Q6HR PRN #12 tab 11/06/19 5-325] Heparin Sodium,Porcine [Heparin 5,000 unit SQ Q12HR vial 11/06/19 Sodium] INSULIN ASPART (NovoLOG) [NovoLOG 0 unit SQ ACHS vial 11/06/19 (formulary)] Ipratropium-Albuterol Nebulize 3 ml INHALATION RT-TID ml 11/06/19 [Duoneb 0.5 mg-3 mg/3 ml Soln] Ipratropium-Albuterol Nebulize 3 ml INHALATION RT-TID PRN ml 11/06/19 [Duoneb 0.5 mg-3 mg/3 ml Soln] Pantoprazole [Protonix] 40 mg PO AC-BRKFST tablet. 11/06/19 Sennosides [Senokot] 8.6 mg PO BID tab 11/06/19 Sennosides [Senokot] 8.6 mg PO DAILY PRN tab 11/06/19 Allergies Allergy/AdvReac Type Severity Reaction Status Date / Time dofetilide [From Tikosyn] Allergy Severe Unknown Verified 11/28/19 17:18 prolonged QT medications Allergy Severe Unknown Uncoded 11/28/19 17:18 Review of Systems ROS Statement: Those systems with pertinent positive or pertinent negative responses have been documented in the HPI. ROS Other: All systems not noted in ROS Statement are negative. Past Medical History Past Medical History: Atrial Fibrillation, Heart Failure, Hyperlipidemia, Hypertension, Osteoarthritis (OA) Additional Past Medical History / Comment(s): pacemaker/AICD History of Any Multi-Drug Resistant Organisms: None Reported Past Surgical History: Bladder Surgery, Cardiac Ablation, Heart Catheterization, Hysterectomy Additional Past Surgical History / Comment(s): cardioversion, D & C, 08-21-13 DUAL CHAMBER A.I.C.D IMPLANTED Past Anesthesia/Blood Transfusion Reactions: No Reported Reaction Type of Cardiac Device: Permanent Pacemaker, AICD Device Placement Date:: 08-21-13 Past Psychological History: No Psychological Hx Reported Smoking Status: Former smoker Past Alcohol Use History: None Reported Past Drug Use History: None Reported - Past Family History Mother Family Medical History: Cancer Sister(s) Family Medical History: No Reported History General Exam Limitations: no limitations General appearance: alert, in no apparent distress Head exam: Present: atraumatic, normocephalic, normal inspection Eye exam: Present: normal appearance, PERRL, EOMI. Absent: scleral icterus, conjunctival injection, periorbital swelling ENT exam: Present: normal exam, mucous membranes moist Neck exam: Present: normal inspection. Absent: tenderness, meningismus, lymphadenopathy Respiratory exam: Present: decreased breath sounds, prolonged expiratory. Absent: respiratory distress, wheezes, rales, rhonchi, stridor Cardiovascular Exam: Present: regular rate, normal rhythm, normal heart sounds. Absent: systolic murmur, diastolic murmur, rubs, gallop, clicks GI/Abdominal exam: Present: soft, normal bowel sounds. Absent: distended, tenderness, guarding, rebound, rigid Extremities exam: Present: normal inspection, full ROM, normal capillary refill. Absent: tenderness, pedal edema, joint swelling, calf tenderness Back exam: Present: normal inspection Neurological exam: Present: alert, oriented X3, CN II-XII intact Psychiatric exam: Present: normal affect, normal mood Skin exam: Present: warm, dry, intact, normal color. Absent: rash Course Vital Signs 11/28/19 11/28/19 11/28/19 17:13 18:15 18:31 Temperature 97.6 F Pulse Rate 90 89 89 Respiratory 18 Rate Blood Pressure 134/66 O2 Sat by Pulse 96 Oximetry 11/28/19 18:54 Temperature Pulse Rate 89 Respiratory 18 Rate Blood Pressure 128/61 O2 Sat by Pulse 98 Oximetry - Reevaluation(s) Reevaluation #1: 11/28/19 19:16 Medical record is reviewed Reevaluation #2: 11/28/19 19:16 Patient is not approximately ER not short of breath has no complaints Reevaluation #3: 11/28/19 19:17 Patient given Lasix his Lasix for diuresis and again on recheck has no shortness of breath Medical Decision Making - Medical Decision Making 84 female DF for re-eval possible hypoxia elevated pCO2. No significant distress here in the ER patient feels well and can be discharged home - Lab Data Result diagrams: 11/28/19 17:37 Lab Results 11/28/19 11/28/19 11/28/19 Range/Units 17:37 17:37 17:37 WBC 8.9 (3.8-10.6) k/uL RBC 4.24 (3.80-5.40) m/uL Hgb 11.9 (11.4-16.0) gm/dL Hct 40.2 (34.0-46.0) % MCV 94.6 (80.0-100.0) fL MCH 28.1 (25.0-35.0) pg MCHC 29.7 L (31.0-37.0) g/dL RDW 15.8 H (11.5-15.5) % Plt Count 184 (150-450) k/uL Neutrophils % 79 % Lymphocytes % 12 % Monocytes % 6 % Eosinophils % 1 % Basophils % 1 % Neutrophils # 7.0 (1.3-7.7) k/uL Lymphocytes # 1.1 (1.0-4.8) k/uL Monocytes # 0.5 (0-1.0) k/uL Eosinophils # 0.1 (0-0.7) k/uL Basophils # 0.1 (0-0.2) k/uL Hypochromasia Marked Poikilocytosis Slight PT 21.3 H (9.0-12.0) sec INR 2.2 H (<1.2) APTT 46.0 H (22.0-30.0) sec NT-Pro-B Natriuret Pep 4840 pg/mL - EKG Data -: EKG Interpreted by Me (EKG shows sinus rhythm rate of 79 MD 160 QRS 74 QTC 444) - Radiology Data Radiology results: report reviewed (S x-ray showing some pulmonary edema), image reviewed Disposition Clinical Impression: CHF (congestive heart failure), Pulmonary edema Narrative: recheck Abn Lab Tests, possibly hypoxia Disposition: HOME SELF-CARE Condition: Good Is patient prescribed a controlled substance at d/c from ED?: No Referrals: Alaina Ambrose MD [Primary Care Provider] - 1-2 days
--- NOTE | 2019-11-28 17:59 | XR ---
EXAMINATION TYPE: XR chest 2V DATE OF EXAM: 11/28/2019 COMPARISON: Chest x-ray November 03, 2019. HISTORY: Hypoxia and difficulty breathing. TECHNIQUE: Frontal and lateral views of the chest are obtained. FINDINGS: There is cardiomegaly with multi lead pacemaker/defibrillator redemonstrated. Background c hronic parenchymal change with bibasilar opacities is redemonstrated. The osseous structures remain demineralized. IMPRESSION: Suspect CHF exacerbation as there is cardiomegaly with [id number] bilateral pleura l effusions on current study and mild central vascular congestion. Correlate clinically.
[2019-11-28 18:57] LABS: Basophils # (A) 0.1 k/uL (0-0.2); Basophils % (A) 1 %; Eosinophils # (A) 0.1 k/uL (0-0.7); Eosinophils % (A) 1 %; HCT 40.2 % (34.0-46.0); HGB 11.9 gm/dL (11.4-16.0); Hypochromasia Marked; Lymphocytes # (A) 1.1 k/uL (1.0-4.8); Lymphocytes % (A) 12 %; MCH 28.1 pg (25.0-35.0); MCHC 29.7 g/dL (31.0-37.0); MCV 94.6 fL (80.0-100.0); Monocytes # (A) 0.5 k/uL (0-1.0); Monocytes % (A) 6 %; Neutrophils % (A) 79 %; Platelet Count 184 k/uL (150-450); Poikilocytosis Slight; RBC 4.24 m/uL (3.80-5.40); RDW 15.8 % (11.5-15.5); WBC 8.9 k/uL (3.8-10.6)
[2019-11-28] MEDS ORDERED: MORPHINE SULFATE 4 MG/ML SYRINGE IVP STA (18:58)
[2019-11-28 19:05] LABS: INR 2.2 (<1.2); Prothrombin Time 21.3 sec (9.0-12.0)
[2019-11-28 19:06] LABS: ALT 11 U/L (4-34); AST 27 U/L (14-36); African American GFR (CKD) >90 (>60 ml/min/1.73 sqM); Albumin 2.5 g/dL (3.5-5.0); Alkaline Phosphatase 305 U/L (38-126); Blood Urea Nitrogen 14 mg/dL (7-17); Chloride 92 mmol/L (98-107); Glucose 109 mg/dL (74-99); Magnesium 1.8 mg/dL (1.6-2.3); Non-African American GFR(CKD) >90 (>60 ml/min/1.73 sqM); Potassium 3.7 mmol/L (3.5-5.1); Sodium 138 mmol/L (137-145); Total Protein 5.5 g/dL (6.3-8.2)
[2019-11-28 19:12] LABS: Anion Gap 3 mmol/L
[2019-11-28 19:24] LABS: Carbon Dioxide 43 mmol/L (22-30)
[2019-11-28] MEDS ORDERED: FUROSEMIDE 10 MG/ML 4 ML VIAL IV STA (19:31)
[2019-11-28 20:11] VITALS: TEMP 97.8
[2019-11-28 20:34] VITALS: BP 133/77; PULSE 68
== END 2019-11-28 21:31 | disposition home or self-care (01) ==
LOC: EC 17:10
DX: I11.0 Hypertensive heart disease with heart failure (principal); I50.1 Left ventricular failure, unspecified; I48.91 Unspecified atrial fibrillation; E78.5 Hyperlipidemia, unspecified; Z79.01 Long term (current) use of anticoagulants; Z79.899 Other long term (current) drug therapy; Z88.8 Allergy status to other drugs, medicaments and biological substances; Z87.891 Personal history of nicotine dependence; Z95.810 Presence of automatic (implantable) cardiac defibrillator
CPT/HCPCS: 36415; 94640; 93005; 83880; 80053; 83735; 84484; 85025; 85610; 85730; 71046; 99284; 96374; 96375; J2270; J1940

== ENCOUNTER 2019-12-07 15:32 | Inpatient (IN) | payer MEDICARE, BC ==
[2019-12-07 16:53] LABS: Anisocytosis Slight; Basophils # (A) 0.1 k/uL (0-0.2); Basophils % (A) 1 %; Eosinophils # (A) 0.1 k/uL (0-0.7); Eosinophils % (A) 1 %; HCT 39.3 % (34.0-46.0); HGB 12.3 gm/dL (11.4-16.0); Hypochromasia Slight; Lymphocytes # (A) 1.1 k/uL (1.0-4.8); Lymphocytes % (A) 13 %; MCH 27.8 pg (25.0-35.0); MCHC 31.4 g/dL (31.0-37.0); MCV 88.4 fL (80.0-100.0); Mean Platelet Volume 7.6; Monocytes # (A) 0.5 k/uL (0-1.0); Monocytes % (A) 6 %; Neutrophils # (A) 6.1 k/uL (1.3-7.7); Neutrophils % (A) 76 %; Platelet Count 172 k/uL (150-450); Poikilocytosis Slight; RBC 4.44 m/uL (3.80-5.40); RDW 16.1 % (11.5-15.5)
[2019-12-07 17:01] LABS: INR 3.2 (<1.2); Partial Thromboplastin Time 42.3 sec (22.0-30.0); Prothrombin Time 31.5 sec (9.0-12.0)
[2019-12-07 17:04] LABS: ALT 14 U/L (4-34); AST 40 U/L (14-36); African American GFR (CKD) >90 (>60 ml/min/1.73 sqM); Alkaline Phosphatase 304 U/L (38-126); Anion Gap 5 mmol/L; Blood Urea Nitrogen 14 mg/dL (7-17); Calcium 8.6 mg/dL (8.4-10.2); Chloride 89 mmol/L (98-107); Glucose 115 mg/dL (74-99); Non-African American GFR(CKD) >90 (>60 ml/min/1.73 sqM); Potassium 3.8 mmol/L (3.5-5.1); Sodium 134 mmol/L (137-145); Total Bilirubin 1.1 mg/dL (0.2-1.3); Total Protein 6.4 g/dL (6.3-8.2)
[2019-12-07 17:16] LABS: Carbon Dioxide 40 mmol/L (22-30)
--- NOTE | 2019-12-07 18:20 | ED ---
Skin/Abscess/FB HPI - General Chief complaint: Skin/Abscess/Foreign Body Stated complaint: Infecton Time Seen by Provider: 12/07/19 15:46 Source: patient, EMS Mode of arrival: EMS Limitations: no limitations - History of Present Illness Initial comments: Patient is an 84-year-old female presenting to the emergency department from [facility] with complaints of a possible infection from a recent cholecystectomy. Patient had cholecystomy performed by Dr. Adams approximately one month ago. Patient states she has been at [facility] for the past week secondary to weakness and not be able to walk on her own. Patient states there has been fluid draining from her incision for the past few weeks. She is been on oral antibiotics but the draining is getting worse as they sent her into the ER for evaluation. Patient states there is minimal pain around the area and the drainage does sometimes have a strong odor. Denies any recent fever, chills, cough or shortness of breath. She denies any urinary complaints. She states she's been having regular bowel movements and she feels like they have been more runny than normal. No further complaints at this time. Upon arrival to the ER, her vital signs are stable. - Related Data Home Medications Medication Instructions Recorded Confirmed Atorvastatin [Lipitor] 10 mg PO HS@2100 08/20/13 12/07/19 Acetaminophen Tab [Tylenol] 500 mg PO Q6H PRN 11/28/19 12/07/19 Calcium Carbonate [Tums] 500 mg PO AC-TID 11/28/19 12/07/19 HYDROcodone/APAP 5-325MG [[place] 1 tab PO Q6H PRN 11/28/19 12/07/19 5-325] INSULIN ASPART (NovoLOG) [NovoLOG See Protocol SQ ACHS 11/28/19 12/07/19 (formulary)] Lactose-Reduced Food [Ensure Plus] 120 ml PO BID@0800,1700 11/28/19 12/07/19 Maalox Plus Suspension 30 ml PO Q6H PRN 11/28/19 12/07/19 Magnesium Hydroxide [Milk of 7,200 mg PO Q48H PRN 11/28/19 12/07/19 Magnesia Concentrate] Metoprolol Succinate (ER) [Toprol 100 mg PO DAILY@0800 11/28/19 12/07/19 XL] Na Phos,M-B/Na Phos,Di-Ba [Fleet 133 ml RECTAL DAILY PRN 11/28/19 12/07/19 Adult] Ondansetron HCl [Zofran] 4 mg PO Q8H PRN 11/28/19 12/07/19 Pantoprazole [Protonix] 40 mg PO DAILY@0600 11/28/19 12/07/19 Phenyleph/Pramoxin/Glycr/W.pet 1 applic RECTAL DAILY PRN 11/28/19 12/07/19 [Preparation H Cream] Sennosides-Docusate Sodium 1 tab PO BID@0800,1700 11/28/19 12/07/19 [Senokot-S] Sennosides/Docusate Sodium 1 tab PO DAILY PRN 11/28/19 12/07/19 [Senna-S 8.6-50 mg Tablet] Warfarin [Coumadin] 2.5 mg PO DAILY@1700 11/28/19 12/07/19 bisacodyL [Bisacodyl] 10 mg RECTAL DAILY PRN 11/28/19 12/07/19 Ciprofloxacin HCl [Cipro] 500 mg PO Q12H 12/07/19 12/07/19 Previous Rx's Medication Instructions Recorded Docusate [Colace] 100 mg PO DAILY PRN cap 11/06/19 Ipratropium-Albuterol Nebulize 3 ml INHALATION RT-TID ml 11/06/19 [Duoneb 0.5 mg-3 mg/3 ml Soln] Ipratropium-Albuterol Nebulize 3 ml INHALATION RT-TID PRN ml 11/06/19 [Duoneb 0.5 mg-3 mg/3 ml Soln] Allergies Allergy/AdvReac Type Severity Reaction Status Date / Time dofetilide [From Tikosyn] Allergy Severe Unknown Verified 12/07/19 18:36 prolonged QT medications Allergy Severe Unknown Uncoded 12/07/19 18:36 Review of Systems ROS Statement: Those systems with pertinent positive or pertinent negative responses have been documented in the HPI. ROS Other: All systems not noted in ROS Statement are negative. Past Medical History Past Medical History: Atrial Fibrillation, Heart Failure, Hyperlipidemia, Hypertension, Osteoarthritis (OA) Additional Past Medical History / Comment(s): pacemaker/AICD History of Any Multi-Drug Resistant Organisms: None Reported Past Surgical History: Bladder Surgery, Cardiac Ablation, Heart Catheterization, Hysterectomy Additional Past Surgical History / Comment(s): cardioversion, D & C, 08-21-13 DUAL CHAMBER A.I.C.D IMPLANTED Past Anesthesia/Blood Transfusion Reactions: No Reported Reaction Type of Cardiac Device: Permanent Pacemaker, AICD Device Placement Date:: 08-21-13 Past Psychological History: No Psychological Hx Reported Smoking Status: Former smoker Past Alcohol Use History: None Reported Past Drug Use History: None Reported - Past Family History Mother Family Medical History: Cancer Sister(s) Family Medical History: No Reported History General Exam - General Exam Comments Initial Comments: GENERAL: Patient is well-developed and well-nourished. Patient is nontoxic and in no acute distress. HEAD: Atraumatic, normocephalic. EYES: Pupils equal round and reactive to light, extraocular movements intact, sclera anicteric, conjunctiva are normal. Eyelids were unremarkable. ENT: TMs normal, nares patent, oropharynx clear without exudates. Moist mucous membranes. NECK: Normal range of motion, supple without lymphadenopathy or JVD. LUNGS: Unlabored respirations. Breath sounds clear to auscultation bilaterally and equal. No wheezes rales or rhonchi. HEART: Regular rate and rhythm without murmurs, rubs or gallops. ABDOMEN: Patient has a 2 cm incision near the epigastric area that is actively draining some yellow fluid. There is some bruising around the area and mild pain. Feel like there is some induration around the area as well. Normoactive bowel sounds. No guarding, no rebound. No masses appreciated. : Deferred MUSCULOSKELETAL: Normal extremities with adequate strength and normal range of motion, no pitting or edema. No clubbing or cyanosis. NEUROLOGICAL: Patient is alert and oriented x 3. Motor and sensory are also intact. Cranial nerves II through XII grossly intact. Symmetrical smile. Normal speech. PSYCH: Normal mood, normal affect. SKIN: Warm, Dry, normal turgor, no rashes or lesions noted. Limitations: no limitations Course Vital Signs 12/07/19 12/07/19 12/07/19 15:41 16:48 17:00 Temperature 98.1 F Pulse Rate 89 85 858 H Respiratory 16 18 18 Rate Blood Pressure 139/74 119/65 O2 Sat by Pulse 99 96 96 Oximetry 09/18/20 09/18/20 09/18/20 18:00 19:00 20:37 Temperature Pulse Rate 82 86 75 Respiratory 18 18 16 Rate Blood Pressure 116/66 114/60 O2 Sat by Pulse 96 99 100 Oximetry 12/07/19 21:40 Temperature 98.0 F Pulse Rate 76 Respiratory 18 Rate Blood Pressure 114/60 O2 Sat by Pulse 98 Oximetry Medical Decision Making - Medical Decision Making Patient is an 84-year-old female presenting from [facility] with complaints of drainage from a recent cholecystectomy incision. Dr. Adams performed a cholecystectomy approximately one month ago. She has been on oral antibiotics for the last week without improvement. She states the drainage has been having an odor to it. Her vital signs are stable she is afebrile. Her labwork shows a normal white count, INR is 3.2 she is on Coumadin. Her lactic acid is 1.4. AST is slightly elevated at 40, alk phos is 304. Lipase is 52. I did do a CT of the abdomen and pelvis shows a rounded 3 cm fluid collection at the gallbladder bed as well as some subcutaneous fluid over the anterior mid abdominal wall consistent with postsurgical changes, could be hematoma or seroma. Given her current conditions and drainage, I have concerns for possible abscess. I did try to contact Dr. Adams, however he is not on-call and is not answering page. I did speak to on-call surgeon, Dr. Joyce who agrees to admission with medicine on consult. Patient is agreement with this. Case discussed with Dr. Muse. - Lab Data Result diagrams: 12/07/19 16:30 12/07/19 16:30 Lab Results 12/07/19 12/07/19 12/07/19 Range/Units 16:30 16:30 16:30 WBC 8.0 (3.8-10.6) k/uL RBC 4.44 (3.80-5.40) m/uL Hgb 12.3 (11.4-16.0) gm/dL Hct 39.3 (34.0-46.0) % MCV 88.4 (80.0-100.0) fL MCH 27.8 (25.0-35.0) pg MCHC 31.4 (31.0-37.0) g/dL RDW 16.1 H (11.5-15.5) % Plt Count 172 (150-450) k/uL Neutrophils % 76 % Lymphocytes % 13 % Monocytes % 6 % Eosinophils % 1 % Basophils % 1 % Neutrophils # 6.1 (1.3-7.7) k/uL Lymphocytes # 1.1 (1.0-4.8) k/uL Monocytes # 0.5 (0-1.0) k/uL Eosinophils # 0.1 (0-0.7) k/uL Basophils # 0.1 (0-0.2) k/uL Hypochromasia Slight Poikilocytosis Slight Anisocytosis Slight PT 31.5 H (9.0-12.0) sec INR 3.2 H (<1.2) APTT 42.3 H (22.0-30.0) sec Sodium 134 L (137-145) mmol/L Potassium 3.8 (3.5-5.1) mmol/L Chloride 89 L (98-107) mmol/L Carbon Dioxide 40 H (22-30) mmol/L Anion Gap 5 mmol/L BUN 14 (7-17) mg/dL Creatinine 0.49 L (0.52-1.04) mg/dL Est GFR (CKD-EPI)AfAm >90 (>60 ml/min/1.73 sqM) Est GFR (CKD-EPI)NonAf >90 (>60 ml/min/1.73 sqM) Glucose 115 H (74-99) mg/dL Plasma Lactic Acid Sammy (0.7-2.0) mmol/L Calcium 8.6 (8.4-10.2) mg/dL Total Bilirubin 1.1 (0.2-1.3) mg/dL AST 40 H (14-36) U/L ALT 14 (4-34) U/L Alkaline Phosphatase 304 H (38-126) U/L Total Protein 6.4 (6.3-8.2) g/dL Albumin 3.0 L (3.5-5.0) g/dL Lipase 52 (23-300) U/L 12/07/19 Range/Units 16:30 WBC (3.8-10.6) k/uL RBC (3.80-5.40) m/uL Hgb (11.4-16.0) gm/dL Hct (34.0-46.0) % MCV (80.0-100.0) fL MCH (25.0-35.0) pg MCHC (31.0-37.0) g/dL RDW (11.5-15.5) % Plt Count (150-450) k/uL Neutrophils % % Lymphocytes % % Monocytes % % Eosinophils % % Basophils % % Neutrophils # (1.3-7.7) k/uL Lymphocytes # (1.0-4.8) k/uL Monocytes # (0-1.0) k/uL Eosinophils # (0-0.7) k/uL Basophils # (0-0.2) k/uL Hypochromasia Poikilocytosis Anisocytosis PT (9.0-12.0) sec INR (<1.2) APTT (22.0-30.0) sec Sodium (137-145) mmol/L Potassium (3.5-5.1) mmol/L Chloride (98-107) mmol/L Carbon Dioxide (22-30) mmol/L Anion Gap mmol/L BUN (7-17) mg/dL Creatinine (0.52-1.04) mg/dL Est GFR (CKD-EPI)AfAm (>60 ml/min/1.73 sqM) Est GFR (CKD-EPI)NonAf (>60 ml/min/1.73 sqM) Glucose (74-99) mg/dL Plasma Lactic Acid Sammy 1.4 (0.7-2.0) mmol/L Calcium (8.4-10.2) mg/dL Total Bilirubin (0.2-1.3) mg/dL AST (14-36) U/L ALT (4-34) U/L Alkaline Phosphatase (38-126) U/L Total Protein (6.3-8.2) g/dL Albumin (3.5-5.0) g/dL Lipase (23-300) U/L Disposition Clinical Impression: Surgical site infection, Abdominal pain Disposition: ADMITTED IP TO THIS [facility] Condition: Stable Decision Date: 12/07/19 Decision Time: 19:29
--- NOTE | 2019-12-07 18:30 | CT ---
EXAMINATION TYPE: CT abdomen pelvis w con DATE OF EXAM: 12/07/2019 COMPARISON: 10/25/2019 HISTORY: Recent cholecystectomy-post surgical drainage and abdominal pain CT DLP: 1445.4 mGycm Automated exposure control for dose reduction was used. CONTRAST: Performed with IV Contrast, patient injected with 100ml mL of Isovue 300. There are moderate bilateral pleural effusions. Heart is enlarged. There is atelectasis and infiltrat e at the lung bases. There is some air in the anterior biliary tree consistent with reflux. There is biliary stent. There is rounded 3 cm fluid collection at the gallbladder bed. This could be the gallbladder. There is smal l splenic cysts that measure up to 1 cm. There is no pancreatic mass. The intrahepatic bile ducts are not dilated. There is no adrenal mass. Kidneys show satisfactory contrast opacification. There is no hydronephrosi s. Ureters are not dilated. There is no retroperitoneal adenopathy. The appendix appears normal. Ther e is no mesenteric edema. There is no ascites or free air. There is no bowel obstruction. There is en larged rectum with rectal fecal impaction. Rectum measures 7 cm. There is some perirectal fluid poste riorly. The remainder of the large bowel is not dilated. Lumbar vertebra have normal alignment. There is no compression fracture. Bony pelvis is intact. The h ip joints are intact. There is subcutaneous fluid over the anterior mid and right side of the abdomen consistent with posts urgical changes. This could be postoperative hematoma or seroma. IMPRESSION: There is a biliary stent with air reflux into the biliary tree. There is clearing of the dilated bile ducts compared to old exam. Normal appendix. There is rectal fecal impaction with perirectal edema that is a change compared to old exam. Postoperative hematoma or seroma over the anterior upper right side of the abdomen. Bilateral pleural effusions and basilar pulmonary infiltrates and atelectasis is significantly increa sed compared to old exam and could relate to some chronic congestive heart failure.
[2019-12-07] MEDS ORDERED: NALOXONE 0.4 MG/ML 1 ML VIAL IV PRN (19:25)
[2019-12-07] MEDS ORDERED: ACETAMINOPHEN TAB 325 MG TAB PO PRN (19:25)
[2019-12-07] MEDS ORDERED: AMPICILLIN-SULBACTAM 3 GM in SODIUM CHLORIDE 0.9% 100 ML IVPB STA (19:28)
[2019-12-07] MEDS ORDERED: VANCOMYCIN IV PER PHARMACY 1 EACH MISC MISCELLANE PRN (19:28)
[2019-12-07] MEDS ORDERED: VANCOMYCIN 1,500 MG in SODIUM CHLORIDE 0.9% 250 ML IVPB STA (19:31)
[2019-12-07] MEDS: SODIUM CHLORIDE 0.9% 1,000 ML IV SCH (19:57)
[2019-12-08] MEDS ORDERED: bisacodyL 10 MG SUPP RECTAL PRN (00:56)
[2019-12-08] MEDS ORDERED: MAGNESIUM HYDROXIDE 2,400 MG/10 ML CUP PO PRN (00:56)
[2019-12-08] MEDS: MELATONIN 3 MG TABLET PO SCH ×2 (01:22→21:10)
[2019-12-08] MEDS: PANTOPRAZOLE 40 MG TABLET PO SCH (05:39)
[2019-12-08 06:52] LABS: Glucose,Whole Blood 105 mg/dL (75-99)
[2019-12-08 08:23] LABS: INR 3.2 (<1.2)
[2019-12-08] MEDS: INSULIN ASPART (NovoLOG) 100 UNIT/ML VIAL SQ SCH ×4 (08:33→21:13)
[2019-12-08] MEDS: CALCIUM CARBONATE 500 MG CHEWABLE PO SCH ×3 (08:35→17:38)
[2019-12-08] MEDS: METOPROLOL SUCCINATE (ER) 100 MG TAB.ER.24H PO SCH (08:35)
[2019-12-08] MEDS ORDERED: DOCUSATE 100 MG CAP PO PRN (09:00)
[2019-12-08 11:26] LABS: Glucose,Whole Blood 99 mg/dL (75-99)
[2019-12-08] MEDS: SODIUM CHLORIDE 0.9% 1,000 ML IV SCH (11:29)
[2019-12-08] MEDS: SENNOSIDES-DOCUSATE SODIUM 1 EACH TAB PO SCH ×2 (12:20→17:38)
--- NOTE | 2019-12-08 13:50 | P.GSHP ---
History of Present Illness H&P Date: 12/08/19 Patient is s/p lap paris with ERCP over 1 month ago, 11/03/19. She comes in with purulent drainage along epigastrium. She denies pain. No fevers. WBC is normal. ABDOMEN: Upper wound express non-malodorous yellow green discharge, over 30-mL expressed at bedside with cultures obtained. MICRO: Resistant to Ancef, Unasyn, PCN STUDIES: CT of the abdomen and pelvis confirms fluid collection in subQ PLAN: 1. Surgical site infection with resistance and failed outpatient management. Infectious disease consultation advised. 2. Daily massage at wound site to facilitate drainage 3. Currently patient on Vancomycin 4. May start consistent carb diet 5. Medical consultation for congestive heart failure and large bilateral pleural effusions. 6. Await cultures Past Medical History Past Medical History: Atrial Fibrillation, Heart Failure, Hyperlipidemia, Hypert ension, Osteoarthritis (OA) Additional Past Medical History / Comment(s): pacemaker/AICD History of Any Multi-Drug Resistant Organisms: None Reported Past Surgical History: Bladder Surgery, Cardiac Ablation, Heart Catheterization, Hysterectomy Additional Past Surgical History / Comment(s): cardioversion, D & C, 08-21-13 DUAL CHAMBER A.I.C.D IMPLANTED Past Anesthesia/Blood Transfusion Reactions: No Reported Reaction Type of Cardiac Device: Permanent Pacemaker, AICD Device Placement Date:: 08-21-13 Past Psychological History: No Psychological Hx Reported Smoking Status: Former smoker Past Alcohol Use History: None Reported Past Drug Use History: None Reported - Past Family History Mother Family Medical History: Cancer Sister(s) Family Medical History: No Reported History Medications and Allergies Home Medications Medication Instructions Recorded Confirmed Type Atorvastatin [Lipitor] 10 mg PO HS@2100 08/20/13 12/07/19 History Docusate [Colace] 100 mg PO DAILY PRN cap 11/06/19 12/07/19 Rx Ipratropium-Albuterol Nebulize 3 ml INHALATION RT-TID ml 11/06/19 12/07/19 Rx [Duoneb 0.5 mg-3 mg/3 ml Soln] Ipratropium-Albuterol Nebulize 3 ml INHALATION RT-TID PRN ml 11/06/19 12/07/19 Rx [Duoneb 0.5 mg-3 mg/3 ml Soln] Acetaminophen Tab [Tylenol] 500 mg PO Q6H PRN 11/28/19 12/07/19 History Calcium Carbonate [Tums] 500 mg PO AC-TID 11/28/19 12/07/19 History HYDROcodone/APAP 5-325MG [[place] 1 tab PO Q6H PRN 11/28/19 12/07/19 History 5-325] INSULIN ASPART (NovoLOG) [NovoLOG See Protocol SQ ACHS 11/28/19 12/07/19 History (formulary)] Lactose-Reduced Food [Ensure Plus] 120 ml PO BID@0800,1700 11/28/19 12/07/19 History Maalox Plus Suspension 30 ml PO Q6H PRN 11/28/19 12/07/19 History Magnesium Hydroxide [Milk of 7,200 mg PO Q48H PRN 11/28/19 12/07/19 History Magnesia Concentrate] Metoprolol Succinate (ER) [Toprol 100 mg PO DAILY@0800 11/28/19 12/07/19 History XL] Na Phos,M-B/Na Phos,Di-Ba [Fleet 133 ml RECTAL DAILY PRN 11/28/19 12/07/19 History Adult] Ondansetron HCl [Zofran] 4 mg PO Q8H PRN 11/28/19 12/07/19 History Pantoprazole [Protonix] 40 mg PO DAILY@0600 11/28/19 12/07/19 History Phenyleph/Pramoxin/Glycr/W.pet 1 applic RECTAL DAILY PRN 11/28/19 12/07/19 History [Preparation H Cream] Sennosides-Docusate Sodium 1 tab PO BID@0800,1700 11/28/19 12/07/19 History [Senokot-S] Sennosides/Docusate Sodium 1 tab PO DAILY PRN 11/28/19 12/07/19 History [Senna-S 8.6-50 mg Tablet] Warfarin [Coumadin] 2.5 mg PO DAILY@1700 11/28/19 12/07/19 History bisacodyL [Bisacodyl] 10 mg RECTAL DAILY PRN 11/28/19 12/07/19 History Ciprofloxacin HCl [Cipro] 500 mg PO Q12H 12/07/19 12/07/19 History Allergies Allergy/AdvReac Type Severity Reaction Status Date / Time dofetilide [From Tikosyn] Allergy Severe Unknown Verified 12/07/19 18:36 prolonged QT medications Allergy Severe Unknown Uncoded 12/07/19 18:36 Surgical - Exam Vital Signs Temp Pulse Resp BP Pulse Ox 98.1 F 89 16 139/74 99 12/07/19 15:41 12/07/19 15:41 12/07/19 15:41 12/07/19 15:41 12/07/19 15:41 Results - Labs 12/07/19 16:30 12/07/19 16:30 Abnormal Lab Results - Last 24 Hours (Table) 12/07/19 12/07/19 12/07/19 Range/Units 16:30 16:30 16:30 RDW 16.1 H (11.5-15.5) % PT 31.5 H (9.0-12.0) sec INR 3.2 H (<1.2) APTT 42.3 H (22.0-30.0) sec Sodium 134 L (137-145) mmol/L Chloride 89 L (98-107) mmol/L Carbon Dioxide 40 H (22-30) mmol/L Creatinine 0.49 L (0.52-1.04) mg/dL Glucose 115 H (74-99) mg/dL POC Glucose (mg/dL) (75-99) mg/dL AST 40 H (14-36) U/L Alkaline Phosphatase 304 H (38-126) U/L Albumin 3.0 L (3.5-5.0) g/dL 12/08/19 12/08/19 Range/Units 04:34 06:50 RDW (11.5-15.5) % PT 31.0 H (9.0-12.0) sec INR 3.2 H (<1.2) APTT (22.0-30.0) sec Sodium (137-145) mmol/L Chloride (98-107) mmol/L Carbon Dioxide (22-30) mmol/L Creatinine (0.52-1.04) mg/dL Glucose (74-99) mg/dL POC Glucose (mg/dL) 105 H (75-99) mg/dL AST (14-36) U/L Alkaline Phosphatase (38-126) U/L Albumin (3.5-5.0) g/dL Diabetes panel 12/07/19 Range/Units 16:30 Sodium 134 L (137-145) mmol/L Potassium 3.8 (3.5-5.1) mmol/L Chloride 89 L (98-107) mmol/L Carbon Dioxide 40 H (22-30) mmol/L BUN 14 (7-17) mg/dL Creatinine 0.49 L (0.52-1.04) mg/dL Glucose 115 H (74-99) mg/dL Calcium 8.6 (8.4-10.2) mg/dL AST 40 H (14-36) U/L ALT 14 (4-34) U/L Alkaline Phosphatase 304 H (38-126) U/L Total Protein 6.4 (6.3-8.2) g/dL Albumin 3.0 L (3.5-5.0) g/dL Calcium panel 12/07/19 Range/Units 16:30 Calcium 8.6 (8.4-10.2) mg/dL Albumin 3.0 L (3.5-5.0) g/dL Pituitary panel 12/07/19 Range/Units 16:30 Sodium 134 L (137-145) mmol/L Potassium 3.8 (3.5-5.1) mmol/L Chloride 89 L (98-107) mmol/L Carbon Dioxide 40 H (22-30) mmol/L BUN 14 (7-17) mg/dL Creatinine 0.49 L (0.52-1.04) mg/dL Glucose 115 H (74-99) mg/dL Calcium 8.6 (8.4-10.2) mg/dL Adrenal panel 12/07/19 Range/Units 16:30 Sodium 134 L (137-145) mmol/L Potassium 3.8 (3.5-5.1) mmol/L Chloride 89 L (98-107) mmol/L Carbon Dioxide 40 H (22-30) mmol/L BUN 14 (7-17) mg/dL Creatinine 0.49 L (0.52-1.04) mg/dL Glucose 115 H (74-99) mg/dL Calcium 8.6 (8.4-10.2) mg/dL Total Bilirubin 1.1 (0.2-1.3) mg/dL AST 40 H (14-36) U/L ALT 14 (4-34) U/L Alkaline Phosphatase 304 H (38-126) U/L Total Protein 6.4 (6.3-8.2) g/dL Albumin 3.0 L (3.5-5.0) g/dL
[2019-12-08] MEDS: IPRATROPIUM-ALBUTEROL 3 ML NEB INHALATION SCH ×2 (16:27→20:09)
[2019-12-08] MEDS ORDERED: WARFARIN 0.5 MG TAB PO SCH (17:00)
[2019-12-08] MEDS ORDERED: NON FORMULARY DRUG (Lactose-Reduced Food [Ensure Plus] 237 ML Liquid) PO SCH (17:00)
[2019-12-08] MEDS ORDERED: WARFARIN 2.5 MG TAB PO SCH (17:00)
[2019-12-08 17:11] LABS: Glucose,Whole Blood 127 mg/dL (75-99)
[2019-12-08] MEDS: VANCOMYCIN 1,500 MG in SODIUM CHLORIDE 0.9% 250 ML IVPB SCH (17:40)
[2019-12-08] MEDS: HYDROcodone/APAP 5-325MG 1 EACH TAB PO PRN (17:43)
[2019-12-08 20:50] LABS: Glucose,Whole Blood 116 mg/dL (75-99)
[2019-12-08] MEDS: ATORVASTATIN 10 MG TAB PO SCH (21:10)
[2019-12-08 21:21] LABS: Hemoglobin A1C 6.1 % (4.0-6.0)
--- NOTE | 2019-12-08 22:06 | P.CONS ---
History of Present Illness - Reason for Consult Consult date: 12/08/19 Medical management Requesting physician: Disha Joyce - Chief Complaint Drainage from the abdominal wound - History of Present Illness Consultation: This is a pleasant 84-year-old patient of Dr. Pimentel. Patient November 02 has undergone laparoscopic cholecystectomy by Dr. Adams. For cholecystitis and cholelithiasis. Patient was discharged to the [facility] about a month ago. Patient has been rather weak and tired. If not much of an appetite. Does not really ambulate because of weakness. Chronic stable medical conditions include atrial fibrillation, CHF, hypertension, hyperlipidemia, osteoarthritis, pacemaker with AICD. Patient was noted to have drainage from the epigastric laparoscopic insertion site. Was present in the room dark brown pus was coming out. Special squeezing surrounding. Patient has very limited tenderness. Denies any fever and chills. Appetite has been poor. Review of systems: GEN.: Tired, weight loss, loss of appetite EYES: None HEENT: None NECK: None RESPIRATORY: None CARDIOVASCULAR: None GASTROINTESTINAL: As above GENITOURINARY: None MUSCULOSKELETAL: Joint pains, muscle weakness LYMPHATICS: None HEMATOLOGICAL: None PSYCHIATRY: None NEUROLOGICAL: None Past medical history to include: Atrial fibrillation, hypertension, hyperlipidemia, osteoarthritis, pacemaker, AICD, CHF EF 30-35% Social history: Patient stopped smoking 2007. No alcohol. Currently at [facility]. Physical examination: VITAL SIGNS: 98.1, 89, 16, 139/74, 99% of 2 L GENERAL: BMI 24.8, laying in bed, tired. EYES: Pupils equal. Conjunctiva palel. HEENT: External appearance of nose and ears normal, oral cavity grossly normal. NECK: JVD not raised; masses not palpable. HEART: First and second heart sounds are normal; no edema. LUNGS: Respiratory rate normal; decreased breath sounds. ABDOMEN: Soft, on squeezing in the epigastric area around the incision site brown pus is being exudate, significant amount, minimal tenderness, liver spleen not palpable, no masses palpable. MUSCULAR skeletal: Evidence of OA PSYCH: Alert and oriented x3; mood and affect tiredl. NEUROLOGICAL: Cranial nerves grossly intact; no facial asymmetry, power and sensation grossly intact. LYMPHATICS: No lymph nodes palpable in the axilla and neck INVESTIGATIONS, reviewed in the clinical context: White count 8 hemoglobin 12.3 platelets 172 INR 3.2 potassium 3.8 creatinine 0.49 Albumin 3 Computed tomography scan of the abdomen moderate bilateral pleural effusion heart is enlarged some areas in the anterior biliary tree that is under 3 cm fluid collection of the gallbladder bed. Subcutis fluid over the anterior mid and right side of the abdomen Assessment: -That is significant amount of dark brown fluid/pus coming out of the epigastric incision laparoscopic site. Appears to be subcutaneous abscess collection. -Status post laparoscopic cholecystectomy a month ago -Advancing medical debility -Mild protein calorie malnutrition from poor oral intake -Persistent atrial fibrillation -Chronic congestive heart failure from systolic dysfunction EF 30-35% -AICD pacemaker -Essential hypertension -Hyperlipidemia -Primary osteoarthritis Plan: Pus will be exuded manually at the bedside. Discussed with the nurse. We'll send her for Gram stain and culture. Patient is on IV vancomycin. We will add Zosyn and Flagyl to cover also anaerobes. Home medications to be continued. Care was discussed the patient and family the bedside. PTOT also will be consulted. Past Medical History Past Medical History: Atrial Fibrillation, Heart Failure, Hyperlipidemia, Hypertension, Osteoarthritis (OA) Additional Past Medical History / Comment(s): pacemaker/AICD History of Any Multi-Drug Resistant Organisms: None Reported Past Surgical History: Bladder Surgery, Cardiac Ablation, Heart Catheterization, Hysterectomy Additional Past Surgical History / Comment(s): cardioversion, D & C, 08-21-13 DUAL CHAMBER A.I.C.D IMPLANTED Past Anesthesia/Blood Transfusion Reactions: No Reported Reaction Type of Cardiac Device: Permanent Pacemaker, AICD Device Placement Date:: 08-21-13 Past Psychological History: No Psychological Hx Reported Smoking Status: Former smoker Past Alcohol Use History: None Reported Past Drug Use History: None Reported - Past Family History Mother Family Medical History: Cancer Sister(s) Family Medical History: No Reported History Medications and Allergies Home Medications Medication Instructions Recorded Confirmed Type Atorvastatin [Lipitor] 10 mg PO HS@2100 08/20/13 12/07/19 History Docusate [Colace] 100 mg PO DAILY PRN cap 11/06/19 12/07/19 Rx Ipratropium-Albuterol Nebulize 3 ml INHALATION RT-TID ml 11/06/19 12/07/19 Rx [Duoneb 0.5 mg-3 mg/3 ml Soln] Ipratropium-Albuterol Nebulize 3 ml INHALATION RT-TID PRN ml 11/06/19 12/07/19 Rx [Duoneb 0.5 mg-3 mg/3 ml Soln] Acetaminophen Tab [Tylenol] 500 mg PO Q6H PRN 11/28/19 12/07/19 History Calcium Carbonate [Tums] 500 mg PO AC-TID 11/28/19 12/07/19 History HYDROcodone/APAP 5-325MG [[place] 1 tab PO Q6H PRN 11/28/19 12/07/19 History 5-325] INSULIN ASPART (NovoLOG) [NovoLOG See Protocol SQ ACHS 11/28/19 12/07/19 History (formulary)] Lactose-Reduced Food [Ensure Plus] 120 ml PO BID@0800,1700 11/28/19 12/07/19 History Maalox Plus Suspension 30 ml PO Q6H PRN 11/28/19 12/07/19 History Magnesium Hydroxide [Milk of 7,200 mg PO Q48H PRN 11/28/19 12/07/19 History Magnesia Concentrate] Metoprolol Succinate (ER) [Toprol 100 mg PO DAILY@0800 11/28/19 12/07/19 History XL] Na Phos,M-B/Na Phos,Di-Ba [Fleet 133 ml RECTAL DAILY PRN 11/28/19 12/07/19 History Adult] Ondansetron HCl [Zofran] 4 mg PO Q8H PRN 11/28/19 12/07/19 History Pantoprazole [Protonix] 40 mg PO DAILY@0600 11/28/19 12/07/19 History Phenyleph/Pramoxin/Glycr/W.pet 1 applic RECTAL DAILY PRN 11/28/19 12/07/19 History [Preparation H Cream] Sennosides-Docusate Sodium 1 tab PO BID@0800,1700 11/28/19 12/07/19 History [Senokot-S] Sennosides/Docusate Sodium 1 tab PO DAILY PRN 11/28/19 12/07/19 History [Senna-S 8.6-50 mg Tablet] Warfarin [Coumadin] 2.5 mg PO DAILY@1700 11/28/19 12/07/19 History bisacodyL [Bisacodyl] 10 mg RECTAL DAILY PRN 11/28/19 12/07/19 History Ciprofloxacin HCl [Cipro] 500 mg PO Q12H 12/07/19 12/07/19 History Allergies Allergy/AdvReac Type Severity Reaction Status Date / Time dofetilide [From Tikosyn] Allergy Severe Unknown Verified 12/07/19 18:36 prolonged QT medications Allergy Severe Unknown Uncoded 12/07/19 18:36 Physical Exam Vitals: Vital Signs Temp Pulse Pulse Resp BP BP Pulse Ox 12/08/19 07:31 98 12/08/19 05:05 98.3 F 79 16 123/69 95 12/07/19 22:22 97.7 F 90 17 132/76 98 12/07/19 21:40 98.0 F 76 18 114/60 98 12/07/19 20:37 75 16 114/60 100 12/07/19 19:00 86 18 116/66 99 12/07/19 18:00 82 18 96 12/07/19 17:00 858 H 18 96 12/07/19 16:48 85 18 119/65 96 12/07/19 15:41 98.1 F 89 16 139/74 99 Intake and Output 12/07/19 12/08/19 12/08/19 22:59 06:59 14:59 Other: Voiding Method Diaper Diaper Incontinent Incontinent # Voids 1 3 Weight 95.254 kg 63.5 kg 63.5 kg Results CBC & Chem 7: 12/07/19 16:30 12/07/19 16:30 Labs: Abnormal Lab Results - Last 24 Hours (Table) 12/07/19 12/07/19 12/07/19 Range/Units 16:30 16:30 16:30 RDW 16.1 H (11.5-15.5) % PT 31.5 H (9.0-12.0) sec INR 3.2 H (<1.2) APTT 42.3 H (22.0-30.0) sec Sodium 134 L (137-145) mmol/L Chloride 89 L (98-107) mmol/L Carbon Dioxide 40 H (22-30) mmol/L Creatinine 0.49 L (0.52-1.04) mg/dL Glucose 115 H (74-99) mg/dL POC Glucose (mg/dL) (75-99) mg/dL AST 40 H (14-36) U/L Alkaline Phosphatase 304 H (38-126) U/L Albumin 3.0 L (3.5-5.0) g/dL 12/08/19 12/08/19 Range/Units 04:34 06:50 RDW (11.5-15.5) % PT 31.0 H (9.0-12.0) sec INR 3.2 H (<1.2) APTT (22.0-30.0) sec Sodium (137-145) mmol/L Chloride (98-107) mmol/L Carbon Dioxide (22-30) mmol/L Creatinine (0.52-1.04) mg/dL Glucose (74-99) mg/dL POC Glucose (mg/dL) 105 H (75-99) mg/dL AST (14-36) U/L Alkaline Phosphatase (38-126) U/L Albumin (3.5-5.0) g/dL
[2019-12-08] MEDS: CEFEPIME 1 GM in SODIUM CHLORIDE 0.9% 50 ML IVPB SCH (22:58)
[2019-12-08] MEDS: metroNIDAZOLE-NS PMX 500 MG in SALINE 1 100ML.BAG IVPB SCH (23:03)
[2019-12-09] MEDS: CEFEPIME 1 GM in SODIUM CHLORIDE 0.9% 50 ML IVPB SCH ×3 (00:06→20:28)
[2019-12-09] MEDS: SODIUM CHLORIDE 0.9% 1,000 ML IV SCH ×2 (03:54→20:30)
[2019-12-09] MEDS: PANTOPRAZOLE 40 MG TABLET PO SCH (05:28)
[2019-12-09] MEDS: metroNIDAZOLE-NS PMX 500 MG in SALINE 1 100ML.BAG IVPB SCH ×3 (05:28→16:59)
[2019-12-09 05:40] LABS: Anisocytosis Slight; HCT 35.7 % (34.0-46.0); Hypochromasia Moderate; MCH 27.7 pg (25.0-35.0); MCHC 30.7 g/dL (31.0-37.0); Platelet Count 135 k/uL (150-450); Poikilocytosis Slight; RBC 3.97 m/uL (3.80-5.40); RDW 16.4 % (11.5-15.5); WBC 6.8 k/uL (3.8-10.6)
[2019-12-09 06:00] LABS: INR 2.5 (<1.2); Prothrombin Time 24.5 sec (9.0-12.0)
[2019-12-09] MEDS: VANCOMYCIN 1,500 MG in SODIUM CHLORIDE 0.9% 250 ML IVPB SCH (06:38)
[2019-12-09 07:04] LABS: Glucose,Whole Blood 91 mg/dL (75-99)
[2019-12-09] MEDS: SENNOSIDES-DOCUSATE SODIUM 1 EACH TAB PO SCH ×2 (07:53→17:00)
[2019-12-09] MEDS: METOPROLOL SUCCINATE (ER) 100 MG TAB.ER.24H PO SCH (07:53)
[2019-12-09] MEDS: CALCIUM CARBONATE 500 MG CHEWABLE PO SCH ×3 (07:53→17:00)
[2019-12-09] MEDS: INSULIN ASPART (NovoLOG) 100 UNIT/ML VIAL SQ SCH (07:53)
[2019-12-09] MEDS: IPRATROPIUM-ALBUTEROL 3 ML NEB INHALATION SCH ×3 (09:02→20:25)
[2019-12-09 10:07] LABS: African American GFR (CKD) 112.4 (60.0-200.0); Anion Gap 9.6 mmol/L (4.00-12.00); Calcium 7.6 mg/dL (8.7-10.3); Carbon Dioxide 32.4 mmol/L (21.6-31.8); Potassium 3.3 mmol/L (3.5-5.5)
[2019-12-09] MEDS ORDERED: POTASSIUM CHLORIDE ER 20 MEQ TAB.ER PO STA (11:46)
[2019-12-09 12:08] LABS: Glucose,Whole Blood 99 mg/dL (75-99)
--- NOTE | 2019-12-09 14:44 | P.PN ---
Subjective Progress Note Date: 12/09/19 Patient admitted secondary to spontaneous drainage from abdominal wall abscess. At bedside yesterday, more than 30 mL of marco a purulent drainage removed. Since then, additional 2-3 attempts from drainage of the wound to him should minimal output. Patient is have an enema and having a bowel movement. No reports of abdominal pain. ABDOMEN: Dressing with seropurulent drainage. Not malodorous. Nontender. PLAN: 1. Continue IV antibiotics. 2. Await cultures from wound Objective - Vital Signs Vital signs: Vital Signs Temp 98.4 F 12/09/19 11:34 Pulse 69 12/09/19 11:34 Resp 16 12/09/19 11:34 BP 123/54 12/09/19 11:34 Pulse Ox 97 12/09/19 11:34 Intake & Output 12/08/19 12/09/19 12/09/19 18:59 06:59 18:59 Intake Total 650 1230 Output Total 1 Balance 650 -1 1230 Weight 63.5 kg Intake: Intake, IV Titration 250 450 Amount Cefepime 1 gm In Sodium 100 Chloride 0.9% 50 ml @ 12. 5 mls/hr IVPB Q12HR [facility] Rx#:[id number] Vancomycin 1,500 mg In 250 250 Sodium Chloride 0.9% 250 ml @ 125 mls/hr IVPB Q16H [facility] Rx#:[id number] [id number]-NS PMX 500 100 mg In Saline 1 100ml.bag @ 100 mls/hr IVPB Q6HR ANU[facility] Rx#:[id number] Oral 400 780 Output: Stool 1 Other: Voiding Method Diaper Diaper Diaper Incontinent Incontinent Incontinent # Voids 1 1 3 # Bowel Movements 1 - Labs CBC & Chem 7: 12/09/19 03:54 12/09/19 03:54 Labs: Abnormal Lab Results - Last 24 Hours (Table) 12/07/19 12/08/19 12/08/19 Range/Units 16:30 17:05 20:41 Hgb (11.4-16.0) gm/dL MCHC (31.0-37.0) g/dL RDW (11.5-15.5) % Plt Count (150-450) k/uL PT (9.0-12.0) sec INR (<1.2) Potassium (3.5-5.5) mmol/L Carbon Dioxide (21.6-31.8) mmol/L Creatinine (0.6-1.5) mg/dL BUN/Creatinine Ratio (12.00-20.00) Ratio POC Glucose (mg/dL) 127 H 116 H (75-99) mg/dL Hemoglobin A1c 6.1 H (4.0-6.0) % Calcium (8.7-10.3) mg/dL 12/09/19 12/09/19 12/09/19 Range/Units 03:54 03:54 03:54 Hgb 11.0 L (11.4-16.0) gm/dL MCHC 30.7 L (31.0-37.0) g/dL RDW 16.4 H (11.5-15.5) % Plt Count 135 L (150-450) k/uL PT 24.5 H (9.0-12.0) sec INR 2.5 H (<1.2) Potassium 3.3 L (3.5-5.5) mmol/L Carbon Dioxide 32.4 H (21.6-31.8) mmol/L Creatinine 0.4 L (0.6-1.5) mg/dL BUN/Creatinine Ratio 25.00 H (12.00-20.00) Ratio POC Glucose (mg/dL) (75-99) mg/dL Hemoglobin A1c (4.0-6.0) % Calcium 7.6 L (8.7-10.3) mg/dL Microbiology - Last 24 Hours (Table) 12/08/19 14:00 Gram Stain - Preliminary Incision Wound Culture - Preliminary 12/08/19 14:00 Anaerobic Culture - Preliminary Abdomen
[2019-12-09] MEDS ORDERED: WARFARIN 2.5 MG TAB PO ONE (18:00)
[2019-12-09] MEDS: MELATONIN 3 MG TABLET PO SCH (20:28)
[2019-12-09] MEDS: ATORVASTATIN 10 MG TAB PO SCH (20:28)
--- NOTE | 2019-12-09 20:42 | P.PN ---
Progress Note - Text Progress Note Date: 12/09/19 - Chief Complaint Drainage from the abdominal wound Consultation: This is a pleasant 84-year-old patient of Dr. Pimentel. Patient November 02 has undergone laparoscopic cholecystectomy by Dr. Adams. For cholecystitis and cholelithiasis. Patient was discharged to the [facility] about a month ago. Patient has been rather weak and tired. If not much of an appetite. Does not really ambulate because of weakness. Chronic stable medical conditions include atrial fibrillation, CHF, hypertension, hyperlipidemia, osteoarthritis, pacemaker with AICD. Patient was noted to have drainage from the epigastric laparoscopic insertion site. Was present in the room dark brown pus was coming out. Special squeezing surrounding. Patient has very limited tenderness. Denies any fever and chills. Appetite has been poor. Today-significant brownish discharge came out from the epigastric area yesterday. Also having greenish today. Poor appetite. Tired. Review of systems: Was done for constitutional, cardiovascular, GI, pulmonary. relevant finding as above Active Medications Acetaminophen (Acetaminophen Tab 325 Mg Tab) 650 mg PO Q6HR PRN PRN Reason: Mild Pain or Fever > 100.5 Hydrocodone Bitart/Acetaminophen (Hydrocodone/Apap 5-325mg 1 Each Tab) 1 each PO Q6H PRN PRN Reason: Pain Last Admin: 12/08/19 17:43 Dose: 1 each Documented by: Albuterol/Ipratropium (Ipratropium-Albuterol 3 Ml Neb) 3 ml INHALATION RT-TID ON LICENSE OF [facility] Last Admin: 12/09/19 20:25 Dose: Not Given Documented by: Atorvastatin Calcium (Atorvastatin 10 Mg Tab) 10 mg PO HS@2100 ON LICENSE OF [facility] Last Admin: 12/09/19 20:28 Dose: 10 mg Documented by: Bisacodyl (Bisacodyl 10 Mg Supp) 10 mg RECTAL DAILY PRN PRN Reason: Constipation Calcium Carbonate/Glycine (Calcium Carbonate 500 Mg Chewable) 500 mg PO AC-TID ON LICENSE OF [facility] Last Admin: 12/09/19 17:00 Dose: 500 mg Documented by: Docusate Sodium (Docusate 100 Mg Cap) 100 mg PO DAILY PRN PRN Reason: Constipation Sodium Chloride (Saline 0.9%) 1,000 mls @ 60 mls/hr IV .[id number] ON LICENSE OF [facility] Last Admin: 12/09/19 20:30 Dose: 60 mls/hr Documented by: Vancomycin HCl 1,500 mg/ (Sodium Chloride) 250 mls @ 125 mls/hr IVPB Q16H ON LICENSE OF [facility] Last Admin: 12/09/19 06:38 Dose: 125 mls/hr Documented by: Cefepime HCl 1 gm/ Sodium (Chloride) 50 mls @ 12.5 mls/hr IVPB Q12HR ON LICENSE OF [facility] Last Admin: 12/09/19 20:28 Dose: 12.5 mls/hr Documented by: Metronidazole 500 mg/ IV (Solution) 100 mls @ 100 mls/hr IVPB Q6HR ON LICENSE OF [facility] Last Admin: 12/09/19 16:59 Dose: 100 mls/hr Documented by: Magnesium Hydroxide (Magnesium Hydroxide 2,400 Mg/10 Ml Cup) 2,400 mg PO Q48H PRN PRN Reason: Constipation for 48 hours Melatonin (Melatonin 3 Mg Tablet) 3 mg PO HS ON LICENSE OF [facility] Last Admin: 12/09/19 20:28 Dose: 3 mg Documented by: Metoprolol Succinate (Metoprolol Succinate (Er) 100 Mg Tab.Er.24h) 100 mg PO DAILY@0800 ON LICENSE OF [facility] Last Admin: 12/09/19 07:53 Dose: 100 mg Documented by: Miscellaneous Information (Warfarin Per Pharmacy) 0 each MISCELLANE DIRECTED PRN PRN Reason: PHARMACY DOSING PROTOCOL Miscellaneous Information (Vancomycin Trough Due 1 Each Misc) 0 each MISCELLANE DIRECTED ONE Stop: 12/10/19 13:01 Naloxone HCl (Naloxone 0.4 Mg/Ml 1 Ml Vial) 0.2 mg IV Q2M PRN PRN Reason: Opioid Reversal Ondansetron HCl (Ondansetron 4 Mg Tab) 4 mg PO Q8H PRN PRN Reason: Nausea Pantoprazole Sodium (Pantoprazole 40 Mg Tablet) 40 mg PO DAILY@0600 ON LICENSE OF [facility] Last Admin: 12/09/19 05:28 Dose: 40 mg Documented by: Senna/Docusate Sodium (Sennosides-Docusate Sodium 1 Each Tab) 1 each PO BID@0800,1700 ON LICENSE OF [facility] Last Admin: 12/09/19 17:00 Dose: 1 each Documented by: Physical examination: VITAL SIGNS: 98.4, 69, 16, 123/54, 97% on 2 L GENERAL: BMI 24.8, laying in bed, tired. EYES: Pupils equal. Conjunctiva palel. HEENT: External appearance of nose and ears normal, oral cavity grossly normal. NECK: JVD not raised; masses not palpable. HEART: First and second heart sounds are normal; no edema. LUNGS: Respiratory rate normal; decreased breath sounds. ABDOMEN: Soft, on squeezing in the epigastric area around the incision site brown pus is being exudate, significant amount, minimal tenderness, liver spleen not palpable, no masses palpable. MUSCULAR skeletal: Evidence of OA PSYCH: Alert and oriented x3; mood and affect tiredl. INVESTIGATIONS, reviewed in the clinical context: White count 6.8 hemoglobin 11 INR 2.5 potassium 3.3 creatinine 0.4 pro- calcitonin 0.09 Admission testing White count 8 hemoglobin 12.3 platelets 172 INR 3.2 potassium 3.8 creatinine 0.49 Albumin 3 Computed tomography scan of the abdomen moderate bilateral pleural effusion heart is enlarged some areas in the anterior biliary tree that is under 3 cm fluid collection of the gallbladder bed. Subcutis fluid over the anterior mid and right side of the abdomen Assessment: -That is significant amount of dark brown fluid/pus coming out of the epigastric incision laparoscopic site. Appears to be subcutaneous abscess collection. Continues to drain today. -Status post laparoscopic cholecystectomy a month ago -Advancing medical debility -Mild protein calorie malnutrition from poor oral intake -Persistent atrial fibrillation -Chronic congestive heart failure from systolic dysfunction EF 30-35% -AICD pacemaker -Essential hypertension -Hyperlipidemia -Primary osteoarthritis Plan: Further pus was drained which appears to be subcutaneous. Actually the computed tomography scan. Antibiotics to continue. Cultures pending. Discussed with the patient. Enema today
--- NOTE | 2019-12-09 21:32 | P.CONS ---
History of Present Illness - Reason for Consult Consult date: 12/09/19 Failed outpatient antibiotic Requesting physician: Disha Joyce - Chief Complaint Drainage from surgical site x few days - History of Present Illness Patient is 84 year old female who is status post laparoscopic cholecystectomy completed about a month ago patient subsequently has been transferred to [facility] for rehabilitation, patient has been sent to the ER at [facility] for duration of possible infection from recent cholecystectomy site apparently patient was noticed to have fluid drainage from the epigastric incision for the past few weeks patient has been treated with an oral antibiotic however the drainage was noticed to be getting worse and apparently there was some odor to the drainage, for this reason the patient was sent to the ER patient be complaining of pain which is mostly dull aching 2-3 out of 10 and no radiation , patient on arrival to the ER was afebrile and the patient did have a normal white count the patient did have CT of abdominal pelvis completed we did show subcutaneous fluid over the anterior and mid and right side of the prominent consistent with postsurgical changes question of possible hematoma versus seroma local wound culture has been obtained the patient was started on vancomycin and cefepime and [facility] infectious disease was consulted for further management of antibiotic therapy Review of Systems Positive point has been mentioned in the HPI rest of the systems are negative Past Medical History Past Medical History: Atrial Fibrillation, Heart Failure, Hyperlipidemia, Hypertension, Osteoarthritis (OA) Additional Past Medical History / Comment(s): pacemaker/AICD History of Any Multi-Drug Resistant Organisms: None Reported Past Surgical History: Bladder Surgery, Cardiac Ablation, Heart Catheterization, Hysterectomy Additional Past Surgical History / Comment(s): cardioversion, D & C, 08-21-13 DUAL CHAMBER A.I.C.D IMPLANTED Past Anesthesia/Blood Transfusion Reactions: No Reported Reaction Type of Cardiac Device: Permanent Pacemaker, AICD Device Placement Date:: 08-21-13 Past Psychological History: No Psychological Hx Reported Smoking Status: Former smoker Past Alcohol Use History: None Reported Past Drug Use History: None Reported - Past Family History Mother Family Medical History: Cancer Sister(s) Family Medical History: No Reported History Medications and Allergies Home Medications Medication Instructions Recorded Confirmed Type Atorvastatin [Lipitor] 10 mg PO HS@2100 08/20/13 12/07/19 History Docusate [Colace] 100 mg PO DAILY PRN cap 11/06/19 12/07/19 Rx Ipratropium-Albuterol Nebulize 3 ml INHALATION RT-TID ml 11/06/19 12/07/19 Rx [Duoneb 0.5 mg-3 mg/3 ml Soln] Ipratropium-Albuterol Nebulize 3 ml INHALATION RT-TID PRN ml 11/06/19 12/07/19 Rx [Duoneb 0.5 mg-3 mg/3 ml Soln] Acetaminophen Tab [Tylenol] 500 mg PO Q6H PRN 11/28/19 12/07/19 History Calcium Carbonate [Tums] 500 mg PO AC-TID 11/28/19 12/07/19 History HYDROcodone/APAP 5-325MG [Weikert 1 tab PO Q6H PRN 11/28/19 12/07/19 History 5-325] INSULIN ASPART (NovoLOG) [NovoLOG See Protocol SQ ACHS 11/28/19 12/07/19 History (formulary)] Lactose-Reduced Food [Ensure Plus] 120 ml PO BID@0800,1700 11/28/19 12/07/19 History Maalox Plus Suspension 30 ml PO Q6H PRN 11/28/19 12/07/19 History Magnesium Hydroxide [Milk of 7,200 mg PO Q48H PRN 11/28/19 12/07/19 History Magnesia Concentrate] Metoprolol Succinate (ER) [Toprol 100 mg PO DAILY@0800 11/28/19 12/07/19 History XL] Na Phos,M-B/Na Phos,Di-Ba [Fleet 133 ml RECTAL DAILY PRN 11/28/19 12/07/19 History Adult] Ondansetron HCl [Zofran] 4 mg PO Q8H PRN 11/28/19 12/07/19 History Pantoprazole [Protonix] 40 mg PO DAILY@0600 11/28/19 12/07/19 History Phenyleph/Pramoxin/Glycr/W.pet 1 applic RECTAL DAILY PRN 11/28/19 12/07/19 History [Preparation H Cream] Sennosides-Docusate Sodium 1 tab PO BID@0800,1700 11/28/19 12/07/19 History [Senokot-S] Sennosides/Docusate Sodium 1 tab PO DAILY PRN 11/28/19 12/07/19 History [Senna-S 8.6-50 mg Tablet] Warfarin [Coumadin] 2.5 mg PO DAILY@1700 11/28/19 12/07/19 History bisacodyL [Bisacodyl] 10 mg RECTAL DAILY PRN 11/28/19 12/07/19 History Ciprofloxacin HCl [Cipro] 500 mg PO Q12H 12/07/19 12/07/19 History Allergies Allergy/AdvReac Type Severity Reaction Status Date / Time dofetilide [From Tikosyn] Allergy Severe Unknown Verified 12/07/19 18:36 prolonged QT medications Allergy Severe Unknown Uncoded 12/07/19 18:36 Physical Exam Vitals: Vital Signs Temp Pulse Resp BP Pulse Ox 12/09/19 11:34 98.4 F 69 16 123/54 97 12/09/19 09:01 97 12/09/19 05:06 97 F L 66 18 133/58 99 12/08/19 19:48 98.0 F 68 16 108/67 97 Intake and Output 12/08/19 12/09/19 12/09/19 22:59 06:59 14:59 Intake Total 1230 Output Total 1 Balance -1 1230 Intake: Intake, IV Titration 450 Amount Cefepime 1 gm In Sodium 100 Chloride 0.9% 50 ml @ 12. 5 mls/hr IVPB Q12HR [facility] Rx#:[id number] Vancomycin 1,500 mg In 250 Sodium Chloride 0.9% 250 ml @ 125 mls/hr IVPB Q16H [facility] Rx#:[id number] metroNIDAZOLE-NS PMX 500 100 mg In Saline 1 100ml.bag @ 100 mls/hr IVPB Q6HR [facility] Rx#:[id number] Oral 780 Output: Stool 1 Other: Voiding Method Diaper Diaper Incontinent Incontinent # Voids 1 3 GENERAL DESCRIPTION: An elderly female lying in bed, no distress. No tachypnea or accessory muscle of respiration use. HEENT: Shows Pallor , no scleral icterus. Oral mucous membrane is dry. No pharyngeal erythema or thrush NECK: Trachea central, no thyromegaly. LUNGS: Unlabored breathing. Clear to auscultation anteriorly. No wheeze or crackle. HEART: S1, S2, regular rate and rhythm. No loud murmur ABDOMEN: Soft, epigastric laparoscopic port site did have some purulent drainage minimal erythema and induration EXTREMITIES: No edema of feet. SKIN: No rash, no masses palpable. NEUROLOGICAL: The patient is awake, alert, oriented x3, mood and affect normal. Results CBC & Chem 7: 12/09/19 03:54 12/09/19 03:54 Labs: Abnormal Lab Results - Last 24 Hours (Table) 12/07/19 12/08/19 12/08/19 Range/Units 16:30 17:05 20:41 Hgb (11.4-16.0) gm/dL MCHC (31.0-37.0) g/dL RDW (11.5-15.5) % Plt Count (150-450) k/uL PT (9.0-12.0) sec INR (<1.2) Potassium (3.5-5.5) mmol/L Carbon Dioxide (21.6-31.8) mmol/L Creatinine (0.6-1.5) mg/dL BUN/Creatinine Ratio (12.00-20.00) Ratio POC Glucose (mg/dL) 127 H 116 H (75-99) mg/dL Hemoglobin A1c 6.1 H (4.0-6.0) % Calcium (8.7-10.3) mg/dL 12/09/19 12/09/19 12/09/19 Range/Units 03:54 03:54 03:54 Hgb 11.0 L (11.4-16.0) gm/dL MCHC 30.7 L (31.0-37.0) g/dL RDW 16.4 H (11.5-15.5) % Plt Count 135 L (150-450) k/uL PT 24.5 H (9.0-12.0) sec INR 2.5 H (<1.2) Potassium 3.3 L (3.5-5.5) mmol/L Carbon Dioxide 32.4 H (21.6-31.8) mmol/L Creatinine 0.4 L (0.6-1.5) mg/dL BUN/Creatinine Ratio 25.00 H (12.00-20.00) Ratio POC Glucose (mg/dL) (75-99) mg/dL Hemoglobin A1c (4.0-6.0) % Calcium 7.6 L (8.7-10.3) mg/dL Microbiology - Last 24 Hours (Table) 12/08/19 14:00 Gram Stain - Preliminary Incision Wound Culture - Preliminary 12/08/19 14:00 Anaerobic Culture - Preliminary Abdomen Assessment and Plan Assessment: 1- patient who is status post bursectomy about a month ago now presenting to the ER with more drainage from the epigastric incision that has failed to respond to the outpatient oral diabetic therapy CT did show a fluid collection with a question of hematoma versus seroma, the Gram stain obtained showing a gram- negative will need to cover for resistant from it with the likely pathogen (1) Abdominal wall cellulitis Current Visit: Yes Status: Acute Code(s): L03.311 - CELLULITIS OF ABDOMINAL WALL SNOMED Code(s): 29450327 (2) Surgical site infection Current Visit: Yes Status: Acute Code(s): T81.49XA - INFECTION FOLLOWING A PROCEDURE, OTHER SURGICAL SITE, INIT SNOMED Code(s): 73867717 Plan: 1- cefepime 1 g every 12 hours dose has been adjusted to kidney function to continue along with the Flagyl 2-discontinue vancomycin as no gram-positive has been grown We will follow on clinical condition and cultures to further adjust medication if needed Thank you for this consultation will follow this patient with you Time with Patient: Greater than 30
[2019-12-10] MEDS: metroNIDAZOLE-NS PMX 500 MG in SALINE 1 100ML.BAG IVPB SCH ×5 (00:32→23:46)
[2019-12-10 04:16] LABS: INR 2.3 (<1.2)
[2019-12-10] MEDS: PANTOPRAZOLE 40 MG TABLET PO SCH (05:48)
[2019-12-10] MEDS: HYDROcodone/APAP 5-325MG 1 EACH TAB PO PRN ×2 (05:50→15:55)
[2019-12-10] MEDS: IPRATROPIUM-ALBUTEROL 3 ML NEB INHALATION SCH ×3 (07:40→19:06)
[2019-12-10] MEDS: CALCIUM CARBONATE 500 MG CHEWABLE PO SCH ×2 (08:23→14:34)
[2019-12-10] MEDS: SENNOSIDES-DOCUSATE SODIUM 1 EACH TAB PO SCH ×2 (08:23→16:26)
[2019-12-10] MEDS: METOPROLOL SUCCINATE (ER) 100 MG TAB.ER.24H PO SCH (08:23)
[2019-12-10] MEDS: CEFEPIME 1 GM in SODIUM CHLORIDE 0.9% 50 ML IVPB SCH ×2 (08:24→20:08)
[2019-12-10] MEDS ORDERED: VANCOMYCIN TROUGH DUE 1 EACH MISC MISCELLANE ONE (13:00)
--- NOTE | 2019-12-10 15:06 | P.PN ---
Subjective Progress Note Date: 12/10/19 CHIEF COMPLAINT: Drainage from incision site HISTORY OF PRESENT ILLNESS: Patient is status post laparoscopic cholecystectomy with ERCP one month ago, 11/03/2019. She comes in with purulent drainage along e pigastrium. She denies pain. Afebrile. WBC from 12/09/2019 is normal. INR 2.3. Drainage from culture growing gram-negative bacilli PHYSICAL EXAM: VITAL SIGNS: Reviewed. GENERAL: Well-developed in no acute distress. HEENT: No sclera icterus. Extraocular movements grossly intact. Moist buccal mucosa. Head is atraumatic, normocephalic. ABDOMEN: Soft. Upper abdomen incision draining yellowish-green discharge NEUROLOGIC: Alert and oriented. Cranial nerves II through XII grossly intact. ASSESSMENT: 1. Surgical site infection with resistance and failed outpatient management 2. Status post laparoscopic cholecystectomy with ERCP one month ago, 11/03/2019 PLAN: -Continue antibiotics per ID -Awaiting cultures to finalize -Continue current diet Physician Manager Entry note has been reviewed by physician. Signing provider agrees with the documented findings, assessment, and plan of care. Objective - Vital Signs Vital signs: Vital Signs Temp 97.9 F 12/10/19 11:53 Pulse 62 12/10/19 11:53 Resp 16 12/10/19 11:53 BP 146/66 12/10/19 11:53 Pulse Ox 93 L 12/10/19 11:53 Intake & Output 12/09/19 12/10/19 12/10/19 18:59 06:59 18:59 Intake Total 1230 900 150 Output Total 1 Balance 1229 900 150 Weight 65 kg Intake: Intake, IV Titration 450 900 150 Amount Cefepime 1 gm In Sodium 100 100 50 Chloride 0.9% 50 ml @ 12. 5 mls/hr IVPB Q12HR [facility] Rx#:[id number] Sodium Chloride 0.9% 1, 600 000 ml @ 60 mls/hr IV . [id number] [facility] Rx#:[id number] Vancomycin 1,500 mg In 250 Sodium Chloride 0.9% 250 ml @ 125 mls/hr IVPB Q16H [facility] Rx#:[id number] metroNIDAZOLE-NS PMX 500 100 200 100 mg In Saline 1 100ml.bag @ 100 mls/hr IVPB Q6HR [facility] Rx#:[id number] Oral 780 Output: Stool 1 Other: Voiding Method Diaper Diaper Bedpan Incontinent Incontinent Diaper # Voids 3 2 # Bowel Movements 1 1 - Labs CBC & Chem 7: 12/09/19 03:54 12/09/19 03:54 Labs: Abnormal Lab Results - Last 24 Hours (Table) 12/10/19 Range/Units 03:03 PT 22.0 H (9.0-12.0) sec INR 2.3 H (<1.2) Microbiology - Last 24 Hours (Table) 12/08/19 14:00 Gram Stain - Preliminary Incision Wound Culture - Preliminary Gram Neg Bacilli
--- NOTE | 2019-12-10 16:22 | PN ---
PROGRESS NOTE DATE OF SERVICE: 12/10/2019 REASON FOR FOLLOWUP: Abdominal wall cellulitis/abscess gram-negative. INTERVAL HISTORY: The patient is currently afebrile, patient is breathing comfortably. The patient denies having any chest pain, no shortness of breath, no cough. Some abdominal discomfort to the epigastric area only when it is touched. No nausea, no vomiting, no diarrhea. PHYSICAL EXAMINATION: Blood pressure 146/66, pulse of 62, temperature 97.9. She is 93% on room air. General description is an elderly female, lying in bed in no distress. RESPIRATORY SYSTEM: Unlabored breathing, clear to auscultation anteriorly. HEART: S1, S2. Regular rate and rhythm. ABDOMEN: Soft, no tenderness. EXTREMITIES: No edema of the feet. LABS: Hemoglobin 11.1, white count 6.8, BUN of 10, creatinine 0.4. Abdominal culture with gram-negative bacilli. DIAGNOSTIC IMPRESSION AND PLAN: Patient with abdominal abscess and cellulitis. This patient did have recent cholecystectomy. The patient is covered with cefepime. Flagyl to continue while waiting for the culture to finalize. Continue supportive care. MMODL / IJN: [id number] /
[2019-12-10] MEDS: SODIUM CHLORIDE 0.9% 1,000 ML IV SCH (16:26)
[2019-12-10] MEDS: CALCIUM CARBONATE LIQUID 500 MG/5 ML CUP PO SCH (16:26)
--- NOTE | 2019-12-10 17:07 | P.PN ---
Progress Note - Text Progress Note Date: 12/10/19 - Chief Complaint Drainage from the abdominal wound Consultation: This is a pleasant 84-year-old patient of Dr. Pimentel. Patient November 02 has undergone laparoscopic cholecystectomy by Dr. Adams. For cholecystitis and cholelithiasis. Patient was discharged to the [facility] about a month ago. Patient has been rather weak and tired. If not much of an appetite. Does not really ambulate because of weakness. Chronic stable medical conditions include atrial fibrillation, CHF, hypertension, hyperlipidemia, osteoarthritis, pacemaker with AICD. Patient was noted to have drainage from the epigastric laparoscopic insertion site. Was present in the room dark brown pus was coming out. Special squeezing surrounding. Patient has very limited tenderness. Denies any fever and chills. Appetite has been poor. Today-saliva some brownish discharge from the epigastric area. Denies pain. Oral intake remains to be poor. No appetite.. Review of systems: Was done for constitutional, cardiovascular, GI, pulmonary. relevant finding as above Active Medications Acetaminophen (Acetaminophen Tab 325 Mg Tab) 650 mg PO Q6HR PRN PRN Reason: Mild Pain or Fever > 100.5 Hydrocodone Bitart/Acetaminophen (Hydrocodone/Apap 5-325mg 1 Each Tab) 1 each PO Q6H PRN PRN Reason: Pain Last Admin: 12/10/19 15:55 Dose: 1 each Documented by: Albuterol/Ipratropium (Ipratropium-Albuterol 3 Ml Neb) 3 ml INHALATION RT-TID [facility] Last Admin: 12/10/19 13:09 Dose: Not Given Documented by: Atorvastatin Calcium (Atorvastatin 10 Mg Tab) 10 mg PO HS@2100 [facility] Last Admin: 12/09/19 20:28 Dose: 10 mg Documented by: Bisacodyl (Bisacodyl 10 Mg Supp) 10 mg RECTAL DAILY PRN PRN Reason: Constipation Calcium Carbonate/Glycine (Calcium Carbonate Liquid 500 Mg/5 Ml Cup) 500 mg PO TID-W/MEALS [facility] Last Admin: 12/10/19 16:26 Dose: 500 mg Documented by: Docusate Sodium (Docusate 100 Mg Cap) 100 mg PO DAILY PRN PRN Reason: Constipation Sodium Chloride (Saline 0.9%) 1,000 mls @ 60 mls/hr IV .[id number] [facility] Last Admin: 12/10/19 16:26 Dose: 60 mls/hr Documented by: Cefepime HCl 1 gm/ Sodium (Chloride) 50 mls @ 12.5 mls/hr IVPB Q12HR [facility] Last Admin: 12/10/19 08:24 Dose: 12.5 mls/hr Documented by: Metronidazole 500 mg/ IV (Solution) 100 mls @ 100 mls/hr IVPB Q6HR [facility] Last Admin: 12/10/19 13:43 Dose: 100 mls/hr Documented by: Magnesium Hydroxide (Magnesium Hydroxide 2,400 Mg/10 Ml Cup) 2,400 mg PO Q48H PRN PRN Reason: Constipation for 48 hours Melatonin (Melatonin 3 Mg Tablet) 3 mg PO HS [facility] Last Admin: 12/09/19 20:28 Dose: 3 mg Documented by: Metoprolol Succinate (Metoprolol Succinate (Er) 100 Mg Tab.Er.24h) 100 mg PO DAILY@0800 [facility] Last Admin: 12/10/19 08:23 Dose: 100 mg Documented by: Miscellaneous Information (Warfarin Per Pharmacy) 0 each MISCELLANE DIRECTED PRN PRN Reason: PHARMACY DOSING PROTOCOL Naloxone HCl (Naloxone 0.4 Mg/Ml 1 Ml Vial) 0.2 mg IV Q2M PRN PRN Reason: Opioid Reversal Ondansetron HCl (Ondansetron 4 Mg Tab) 4 mg PO Q8H PRN PRN Reason: Nausea Pantoprazole Sodium (Pantoprazole 40 Mg Tablet) 40 mg PO DAILY@0600 [facility] Last Admin: 12/10/19 05:48 Dose: 40 mg Documented by: Senna/Docusate Sodium (Sennosides-Docusate Sodium 1 Each Tab) 1 each PO BID@0800,1700 [facility] Last Admin: 12/10/19 16:26 Dose: 1 each Documented by: Warfarin Sodium (Warfarin 2.5 Mg Tab) 2.5 mg PO ONCE ONE Stop: 12/10/19 18:01 Physical examination: VITAL SIGNS: 97.9, 62, 16, 146/66, 93% on room air GENERAL:, laying in bed, tired. EYES: Pupils equal. Conjunctiva pale. NECK: JVD not raised; masses not palpable. HEART: First and second heart sounds are normal; no edema. LUNGS: Respiratory rate normal; decreased breath sounds. ABDOMEN: Soft, on squeezing in the epigastric area around the incision site brown exudate, , no tenderness, liver spleen not palpable, no masses palpable. MUSCULAR skeletal: Evidence of OA PSYCH: Alert and oriented x3; mood and affect tired. INVESTIGATIONS, reviewed in the clinical context: INR 2.3 Admission testing White count 8 hemoglobin 12.3 platelets 172 INR 3.2 potassium 3.8 creatinine 0.49 Albumin 3 Computed tomography scan of the abdomen moderate bilateral pleural effusion heart is enlarged some areas in the anterior biliary tree that is under 3 cm fluid collection of the gallbladder bed. Subcutis fluid over the anterior mid and right side of the abdomen pro-calcitonin 0.09 Assessment: -That is significant amount of dark brown fluid/pus coming out of the epigastric incision laparoscopic site. Appears to be subcutaneous abscess collection or old blood. Continues to drain today. -Status post laparoscopic cholecystectomy a month ago -Advancing medical debility -Mild protein calorie malnutrition from poor oral intake -Persistent atrial fibrillation -Chronic congestive heart failure from systolic dysfunction EF 30-35% -AICD pacemaker -Essential hypertension -Hyperlipidemia -Primary osteoarthritis -Significant anorexia. Patient not eating for a few days. Plan: Spoke to to nurse Prudence. To check with Dr. Adams if okay to start TPN and lipids. Also get a midline. Discussed with the patient. Repeat labs in the morning.
[2019-12-10] MEDS ORDERED: WARFARIN 2.5 MG TAB PO ONE (18:00)
[2019-12-10] MEDS: ATORVASTATIN 10 MG TAB PO SCH (20:08)
[2019-12-10] MEDS: MELATONIN 3 MG TABLET PO SCH (20:08)
[2019-12-11 05:11] LABS: Anisocytosis Slight; Basophils % (A) 1 %; Eosinophils # (A) 0.1 k/uL (0-0.7); Eosinophils % (A) 2 %; HCT 37.7 % (34.0-46.0); HGB 11.3 gm/dL (11.4-16.0); Hypochromasia Moderate; Lymphocytes # (A) 1.2 k/uL (1.0-4.8); Lymphocytes % (A) 16 %; MCH 27.3 pg (25.0-35.0); MCV 90.9 fL (80.0-100.0); Mean Platelet Volume 7.7; Monocytes # (A) 0.4 k/uL (0-1.0); Monocytes % (A) 6 %; Neutrophils # (A) 5.3 k/uL (1.3-7.7); Neutrophils % (A) 75 %; Platelet Count 152 k/uL (150-450); Poikilocytosis Slight; RBC 4.15 m/uL (3.80-5.40); RDW 16.4 % (11.5-15.5); WBC 7.2 k/uL (3.8-10.6)
[2019-12-11] MEDS: PANTOPRAZOLE 40 MG TABLET PO SCH (06:02)
[2019-12-11] MEDS: metroNIDAZOLE-NS PMX 500 MG in SALINE 1 100ML.BAG IVPB SCH ×4 (06:02→23:25)
[2019-12-11] MEDS: SODIUM CHLORIDE 0.9% 1,000 ML IV SCH (06:05)
[2019-12-11] MEDS: IPRATROPIUM-ALBUTEROL 3 ML NEB INHALATION SCH ×3 (07:19→20:27)
[2019-12-11] MEDS: SENNOSIDES-DOCUSATE SODIUM 1 EACH TAB PO SCH ×2 (07:49→17:25)
[2019-12-11] MEDS: CEFEPIME 1 GM in SODIUM CHLORIDE 0.9% 50 ML IVPB SCH (07:49)
[2019-12-11] MEDS: CALCIUM CARBONATE LIQUID 500 MG/5 ML CUP PO SCH ×3 (07:50→17:25)
[2019-12-11] MEDS: METOPROLOL SUCCINATE (ER) 100 MG TAB.ER.24H PO SCH (07:50)
[2019-12-11 09:09] LABS: INR 2.58 (0.90-1.11); Prothrombin Time 26.6 sec (9.9-11.9)
[2019-12-11 09:56] LABS: African American GFR (CKD) 104.5 (60.0-200.0); Albumin 2.5 g/dL (3.80-4.90); Albumin/Globulin Ratio 1.14 (1.60-3.17); Anion Gap 10.4 mmol/L (4.00-12.00); Calcium 7.6 mg/dL (8.7-10.3); Carbon Dioxide 29.6 mmol/L (21.6-31.8); Globulin 2.2 g/dL (1.6-3.3); Non-African American GFR(CKD) 90.1 (60.0-200.0); Potassium 3.2 mmol/L (3.5-5.5); Total Bilirubin 0.7 mg/dL (0.3-1.2); Total Protein 4.7 g/dL (6.2-8.2)
[2019-12-11] MEDS ORDERED: Potassium Replacement Protocol 1 EACH MISC MISCELLANE PRN (10:06)
[2019-12-11] MEDS: POTASSIUM CHLORIDE ER 20 MEQ TAB.ER PO SCH ×2 (10:10→11:15)
[2019-12-11] MEDS: ONDANSETRON 4 MG TAB PO PRN (10:42)
[2019-12-11] MEDS: HYDROcodone/APAP 5-325MG 1 EACH TAB PO PRN (11:15)
--- NOTE | 2019-12-11 13:55 | PN ---
PROGRESS NOTE DATE OF SERVICE: 12/11/2019 REASON FOR FOLLOWUP: Abdominal wall cellulitis and abscess. INTERVAL COURSE: The patient is currently afebrile. The patient is feeling better. Breathing comfortably. Overall abdominal pain has improved. No chest pain or cough or diarrhea. PHYSICAL EXAMINATION: Blood pressure 122/75 with a pulse of 57, temperature 97.6. She is 95% on room air. General description is an elderly female, lying in bed in no distress. RESPIRATORY SYSTEM: Unlabored breathing, clear to auscultation anteriorly. HEART: S1, S2. Regular rate and rhythm. ABDOMEN: Epigastric wound area swelling has decreased. Minimal drainage. LABS: Hemoglobin 11.1, white count 7.2, BUN of 10, creatinine 0.5. Culture positive for Klebsiella. DIAGNOSTIC IMPRESSION AND PLAN: Patient with abdominal wound infection. Culture has been positive for Klebsiella with resistant pattern. Cefepime dose to be up to 2 g q.12 continue along with Flagyl. Local care with Aquacel packing. Plan of care discussed with admitting physician. Continue supportive care. MARY CARMENL / WENDY: [id number] /
--- NOTE | 2019-12-11 15:16 | P.PN ---
Subjective Progress Note Date: 12/11/19 CHIEF COMPLAINT: Drainage from incision site HISTORY OF PRESENT ILLNESS: Patient is status post laparoscopic cholecystectomy with ERCP one month ago, 11/03/2019. She comes in with purulent drainage along e pigastrium. She denies pain. Afebrile. WBC 7.2. Culture results from drainage grew Klebsiella oxytoca. Patient does report having bowel movements. She denies any nausea or vomiting. She is still having a lot of drainage from the incision site PHYSICAL EXAM: VITAL SIGNS: Reviewed. GENERAL: Well-developed in no acute distress. HEENT: No sclera icterus. Extraocular movements grossly intact. Moist buccal mucosa. Head is atraumatic, normocephalic. ABDOMEN: Soft. Upper abdomen incision draining yellowish-green discharge NEUROLOGIC: Alert and oriented. Cranial nerves II through XII grossly intact. ASSESSMENT: 1. Surgical site infection with resistance and failed outpatient management 2. Status post laparoscopic cholecystectomy with ERCP one month ago, 11/03/2019 PLAN: -Wound packed by Dr. Adams -Apply wet-to-dry dressing change daily. -Apply Aquacel rope to infected incision site -Continue antibiotics per ID -Continue carb consistent diet Physician Director Of Recruitment And Admissions note has been reviewed by physician. Signing provider agrees with the documented findings, assessment, and plan of care. Objective - Vital Signs Vital signs: Vital Signs Temp 97.6 F 12/11/19 11:25 Pulse 57 L 12/11/19 11:25 Resp 18 12/11/19 11:25 BP 122/76 12/11/19 11:25 Pulse Ox 95 12/11/19 05:00 Intake & Output 12/10/19 12/11/19 12/11/19 18:59 06:59 18:59 Intake Total 150 610 Output Total 1 Balance 150 610 -1 Weight 72.5 kg Intake: Intake, IV Titration 150 610 Amount Cefepime 1 gm In Sodium 50 50 Chloride 0.9% 50 ml @ 12. 5 mls/hr IVPB Q12HR [facility] Rx#:[id number] Sodium Chloride 0.9% 1, 360 000 ml @ 60 mls/hr IV . [id number] [facility] Rx#:[id number] metroNIDAZOLE-NS PMX 500 100 200 mg In Saline 1 100ml.bag @ 100 mls/hr IVPB Q6HR [facility] Rx#:[id number] Output: Stool 1 Other: Voiding Method Bedpan Diaper Diaper Diaper Incontinent - Labs CBC & Chem 7: 12/11/19 04:48 12/11/19 04:48 Labs: Abnormal Lab Results - Last 24 Hours (Table) 12/11/19 12/11/19 12/11/19 Range/Units 04:48 04:48 04:48 Hgb 11.3 L (11.4-16.0) gm/dL MCHC 30.0 L (31.0-37.0) g/dL RDW 16.4 H (11.5-15.5) % PT 26.6 H (9.9-11.9) sec INR 2.58 H (0.90-1.11) Potassium 3.2 L (3.5-5.5) mmol/L Creatinine 0.5 L (0.6-1.5) mg/dL Calcium 7.6 L (8.7-10.3) mg/dL Alkaline Phosphatase 214 H (41-126) U/L Total Protein 4.7 L (6.2-8.2) g/dL Albumin 2.50 L (3.80-4.90) g/dL Albumin/Globulin Ratio 1.14 L (1.60-3.17) g/dL Microbiology - Last 24 Hours (Table) 12/08/19 14:00 Gram Stain - Final Incision Wound Culture - Final Klebsiella oxytoca
--- NOTE | 2019-12-11 16:11 | US ---
EXAMINATION TYPE: US abdomen limited DATE OF EXAM: 12/11/2019 COMPARISON: NONE CLINICAL HISTORY: subcutaneous abscess, epigastric. abscess mid/epigastric abdomen Scanned within area of concern, mid abdomen,complex hypoechoic area = 4.3cm IMPRESSION: 1. Ill-defined hypoechoic area which appears to be within the subcutaneous tissues of the midabdomen at the level of the area of concern. This is not as well defined as expected for abscess formation. H owever, this area appears to correspond to the findings on recent CT examination 12/07/2019. Consider seroma within the differential.
[2019-12-11] MEDS ORDERED: WARFARIN 2.5 MG TAB PO ONE (18:00)
[2019-12-11] MEDS: MELATONIN 3 MG TABLET PO SCH (20:01)
[2019-12-11] MEDS: CEFEPIME 2 GM in SODIUM CHLORIDE 0.9% 100 ML IVPB SCH (20:01)
[2019-12-11] MEDS: ATORVASTATIN 10 MG TAB PO SCH (20:01)
[2019-12-11] MEDS ORDERED: CEFEPIME 2 GM in SODIUM CHLORIDE 0.9% 50 ML IVPB SCH (21:00)
--- NOTE | 2019-12-11 22:22 | P.PN ---
Progress Note - Text Progress Note Date: 12/11/19 - Chief Complaint Drainage from the abdominal wound Consultation: This is a pleasant 84-year-old patient of Dr. Pimentel. Patient November 02 has undergone laparoscopic cholecystectomy by Dr. Adams. For cholecystitis and cholelithiasis. Patient was discharged to the [facility] about a month ago. Patient has been rather weak and tired. If not much of an appetite. Does not really ambulate because of weakness. Chronic stable medical conditions include atrial fibrillation, CHF, hypertension, hyperlipidemia, osteoarthritis, pacemaker with AICD. Patient was noted to have drainage from the epigastric laparoscopic insertion site. Was present in the room dark brown pus was coming out. Special squeezing surrounding. Patient has very limited tenderness. Denies any fever and chills. Appetite has been poor. Today-I'm still able to push out some brown pus from the epigastric incision area. Appetite remains poor. Tired. Review of systems: Was done for constitutional, cardiovascular, GI, pulmonary. relevant finding as above Active Medications Acetaminophen (Acetaminophen Tab 325 Mg Tab) 650 mg PO Q6HR PRN PRN Reason: Mild Pain or Fever > 100.5 Hydrocodone Bitart/Acetaminophen (Hydrocodone/Apap 5-325mg 1 Each Tab) 1 each PO Q6H PRN PRN Reason: Pain Last Admin: 12/11/19 11:15 Dose: 1 each Documented by: Albuterol/Ipratropium (Ipratropium-Albuterol 3 Ml Neb) 3 ml INHALATION RT-TID [facility] Last Admin: 12/11/19 20:27 Dose: Not Given Documented by: Atorvastatin Calcium (Atorvastatin 10 Mg Tab) 10 mg PO HS@2100 [facility] Last Admin: 12/11/19 20:01 Dose: 10 mg Documented by: Bisacodyl (Bisacodyl 10 Mg Supp) 10 mg RECTAL DAILY PRN PRN Reason: Constipation Calcium Carbonate/Glycine (Calcium Carbonate Liquid 500 Mg/5 Ml Cup) 500 mg PO TID-W/MEALS [facility] Last Admin: 12/11/19 17:25 Dose: 500 mg Documented by: Docusate Sodium (Docusate 100 Mg Cap) 100 mg PO DAILY PRN PRN Reason: Constipation Sodium Chloride (Saline 0.9%) 1,000 mls @ 60 mls/hr IV .[id number] [facility] Last Admin: 12/11/19 06:05 Dose: 60 mls/hr Documented by: Metronidazole 500 mg/ IV (Solution) 100 mls @ 100 mls/hr IVPB Q6HR [facility] Last Admin: 12/11/19 17:25 Dose: 100 mls/hr Documented by: Cefepime HCl 2 gm/ Sodium (Chloride) 100 mls @ 25 mls/hr IVPB Q12HR [facility] Last Admin: 12/11/19 20:01 Dose: 25 mls/hr Documented by: Magnesium Hydroxide (Magnesium Hydroxide 2,400 Mg/10 Ml Cup) 2,400 mg PO Q48H PRN PRN Reason: Constipation for 48 hours Melatonin (Melatonin 3 Mg Tablet) 3 mg PO HS [facility] Last Admin: 12/11/19 20:01 Dose: 3 mg Documented by: Metoprolol Succinate (Metoprolol Succinate (Er) 100 Mg Tab.Er.24h) 100 mg PO DAILY@0800 [facility] Last Admin: 12/11/19 07:50 Dose: 100 mg Documented by: Miscellaneous Information (Warfarin Per Pharmacy) 0 each MISCELLANE DIRECTED PRN PRN Reason: PHARMACY DOSING PROTOCOL Miscellaneous Information (Potassium Replacement Protocol 1 Each Misc) 1 each MISCELLANE DAILY PRN; Protocol PRN Reason: Per Protocol Naloxone HCl (Naloxone 0.4 Mg/Ml 1 Ml Vial) 0.2 mg IV Q2M PRN PRN Reason: Opioid Reversal Ondansetron HCl (Ondansetron 4 Mg Tab) 4 mg PO Q8H PRN PRN Reason: Nausea Last Admin: 12/11/19 10:42 Dose: 4 mg Documented by: Pantoprazole Sodium (Pantoprazole 40 Mg Tablet) 40 mg PO DAILY@0600 [facility] Last Admin: 12/11/19 06:02 Dose: 40 mg Documented by: Senna/Docusate Sodium (Sennosides-Docusate Sodium 1 Each Tab) 1 each PO BID@0800,1700 [facility] Last Admin: 12/11/19 17:25 Dose: 1 each Documented by: Physical examination: VITAL SIGNS: 97.6, 57, 18, 122/76, GENERAL:, laying in bed, tired. EYES: Pupils equal. Conjunctiva pale. NECK: JVD not raised; masses not palpable. HEART: First and second heart sounds are normal; no edema. LUNGS: Respiratory rate normal; decreased breath sounds. ABDOMEN: Soft, on squeezing in the epigastric area around the incision site brown exudate, , no tenderness, liver spleen not palpable, no masses palpable. MUSCULAR skeletal: Evidence of OA PSYCH: Alert and oriented x3; mood and affect tired. INVESTIGATIONS, reviewed in the clinical context: White count 7.2 hemoglobin 11.3 INR 2.5 potassium 3.2 creatinine 0.5 Admission testing White count 8 hemoglobin 12.3 platelets 172 INR 3.2 potassium 3.8 creatinine 0.49 Albumin 3 Computed tomography scan of the abdomen moderate bilateral pleural effusion heart is enlarged some areas in the anterior biliary tree that is under 3 cm fluid collection of the gallbladder bed. Subcutis fluid over the anterior mid and right side of the abdomen pro-calcitonin 0.09 Assessment: -That is significant amount of dark brown fluid/pus coming out of the epigastric incision laparoscopic site. Appears to be subcutaneous abscess collection or old blood. Continues to drain today. -Status post laparoscopic cholecystectomy a month ago -Advancing medical debility -Mild protein calorie malnutrition from poor oral intake -Persistent atrial fibrillation -Chronic congestive heart failure from systolic dysfunction EF 30-35% -AICD pacemaker -Essential hypertension -Hyperlipidemia -Primary osteoarthritis -Significant anorexia. Patient not eating for a few days. Plan: Patient on cefepime and IV Flagyl. Spoke to the nurse to communicate with Sharda about TPN and lipids as discussed with Dr. Adams last night.
[2019-12-12 04:24] LABS: Anisocytosis Slight; Basophils % (A) 1 %; Eosinophils # (A) 0.1 k/uL (0-0.7); Eosinophils % (A) 2 %; HCT 37.5 % (34.0-46.0); HGB 11.4 gm/dL (11.4-16.0); Hypochromasia Marked; Lymphocytes # (A) 0.9 k/uL (1.0-4.8); Lymphocytes % (A) 14 %; MCH 27.8 pg (25.0-35.0); MCHC 30.4 g/dL (31.0-37.0); MCV 91.3 fL (80.0-100.0); Mean Platelet Volume 7.7; Monocytes # (A) 0.3 k/uL (0-1.0); Monocytes % (A) 5 %; Neutrophils # (A) 4.9 k/uL (1.3-7.7); Neutrophils % (A) 75 %; Platelet Count 158 k/uL (150-450); Poikilocytosis Slight; RBC 4.11 m/uL (3.80-5.40); RDW 16.5 % (11.5-15.5); WBC 6.5 k/uL (3.8-10.6)
[2019-12-12] MEDS: PANTOPRAZOLE 40 MG TABLET PO SCH (04:56)
[2019-12-12] MEDS: metroNIDAZOLE-NS PMX 500 MG in SALINE 1 100ML.BAG IVPB SCH ×3 (04:56→17:22)
[2019-12-12] MEDS: SODIUM CHLORIDE 0.9% 1,000 ML IV SCH ×2 (04:57→17:19)
[2019-12-12] MEDS: IPRATROPIUM-ALBUTEROL 3 ML NEB INHALATION SCH ×3 (07:12→20:20)
[2019-12-12 09:02] LABS: Magnesium 1.3 mg/dL (1.5-2.4); Potassium 3.3 mmol/L (3.5-5.5)
[2019-12-12] MEDS: SENNOSIDES-DOCUSATE SODIUM 1 EACH TAB PO SCH ×2 (09:03→17:21)
[2019-12-12] MEDS: CEFEPIME 2 GM in SODIUM CHLORIDE 0.9% 100 ML IVPB SCH ×2 (09:03→20:36)
[2019-12-12] MEDS: CALCIUM CARBONATE LIQUID 500 MG/5 ML CUP PO SCH ×3 (09:04→17:21)
[2019-12-12] MEDS: METOPROLOL SUCCINATE (ER) 100 MG TAB.ER.24H PO SCH (09:04)
[2019-12-12 09:09] LABS: INR 2.87 (0.90-1.11); Prothrombin Time 29.5 sec (9.9-11.9)
[2019-12-12] MEDS: HYDROcodone/APAP 5-325MG 1 EACH TAB PO PRN (09:14)
[2019-12-12] MEDS ORDERED: POTASSIUM CHLORIDE ER 20 MEQ TAB.ER PO STA (09:29)
[2019-12-12] MEDS ORDERED: PHYTONADIONE 2 MG in SODIUM CHLORIDE 0.9% 50 ML IVPB STA (10:33)
[2019-12-12] MEDS ORDERED: PHYTONADIONE ORAL 5 MG/5 ML ORAL.SYRG PO STA (10:59)
[2019-12-12 12:38] LABS: African American GFR (CKD) 104.5 (60.0-200.0); Albumin 2.4 g/dL (3.80-4.90); Albumin/Globulin Ratio 1.14 (1.60-3.17); Anion Gap 18.4 mmol/L (4.00-12.00); Calcium 7.3 mg/dL (8.7-10.3); Carbon Dioxide 21.6 mmol/L (21.6-31.8); Globulin 2.1 g/dL (1.6-3.3); Non-African American GFR(CKD) 90.1 (60.0-200.0); Phosphorus 2.2 mg/dL (2.4-5.1); Potassium 3.4 mmol/L (3.5-5.5); Total Bilirubin 0.6 mg/dL (0.3-1.2); Total Protein 4.5 g/dL (6.2-8.2)
[2019-12-12] MEDS: MAGNESIUM SULFATE-D5W PMX 1 GM in DEXTROSE/WATER 1 100ML.BAG IVPB SCH ×2 (13:51→14:50)
--- NOTE | 2019-12-12 14:06 | PN ---
PROGRESS NOTE DATE OF SERVICE: 12/12/2019 REASON FOR FOLLOWUP: Abdominal wall cellulitis, abscess. INTERVAL HISTORY: The patient is currently afebrile. The patient is breathing comfortably. The patient denies having any chest pain or cough. No nausea, no vomiting. Still some discomfort in the abdominal wall, but no worsening. PHYSICAL EXAMINATION: Blood pressure 110/59, pulse of 65, temperature 98.1. She is 99% on 2 L nasal cannula. General description is an elderly female, lying in bed in no distress. RESPIRATORY SYSTEM: Unlabored breathing, clear to auscultation anteriorly. HEART: S1, S2. Regular rate and rhythm. ABDOMEN: Soft, abdominal wound cellulitis induration has decreased. LABS: Hemoglobin is 11.4, white count is 6.5, BUN of 10, creatinine 0.5. Local culture with Klebsiella, anaerobes. DIAGNOSTIC IMPRESSION/PLAN: Patient with abdominal wall cellulitis and abscess. Local culture with Klebsiella, anaerobes. Patient is covered with cefepime, Flagyl to continue. Local wound care with dry Aquacel dressing. Continue supportive care. MMODL / IJN: [id number] /
--- NOTE | 2019-12-12 14:30 | P.PN ---
Subjective Progress Note Date: 12/12/19 CHIEF COMPLAINT: Drainage from incision site HISTORY OF PRESENT ILLNESS: Patient is status post laparoscopic cholecystectomy with ERCP one month ago, 11/03/2019. She comes in with purulent drainage along e pigastrium. She denies pain. Afebrile. WBC 6.5. Potassium 3.3 magnesium 1.3 Culture results from drainage grew Klebsiella oxytoca. Patient does report having bowel movements. She denies any nausea or vomiting. She is still having drainage from the incision site PHYSICAL EXAM: VITAL SIGNS: Reviewed. GENERAL: Well-developed in no acute distress. HEENT: No sclera icterus. Extraocular movements grossly intact. Moist buccal mucosa. Head is atraumatic, normocephalic. ABDOMEN: Soft. Upper abdomen incision draining yellowish-green discharge NEUROLOGIC: Alert and oriented. Cranial nerves II through XII grossly intact. ASSESSMENT: 1. Surgical site infection with resistance and failed outpatient management 2. Status post laparoscopic cholecystectomy with ERCP one month ago, 11/03/2019 3. Hypokalemia and hypomagnesemia PLAN: -Dressing changed by Dr. Adams -Apply wet-to-dry dressing change daily. -Apply Aquacel rope to infected incision site -Continue antibiotics per ID -Continue carb consistent diet -Replace magnesium and potassium and repeat labs in a.m. Physician Hole Filler note has been reviewed by physician. Signing provider agrees with the documented findings, assessment, and plan of care. Objective - Vital Signs Vital signs: Vital Signs Temp 98.1 F 12/12/19 11:11 Pulse 58 L 12/12/19 14:01 Resp 18 12/12/19 11:11 BP 122/59 12/12/19 11:11 Pulse Ox 99 12/12/19 11:11 Intake & Output 12/11/19 12/12/19 12/12/19 18:59 06:59 18:59 Output Total 1 1 Balance -1 -1 Weight 72 kg 72 kg Output: Stool 1 1 Other: Voiding Method Diaper Diaper Diaper Incontinent Incontinent Incontinent # Voids 3 1 # Bowel Movements 1 - Labs CBC & Chem 7: 12/12/19 03:28 12/12/19 03:28 Labs: Abnormal Lab Results - Last 24 Hours (Table) 12/11/19 12/12/19 12/12/19 Range/Units 15:11 03:23 03:28 MCHC (31.0-37.0) g/dL RDW (11.5-15.5) % Lymphocytes # (1.0-4.8) k/uL PT 29.5 H (9.9-11.9) sec INR 2.87 H (0.90-1.11) Potassium 3.3 L 3.4 L (3.5-5.5) mmol/L Anion Gap 18.40 H (4.00-12.00) mmol/L Creatinine 0.5 L (0.6-1.5) mg/dL Calcium 7.3 L (8.7-10.3) mg/dL Phosphorus 2.2 L (2.4-5.1) mg/dL Magnesium (1.5-2.4) mg/dL Alkaline Phosphatase 195 H (41-126) U/L Total Protein 4.5 L (6.2-8.2) g/dL Albumin 2.40 L (3.80-4.90) g/dL Albumin/Globulin Ratio 1.14 L (1.60-3.17) g/dL 12/12/19 12/12/19 Range/Units 03:28 03:28 MCHC 30.4 L (31.0-37.0) g/dL RDW 16.5 H (11.5-15.5) % Lymphocytes # 0.9 L (1.0-4.8) k/uL PT (9.9-11.9) sec INR (0.90-1.11) Potassium 3.3 L (3.5-5.5) mmol/L Anion Gap (4.00-12.00) mmol/L Creatinine (0.6-1.5) mg/dL Calcium (8.7-10.3) mg/dL Phosphorus (2.4-5.1) mg/dL Magnesium 1.3 L (1.5-2.4) mg/dL Alkaline Phosphatase (41-126) U/L Total Protein (6.2-8.2) g/dL Albumin (3.80-4.90) g/dL Albumin/Globulin Ratio (1.60-3.17) g/dL Microbiology - Last 24 Hours (Table) 12/08/19 14:00 Anaerobic Culture - Final Abdomen Anaerobic Gm Negative Bacilli
[2019-12-12 19:40] LABS: Glucose,Whole Blood 106 mg/dL (75-99)
[2019-12-12] MEDS: ATORVASTATIN 10 MG TAB PO SCH (20:35)
[2019-12-12] MEDS: MELATONIN 3 MG TABLET PO SCH (20:35)
--- NOTE | 2019-12-12 20:58 | P.PN ---
Progress Note - Text Progress Note Date: 12/12/19 - Chief Complaint Drainage from the abdominal wound Consultation: This is a pleasant 84-year-old patient of Dr. Pimentel. Patient November 02 has undergone laparoscopic cholecystectomy by Dr. Adams. For cholecystitis and cholelithiasis. Patient was discharged to the [facility] about a month ago. Patient has been rather weak and tired. If not much of an appetite. Does not really ambulate because of weakness. Chronic stable medical conditions include atrial fibrillation, CHF, hypertension, hyperlipidemia, osteoarthritis, pacemaker with AICD. Patient was noted to have drainage from the epigastric laparoscopic insertion site. Was present in the room dark brown pus was coming out. Special squeezing surrounding. Patient has very limited tenderness. Denies any fever and chills. Appetite has been poor. Today-PICC line could not be placed because of INR 2.5. White count came disordered. Pending TPN and lipids. Tired. It is small amount this morning. Review of systems: Was done for constitutional, cardiovascular, GI, pulmonary. relevant finding as above Active Medications Acetaminophen (Acetaminophen Tab 325 Mg Tab) 650 mg PO Q6HR PRN PRN Reason: Mild Pain or Fever > 100.5 Hydrocodone Bitart/Acetaminophen (Hydrocodone/Apap 5-325mg 1 Each Tab) 1 each PO Q6H PRN PRN Reason: Pain Last Admin: 12/12/19 09:14 Dose: 1 each Documented by: Albuterol/Ipratropium (Ipratropium-Albuterol 3 Ml Neb) 3 ml INHALATION RT-TID [facility] Last Admin: 12/12/19 20:20 Dose: 3 ml Documented by: Atorvastatin Calcium (Atorvastatin 10 Mg Tab) 10 mg PO HS@2100 [facility] Last Admin: 12/12/19 20:35 Dose: 10 mg Documented by: Bisacodyl (Bisacodyl 10 Mg Supp) 10 mg RECTAL DAILY PRN PRN Reason: Constipation Calcium Carbonate/Glycine (Calcium Carbonate Liquid 500 Mg/5 Ml Cup) 500 mg PO TID-W/MEALS [facility] Last Admin: 12/12/19 17:21 Dose: 500 mg Documented by: Docusate Sodium (Docusate 100 Mg Cap) 100 mg PO DAILY PRN PRN Reason: Constipation Sodium Chloride (Saline 0.9%) 1,000 mls @ 60 mls/hr IV .[id number] [facility] Last Admin: 12/12/19 17:19 Dose: Not Given Documented by: Metronidazole 500 mg/ IV (Solution) 100 mls @ 100 mls/hr IVPB Q6HR [facility] Last Admin: 12/12/19 17:22 Dose: 100 mls/hr Documented by: Cefepime HCl 2 gm/ Sodium (Chloride) 100 mls @ 25 mls/hr IVPB Q12HR [facility] Last Admin: 12/12/19 20:36 Dose: 25 mls/hr Documented by: Magnesium Hydroxide (Magnesium Hydroxide 2,400 Mg/10 Ml Cup) 2,400 mg PO Q48H PRN PRN Reason: Constipation for 48 hours Melatonin (Melatonin 3 Mg Tablet) 3 mg PO HS [facility] Last Admin: 12/12/19 20:35 Dose: 3 mg Documented by: Metoprolol Succinate (Metoprolol Succinate (Er) 100 Mg Tab.Er.24h) 100 mg PO DAILY@0800 [facility] Last Admin: 12/12/19 09:04 Dose: 100 mg Documented by: Miscellaneous Information (Potassium Replacement Protocol 1 Each Misc) 1 each MISCELLANE DAILY PRN; Protocol PRN Reason: Per Protocol Naloxone HCl (Naloxone 0.4 Mg/Ml 1 Ml Vial) 0.2 mg IV Q2M PRN PRN Reason: Opioid Reversal Ondansetron HCl (Ondansetron 4 Mg Tab) 4 mg PO Q8H PRN PRN Reason: Nausea Last Admin: 12/11/19 10:42 Dose: 4 mg Documented by: Pantoprazole Sodium (Pantoprazole 40 Mg Tablet) 40 mg PO DAILY@0600 [facility] Last Admin: 12/12/19 04:56 Dose: 40 mg Documented by: Senna/Docusate Sodium (Sennosides-Docusate Sodium 1 Each Tab) 1 each PO BID@0800,1700 [facility] Last Admin: 12/12/19 17:21 Dose: 1 each Documented by: Physical examination: VITAL SIGNS: 98.1, 65, 18, 122/59, 99% on 2 L GENERAL:, laying in bed, tired. EYES: Pupils equal. Conjunctiva pale. NECK: JVD not raised; masses not palpable. HEART: First and second heart sounds are normal; no edema. LUNGS: Respiratory rate normal; decreased breath sounds. ABDOMEN: Soft, some drainage from the epigastric area at the laparoscopic trocar site, , no tenderness, liver spleen not palpable, no masses palpable. MUSCULAR skeletal: Evidence of OA PSYCH: Alert and oriented x3; mood and affect tired. INVESTIGATIONS, reviewed in the clinical context: White count 6.5 hemoglobin 11.4 potassium 3.3 creatinine 0.5 Admission testing White count 8 hemoglobin 12.3 platelets 172 INR 3.2 potassium 3.8 creatinine 0.49 Albumin 3 Computed tomography scan of the abdomen moderate bilateral pleural effusion heart is enlarged some areas in the anterior biliary tree that is under 3 cm fluid collection of the gallbladder bed. Subcutis fluid over the anterior mid and right side of the abdomen pro-calcitonin 0.09 Wound culture-capsular oxytoca Assessment: -That is significant amount of dark brown fluid/pus coming out of the epigastric incision laparoscopic site. Appears to be subcutaneous abscess collection or old blood. Positive for Klebsiella oxytoca -Status post laparoscopic cholecystectomy a month ago -Advancing medical debility -Mild protein calorie malnutrition from poor oral intake -Persistent atrial fibrillation -Chronic congestive heart failure from systolic dysfunction EF 30-35% -AICD pacemaker -Essential hypertension -Hyperlipidemia -Primary osteoarthritis -Significant anorexia. Patient not eating for a few days. -Pending midline start the patient on TPN and lipids. Plan: -Continue cefepime and IV Flagyl. Given vitamin K for midline so that patient be restarted on TPN and lipids. Vitamin K was given earlier. Discussed with the patient.
[2019-12-13] MEDS: metroNIDAZOLE-NS PMX 500 MG in SALINE 1 100ML.BAG IVPB SCH ×4 (00:58→18:29)
[2019-12-13] MEDS: PANTOPRAZOLE 40 MG TABLET PO SCH (06:11)
[2019-12-13 06:30] LABS: Anisocytosis Slight; Basophils # (A) 0.1 k/uL (0-0.2); Basophils % (A) 1 %; Eosinophils # (A) 0.1 k/uL (0-0.7); Eosinophils % (A) 2 %; HCT 35.9 % (34.0-46.0); HGB 10.9 gm/dL (11.4-16.0); Hypochromasia Moderate; Lymphocytes % (A) 17 %; MCH 27.6 pg (25.0-35.0); MCHC 30.4 g/dL (31.0-37.0); Mean Platelet Volume 7.4; Monocytes # (A) 0.4 k/uL (0-1.0); Monocytes % (A) 6 %; Neutrophils # (A) 4.4 k/uL (1.3-7.7); Neutrophils % (A) 72 %; Platelet Count 149 k/uL (150-450); Poikilocytosis Slight; RBC 3.95 m/uL (3.80-5.40); RDW 16.5 % (11.5-15.5); WBC 6.1 k/uL (3.8-10.6)
[2019-12-13] MEDS: IPRATROPIUM-ALBUTEROL 3 ML NEB INHALATION SCH ×3 (07:47→20:06)
[2019-12-13 09:00] LABS: INR 1.33 (0.90-1.11); Prothrombin Time 14.1 sec (9.9-11.9)
[2019-12-13] MEDS: CEFEPIME 2 GM in SODIUM CHLORIDE 0.9% 100 ML IVPB SCH ×2 (09:14→20:25)
[2019-12-13] MEDS: SENNOSIDES-DOCUSATE SODIUM 1 EACH TAB PO SCH ×2 (09:18→18:28)
[2019-12-13] MEDS: CALCIUM CARBONATE LIQUID 500 MG/5 ML CUP PO SCH ×3 (09:18→18:28)
[2019-12-13] MEDS: METOPROLOL SUCCINATE (ER) 100 MG TAB.ER.24H PO SCH (09:18)
[2019-12-13] MEDS: SODIUM CHLORIDE 0.9% 1,000 ML IV SCH (09:18)
[2019-12-13 09:20] LABS: African American GFR (CKD) 112.4 (60.0-200.0); Anion Gap 7.9 mmol/L (4.00-12.00); Calcium 7.8 mg/dL (8.7-10.3); Carbon Dioxide 29.1 mmol/L (21.6-31.8); Magnesium 1.6 mg/dL (1.5-2.4); Potassium 3.6 mmol/L (3.5-5.5)
[2019-12-13] MEDS: HYDROcodone/APAP 5-325MG 1 EACH TAB PO PRN (09:22)
[2019-12-13] MEDS ORDERED: IV FLUID CONTINUATION 1,000 ML IV ONE (13:34)
[2019-12-13] MEDS ORDERED: LIDOCAINE 1% INJ 10MG/ML (20 ML MDV) ONE (13:37)
[2019-12-13] MEDS ORDERED: LIDOCAINE 1% INJ 10MG/ML (20 ML MDV) SQ ONE (13:58)
[2019-12-13] MEDS ORDERED: MAGNESIUM SULFATE-D5W PMX 1 GM in DEXTROSE/WATER 1 100ML.BAG IVPB ONE (15:36)
--- NOTE | 2019-12-13 15:37 | P.PN ---
Subjective Progress Note Date: 12/13/19 CHIEF COMPLAINT: Drainage from incision site HISTORY OF PRESENT ILLNESS: Patient is status post laparoscopic cholecystectomy with ERCP one month ago, 11/03/2019. She comes in with purulent drainage along e pigastrium. She denies pain. Afebrile. WBC 6.1. Potassium 3.6 magnesium 1.6 Culture results from drainage grew Klebsiella oxytoca. Patient does report having bowel movements. She denies any nausea or vomiting. Decrease in drainage from her incision site. Patient has poor oral intake and medicine has started her on TPN PHYSICAL EXAM: VITAL SIGNS: Reviewed. GENERAL: Well-developed in no acute distress. HEENT: No sclera icterus. Extraocular movements grossly intact. Moist buccal mucosa. Head is atraumatic, normocephalic. ABDOMEN: Soft. Upper abdomen incision decrease in erythema around the incision. Decrease in drainage NEUROLOGIC: Alert and oriented. Cranial nerves II through XII grossly intact. ASSESSMENT: 1. Surgical site infection with resistance and failed outpatient management 2. Status post laparoscopic cholecystectomy with ERCP one month ago, 11/03/2019 3. Hypokalemia resolved 4. hypomagnesemia PLAN: -Continue to change dressing daily -Apply wet-to-dry dressing change daily. -Apply Aquacel rope to infected incision site -Continue antibiotics per ID -Continue carb consistent diet -Replace magnesium Physician Bond Writer note has been reviewed by physician. Signing provider agrees with the documented findings, assessment, and plan of care. Objective - Vital Signs Vital signs: Vital Signs Temp 98.5 F 12/13/19 12:06 Pulse 68 12/13/19 12:08 Resp 16 12/13/19 12:06 BP 122/71 12/13/19 12:06 Pulse Ox 99 12/13/19 12:06 Intake & Output 12/12/19 12/13/19 12/13/19 18:59 06:59 18:59 Intake Total 350 0 530 Output Total 1 Balance 350 -1 530 Weight 72 kg 70.5 kg Intake: IV 50 Intake, IV Titration 350 480 Amount Cefepime 2 gm In Sodium 100 Chloride 0.9% 100 ml @ 25 mls/hr IVPB Q12HR [facility] Rx #:[id number] Magnesium Sulfate-D5w Pmx 100 1 gm In Dextrose/Water 1 100ml.bag @ 100 mls/hr IVPB Q1H [facility] Rx#: [id number] Phytonadione 2 mg In 50 Sodium Chloride 0.9% 50 ml @ 100 mls/hr IVPB [facility] Rx#:[id number] Sodium Chloride 0.9% 1, 480 000 ml @ 60 mls/hr IV . [id number] [facility] Rx#:[id number] metroNIDAZOLE-NS PMX 500 100 mg In Saline 1 100ml.bag @ 100 mls/hr IVPB Q6HR [facility] Rx#:[id number] Oral 0 Output: Stool 1 Other: Voiding Method Diaper Diaper Diaper Incontinent Incontinent Incontinent # Voids 2 - Labs CBC & Chem 7: 12/13/19 05:54 12/13/19 05:54 Labs: Abnormal Lab Results - Last 24 Hours (Table) 12/12/19 12/13/19 12/13/19 Range/Units 19:39 05:54 05:54 Hgb 10.9 L (11.4-16.0) gm/dL MCHC 30.4 L (31.0-37.0) g/dL RDW 16.5 H (11.5-15.5) % Plt Count 149 L (150-450) k/uL PT 14.1 H (9.9-11.9) sec INR 1.33 H (0.90-1.11) BUN (9.0-27.0) mg/dL Creatinine (0.6-1.5) mg/dL POC Glucose (mg/dL) 106 H (75-99) mg/dL Calcium (8.7-10.3) mg/dL 12/13/19 Range/Units 05:54 Hgb (11.4-16.0) gm/dL MCHC (31.0-37.0) g/dL RDW (11.5-15.5) % Plt Count (150-450) k/uL PT (9.9-11.9) sec INR (0.90-1.11) BUN 8.0 L (9.0-27.0) mg/dL Creatinine 0.4 L (0.6-1.5) mg/dL POC Glucose (mg/dL) (75-99) mg/dL Calcium 7.8 L (8.7-10.3) mg/dL
--- NOTE | 2019-12-13 15:50 | IR ---
EXAMINATION TYPE: IR cvc insert >=5 years DATE OF EXAM: 12/13/2019 COMPARISON: NONE CLINICAL HISTORY: Infection Needs long-term intravenous access for antibiotics. PROCEDURE: Hand hygiene obtained with soap and water and alcohol-based hand rub. After informed consent, the skin overlying the right basilic vein was localized with ultrasound and n oted to be compressible and patent. An ultrasound image was obtained and submitted on the patient's chart. The overlying skin was prepped and draped and Lidocaine was used for local anesthesia. A ski n martínez was made with a scalpel. Access was gained to the vein under ultrasound guidance with a 21 ga uge needle and a 0.018 inch wire was advanced. Access site was dilated with Peel-Away sheath and cat heter tailored to the appropriate length and advanced such that the distal tip is at the cavoatrial j unction. Spot image was obtained verifying placement. Catheter was fixed to the skin and a sterile dressing was placed following hemostasis. Catheter was aspirated and flushed with saline. Patient w as discharged in stable condition without complication. Maximal barrier technique is utilized. Ultra sound image is documented on the chart. Ultrasound used with sterile technique. Fluoro time and fluoroscopic images submitted to document procedure: 75 intraoperative images, 1 eddie te fluoroscopy time IMPRESSION: STATUS POST ULTRASOUND AND FLUOROSCOPIC GUIDED PICC LINE PLACEMENT, READY FOR USE. THIS PROCEDURE WAS PERFORMED BY THE UNDERSIGNED.
--- NOTE | 2019-12-13 17:28 | PN ---
PROGRESS NOTE DATE OF SERVICE: 12/13/2019 REASON FOR FOLLOWUP: Abdominal wall abscess and cellulitis. INTERVAL HISTORY: The patient is currently afebrile. The patient has been complaining of feeling nauseated but no vomiting. No chest pain. No shortness of breath or cough. Abdominal pain has decreased intensity. PHYSICAL EXAMINATION: Blood pressure 122/70 with a pulse of 69, temperature 98.5, she is 99% on 2 L nasal cannula. General description is an elderly female, lying in bed in no distress. RESPIRATORY SYSTEM: Unlabored breathing, clear to auscultation anteriorly. HEART: S1, S2. Regular rate and rhythm. ABDOMEN: Abdominal wall swelling has decreased. LABS: Hemoglobin 10.1, white count 6.1, BUN of 8, creatinine 0.4. DIAGNOSTIC IMPRESSION AND PLAN: Patient with abdominal wall abscess, cellulitis, culture with Klebsiella and anaerobes. Currently on cefepime and Flagyl. Finish therapy with oral Cipro and Flagyl for about 10 days. Discussed with the nurse practitioner for the surgical team. MMODL / IJN: [id number] /
[2019-12-13] MEDS: 1: MVI, ADULT NO.4 WITH VIT K 10 ML, TRACE (CONC-1ML/DOSE) 1 ML in AMINO ACID 5%-D15W+LY IV SCH ×3 (20:22)
[2019-12-13] MEDS: MELATONIN 3 MG TABLET PO SCH (20:25)
[2019-12-13] MEDS: ATORVASTATIN 10 MG TAB PO SCH (20:25)
[2019-12-13 20:27] LABS: Glucose,Whole Blood 101 mg/dL (75-99)
--- NOTE | 2019-12-13 21:16 | P.PN ---
Progress Note - Text Progress Note Date: 12/13/19 - Chief Complaint Drainage from the abdominal wound Consultation: This is a pleasant 84-year-old patient of Dr. Pimentel. Patient November 02 has undergone laparoscopic cholecystectomy by Dr. Adams. For cholecystitis and cholelithiasis. Patient was discharged to the [facility] about a month ago. Patient has been rather weak and tired. If not much of an appetite. Does not really ambulate because of weakness. Chronic stable medical conditions include atrial fibrillation, CHF, hypertension, hyperlipidemia, osteoarthritis, pacemaker with AICD. Patient was noted to have drainage from the epigastric laparoscopic insertion site. Was present in the room dark brown pus was coming out. Special squeezing surrounding. Patient has very limited tenderness. Denies any fever and chills. Appetite has been poor. Midline place. Today-patient started on TPN and lipids. Decreased appetite. Tired. Review of systems: Was done for constitutional, cardiovascular, GI, pulmonary. relevant finding as above Active Medications Acetaminophen (Acetaminophen Tab 325 Mg Tab) 650 mg PO Q6HR PRN PRN Reason: Mild Pain or Fever > 100.5 Hydrocodone Bitart/Acetaminophen (Hydrocodone/Apap 5-325mg 1 Each Tab) 1 each PO Q6H PRN PRN Reason: Pain Last Admin: 12/13/19 09:22 Dose: 1 each Documented by: Albuterol/Ipratropium (Ipratropium-Albuterol 3 Ml Neb) 3 ml INHALATION RT-TID [facility] Last Admin: 12/13/19 20:06 Dose: Not Given Documented by: Atorvastatin Calcium (Atorvastatin 10 Mg Tab) 10 mg PO HS@2100 [facility] Last Admin: 12/13/19 20:25 Dose: 10 mg Documented by: Bisacodyl (Bisacodyl 10 Mg Supp) 10 mg RECTAL DAILY PRN PRN Reason: Constipation Calcium Carbonate/Glycine (Calcium Carbonate Liquid 500 Mg/5 Ml Cup) 500 mg PO TID-W/MEALS [facility] Last Admin: 12/13/19 18:28 Dose: 500 mg Documented by: Docusate Sodium (Docusate 100 Mg Cap) 100 mg PO DAILY PRN PRN Reason: Constipation Sodium Chloride (Saline 0.9%) 1,000 mls @ 60 mls/hr IV .[id number] [facility] Last Admin: 12/13/19 09:18 Dose: 60 mls/hr Documented by: Metronidazole 500 mg/ IV (Solution) 100 mls @ 100 mls/hr IVPB Q6HR [facility] Last Admin: 12/13/19 18:29 Dose: 100 mls/hr Documented by: Cefepime HCl 2 gm/ Sodium (Chloride) 100 mls @ 25 mls/hr IVPB Q12HR [facility] Last Admin: 12/13/19 20:25 Dose: 25 mls/hr Documented by: Parenteral Vitamin Supplement 10 ml/ Chromium/Copper/Manganese/Seleni/Zn 1 ml/Amino Ac/Electrol/Dextrose/Calcium 1,011 mls @ 30 mls/hr IV .BY DURATION [facility] Last Admin: 12/13/19 20:22 Dose: 30 mls/hr Documented by: Amino Ac/Electrol/Dextrose/Calcium (Clinimix E 5%-D15% Solution) 1,000 mls @ 80 mls/hr IV .BY DURATION [facility] Fat Emulsion Intravenous 250 (ml/ IV Solution) 250 mls @ 21 mls/hr IV MoWeFr [facility] Magnesium Hydroxide (Magnesium Hydroxide 2,400 Mg/10 Ml Cup) 2,400 mg PO Q48H PRN PRN Reason: Constipation for 48 hours Melatonin (Melatonin 3 Mg Tablet) 3 mg PO HS [facility] Last Admin: 12/13/19 20:25 Dose: 3 mg Documented by: Metoprolol Succinate (Metoprolol Succinate (Er) 100 Mg Tab.Er.24h) 100 mg PO DAILY@0800 [facility] Last Admin: 12/13/19 09:18 Dose: 100 mg Documented by: Miscellaneous Information (Potassium Replacement Protocol 1 Each Misc) 1 each MISCELLANE DAILY PRN; Protocol PRN Reason: Per Protocol Naloxone HCl (Naloxone 0.4 Mg/Ml 1 Ml Vial) 0.2 mg IV Q2M PRN PRN Reason: Opioid Reversal Ondansetron HCl (Ondansetron 4 Mg Tab) 4 mg PO Q8H PRN PRN Reason: Nausea Last Admin: 12/11/19 10:42 Dose: 4 mg Documented by: Pantoprazole Sodium (Pantoprazole 40 Mg Tablet) 40 mg PO DAILY@0600 [facility] Last Admin: 12/13/19 06:11 Dose: 40 mg Documented by: Senna/Docusate Sodium (Sennosides-Docusate Sodium 1 Each Tab) 1 each PO BID@0800,1700 [facility] Last Admin: 12/13/19 18:28 Dose: 1 each Documented by: Sodium Chloride (Sodium Chloride 0.9% Flush 10 Ml Syringe) 10 ml IV Q4HR PRN PRN Reason: PICC Line Sodium Chloride (Sodium Chloride 0.9% Flush 10 Ml Syringe) 10 ml IV WEEKLY [facility] Sodium Chloride (Sodium 0.9% Flush 10 Ml Syringe) 20 ml IV Q4HR PRN PRN Reason: PICC Line Physical examination: VITAL SIGNS: 98.5, 69, 16, 122.71, 99% on 2 L GENERAL:, laying in bed, tired. EYES: Pupils equal. Conjunctiva pale. NECK: JVD not raised; masses not palpable. HEART: First and second heart sounds are normal; no edema. LUNGS: Respiratory rate normal; decreased breath sounds. ABDOMEN: Soft, dressing over the epigastric area, , no tenderness, liver spleen not palpable, no masses palpable. MUSCULAR skeletal: Evidence of OA PSYCH: Alert and oriented x3; mood and affect tired. INVESTIGATIONS, reviewed in the clinical context: White count 6.1 hemoglobin 10.9 potassium 3.6 creatinine 0.4 Admission testing White count 8 hemoglobin 12.3 platelets 172 INR 3.2 potassium 3.8 creatinine 0.49 Albumin 3 Computed tomography scan of the abdomen moderate bilateral pleural effusion heart is enlarged some areas in the anterior biliary tree that is under 3 cm fluid collection of the gallbladder bed. Subcutis fluid over the anterior mid and right side of the abdomen pro-calcitonin 0.09 Wound culture-capsular oxytoca Assessment: -That is significant amount of dark brown fluid/pus coming out of the epigastric incision laparoscopic site. Appears to be subcutaneous abscess collection or old blood. Positive for Klebsiella oxytoca -Status post laparoscopic cholecystectomy a month ago -Advancing medical debility -Mild protein calorie malnutrition from poor oral intake -Persistent atrial fibrillation -Chronic congestive heart failure from systolic dysfunction EF 30-35% -AICD pacemaker -Essential hypertension -Hyperlipidemia -Primary osteoarthritis -Significant anorexia. Patient not eating for a few days. -TPN/Lipid started. Plan: Discussed with the nurse. Patient to continue with TPN and lipids and can return to the ECF on Tuesday morning and that'll be discontinued. Patient started to eat. Oral intake encouraged. Antibiotic to be changed to Cipro and Flagyl for discharge per ID.
[2019-12-14] MEDS: metroNIDAZOLE-NS PMX 500 MG in SALINE 1 100ML.BAG IVPB SCH ×4 (00:25→18:21)
[2019-12-14] MEDS: SODIUM CHLORIDE 0.9% 1,000 ML IV SCH ×2 (05:20→19:04)
[2019-12-14 06:05] LABS: Ionized Calcium 4.6 mg/dL (4.5-5.3)
[2019-12-14] MEDS: PANTOPRAZOLE 40 MG TABLET PO SCH (06:08)
[2019-12-14 07:11] LABS: Glucose,Whole Blood 122 mg/dL (75-99)
[2019-12-14] MEDS: FAT EMULSION 20% 250 ML in EMPTY BAG 1 BAG IV SCH (08:38)
[2019-12-14] MEDS: CEFEPIME 2 GM in SODIUM CHLORIDE 0.9% 100 ML IVPB SCH ×2 (08:38→20:42)
[2019-12-14] MEDS: CALCIUM CARBONATE LIQUID 500 MG/5 ML CUP PO SCH ×3 (08:39→17:48)
[2019-12-14] MEDS: METOPROLOL SUCCINATE (ER) 100 MG TAB.ER.24H PO SCH (08:39)
[2019-12-14] MEDS: SENNOSIDES-DOCUSATE SODIUM 1 EACH TAB PO SCH ×2 (08:39→17:48)
[2019-12-14 09:14] LABS: African American GFR (CKD) 112.4 (60.0-200.0); Anion Gap 7.4 mmol/L (4.00-12.00); BUN/Creat Ratio 22.5 Ratio (12.00-20.00); Calcium 7.6 mg/dL (8.7-10.3); Carbon Dioxide 29.6 mmol/L (21.6-31.8); Magnesium 1.7 mg/dL (1.5-2.4); Phosphorus 2.2 mg/dL (2.4-5.1); Potassium 3.3 mmol/L (3.5-5.5)
[2019-12-14] MEDS: IPRATROPIUM-ALBUTEROL 3 ML NEB INHALATION SCH ×3 (09:33→20:07)
[2019-12-14] MEDS ORDERED: SODIUM PHOSPHATE 10 MMOL in SODIUM CHLORIDE 0.9% 100 ML IVPB ONE (11:00)
[2019-12-14 11:38] LABS: Glucose,Whole Blood 185 mg/dL (75-99)
[2019-12-14] MEDS: MAGNESIUM SULFATE-D5W PMX 1 GM in DEXTROSE/WATER 1 100ML.BAG IVPB SCH ×2 (13:53→13:54)
[2019-12-14] MEDS: POTASSIUM CHLORIDE 20 MEQ in WATER FOR INJECTION 1 100ML.BAG IVPB SCH ×2 (13:54→15:46)
[2019-12-14] MEDS ORDERED: POTASSIUM CHLORIDE ER 20 MEQ TAB.ER PO STA (14:07)
[2019-12-14] MEDS ORDERED: MAGNESIUM SULFATE-D5W PMX 1 GM in DEXTROSE/WATER 1 100ML.BAG IVPB ONE (14:08)
--- NOTE | 2019-12-14 14:16 | P.PN ---
Subjective Progress Note Date: 12/14/19 CHIEF COMPLAINT: Drainage from incision site HISTORY OF PRESENT ILLNESS: Patient is status post laparoscopic cholecystectomy with ERCP one month ago, 11/03/2019. She comes in with purulent drainage along e pigastrium incision. She denies pain. Afebrile. WBC 6.1. Potassium 3.3 magnesium 1.7 Culture results from drainage grew Klebsiella oxytoca. Patient does report having bowel movements. She denies any nausea or vomiting. Decrease in drainage from her incision site. Patient has poor oral intake and medicine has started her on TPN. Dr. Anthony would like to keep patient until Tuesday for TPN. PHYSICAL EXAM: VITAL SIGNS: Reviewed. GENERAL: Well-developed in no acute distress. HEENT: No sclera icterus. Extraocular movements grossly intact. Moist buccal mucosa. Head is atraumatic, normocephalic. ABDOMEN: Soft. Upper abdomen incision decrease in erythema around the incision. Decrease in drainage NEUROLOGIC: Alert and oriented. Cranial nerves II through XII grossly intact. ASSESSMENT: 1. Surgical site infection with resistance and failed outpatient management 2. Status post laparoscopic cholecystectomy with ERCP one month ago, 11/03/2019 3. Hypokalemia 4. hypomagnesemia PLAN: -Continue to change dressing daily -Apply wet-to-dry dressing change daily. -Apply Aquacel rope to infected incision site -Continue antibiotics per ID. Dr. Alfred is recommending Cipro and Flagyl for 10 days -Continue carb consistent diet -Replace magnesium and potassium -Anticipating discharge tomorrow back to ECF -Patient is surgically stable for discharge Physician Coding Technician note has been reviewed by physician. Signing provider agrees with the documented findings, assessment, and plan of care. Objective - Vital Signs Vital signs: Vital Signs Temp 98.5 F 12/14/19 11:35 Pulse 62 12/14/19 12:30 Resp 20 12/14/19 11:35 BP 120/56 12/14/19 11:35 Pulse Ox 99 12/14/19 11:35 Intake & Output 12/13/19 12/14/19 12/14/19 18:59 06:59 18:59 Intake Total 530 310 Output Total 1 Balance 530 309 Weight 76 kg 76 kg Intake: IV 50 Intake, IV Titration 480 60 Amount Mvi, Adult No.4 with Vit 60 K 10 ml Trace (Conc-1Ml/ Dose) 1 ml In Amino Acid 5%-D15w+Lytes*E* 1,000 ml @ 30 mls/hr IV .BY DURATION [facility] Rx#: [id number] Sodium Chloride 0.9% 1, 480 0 000 ml @ 60 mls/hr IV . [id number] [facility] Rx#:[id number] Oral 250 Output: Stool 1 Other: Voiding Method Diaper Diaper Diaper Incontinent Incontinent Incontinent # Voids 3 2 - Labs CBC & Chem 7: 12/13/19 05:54 12/14/19 05:18 Labs: Abnormal Lab Results - Last 24 Hours (Table) 12/13/19 12/14/19 12/14/19 Range/Units 20:21 05:18 07:10 Potassium 3.3 L (3.5-5.5) mmol/L Creatinine 0.4 L (0.6-1.5) mg/dL BUN/Creatinine Ratio 22.50 H (12.00-20.00) Ratio Glucose 132 H (70-110) mg/dL POC Glucose (mg/dL) 101 H 122 H (75-99) mg/dL Calcium 7.6 L (8.7-10.3) mg/dL Phosphorus 2.2 L (2.4-5.1) mg/dL 12/14/19 Range/Units 11:37 Potassium (3.5-5.5) mmol/L Creatinine (0.6-1.5) mg/dL BUN/Creatinine Ratio (12.00-20.00) Ratio Glucose (70-110) mg/dL POC Glucose (mg/dL) 185 H (75-99) mg/dL Calcium (8.7-10.3) mg/dL Phosphorus (2.4-5.1) mg/dL
--- NOTE | 2019-12-14 15:43 | P.DS ---
Providers Date of admission: 12/09/19 10:12 Expected date of discharge: 12/15/19 Attending physician: Kenneth Anthony Consults: 12/08/19 13:40 Consult Physician Routine Consulting Provider: Lb Alfred Consult Reason/Comments: Failed outpatient antibiotic management Do you want consulting provider notified?: Yes 12/14/19 11:35 Consult Physician Routine Consulting Provider: Ariel Adams Consult Reason/Comments: surgical incision drainage Do you want consulting provider notified?: Already Contacted Primary care physician: [facility] Course: Discharge diagnosis 1. Surgical site infection with resistance and failed outpatient management 2. Status post laparoscopic cholecystectomy with ERCP one month ago, 11/03/2019 3. Hypokalemia 4. hypomagnesemia Hospital course Patient is status post laparoscopic cholecystectomy with ERCP one month ago, 11/03/2019. She comes in with purulent drainage along epigastrium incision. Her culture grew Klebsiella oxytoca. She's been on IV antibiotics. She is afebrile. Her infection is improving. Infectious diseases recommending Cipro and Flagyl for 10 more days. Patient has remained in the hospital for an additional day of TPN per medicine recommendations. Patient is stable for discharge on 12/15/2019. Physician Manager Auto note has been reviewed by physician. Signing provider agrees with the documented findings, assessment, and plan of care. Patient Condition at Discharge: Stable Plan - Discharge Summary New Discharge Prescriptions: New Ciprofloxacin HCl [Cipro] 500 mg PO Q12HR 10 Days #20 tab metroNIDAZOLE [Flagyl] 500 mg PO TID 10 Days #30 tab No Action Atorvastatin [Lipitor] 10 mg PO HS@2100 Docusate [Colace] 100 mg PO DAILY PRN cap PRN Reason: Constipation Ipratropium-Albuterol Nebulize [Duoneb 0.5 mg-3 mg/3 ml Soln] 3 ml INHALATION RT-TID ml Ipratropium-Albuterol Nebulize [Duoneb 0.5 mg-3 mg/3 ml Soln] 3 ml INHALATION RT-TID PRN ml PRN Reason: Shortness Of Breath Or Wheezing Sennosides/Docusate Sodium [Senna-S 8.6-50 mg Tablet] 1 tab PO DAILY PRN PRN Reason: Constipation Phenyleph/Pramoxin/Glycr/W.pet [Preparation H Cream] 1 applic RECTAL DAILY PRN PRN Reason: Pain Ondansetron HCl [Zofran] 4 mg PO Q8H PRN PRN Reason: Nausea Magnesium Hydroxide [Milk of Magnesia Concentrate] 7,200 mg PO Q48H PRN PRN Reason: Constipation for 48 hours HYDROcodone/APAP 5-325MG [[place] 5-325] 1 tab PO Q6H PRN PRN Reason: Pain Maalox Plus Suspension 30 ml PO Q6H PRN PRN Reason: Indigestion bisacodyL [Bisacodyl] 10 mg RECTAL DAILY PRN PRN Reason: Constipation Na Phos,M-B/Na Phos,Di-Ba [Fleet Adult] 133 ml RECTAL DAILY PRN PRN Reason: Constipation Acetaminophen Tab [Tylenol] 500 mg PO Q6H PRN PRN Reason: Pain INSULIN ASPART (NovoLOG) [NovoLOG (formulary)] See Protocol SQ ACHS Sennosides-Docusate Sodium [Senokot-S] 1 tab PO BID@0800,1700 Calcium Carbonate [Tums] 500 mg PO AC-TID Pantoprazole [Protonix] 40 mg PO DAILY@0600 Lactose-Reduced Food [Ensure Plus] 120 ml PO BID@0800,1700 Warfarin [Coumadin] 2.5 mg PO DAILY@1700 Metoprolol Succinate (ER) [Toprol XL] 100 mg PO DAILY@0800 Ciprofloxacin HCl [Cipro] 500 mg PO Q12H Discharge Medication List Atorvastatin [Lipitor] 10 mg PO HS@2100 08/20/13 [History] Docusate [Colace] 100 mg PO DAILY PRN cap 11/06/19 [Rx] Ipratropium-Albuterol Nebulize [Duoneb 0.5 mg-3 mg/3 ml Soln] 3 ml INHALATION R T-TID ml 11/06/19 [Rx] Ipratropium-Albuterol Nebulize [Duoneb 0.5 mg-3 mg/3 ml Soln] 3 ml INHALATION RT-TID PRN ml 11/06/19 [Rx] Acetaminophen Tab [Tylenol] 500 mg PO Q6H PRN 11/28/19 [History] Calcium Carbonate [Tums] 500 mg PO AC-TID 11/28/19 [History] HYDROcodone/APAP 5-325MG [[place] 5-325] 1 tab PO Q6H PRN 11/28/19 [History] INSULIN ASPART (NovoLOG) [NovoLOG (formulary)] See Protocol SQ ACHS 11/28/19 [History] Lactose-Reduced Food [Ensure Plus] 120 ml PO BID@0800,1700 11/28/19 [History] Maalox Plus Suspension 30 ml PO Q6H PRN 11/28/19 [History] Magnesium Hydroxide [Milk of Magnesia Concentrate] 7,200 mg PO Q48H PRN 11/28/19 [History] Metoprolol Succinate (ER) [Toprol XL] 100 mg PO DAILY@0800 11/28/19 [History] Na Phos,M-B/Na Phos,Di-Ba [Fleet Adult] 133 ml RECTAL DAILY PRN 11/28/19 [H istory] Ondansetron HCl [Zofran] 4 mg PO Q8H PRN 11/28/19 [History] Pantoprazole [Protonix] 40 mg PO DAILY@0600 11/28/19 [History] Phenyleph/Pramoxin/Glycr/W.pet [Preparation H Cream] 1 applic RECTAL DAILY PRN 11/28/19 [History] Sennosides-Docusate Sodium [Senokot-S] 1 tab PO BID@0800,1700 11/28/19 [History] Sennosides/Docusate Sodium [Senna-S 8.6-50 mg Tablet] 1 tab PO DAILY PRN 11/28/19 [History] Warfarin [Coumadin] 2.5 mg PO DAILY@1700 11/28/19 [History] bisacodyL [Bisacodyl] 10 mg RECTAL DAILY PRN 11/28/19 [History] Ciprofloxacin HCl [Cipro] 500 mg PO Q12H 12/07/19 [History] Ciprofloxacin HCl [Cipro] 500 mg PO Q12HR 10 Days #20 tab 12/14/19 [Rx] metroNIDAZOLE [Flagyl] 500 mg PO TID 10 Days #30 tab 12/14/19 [Rx] Follow up Appointment(s)/Referral(s): Kermit Pimentel DO [Primary Care Provider] - 1-2 days Patient Instructions/Handouts: Heart Failure (DC), Wound Healing and Your Diet (DC) Activity/Diet/Wound Care/Special Instructions: Med rec per medicine
--- NOTE | 2019-12-14 16:35 | PN ---
PROGRESS NOTE DATE OF SERVICE: 12/14/2019 REASON FOR FOLLOWUP: Abdominal wall abscess and cellulitis. INTERVAL HISTORY: The patient is currently afebrile. The patient is breathing comfortably. Denies having any chest pain or cough. No nausea, no diarrhea or any abdominal pain. PHYSICAL EXAMINATION: Blood pressure 120/56, pulse of 63, temperature 98.5. She is 99% on 2 L nasal cannula. General description is an elderly female lying in bed in no distress. RESPIRATORY SYSTEM: Unlabored breathing. Abdominal wall wound is currently covered with a dressing. No drainage on the dressing. EXTREMITIES: No edema of the feet. LABS: BUN of 9, creatinine 0.4. DIAGNOSTIC IMPRESSION AND PLAN: Patient with abdominal wall abscess, cellulitis, culture positive for Klebsiella and anaerobes. Patient is covered with cefepime and Flagyl. Finishing therapy with oral Cipro and Flagyl for about a week. Local care with Aquacel Silver dressing. Continue with supportive care. MMODL / IJN: [id number] /
[2019-12-14 16:58] LABS: Glucose,Whole Blood 199 mg/dL (75-99)
[2019-12-14] MEDS: ONDANSETRON 4 MG TAB PO PRN (19:45)
[2019-12-14] MEDS: ATORVASTATIN 10 MG TAB PO SCH (20:42)
[2019-12-14] MEDS: MELATONIN 3 MG TABLET PO SCH (20:42)
--- NOTE | 2019-12-14 21:05 | P.PN ---
Progress Note - Text Progress Note Date: 12/14/19 - Chief Complaint Drainage from the abdominal wound Consultation: This is a pleasant 84-year-old patient of Dr. Pimentel. Patient November 02 has undergone laparoscopic cholecystectomy by Dr. Adams. For cholecystitis and cholelithiasis. Patient was discharged to the [facility] about a month ago. Patient has been rather weak and tired. If not much of an appetite. Does not really ambulate because of weakness. Chronic stable medical conditions include atrial fibrillation, CHF, hypertension, hyperlipidemia, osteoarthritis, pacemaker with AICD. Patient was noted to have drainage from the epigastric laparoscopic insertion site. Was present in the room dark brown pus was coming out. Special squeezing surrounding. Patient has very limited tenderness. Denies any fever and chills. Appetite has been poor. Midline place. Placed on TPN and lipids. Today-feeling weak better. Started to eat. Tired. Some discharge the epigastric wound. Getting TPN and lipids. Review of systems: Was done for constitutional, cardiovascular, GI, pulmonary. relevant finding as above Active Medications Acetaminophen (Acetaminophen Tab 325 Mg Tab) 650 mg PO Q6HR PRN PRN Reason: Mild Pain or Fever > 100.5 Hydrocodone Bitart/Acetaminophen (Hydrocodone/Apap 5-325mg 1 Each Tab) 1 each PO Q6H PRN PRN Reason: Pain Last Admin: 12/13/19 09:22 Dose: 1 each Documented by: Albuterol/Ipratropium (Ipratropium-Albuterol 3 Ml Neb) 3 ml INHALATION RT-TID [facility] Last Admin: 12/14/19 20:07 Dose: Not Given Documented by: Atorvastatin Calcium (Atorvastatin 10 Mg Tab) 10 mg PO HS@2100 [facility] Last Admin: 12/14/19 20:42 Dose: 10 mg Documented by: Bisacodyl (Bisacodyl 10 Mg Supp) 10 mg RECTAL DAILY PRN PRN Reason: Constipation Calcium Carbonate/Glycine (Calcium Carbonate Liquid 500 Mg/5 Ml Cup) 500 mg PO TID-W/MEALS [facility] Last Admin: 12/14/19 17:48 Dose: 500 mg Documented by: Docusate Sodium (Docusate 100 Mg Cap) 100 mg PO DAILY PRN PRN Reason: Constipation Sodium Chloride (Saline 0.9%) 1,000 mls @ 60 mls/hr IV .[id number] [facility] Last Admin: 12/14/19 19:04 Dose: Not Given Documented by: Metronidazole 500 mg/ IV (Solution) 100 mls @ 100 mls/hr IVPB Q6HR [facility] Last Admin: 12/14/19 18:21 Dose: 100 mls/hr Documented by: Cefepime HCl 2 gm/ Sodium (Chloride) 100 mls @ 25 mls/hr IVPB Q12HR [facility] Last Admin: 12/14/19 20:42 Dose: 25 mls/hr Documented by: Fat Emulsion Intravenous 250 (ml/ IV Solution) 250 mls @ 21 mls/hr IV MoWeFr [facility] Last Admin: 12/14/19 08:38 Dose: 21 mls/hr Documented by: Parenteral Vitamin Supplement 10 ml/ Chromium/Copper/Manganese/Seleni/Zn 1 ml/Amino Ac/Electrol/Dextrose/Calcium 1,011 mls @ 80 mls/hr IV .BY DURATION [facility] Amino Ac/Electrol/Dextrose/Calcium (Clinimix E 5%-D15% Solution) 1,000 mls @ 80 mls/hr IV .BY DURATION [facility] Magnesium Hydroxide (Magnesium Hydroxide 2,400 Mg/10 Ml Cup) 2,400 mg PO Q48H PRN PRN Reason: Constipation for 48 hours Melatonin (Melatonin 3 Mg Tablet) 3 mg PO HS [facility] Last Admin: 12/14/19 20:42 Dose: 3 mg Documented by: Metoprolol Succinate (Metoprolol Succinate (Er) 100 Mg Tab.Er.24h) 100 mg PO DAILY@0800 [facility] Last Admin: 12/14/19 08:39 Dose: 100 mg Documented by: Miscellaneous Information (Potassium Replacement Protocol 1 Each Misc) 1 each MISCELLANE DAILY PRN; Protocol PRN Reason: Per Protocol Naloxone HCl (Naloxone 0.4 Mg/Ml 1 Ml Vial) 0.2 mg IV Q2M PRN PRN Reason: Opioid Reversal Ondansetron HCl (Ondansetron 4 Mg Tab) 4 mg PO Q8H PRN PRN Reason: Nausea Last Admin: 12/14/19 19:45 Dose: 4 mg Documented by: Pantoprazole Sodium (Pantoprazole 40 Mg Tablet) 40 mg PO DAILY@0600 [facility] Last Admin: 12/14/19 06:08 Dose: 40 mg Documented by: Senna/Docusate Sodium (Sennosides-Docusate Sodium 1 Each Tab) 1 each PO BID@0800,1700 [facility] Last Admin: 12/14/19 17:48 Dose: 1 each Documented by: Sodium Chloride (Sodium Chloride 0.9% Flush 10 Ml Syringe) 10 ml IV Q4HR PRN PRN Reason: PICC Line Sodium Chloride (Sodium Chloride 0.9% Flush 10 Ml Syringe) 10 ml IV WEEKLY [facility] Sodium Chloride (Sodium Chloride 0.9% Flush 10 Ml Syringe) 20 ml IV Q4HR PRN PRN Reason: PICC Line Physical examination: VITAL SIGNS: 98.5, 63, 20, 120/56, 99% on 2 L GENERAL:, laying in bed, tired. EYES: Pupils equal. Conjunctiva pale. NECK: JVD not raised; masses not palpable. HEART: First and second heart sounds are normal; no edema. LUNGS: Respiratory rate normal; decreased breath sounds. ABDOMEN: Soft, dressing over the epigastric area, , no tenderness, liver spleen not palpable, no masses palpable. MUSCULAR skeletal: Evidence of OA PSYCH: Alert and oriented x3; mood and affect tired. INVESTIGATIONS, reviewed in the clinical context: Potassium 3.3 creatinine 0.4 COVID 19 P/Cr-not detected Admission testing White count 8 hemoglobin 12.3 platelets 172 INR 3.2 potassium 3.8 creatinine 0.49 Albumin 3 Computed tomography scan of the abdomen moderate bilateral pleural effusion heart is enlarged some areas in the anterior biliary tree that is under 3 cm fluid collection of the gallbladder bed. Subcutis fluid over the anterior mid and right side of the abdomen pro-calcitonin 0.09 Wound culture-capsular oxytoca Assessment: -That is significant amount of dark brown fluid/pus coming out of the epigastric incision laparoscopic site. Appears to be subcutaneous abscess collection or old blood. Positive for Klebsiella oxytoca-improving -Status post laparoscopic cholecystectomy a month ago -Advancing medical debility -Mild protein calorie malnutrition from poor oral intake -Persistent atrial fibrillation -Chronic congestive heart failure from systolic dysfunction EF 30-35% -AICD pacemaker -Essential hypertension -Hyperlipidemia -Primary osteoarthritis -Significant anorexia. Patient not eating for a few days. -TPN/Lipid started. Plan: Discussed with Sharda ALLAN from surgery. Patient to continue TPN and lipids to tomorrow morning. Then she can be discharged to [facility]. Antibiotics per Dr. Trinidad. Discussed with the patient. Some improvement in oral intake.
[2019-12-14 21:27] LABS: Glucose,Whole Blood 158 mg/dL (75-99)
[2019-12-14] MEDS: 1: MVI, ADULT NO.4 WITH VIT K 10 ML, TRACE (CONC-1ML/DOSE) 1 ML in AMINO ACID 5%-D15W+LY IV SCH ×3 (21:49)
[2019-12-15] MEDS: HYDROcodone/APAP 5-325MG 1 EACH TAB PO PRN (01:12)
[2019-12-15] MEDS: metroNIDAZOLE-NS PMX 500 MG in SALINE 1 100ML.BAG IVPB SCH ×4 (01:24→17:41)
[2019-12-15] MEDS: 1: MVI, ADULT NO.4 WITH VIT K 10 ML, TRACE (CONC-1ML/DOSE) 1 ML in AMINO ACID 5%-D15W+LY IV SCH ×6 (01:30→11:37)
[2019-12-15] MEDS: PANTOPRAZOLE 40 MG TABLET PO SCH (06:17)
[2019-12-15 07:16] LABS: Glucose,Whole Blood 193 mg/dL (75-99)
[2019-12-15] MEDS: IPRATROPIUM-ALBUTEROL 3 ML NEB INHALATION SCH ×3 (07:48→21:06)
[2019-12-15 09:46] LABS: African American GFR (CKD) 112.4 (60.0-200.0); Anion Gap 5.4 mmol/L (4.00-12.00); Calcium 7.5 mg/dL (8.7-10.3); Carbon Dioxide 27.6 mmol/L (21.6-31.8); Magnesium 1.7 mg/dL (1.5-2.4); Phosphorus 2.4 mg/dL (2.4-5.1); Potassium 3.4 mmol/L (3.5-5.5)
[2019-12-15] MEDS: CALCIUM CARBONATE LIQUID 500 MG/5 ML CUP PO SCH ×3 (11:16→17:39)
[2019-12-15] MEDS: METOPROLOL SUCCINATE (ER) 100 MG TAB.ER.24H PO SCH (11:16)
[2019-12-15] MEDS: SENNOSIDES-DOCUSATE SODIUM 1 EACH TAB PO SCH ×2 (11:17→17:39)
[2019-12-15] MEDS: CEFEPIME 2 GM in SODIUM CHLORIDE 0.9% 100 ML IVPB SCH ×2 (11:17→20:55)
[2019-12-15 11:34] LABS: Glucose,Whole Blood 175 mg/dL (75-99)
--- NOTE | 2019-12-15 12:19 | P.PN ---
Subjective Progress Note Date: 12/15/19 Principal diagnosis: Wound infection Patient doing well today. Pain is improved. Culture showing Klebsiella. She is afebrile. Objective - Vital Signs Vital signs: Vital Signs Temp 97.7 F 12/15/19 11:44 Pulse 60 12/15/19 12:13 Resp 17 12/15/19 11:44 BP 116/67 12/15/19 11:44 Pulse Ox 98 12/15/19 11:44 Intake & Output 12/14/19 12/15/19 12/15/19 18:59 06:59 18:59 Intake Total 228 1011 Balance 228 1011 Weight 76 kg 76.5 kg Intake: Intake, IV Titration 228 1011 Amount Amino Acid 5%-D15w+Lytes* 90 E* 1,000 ml @ 80 mls/hr IV .BY DURATION [facility] Rx#: [id number] Cefepime 2 gm In Sodium 75 Chloride 0.9% 100 ml @ 25 mls/hr IVPB Q12HR [facility] Rx #:[id number] Fat Emulsion 20% 250 ml 63 In Empty Bag 1 bag @ 21 mls/hr IV MoWeFr [facility] Rx#: [id number] Mvi, Adult No.4 with Vit 1011 K 10 ml Trace (Conc-1Ml/ Dose) 1 ml In Amino Acid 5%-D15w+Lytes*E* 1,000 ml @ 80 mls/hr IV .BY DURATION [facility] Rx#: [id number] Other: Voiding Method Diaper Diaper Incontinent Incontinent # Voids 2 0 - Exam Abdomen: Soft, nondistended, epigastric incision site wound clean with minimal erythema, minimal tenderness - Labs CBC & Chem 7: 12/13/19 05:54 12/15/19 03:55 Labs: Abnormal Lab Results - Last 24 Hours (Table) 12/14/19 12/14/19 12/15/19 Range/Units 16:54 21:25 03:55 Potassium 3.4 L (3.5-5.5) mmol/L Creatinine 0.4 L (0.6-1.5) mg/dL BUN/Creatinine Ratio 30.00 H (12.00-20.00) Ratio Glucose 216 H (70-110) mg/dL POC Glucose (mg/dL) 199 H 158 H (75-99) mg/dL Calcium 7.5 L (8.7-10.3) mg/dL 12/15/19 12/15/19 Range/Units 07:15 11:33 Potassium (3.5-5.5) mmol/L Creatinine (0.6-1.5) mg/dL BUN/Creatinine Ratio (12.00-20.00) Ratio Glucose (70-110) mg/dL POC Glucose (mg/dL) 193 H 175 H (75-99) mg/dL Calcium (8.7-10.3) mg/dL Assessment and Plan (1) Surgical site infection Narrative/Plan: Patient doing well at this time. Continue antibiotics. Continue local wound care. Diet as tolerated. Current Visit: Yes Status: Acute Code(s): T81.49XA - INFECTION FOLLOWING A PROCEDURE, OTHER SURGICAL SITE, INIT SNOMED Code(s): 09609519
--- NOTE | 2019-12-15 14:27 | PN ---
PROGRESS NOTE DATE OF SERVICE: 12/15/2019 REASON FOR FOLLOW UP: Abdominal wall abscess and cellulitis with Klebsiella and anaerobes. INTERVAL HISTORY: The patient is currently afebrile. The patient is breathing better, breathing comfortably. Denies having any chest pain. No shortness of breath. No nausea, vomiting, abdominal pain or diarrhea. PHYSICAL EXAMINATION: Blood pressure 111/67 with a pulse of 69, temperature is 97.7. She is 98% on 2 L. General description is an elderly female lying in bed in no distress. Respiratory system: Unlabored breathing, clear to auscultation anteriorly. Heart S1, S2. Regular rate and rhythm. ABDOMEN is soft. Abdominal wound is currently dressed. No drainage on the dressing. LABS: BUN of 12, creatinine 0.4. DIAGNOSTIC IMPRESSION AND PLAN: Patient abdominal wall abscess and cellulitis. Culture positive Klebsiella and anaerobes. Patient is covered with cefepime and Flagyl. Finish therapy with oral Cipro and Flagyl. Local care to continue with dry Aquacel Silver dressing. MMODL / IJN: [id number] /
[2019-12-15] MEDS: POTASSIUM CHLORIDE 20 MEQ in WATER FOR INJECTION 1 100ML.BAG IVPB SCH ×2 (15:30→17:39)
[2019-12-15] MEDS: SODIUM CHLORIDE 0.9% 1,000 ML IV SCH (15:32)
[2019-12-15 17:14] LABS: Glucose,Whole Blood 193 mg/dL (75-99)
--- NOTE | 2019-12-15 17:17 | PN ---
PROGRESS NOTE DATE OF SERVICE: 12/15/2019 I am covering for Dr. Anthony. HISTORY: This 84-year-old woman who was admitted with abscess and cellulitis and drainage from the postoperative area from the cholecystectomy has got Klebsiella and as well as anaerobic gram-negative bacilli grown from the culture. The patient is covered with Flagyl and cefepime. Patient being closely monitored. Patient still has some pain. The dressing is being monitored at this time. Past medical history reviewed. REVIEW OF SYSTEMS: CARDIOVASCULAR system: No angina or palpitations. RESPIRATORY: As mentioned earlier. GI: As mentioned earlier. : No dysuria. NERVOUS SYSTEM: No numbness or weakness. CURRENT MEDICATIONS: Reviewed and include: Tylenol. [place] 5 mg, DuoNeb. Lipitor, Dulcolax, Tums, Cefepime, TPN, melatonin, Toprol-XL. Flagyl, Narcan, Zofran, Protonix and Senokot. PHYSICAL EXAMINATION: Patient is alert and oriented x3. Pulse is 69. Blood pressure 116/67, respirations 17, temperature 97.7, pulse ox 98% on 2 L. HEENT: Conjunctivae normal. NECK: No JVD. CARDIOVASCULAR: S1, S2 muffled. RESPIRATORY: Breath sounds diminished in the bases. A few scattered rhonchi. ABDOMEN: Soft, tenderness in the epigastrium. LEGS are no edema. No swelling. NERVOUS SYSTEM: No focal deficits. LABS: Labs are sodium 137, potassium 3.4. WBC 6.2, hemoglobin 10.9. ASSESSMENT: 1. Abscess and cellulitis from the postoperative site with Klebsiella and as well as anaerobic gram-negative bacilli on cefepime and Flagyl. 2. Status post laparoscopic cholecystectomy a month ago. 3. Medical debility. 4. Mild protein calorie malnutrition. 5. Persistent atrial fibrillation. 6. Chronic congestive heart failure with chronic systolic dysfunction, ejection fraction 30 to 35%. 7. AICD pacemaker. 8. Hypertension. 9. Hyperlipidemia. 10.Degenerative joint disease. 11.Anorexia. 12.On TPN. 13.Hypokalemia. 14.Anemia, normocytic anemia of chronic disease. RECOMMENDATIONS AND DISCUSSION: Recommend to continue current medications, management and symptomatic treatment. Continue the antibiotics. Continue PT/OT evaluation. Continue the pain medications. I would recommend repeat labs. Alkaline phosphatase is slightly elevated. We will continue to monitor. Prognosis guarded. Further recommendations to follow. Closely follow with surgery. MMODL / IJN: [id number] /
[2019-12-15] MEDS: ATORVASTATIN 10 MG TAB PO SCH (20:55)
[2019-12-15] MEDS: MELATONIN 3 MG TABLET PO SCH (20:55)
[2019-12-16 00:02] LABS: Glucose,Whole Blood 218 mg/dL (75-99)
[2019-12-16] MEDS ORDERED: metroNIDAZOLE-NS PMX 500 MG in SALINE 1 100ML.BAG IVPB STA (00:45)
[2019-12-16] MEDS: metroNIDAZOLE-NS PMX 500 MG in SALINE 1 100ML.BAG IVPB SCH (01:00)
[2019-12-16] MEDS: HYDROcodone/APAP 5-325MG 1 EACH TAB PO PRN (01:04)
[2019-12-16] MEDS: IPRATROPIUM-ALBUTEROL 3 ML NEB INHALATION SCH ×4 (01:48→20:57)
[2019-12-16] MEDS: 1: MVI, ADULT NO.4 WITH VIT K 10 ML, TRACE (CONC-1ML/DOSE) 1 ML in AMINO ACID 5%-D15W+LY IV SCH ×9 (01:54→15:58)
[2019-12-16] MEDS: PANTOPRAZOLE 40 MG TABLET PO SCH (05:59)
[2019-12-16 06:03] LABS: Glucose,Whole Blood 254 mg/dL (75-99)
[2019-12-16] MEDS: SODIUM CHLORIDE 0.9% 1,000 ML IV SCH ×2 (06:04→20:06)
[2019-12-16 07:04] LABS: Anisocytosis Slight; Basophils % (A) 1 %; Eosinophils # (A) 0.1 k/uL (0-0.7); Eosinophils % (A) 2 %; HCT 38.2 % (34.0-46.0); HGB 11.8 gm/dL (11.4-16.0); Hypochromasia Marked; Lymphocytes # (A) 1.2 k/uL (1.0-4.8); Lymphocytes % (A) 19 %; MCH 28.7 pg (25.0-35.0); MCHC 30.8 g/dL (31.0-37.0); Mean Platelet Volume 8.1; Monocytes # (A) 0.4 k/uL (0-1.0); Monocytes % (A) 6 %; Neutrophils # (A) 4.5 k/uL (1.3-7.7); Neutrophils % (A) 71 %; Platelet Count 136 k/uL (150-450); Poikilocytosis Slight; RBC 4.11 m/uL (3.80-5.40); RDW 16.5 % (11.5-15.5); WBC 6.3 k/uL (3.8-10.6)
[2019-12-16 09:47] LABS: African American GFR (CKD) 112.4 (60.0-200.0); BUN/Creat Ratio 37.5 Ratio (12.00-20.00); Calcium 7.8 mg/dL (8.7-10.3); Magnesium 1.6 mg/dL (1.5-2.4); Phosphorus 2.4 mg/dL (2.4-5.1); Potassium 3.7 mmol/L (3.5-5.5)
[2019-12-16] MEDS: METOPROLOL SUCCINATE (ER) 100 MG TAB.ER.24H PO SCH (10:39)
[2019-12-16] MEDS: CEFEPIME 2 GM in SODIUM CHLORIDE 0.9% 100 ML IVPB SCH ×2 (10:40→20:03)
[2019-12-16] MEDS: CALCIUM CARBONATE LIQUID 500 MG/5 ML CUP PO SCH ×3 (10:40→18:23)
[2019-12-16] MEDS: SENNOSIDES-DOCUSATE SODIUM 1 EACH TAB PO SCH ×2 (10:40→13:52)
[2019-12-16 11:48] LABS: Glucose,Whole Blood 245 mg/dL (75-99)
--- NOTE | 2019-12-16 11:55 | P.PN ---
Subjective Progress Note Date: 12/16/19 Principal diagnosis: Wound infection Patient doing well today. Denies pain. White blood cell count normal. No fevers. Objective - Vital Signs Vital signs: Vital Signs Temp 96.9 F L 12/16/19 07:00 Pulse 80 12/16/19 11:42 Resp 19 12/16/19 06:06 BP 144/72 12/16/19 06:06 Pulse Ox 97 12/16/19 06:06 Intake & Output 12/15/19 12/16/19 12/16/19 18:59 06:59 18:59 Intake Total 3291 1011 Output Total 402 Balance 3291 609 Weight 94 kg Intake: Intake, IV Titration 2691 1011 Amount Amino Acid 5%-D15w+Lytes* 1000 E* 1,000 ml @ 80 mls/hr IV .BY DURATION [facility] Rx#: [id number] Cefepime 2 gm In Sodium 100 Chloride 0.9% 100 ml @ 25 mls/hr IVPB Q12HR [facility] Rx #:[id number] Mvi, Adult No.4 with Vit 1011 1011 K 10 ml Trace (Conc-1Ml/ Dose) 1 ml In Amino Acid 5%-D15w+Lytes*E* 1,000 ml @ 80 mls/hr IV .BY DURATION [facility] Rx#: [id number] Sodium Chloride 0.9% 1, 480 000 ml @ 60 mls/hr IV . [id number] [facility] Rx#:[id number] metroNIDAZOLE-NS PMX 500 100 mg In Saline 1 100ml.bag @ 100 mls/hr IVPB Q6HR [facility] Rx#:[id number] Oral 600 Output: Urine 401 Stool 1 Other: Voiding Method Diaper Diaper Incontinent Incontinent # Voids 0 0 # Bowel Movements 0 - Exam Abdomen: Soft, nondistended, wound clean, minimal tenderness - Labs CBC & Chem 7: 12/16/19 06:22 12/16/19 06:22 Labs: Abnormal Lab Results - Last 24 Hours (Table) 12/15/19 12/15/19 12/16/19 Range/Units 17:12 23:57 06:01 MCHC (31.0-37.0) g/dL RDW (11.5-15.5) % Plt Count (150-450) k/uL Creatinine (0.6-1.5) mg/dL BUN/Creatinine Ratio (12.00-20.00) Ratio Glucose (70-110) mg/dL POC Glucose (mg/dL) 193 H 218 H 254 H (75-99) mg/dL Calcium (8.7-10.3) mg/dL 12/16/19 12/16/19 12/16/19 Range/Units 06:22 06:22 11:47 MCHC 30.8 L (31.0-37.0) g/dL RDW 16.5 H (11.5-15.5) % Plt Count 136 L (150-450) k/uL Creatinine 0.4 L (0.6-1.5) mg/dL BUN/Creatinine Ratio 37.50 H (12.00-20.00) Ratio Glucose 251 H (70-110) mg/dL POC Glucose (mg/dL) 245 H (75-99) mg/dL Calcium 7.8 L (8.7-10.3) mg/dL Assessment and Plan (1) Surgical site infection Narrative/Plan: Continue antibiotics. Await discharge planning regarding home on antibiotic therapy. Continue local wound care. Current Visit: Yes Status: Acute Code(s): T81.49XA - INFECTION FOLLOWING A PROCEDURE, OTHER SURGICAL SITE, INIT SNOMED Code(s): 74854235
[2019-12-16] MEDS ORDERED: POTASSIUM CHLORIDE 20 MEQ in WATER FOR INJECTION 1 100ML.BAG IVPB ONE (13:00)
[2019-12-16] MEDS: INSULIN ASPART (NovoLOG) 100 UNIT/ML VIAL SQ SCH ×3 (14:05→23:59)
[2019-12-16] MEDS: MAGNESIUM SULFATE-D5W PMX 1 GM in DEXTROSE/WATER 1 100ML.BAG IVPB SCH ×2 (14:05→15:56)
[2019-12-16 16:59] LABS: Glucose,Whole Blood 296 mg/dL (75-99)
[2019-12-16 18:16] LABS: INR 1.1 (<1.2); Prothrombin Time 11.1 sec (9.0-12.0)
[2019-12-16] MEDS: WARFARIN 2.5 MG TAB PO SCH (18:23)
--- NOTE | 2019-12-16 18:44 | PN ---
PROGRESS NOTE DATE OF SERVICE: 12/16/2019 I am covering for Dr. Anthony. HISTORY: This 84-year-old woman who was admitted with abscess and cellulitis from the postoperative site with Klebsiella as well as anaerobic gram-negative also had a cholecystectomy about a month ago. The patient also has medical debility. Currently the patient is on TPN. The patient being closely monitored at this time. p.o. intake appears to be extremely poor. Glucose is elevated. PAST MEDICAL HISTORY: Reviewed. REVIEW OF SYSTEMS: Cardiovascular is no angina, palpitations. Respiratory: As mentioned earlier. GI: As mentioned earlier. : No dysuria. NERVOUS SYSTEM: No numbness or weakness. CURRENT MEDICATIONS: 1. Tylenol. 2. [place] 5 mg. 3. DuoNeb q.i.d. and p.r.n. 4. TPN. 5. Lipitor. 6. Dulcolax. 7. Tums. 8. Cefepime 2 g IV b.i.d. 9. Milk of magnesia. 10.Melatonin. 11.Toprol-XL. 12.Narcan. 13.Zofran. 14.Protonix. PHYSICAL EXAM: Patient is alert, oriented x3. Pulse is 62. Blood pressure 128/59, respiration 17, temperature 97 degrees. Pulse ox 100 percent on 3 L. HEENT: Conjunctivae normal. NECK: No JVD. CARDIOVASCULAR: S1, S2 muffled. RESPIRATORY: Breath sounds diminished in the bases. A few scattered rhonchi and crackles. ABDOMEN: Soft. Status post surgery. LEGS are no edema. No swelling. NERVOUS SYSTEM: No focal deficits. LABS: WBC 6.3, hemoglobin is 13.2, platelets are 136, potassium is 3.7. The calcium is 7.8. Mejía virus is negative. ASSESSMENT: 1. Abscess cellulitis from the postoperative site with Klebsiella as well as anaerobic gram-negative bacilli on cefepime and Flagyl. 2. Status post laparoscopic cholecystectomy a month ago. 3. On TPN. 4. Medical debility. 5. Mild protein calorie malnutrition. 6. Persistent atrial fibrillation. 7. Chronic congestive heart failure with chronic systolic dysfunction ejection fraction 30-35 percent. 8. Hypokalemia. 9. Mild thrombocytopenia. 10.AICD pacemaker. 11.Hypertension. 12.Hyperlipidemia. 13.Degenerative joint disease. 14.Anorexia. 15.Anemia, normocytic anemia of chronic disease. 16.NO CODE, NO CPR, NO VENT. RECOMMENDATIONS AND DISCUSSION: This 84-year-old woman who presented with multiple complex medical issues. At this time, I recommend to continue current medications. Continue with antibiotics. Continue the TPN. I would also recommend Accu-Cheks before meals and at bedtime and PT/OT evaluation. Otherwise, the patient was on Coumadin previously. Recently stopped, we will do the PT/INR and we will initiate the Coumadin slowly. There is no bleeding. MMODL / IJN: [id number] /
[2019-12-16] MEDS: ATORVASTATIN 10 MG TAB PO SCH (20:03)
[2019-12-16] MEDS: MELATONIN 3 MG TABLET PO SCH (20:03)
[2019-12-16 23:50] LABS: Glucose,Whole Blood 239 mg/dL (75-99)
--- NOTE | 2019-12-17 03:55 | PN ---
PROGRESS NOTE DATE OF SERVICE: 12/16/2019 REASON FOR FOLLOWUP: Abdominal wall abscess and cellulitis. INTERVAL HISTORY: The patient is currently afebrile. Patient is breathing comfortably. The patient denies having any chest pain or shortness of breath or cough. No nausea, no vomiting. No abdominal pain or diarrhea. PHYSICAL EXAMINATION: Blood pressure 114/63 with a pulse of 74, temperature 96.6. She is 100% on 3 L nasal cannula. General description is an elderly female lying in bed in no distress. RESPIRATORY SYSTEM: Unlabored breathing, clear to auscultation anteriorly. HEART: S1, S2. Regular rate and rhythm. ABDOMEN: Soft, no tenderness. Abdominal wound is currently covered with dressing, no drainage on the dressing. LABS: White count 6.3. DIAGNOSTIC IMPRESSION AND PLAN: Patient with abdominal wall abscess and cellulitis. The patient's local culture was positive for Klebsiella and anaerobes. She is covered with cefepime and Flagyl. Finishing therapy with oral Cipro and Flagyl for about a week. Local care with dry Aquacel silver dressing. Continue supportive care. MMODL / IJN: [id number] /
[2019-12-17] MEDS: 1: MVI, ADULT NO.4 WITH VIT K 10 ML, TRACE (CONC-1ML/DOSE) 1 ML in AMINO ACID 5%-D15W+LY IV SCH ×3 (04:24)
[2019-12-17 06:01] LABS: Anisocytosis Slight; HGB 11.3 gm/dL (11.4-16.0); Hypochromasia Marked; MCH 29.2 pg (25.0-35.0); MCHC 31.4 g/dL (31.0-37.0); MCV 92.9 fL (80.0-100.0); Mean Platelet Volume 8.1; Platelet Count 131 k/uL (150-450); Poikilocytosis Slight; RBC 3.88 m/uL (3.80-5.40); RDW 16.6 % (11.5-15.5); WBC 6.7 k/uL (3.8-10.6)
[2019-12-17 06:05] LABS: Glucose,Whole Blood 206 mg/dL (75-99)
[2019-12-17] MEDS: INSULIN ASPART (NovoLOG) 100 UNIT/ML VIAL SQ SCH ×3 (06:05→17:51)
[2019-12-17] MEDS: PANTOPRAZOLE 40 MG TABLET PO SCH (06:05)
[2019-12-17 06:41] LABS: Band Neutrophils % 1 %; Eosinophils # (M) 0.13 k/uL (0-0.7); Lymphocytes # (M) 1.21 k/uL (1.0-4.8); Metamyelocytes # (M) 0.13 k/uL (0); Metamyelocytes % 2 %; Monocytes # (M) 0.13 k/uL (0-1.0); Myelocytes # (M) 0.07 k/uL (0); Myelocytes % 1 %; Neutrophils % (M) 75 %; Nucleated Red Blood Cells 0 /100 WBC (0-0); Total Cells Counted 200
[2019-12-17] MEDS: IPRATROPIUM-ALBUTEROL 3 ML NEB INHALATION SCH ×3 (08:10→19:20)
[2019-12-17] MEDS: CALCIUM CARBONATE LIQUID 500 MG/5 ML CUP PO SCH ×3 (08:12→16:10)
[2019-12-17] MEDS: METOPROLOL SUCCINATE (ER) 100 MG TAB.ER.24H PO SCH (08:12)
[2019-12-17] MEDS: SENNOSIDES-DOCUSATE SODIUM 1 EACH TAB PO SCH ×2 (08:12→16:10)
[2019-12-17] MEDS: CEFEPIME 2 GM in SODIUM CHLORIDE 0.9% 100 ML IVPB SCH ×2 (08:12→20:27)
--- NOTE | 2019-12-17 09:01 | P.PN ---
Subjective Progress Note Date: 12/17/19 CHIEF COMPLAINT: Drainage from incision site HISTORY OF PRESENT ILLNESS: Patient is status post laparoscopic cholecystectomy with ERCP one month ago, 11/03/2019. She comes in with purulent drainage along e pigastrium incision. She denies pain. Afebrile. WBC 6.7. Patient did complain of some shortness of breath this morning PHYSICAL EXAM: VITAL SIGNS: Reviewed. GENERAL: Well-developed in no acute distress. HEENT: No sclera icterus. Extraocular movements grossly intact. Moist buccal mucosa. Head is atraumatic, normocephalic. ABDOMEN: Soft. Upper abdomen incision decrease in erythema around the incision. Decrease in drainage NEUROLOGIC: Alert and oriented. Cranial nerves II through XII grossly intact. ASSESSMENT: 1. Surgical site infection with resistance and failed outpatient management 2. Status post laparoscopic cholecystectomy with ERCP one month ago, 11/03/2019 PLAN: -Continue local wound care -Continue antibiotics per ID. Dr. Alfred is recommending Cipro and Flagyl for 10 days -Continue carb consistent diet -Patient is surgically stable for discharge Physician Tin Assorter note has been reviewed by physician. Signing provider agrees with the documented findings, assessment, and plan of care. Objective - Vital Signs Vital signs: Vital Signs Temp 97.4 F L 12/17/19 05:00 Pulse 80 12/17/19 08:21 Resp 20 12/17/19 08:00 BP 126/78 12/17/19 05:00 Pulse Ox 94 L 12/17/19 08:10 Intake & Output 12/16/19 12/17/19 12/17/19 18:59 06:59 18:59 Intake Total 1820 2374.667 Output Total 1 Balance 1820 2373.667 Weight 95.5 kg Intake: IV 1380 Amino Acid 5%-D15w+Lytes* 640 E* 1,000 ml @ 80 mls/hr IV .BY DURATION [facility] Rx#: [id number] Cefepime 2 gm In Sodium 100 Chloride 0.9% 100 ml @ 25 mls/hr IVPB Q12HR [facility] Rx #:[id number] Sodium Chloride 0.9% 1, 640 000 ml @ 60 mls/hr IV . [id number] [facility] Rx#:[id number] Intake, IV Titration 1120 994.667 Amount Amino Acid 5%-D15w+Lytes* 640 994.667 E* 1,000 ml @ 80 mls/hr IV .BY DURATION [facility] Rx#: [id number] Sodium Chloride 0.9% 1, 480 000 ml @ 60 mls/hr IV . [id number] [facility] Rx#:[id number] Oral 700 0 Output: Stool 1 Other: Voiding Method Diaper Diaper Diaper Incontinent Incontinent Incontinent # Voids 3 - Labs CBC & Chem 7: 12/17/19 05:15 12/16/19 06:22 Labs: Abnormal Lab Results - Last 24 Hours (Table) 12/16/19 12/16/19 12/16/19 Range/Units 06:22 11:47 16:58 Hgb (11.4-16.0) gm/dL RDW (11.5-15.5) % Plt Count (150-450) k/uL Metamyelocytes # (Man) (0) k/uL Myelocytes # (Manual) (0) k/uL Creatinine 0.4 L (0.6-1.5) mg/dL BUN/Creatinine Ratio 37.50 H (12.00-20.00) Ratio Glucose 251 H (70-110) mg/dL POC Glucose (mg/dL) 245 H 296 H (75-99) mg/dL Calcium 7.8 L (8.7-10.3) mg/dL 12/16/19 12/17/19 12/17/19 Range/Units 23:49 05:15 06:02 Hgb 11.3 L (11.4-16.0) gm/dL RDW 16.6 H (11.5-15.5) % Plt Count 131 L (150-450) k/uL Metamyelocytes # (Man) 0.13 H (0) k/uL Myelocytes # (Manual) 0.07 H (0) k/uL Creatinine (0.6-1.5) mg/dL BUN/Creatinine Ratio (12.00-20.00) Ratio Glucose (70-110) mg/dL POC Glucose (mg/dL) 239 H 206 H (75-99) mg/dL Calcium (8.7-10.3) mg/dL
[2019-12-17 09:24] LABS: INR 1.09 (0.90-1.11); Prothrombin Time 11.6 sec (9.9-11.9)
[2019-12-17 09:30] LABS: African American GFR (CKD) 112.4 (60.0-200.0); Anion Gap 6.5 mmol/L (4.00-12.00); Calcium 7.8 mg/dL (8.7-10.3); Carbon Dioxide 28.5 mmol/L (21.6-31.8); Magnesium 1.6 mg/dL (1.5-2.4); Phosphorus 2.1 mg/dL (2.4-5.1); Potassium 4.2 mmol/L (3.5-5.5)
[2019-12-17] MEDS: FAT EMULSION 20% 250 ML in EMPTY BAG 1 BAG IV SCH (10:58)
[2019-12-17] MEDS ORDERED: SODIUM PHOSPHATE 10 MMOL in SODIUM CHLORIDE 0.9% 100 ML IVPB ONE (11:00)
[2019-12-17] MEDS: ONDANSETRON 4 MG TAB PO PRN (11:07)
[2019-12-17] MEDS: MAGNESIUM SULFATE-D5W PMX 1 GM in DEXTROSE/WATER 1 100ML.BAG IVPB SCH ×2 (11:34→15:43)
[2019-12-17 11:44] LABS: Glucose,Whole Blood 227 mg/dL (75-99)
[2019-12-17] MEDS: SODIUM CHLORIDE 0.9% 1,000 ML IV SCH (14:57)
--- NOTE | 2019-12-17 15:31 | PN ---
PROGRESS NOTE DATE OF SERVICE: 12/17/2019 REASON FOR FOLLOWUP: Abdominal wall abscess and cellulitis. INTERVAL HISTORY: The patient is currently afebrile. The patient is breathing comfortably. The patient denies having any chest pain or shortness of breath or cough. Abdominal pain is currently controlled. No nausea, no vomiting. No diarrhea. PHYSICAL EXAMINATION: Blood pressure 113/49, pulse 65, temperature 97.7. She is 99% on 2 L nasal cannula. General description is an elderly female lying in bed in no distress. RESPIRATORY SYSTEM: Unlabored breathing. Clear to auscultation anteriorly. HEART: S1, S2. Regular rate and rhythm. ABDOMEN: Soft. Abdominal wound swelling and redness have decreased. No drainage on the dressing. LABS: Hemoglobin 11.3, white count 6.7. BUN of 18, creatinine 0.4. DIAGNOSTIC IMPRESSION AND PLAN: Patient with abdominal wall abscess and cellulitis with overall clinical improvement. Finish therapy with oral cefepime and Flagyl for 10 days and close outpatient followup. Local wound care with Aquacel Silver packing of the wound. MMODL / IJN: [id number] /
[2019-12-17] MEDS: ONDANSETRON 4 MG/2 ML VIAL IVP PRN (16:02)
[2019-12-17 17:39] LABS: Glucose,Whole Blood 307 mg/dL (75-99)
[2019-12-17] MEDS: WARFARIN 2.5 MG TAB PO SCH (17:51)
--- NOTE | 2019-12-17 19:51 | PN ---
PROGRESS NOTE DATE OF SERVICE: 12/17/2019 I am covering for Dr. Anthony. This 84-year-old woman who was admitted with abscess and cellulitis of the postoperative site with Klebsiella as well as anaerobic Gram-negative is on empiric antibiotics. No chest pain. No palpitation. The p.o. intake remains extremely poor now and calorie count has been ordered. The TPN has been instituted. No chest pain. No palpitations. No fever. PHYSICAL EXAMINATION: Alert and oriented x2. Pulse is 84, blood pressure 113/49, respiration 18, temperature 97.7, pulse ox 99% on 2 L. HEENT: Conjunctivae normal. NECK: No jugular venous distention. CARDIOVASCULAR SYSTEM: S1, S2 muffled. RESPIRATORY SYSTEM: Breath sounds diminished at the bases. A few scattered rhonchi. ABDOMEN: Soft. Status post surgery. LEGS: No edema. No swelling. NERVOUS SYSTEM: No focal deficit. LABS: Platelets 131. Other labs are noted. ASSESSMENT: 1. Abscess and cellulitis from the postoperative site from Klebsiella as well as anaerobic Gram-negative bacilli, on cefepime and Flagyl empirically. 2. Status post laparoscopic cholecystectomy a month ago. 3. On total parenteral nutrition. 4. Mild protein-calorie malnutrition. 5. Medical debility. 6. Persistent atrial fibrillation. 7. Chronic congestive heart failure with chronic systolic dysfunction, ejection fraction 30% to 35%. 8. Hypokalemia. 9. Mild thrombocytopenia. 10.AICD pacemaker. 11.Hypertension. 12.Hyperlipidemia. 13.Degenerative joint disease. 14.History of anorexia. 15.Anemia, normocytic anemia of chronic disease. 16.NO CODE, NO CPR, NO VENT. RECOMMENDATIONS AND DISCUSSION: I recommend to continue current medications, continue with the monitoring, symptomatic treatment. Otherwise at this time I would continue the calorie count and TPN. Once calorie intake is adequate, we will cut down the TPN. PT/OT evaluation, possible ECF rehab. Closely follow with Infectious Disease. Guarded prognosis. Further recommendations to follow. MMODL / IJN: [id number] /
[2019-12-17] MEDS: MELATONIN 3 MG TABLET PO SCH (20:27)
[2019-12-17] MEDS: ATORVASTATIN 10 MG TAB PO SCH (20:27)
[2019-12-17] MEDS: HYDROcodone/APAP 5-325MG 1 EACH TAB PO PRN (20:49)
[2019-12-18 00:05] LABS: Glucose,Whole Blood 265 mg/dL (75-99)
[2019-12-18] MEDS: INSULIN ASPART (NovoLOG) 100 UNIT/ML VIAL SQ SCH ×5 (00:09→23:59)
[2019-12-18] MEDS: ONDANSETRON 4 MG/2 ML VIAL IVP PRN (03:22)
[2019-12-18 05:55] LABS: Glucose,Whole Blood 261 mg/dL (75-99)
[2019-12-18 06:34] LABS: Anisocytosis Slight; Basophils # (A) 0.1 k/uL (0-0.2); Basophils % (A) 1 %; Eosinophils # (A) 0.2 k/uL (0-0.7); Eosinophils % (A) 2 %; HGB 11.4 gm/dL (11.4-16.0); Hypochromasia Marked; Lymphocytes # (A) 1.1 k/uL (1.0-4.8); Lymphocytes % (A) 17 %; MCH 28.2 pg (25.0-35.0); MCHC 30.2 g/dL (31.0-37.0); MCV 93.4 fL (80.0-100.0); Mean Platelet Volume 7.9; Monocytes # (A) 0.6 k/uL (0-1.0); Monocytes % (A) 8 %; Neutrophils # (A) 4.8 k/uL (1.3-7.7); Neutrophils % (A) 69 %; Platelet Count 130 k/uL (150-450); Poikilocytosis Slight; RBC 4.06 m/uL (3.80-5.40); RDW 16.7 % (11.5-15.5); WBC 6.8 k/uL (3.8-10.6)
[2019-12-18] MEDS: 1: MVI, ADULT NO.4 WITH VIT K 10 ML, TRACE (CONC-1ML/DOSE) 1 ML in AMINO ACID 5%-D15W+LY IV SCH ×3 (06:59)
[2019-12-18] MEDS: SODIUM CHLORIDE 0.9% 1,000 ML IV SCH ×2 (07:14→23:22)
[2019-12-18] MEDS: IPRATROPIUM-ALBUTEROL 3 ML NEB INHALATION SCH ×4 (07:38→20:48)
[2019-12-18] MEDS: CALCIUM CARBONATE LIQUID 500 MG/5 ML CUP PO SCH ×3 (08:03→17:21)
[2019-12-18] MEDS: METOPROLOL SUCCINATE (ER) 100 MG TAB.ER.24H PO SCH (08:03)
[2019-12-18] MEDS: SENNOSIDES-DOCUSATE SODIUM 1 EACH TAB PO SCH ×2 (08:03→17:21)
[2019-12-18] MEDS: PANTOPRAZOLE 40 MG/10 ML VIAL IVP SCH (08:03)
[2019-12-18] MEDS: CEFEPIME 2 GM in SODIUM CHLORIDE 0.9% 100 ML IVPB SCH ×2 (08:03→21:06)
[2019-12-18 09:11] LABS: INR 1.1 (0.90-1.11); Prothrombin Time 11.7 sec (9.9-11.9)
[2019-12-18 09:44] LABS: African American GFR (CKD) 112.4 (60.0-200.0); Anion Gap 4.9 mmol/L (4.00-12.00); BUN/Creat Ratio 47.5 Ratio (12.00-20.00); Carbon Dioxide 31.1 mmol/L (21.6-31.8); Magnesium 1.9 mg/dL (1.5-2.4); Phosphorus 2.7 mg/dL (2.4-5.1)
[2019-12-18 11:29] LABS: Glucose,Whole Blood 242 mg/dL (75-99)
--- NOTE | 2019-12-18 12:00 | P.PN ---
Subjective Progress Note Date: 12/18/19 CHIEF COMPLAINT: Drainage from incision site HISTORY OF PRESENT ILLNESS: Patient is status post laparoscopic cholecystectomy with ERCP one month ago, 11/03/2019. She comes in with purulent drainage along e pigastrium incision. She denies pain. Patient has been having nausea. Her Zofran and Protonix was switched IV. Decadron will be added. She still remains on TPN and is undergoing a calorie count. Afebrile. WBC 6.8. Magnesium 1.9 PHYSICAL EXAM: VITAL SIGNS: Reviewed. GENERAL: Well-developed in no acute distress. HEENT: No sclera icterus. Extraocular movements grossly intact. Moist buccal mucosa. Head is atraumatic, normocephalic. ABDOMEN: Soft. Upper abdomen incision decrease in erythema around the incision. Decrease in drainage NEUROLOGIC: Alert and oriented. Cranial nerves II through XII grossly intact. ASSESSMENT: 1. Surgical site infection with resistance and failed outpatient management 2. Status post laparoscopic cholecystectomy with ERCP one month ago, 11/03/2019 PLAN: -Add Decadron 4 mg IV every 6 hours for nausea -Continue local wound care -Continue antibiotics per ID. Dr. Alfred is recommending Cipro and Flagyl for 10 days -Continue carb consistent diet Physician Pbx Teacher note has been reviewed by physician. Signing provider agrees with the documented findings, assessment, and plan of care. Objective - Vital Signs Vital signs: Vital Signs Temp 97.3 F L 12/18/19 04:35 Pulse 84 12/18/19 09:54 Resp 20 12/18/19 04:35 BP 128/66 12/18/19 04:35 Pulse Ox 100 12/18/19 04:35 Intake & Output 12/17/19 12/18/19 12/18/19 18:59 06:59 18:59 Intake Total 720 240 Output Total 2201 1200 Balance -2201 -480 240 Weight 95.5 kg 81.5 kg Intake: IV 720 Sodium Chloride 0.9% 1, 720 000 ml @ 60 mls/hr IV . [id number] [facility] Rx#:[id number] Oral 240 Output: Urine 2200 1200 Stool 1 Other: Voiding Method Diaper Diaper Incontinent Incontinent # Voids 3 # Bowel Movements 1 - Labs CBC & Chem 7: 12/18/19 05:50 12/18/19 05:50 Labs: Abnormal Lab Results - Last 24 Hours (Table) 12/17/19 12/18/19 12/18/19 Range/Units 17:38 00:03 05:50 MCHC 30.2 L (31.0-37.0) g/dL RDW 16.7 H (11.5-15.5) % Plt Count 130 L (150-450) k/uL Creatinine (0.6-1.5) mg/dL BUN/Creatinine Ratio (12.00-20.00) Ratio Glucose (70-110) mg/dL POC Glucose (mg/dL) 307 H 265 H (75-99) mg/dL Calcium (8.7-10.3) mg/dL 12/18/19 12/18/19 12/18/19 Range/Units 05:50 05:52 11:28 MCHC (31.0-37.0) g/dL RDW (11.5-15.5) % Plt Count (150-450) k/uL Creatinine 0.4 L (0.6-1.5) mg/dL BUN/Creatinine Ratio 47.50 H (12.00-20.00) Ratio Glucose 236 H (70-110) mg/dL POC Glucose (mg/dL) 261 H 242 H (75-99) mg/dL Calcium 8.0 L (8.7-10.3) mg/dL
[2019-12-18] MEDS: DEXAMETHASONE SOD PHOSPHATE 4 MG/ML 1 ML VIAL IV SCH ×2 (12:03→17:21)
--- NOTE | 2019-12-18 14:36 | PN ---
PROGRESS NOTE DATE OF SERVICE: 12/18/2019 REASON FOR FOLLOWUP: Abdominal wall abscess cellulitis. INTERVAL COURSE: The patient is currently afebrile. Patient is breathing comfortably. The patient denies having any chest pain or shortness of breath. No nausea, no vomiting. No abdominal pain or diarrhea. He wants to go home. PHYSICAL EXAMINATION: Blood pressure 120/66, pulse of 84, temperature 97.8 she is 100% on 2 L nasal cannula. General description is an elderly female, lying in bed in no distress. RESPIRATORY SYSTEM: Unlabored breathing, clear to auscultation anteriorly. HEART: S1, S2. Regular rate and rhythm. ABDOMEN: Soft, the midline abdominal wound is currently dry. No drainage on the dressing. LABS: White count 6.8, creatinine 0.4. DIAGNOSTIC IMPRESSION AND PLAN: Patient abdominal abscess, cellulitis, culture positive for Klebsiella and anaerobes. Patient is on cefepime and Flagyl with the plan to finish therapy with oral Ceftin and Flagyl for about a week. Local care with Aquacel Silver dressing. Continue supportive care. MMODL / IJN: [id number] /
[2019-12-18] MEDS ORDERED: WARFARIN 3 MG TAB PO ONE (18:00)
[2019-12-18 18:06] LABS: Glucose,Whole Blood 294 mg/dL (75-99)
[2019-12-18 20:47] LABS: Glucose,Whole Blood 340 mg/dL (75-99)
[2019-12-18] MEDS ORDERED: INSULIN ASPART (NovoLOG) 100 UNIT/ML VIAL SQ ONE (20:49)
[2019-12-18] MEDS ORDERED: INSULIN DETEMIR (LEVEMIR) 100 UNIT/ML SYR SQ SCH (21:00)
[2019-12-18] MEDS: ATORVASTATIN 10 MG TAB PO SCH (21:06)
[2019-12-18] MEDS: MELATONIN 3 MG TABLET PO SCH (21:06)
--- NOTE | 2019-12-18 21:54 | PN ---
PROGRESS NOTE DATE OF SERVICE: 12/18/2019 I am covering for Dr. Anthony. This 84-year-old woman who was admitted with abscess and cellulitis of the postoperative wound with Klebsiella as well as gram negative bacilli, was on empiric antibiotics. The patient had extremely poor p.o. intake and TPN was initiated. Currently calorie count is in progress. The patient also refuses PT/OT as well. Past medical history reviewed. REVIEW OF SYSTEMS: CARDIOVASCULAR SYSTEM: No angina or palpitations. RESPIRATION: As mentioned earlier. GI as mentioned. no dysuria. NERVOUS SYSTEM: Diffuse weakness. CURRENT MEDICATIONS: 1. Tylenol. 2. Hartline. 3. DuoNeb q.i.d. and p.r.n. 4. Lipitor. 5. Dulcolax. 6. TUMS. 7. Cefepime 2 g. 8. Colace. 9. TPN. 10.NovoLog. 11.Milk of magnesia. 12.Narcan. 13.Zofran. 14.Doses are reviewed. PHYSICAL EXAM: Patient is alert, oriented x2. Pulse 66. Blood pressure 111/74, respiration 28, temperature 97.6, pulse ox 97% on 3 L. HEENT: Conjunctivae normal. Oral mucosa moist. NECK is no jugular venous distention. No carotid bruit. No lymph node enlargement. CARDIOVASCULAR: S1, S2 muffled. RESPIRATORY: Breath sounds diminished in the bases. A few scattered rhonchi and crackles. ABDOMEN: Soft, nontender. No mass palpable. LEGS no edema. No swelling. NERVOUS SYSTEM: Diffusely weak. LABS: WBC 6.8, hemoglobin 11.4. Glucose noted elevated up to 294. ASSESSMENT: 1. Abscess cellulitis from the postoperative site from Klebsiella as well as anaerobic gram-negative bacilli on cefepime and Flagyl empirically. 2. Status post laparoscopic cholecystectomy a month ago. 3. On TPN. 4. Mild protein calorie malnutrition. 5. Poor p.o. intake. 6. Medical debility. 7. Persistent atrial fibrillation. 8. Chronic congestive heart failure with chronic systolic dysfunction, EF fraction 30 to 35%. 9. Hypokalemia. 10.Mild thrombocytopenia. 11.AICD pacemaker. 12.Hypertension. 13.Hyperlipidemia. 14.History of degenerative joint disease. 15.History of anorexia. 16.Anemia, normocytic anemia of chronic disease. 17.NO CODE, NO CPR, NO VENT. RECOMMENDATIONS AND DISCUSSION: I recommend to continue current management. I would recommend continue the TPN at this time. Encourage p.o. food and calorie count and otherwise also encouraged to take part in PT/OT activities. Otherwise, the patient is NO CODE at this time. I would monitor the blood sugars closely. Blood sugar is elevated and continue the scale. Patient is on also Dexamethasone per Surgery. I would recommend Lantus at nighttime and continue to monitor. We will start 20 units and we will continue to monitor. Hold if Accu- Cheks are less than 150. Please monitor. We will continue to monitor. Prognosis guarded. Further recommendations to follow. MMODL / IJN: [id number] /
[2019-12-18 23:57] LABS: Glucose,Whole Blood 342 mg/dL (75-99)
[2019-12-19] MEDS: IPRATROPIUM-ALBUTEROL 3 ML NEB INHALATION SCH ×4 (00:06→21:07)
[2019-12-19] MEDS ORDERED: IPRATROPIUM-ALBUTEROL 3 ML NEB INHALATION PRN (00:11)
[2019-12-19] MEDS ORDERED: INSULIN REGULAR BOLUS (FROM DRIP BAG) IV ONE (06:17)
[2019-12-19 06:18] LABS: Glucose,Whole Blood 390 mg/dL (75-99)
[2019-12-19] MEDS: DEXAMETHASONE SOD PHOSPHATE 4 MG/ML 1 ML VIAL IV SCH ×4 (06:23→18:02)
[2019-12-19] MEDS: INSULIN ASPART (NovoLOG) 100 UNIT/ML VIAL SQ SCH (06:23)
[2019-12-19 06:45] LABS: Glucose,Whole Blood 386 mg/dL (75-99)
[2019-12-19] MEDS: INSULIN REGULAR 100 UNIT in SODIUM CHLORIDE 0.9% 100 ML IV SCH ×2 (06:50→12:24)
[2019-12-19 07:25] LABS: Glucose,Whole Blood 352 mg/dL (75-99)
[2019-12-19 07:54] LABS: Glucose,Whole Blood 344 mg/dL (75-99)
[2019-12-19 08:34] LABS: Glucose,Whole Blood 344 mg/dL (75-99)
[2019-12-19 08:55] LABS: Glucose,Whole Blood 326 mg/dL (75-99)
[2019-12-19 09:25] LABS: Glucose,Whole Blood 301 mg/dL (75-99)
[2019-12-19] MEDS: PANTOPRAZOLE 40 MG/10 ML VIAL IVP SCH (09:38)
[2019-12-19] MEDS: METOPROLOL SUCCINATE (ER) 100 MG TAB.ER.24H PO SCH (09:38)
[2019-12-19] MEDS: SENNOSIDES-DOCUSATE SODIUM 1 EACH TAB PO SCH ×2 (09:38→18:02)
[2019-12-19] MEDS: CEFEPIME 2 GM in SODIUM CHLORIDE 0.9% 100 ML IVPB SCH ×2 (09:39→21:33)
[2019-12-19] MEDS: CALCIUM CARBONATE LIQUID 500 MG/5 ML CUP PO SCH ×3 (09:39→18:02)
[2019-12-19] MEDS: FAT EMULSION 20% 250 ML in EMPTY BAG 1 BAG IV SCH (09:39)
[2019-12-19 09:55] LABS: Glucose,Whole Blood 304 mg/dL (75-99)
[2019-12-19 10:26] LABS: Glucose,Whole Blood 309 mg/dL (75-99)
[2019-12-19 10:51] LABS: INR 1.01 (0.90-1.11); Prothrombin Time 10.8 sec (9.9-11.9)
[2019-12-19 10:53] LABS: Glucose,Whole Blood 272 mg/dL (75-99)
[2019-12-19 11:31] LABS: Glucose,Whole Blood 252 mg/dL (75-99)
[2019-12-19 11:57] LABS: Glucose,Whole Blood 236 mg/dL (75-99)
--- NOTE | 2019-12-19 12:12 | P.PN ---
Subjective Progress Note Date: 12/19/19 CHIEF COMPLAINT: Drainage from incision site HISTORY OF PRESENT ILLNESS: Patient is status post laparoscopic cholecystectomy with ERCP one month ago, 11/03/2019. She comes in with purulent drainage along e pigastrium incision. She denies pain. Patient does report improvement in her nausea. Patient is still not eating and refuses some of her medications as well as physical therapy. She reports she likes the food better at [facility]. She is on 4 L of oxygen and was a little short of breath this morning. Chest x-ray has been ordered. PHYSICAL EXAM: VITAL SIGNS: Reviewed. GENERAL: Well-developed in no acute distress. HEENT: No sclera icterus. Extraocular movements grossly intact. Moist buccal mucosa. Head is atraumatic, normocephalic. ABDOMEN: Soft. Upper abdomen incision decrease in erythema around the incision. Decrease in drainage NEUROLOGIC: Alert and oriented. Cranial nerves II through XII grossly intact. ASSESSMENT: 1. Surgical site infection with resistance and failed outpatient management 2. Status post laparoscopic cholecystectomy with ERCP one month ago, 11/03/2019 PLAN: -Order chest x-ray for shortness of breath and hypoxia -Hep-Lock IV fluids -TPN per medicine -Continue Decadron and Zofran for nausea -Continue local wound care -Continue antibiotics per ID. Dr. Alfred is recommending Cipro and Flagyl for 10 days -Continue carb consistent diet Physician A R Specialist note has been reviewed by physician. Signing provider agrees with the documented findings, assessment, and plan of care. Objective - Vital Signs Vital signs: Vital Signs Temp 97.5 F L 12/19/19 04:46 Pulse 77 12/19/19 04:46 Resp 16 12/19/19 04:46 BP 149/71 12/19/19 04:46 Pulse Ox 97 12/19/19 04:46 Intake & Output 12/18/19 12/19/19 12/19/19 18:59 06:59 18:59 Intake Total 600 96.849 Output Total 1302 900 Balance -702 -900 96.849 Weight 81.5 kg 97 kg Intake: Intake, IV Titration 96.849 Amount Insulin Regular 100 unit 96.849 In Sodium Chloride 0.9% 100 ml @ Titrate IV .Q0M [facility] Rx#:[id number] Oral 600 Output: Urine 1300 900 Stool 2 Other: Voiding Method Indwelling Catheter # Voids 3 3 # Bowel Movements 1 - Labs CBC & Chem 7: 12/18/19 05:50 12/18/19 05:50 Labs: Abnormal Lab Results - Last 24 Hours (Table) 12/18/19 12/18/19 12/18/19 Range/Units 18:03 20:44 23:55 POC Glucose (mg/dL) 294 H 340 H 342 H (75-99) mg/dL 12/19/19 12/19/19 12/19/19 Range/Units 06:15 06:40 07:22 POC Glucose (mg/dL) 390 H 386 H 352 H (75-99) mg/dL 12/19/19 12/19/19 12/19/19 Range/Units 07:50 08:23 08:53 POC Glucose (mg/dL) 344 H 344 H 326 H (75-99) mg/dL 12/19/19 12/19/19 12/19/19 Range/Units 09:23 09:53 10:24 POC Glucose (mg/dL) 301 H 304 H 309 H (75-99) mg/dL 12/19/19 12/19/19 12/19/19 Range/Units 10:52 11:26 11:55 POC Glucose (mg/dL) 272 H 252 H 236 H (75-99) mg/dL
[2019-12-19 13:08] LABS: African American GFR (CKD) 112.4 (60.0-200.0); BUN/Creat Ratio 62.5 Ratio (12.00-20.00); Calcium 8.2 mg/dL (8.7-10.3); Phosphorus 2.6 mg/dL (2.4-5.1); Potassium 4.7 mmol/L (3.5-5.5)
[2019-12-19 13:19] LABS: Glucose,Whole Blood 195 mg/dL (75-99)
--- NOTE | 2019-12-19 13:34 | XR ---
EXAMINATION TYPE: XR chest 1V portable DATE OF EXAM: 12/19/2019 COMPARISON: 11/28/2019 HISTORY: Congestion TECHNIQUE: Single frontal view of the chest is obtained. FINDINGS: Cardiac device seen with bilateral consolidation and pleural effusion. Diffuse interstitia l pattern. No pneumothorax. Right-sided PICC line noted. Cardiac device seen. Diffuse osteopenia with arthropathy. IMPRESSION: 1. CHF
[2019-12-19 13:41] VITALS: BMI 37.8
[2019-12-19 15:31] LABS: Glucose,Whole Blood 153 mg/dL (75-99)
[2019-12-19] MEDS: FUROSEMIDE 10 MG/ML 4 ML VIAL IV SCH ×2 (16:12→21:33)
--- NOTE | 2019-12-19 16:57 | PN ---
PROGRESS NOTE DATE OF SERVICE: 12/19/2019 REASON FOR FOLLOWUP: Abdominal wall abscess and cellulitis. INTERVAL HISTORY: The patient is currently afebrile. The patient is complaining of some shortness of breath. No chest pain or cough. No nausea, no vomiting. No abdominal pain or diarrhea. PHYSICAL EXAMINATION: Blood pressure 153/74 with a pulse of 81, temperature 97.4. She is 97% on 4 L nasal cannula. General description is an elderly female lying in bed in no distress. RESPIRATORY SYSTEM: Unlabored breathing. Clear to auscultation anteriorly. HEART: S1, S2. Regular rate and rhythm. ABDOMEN: Soft. No tenderness. LABS: No new labs have been obtained today. Chest x-ray with CHF. DIAGNOSTIC IMPRESSION AND PLAN: Patient with an abdominal wall cellulitis. Local culture positive for Klebsiella and anaerobes. Patient is covered with cefepime and Flagyl. Local care with Aquacel Silver dressing. short course of oral in the outpatient setting. Continue with supportive care. MMODL / IJN: [id number] /
--- NOTE | 2019-12-19 17:18 | PN ---
PROGRESS NOTE DATE OF SERVICE: 12/19/2019 I am covering for Dr. Anthony. This 84-year-old woman who was admitted with abscess and cellulitis of the abdominal wound had Klebsiella as well as Gram-negative bacilli. The patient is being closely monitored at this time. The patient also is on TPN but apparently refuses to eat because the patient does not like the food. Patient apparently wanted to go back to [facility]. A calorie count is in progress at this time. Her most recent chest x- ray, which was personally reviewed by me, showed some evidence of CHF. The patient is being closely monitored. Patient is on TPN also. Past medical history reviewed. REVIEW OF SYSTEMS: CARDIOVASCULAR SYSTEM: No angina, palpitations. RESPIRATORY SYSTEM: As mentioned earlier. GI: As mentioned earlier. : No dysuria or retention. NERVOUS SYSTEM: No numbness, weakness. CURRENT MEDICATIONS: Reviewed. They include: Tylenol, Fenton 5 mg, DuoNeb q.i.d. and p.r.n., Lipitor, Dulcolax, TUMS, cefepime 2 grams, Decadron, Colace, TPN, melatonin, Toprol, Narcan, Zofran, Protonix, Coumadin. PHYSICAL EXAMINATION: Patient is alert, oriented x3. Pulse 81, blood pressure 153/74, respiration 23, temperature 97.4, pulse ox 97% on 4 L. HEENT: Conjunctivae normal. Oral mucosa moist. NECK: No jugular venous distention. No carotid bruit. No lymph node enlargement. CARDIOVASCULAR SYSTEM: S1, S2 muffled. RESPIRATORY SYSTEM: Breath sounds diminished at the bases. Bilateral scattered rhonchi and crackles. ABDOMEN: Soft, non-tender. No mass palpable. LEGS: No edema. No swelling. NERVOUS SYSTEM: No focal deficit. LABS: Accu-Cheks 236, 195. Other labs are noted. ASSESSMENT: 1. Abscess and cellulitis of the postoperative site with Klebsiella as well as anaerobic Gram-negative bacilli, on cefepime and Flagyl empirically. 2. Status post laparoscopic cholecystectomy a month ago. 3. Congestive heart failure with acute exacerbation, acute on chronic systolic dysfunction; ejection fraction 30% to 35%. 4. On total parenteral nutrition. 5. Mild protein-calorie malnutrition. 6. Poor oral intake. 7. Medical debility. 8. Persistent atrial fibrillation. 9. Hypokalemia. 10.Mild thrombocytopenia. 11.AICD pacemaker. 12.Hypertension. 13.Hyperlipidemia. 14.History of degenerative joint disease. 15.History of anorexia. 16.Anemia, normocytic anemia of chronic disease. 17.NO CODE, NO CPR, NO VENT. RECOMMENDATIONS AND DISCUSSION: I recommend to continue current medications, continue with the monitoring, symptomatic treatment. Will initiate Lasix. Cut down the IV fluids. Monitor intake/output strictly. Prognosis is guarded because of multiple complex medical issues. Continue with antibiotics. Further recommendations to follow. Dr. Anthony will follow tomorrow. MMODL / IJN: [id number] /
[2019-12-19 17:40] LABS: Glucose,Whole Blood 161 mg/dL (75-99)
[2019-12-19] MEDS ORDERED: WARFARIN 2 MG TAB PO ONE (18:00)
[2019-12-19 20:24] LABS: Glucose,Whole Blood 169 mg/dL (75-99)
[2019-12-19 21:27] LABS: Glucose,Whole Blood 148 mg/dL (75-99)
[2019-12-19] MEDS: MELATONIN 3 MG TABLET PO SCH (21:30)
[2019-12-19] MEDS: ATORVASTATIN 10 MG TAB PO SCH (21:30)
[2019-12-20 01:10] LABS: Glucose,Whole Blood 147 mg/dL (75-99)
[2019-12-20] MEDS: DEXAMETHASONE SOD PHOSPHATE 4 MG/ML 1 ML VIAL IV SCH (01:19)
[2019-12-20] MEDS ORDERED: ONDANSETRON 4 MG/2 ML VIAL IVP PRN (02:04)
[2019-12-20] MEDS ORDERED: NALOXONE 0.4 MG/ML 1 ML VIAL IV PRN (02:04)
[2019-12-20 03:28] LABS: Glucose,Whole Blood 177 mg/dL (75-99)
[2019-12-20] MEDS: [UNRECOGNIZED DRUG - REMARK] IV SCH ×4 (05:55)
[2019-12-20] MEDS ORDERED: DEXAMETHASONE SOD PHOSPHATE 4 MG/ML 1 ML VIAL IV SCH (06:00)
[2019-12-20 06:13] LABS: Glucose,Whole Blood 168 mg/dL (75-99)
[2019-12-20] MEDS: INSULIN REGULAR 100 UNIT in SODIUM CHLORIDE 0.9% 100 ML IV SCH (06:16)
[2019-12-20] MEDS: IPRATROPIUM-ALBUTEROL 3 ML NEB INHALATION SCH ×5 (07:32→20:05)
[2019-12-20 08:14] LABS: Glucose,Whole Blood 131 mg/dL (75-99)
[2019-12-20] MEDS: PANTOPRAZOLE 40 MG/10 ML VIAL IVP SCH (08:31)
[2019-12-20] MEDS: METOPROLOL SUCCINATE (ER) 100 MG TAB.ER.24H PO SCH (08:31)
[2019-12-20] MEDS: CALCIUM CARBONATE LIQUID 500 MG/5 ML CUP PO SCH ×4 (08:31→18:21)
[2019-12-20] MEDS: FUROSEMIDE 10 MG/ML 4 ML VIAL IV SCH ×2 (08:32→16:51)
[2019-12-20] MEDS: SENNOSIDES-DOCUSATE SODIUM 1 EACH TAB PO SCH ×2 (08:32→18:21)
[2019-12-20] MEDS: CEFEPIME 2 GM in SODIUM CHLORIDE 0.9% 100 ML IVPB SCH ×2 (08:32→21:54)
--- NOTE | 2019-12-20 09:18 | P.PN ---
Subjective Progress Note Date: 12/20/19 CHIEF COMPLAINT: Drainage from incision site HISTORY OF PRESENT ILLNESS: Patient seen and examined with Dr. Adams. Patient is status post laparoscopic cholecystectomy with ERCP one month ago, 11/03/2019. She comes in with purulent drainage along epigastrium incision. patient is sleeping comfortably. No evidence of distress. Patient did have bowel movements yesterday her records. No vomiting. Blood sugars elevated requiring insulin drip due to her being on Decadron. chest x-ray showing evidence of congestive heart failure PHYSICAL EXAM: VITAL SIGNS: Reviewed. GENERAL: Well-developed in no acute distress. HEENT: No sclera icterus. Extraocular movements grossly intact. Moist buccal mucosa. Head is atraumatic, normocephalic. ABDOMEN: Soft. Upper abdomen incision infection improving. No evidence of erythema NEUROLOGIC: Alert and oriented. Cranial nerves II through XII grossly intact. ASSESSMENT: 1. Surgical site infection with resistance and failed outpatient management 2. Status post laparoscopic cholecystectomy with ERCP one month ago, 11/03/2019 PLAN: -Discontinue Decadron -Medicine to manage congestive heart failure -TPN per medicine -Continue local wound care -Continue antibiotics per ID. Dr. Alfred is recommending Cipro and Flagyl for 10 days -Continue carb consistent diet Physician [employer] Specialist note has been reviewed by physician. Signing provider agrees with the documented findings, assessment, and plan of care. Objective - Vital Signs Vital signs: Vital Signs Temp 97.5 F L 12/20/19 04:40 Pulse 68 12/20/19 07:43 Resp 12 12/20/19 00:00 BP 130/69 12/20/19 04:40 Pulse Ox 97 12/20/19 07:32 Intake & Output 12/19/19 12/20/19 12/20/19 18:59 06:59 18:59 Intake Total 773.710 9313.317 Output Total 1503 1500 Balance -621.383 -382.683 Weight 97 kg Intake: IV 400 580 Cefepime 2 gm In Sodium 100 100 Chloride 0.9% 100 ml @ 25 mls/hr IVPB Q12HR [facility] Rx #:[id number] Sodium Chloride 0.9% 1, 300 480 000 ml @ 60 mls/hr IV . [id number] [facility] Rx#:[id number] Intake, IV Titration 121.617 537.317 Amount Insulin Regular 100 unit 121.617 37.317 In Sodium Chloride 0.9% 100 ml @ Titrate IV .Q0M [facility] Rx#:[id number] Mvi, Adult No.4 with Vit 500 K 10 ml Trace (Conc-1Ml/ Dose) 1 ml Magnesium Sulfate gm 2 gm In Amino Acid 5%-D15w+Lytes*E* 1, 000 ml @ 50 mls/hr IV . [id number] [facility] Rx#:[id number] Oral 360 Output: Urine 1500 1500 Stool 3 0 Other: Voiding Method Indwelling Catheter Indwelling Catheter # Voids 3 0 - Labs CBC & Chem 7: 12/18/19 05:50 12/19/19 05:10 Labs: Abnormal Lab Results - Last 24 Hours (Table) 12/19/19 12/19/19 12/19/19 Range/Units 05:10 09:23 09:53 Anion Gap 13.00 H (4.00-12.00) mmol/L Creatinine 0.4 L (0.6-1.5) mg/dL BUN/Creatinine Ratio 62.50 H (12.00-20.00) Ratio Glucose 367 H (70-110) mg/dL POC Glucose (mg/dL) 301 H 304 H (75-99) mg/dL Calcium 8.2 L (8.7-10.3) mg/dL 12/19/19 12/19/19 12/19/19 Range/Units 10:24 10:52 11:26 Anion Gap (4.00-12.00) mmol/L Creatinine (0.6-1.5) mg/dL BUN/Creatinine Ratio (12.00-20.00) Ratio Glucose (70-110) mg/dL POC Glucose (mg/dL) 309 H 272 H 252 H (75-99) mg/dL Calcium (8.7-10.3) mg/dL 12/19/19 12/19/19 12/19/19 Range/Units 11:55 13:18 15:30 Anion Gap (4.00-12.00) mmol/L Creatinine (0.6-1.5) mg/dL BUN/Creatinine Ratio (12.00-20.00) Ratio Glucose (70-110) mg/dL POC Glucose (mg/dL) 236 H 195 H 153 H (75-99) mg/dL Calcium (8.7-10.3) mg/dL 12/19/19 12/19/19 12/19/19 Range/Units 17:36 20:13 21:27 Anion Gap (4.00-12.00) mmol/L Creatinine (0.6-1.5) mg/dL BUN/Creatinine Ratio (12.00-20.00) Ratio Glucose (70-110) mg/dL POC Glucose (mg/dL) 161 H 169 H 148 H (75-99) mg/dL Calcium (8.7-10.3) mg/dL 12/20/19 12/20/19 12/20/19 Range/Units 01:08 03:26 06:11 Anion Gap (4.00-12.00) mmol/L Creatinine (0.6-1.5) mg/dL BUN/Creatinine Ratio (12.00-20.00) Ratio Glucose (70-110) mg/dL POC Glucose (mg/dL) 147 H 177 H 168 H (75-99) mg/dL Calcium (8.7-10.3) mg/dL 12/20/19 Range/Units 08:11 Anion Gap (4.00-12.00) mmol/L Creatinine (0.6-1.5) mg/dL BUN/Creatinine Ratio (12.00-20.00) Ratio Glucose (70-110) mg/dL POC Glucose (mg/dL) 131 H (75-99) mg/dL Calcium (8.7-10.3) mg/dL
[2019-12-20 09:54] LABS: INR 1.09 (0.90-1.11); Prothrombin Time 11.6 sec (9.9-11.9)
[2019-12-20 10:12] LABS: African American GFR (CKD) 112.4 (60.0-200.0); Anion Gap 8.5 mmol/L (4.00-12.00); Calcium 8.5 mg/dL (8.7-10.3); Carbon Dioxide 37.5 mmol/L (21.6-31.8); Magnesium 1.8 mg/dL (1.5-2.4); Phosphorus 2.5 mg/dL (2.4-5.1); Potassium 3.7 mmol/L (3.5-5.5)
[2019-12-20 10:17] LABS: Glucose,Whole Blood 161 mg/dL (75-99)
[2019-12-20 11:43] LABS: Glucose,Whole Blood 188 mg/dL (75-99)
[2019-12-20] MEDS: INSULIN ASPART (NovoLOG) 100 UNIT/ML VIAL SQ SCH ×2 (12:22→18:21)
[2019-12-20] MEDS: POTASSIUM CHLORIDE 20 MEQ in WATER FOR INJECTION 1 100ML.BAG IVPB SCH ×2 (12:22→14:19)
[2019-12-20] MEDS ORDERED: WARFARIN 2 MG TAB PO ONE (18:00)
[2019-12-20 18:06] LABS: Glucose,Whole Blood 266 mg/dL (75-99)
[2019-12-20] MEDS: MELATONIN 3 MG TABLET PO SCH (21:53)
[2019-12-20] MEDS: ATORVASTATIN 10 MG TAB PO SCH (21:53)
--- NOTE | 2019-12-20 22:58 | P.PN ---
Progress Note - Text Progress Note Date: 12/20/19 - Chief Complaint Drainage from the abdominal wound Consultation: This is a pleasant 84-year-old patient of Dr. Pimentel. Patient November 02 has undergone laparoscopic cholecystectomy by Dr. Adams. For cholecystitis and cholelithiasis. Patient was discharged to the [facility] about a month ago. Patient has been rather weak and tired. If not much of an appetite. Does not really ambulate because of weakness. Chronic stable medical conditions include atrial fibrillation, CHF, hypertension, hyperlipidemia, osteoarthritis, pacemaker with AICD. Patient was noted to have drainage from the epigastric laparoscopic insertion site. Was present in the room dark brown pus was coming out. Special squeezing surrounding. Patient has very limited tenderness. Denies any fever and chills. Appetite has been poor. Midline place. Placed on TPN and lipids. Subsequently patient is put on IV steroids by surgery for the nausea. Became hyperglycemic and drip was placed Today-continues to feel weak. Some shortness of breath.. Appetite remains poor. Lipids have been taken off. Given IV Lasix. Review of systems: Was done for constitutional, cardiovascular, GI, pulmonary. relevant finding as above Active Medications Acetaminophen (Acetaminophen Tab 325 Mg Tab) 650 mg PO Q6HR PRN PRN Reason: Mild Pain or Fever > 100.5 Hydrocodone Bitart/Acetaminophen (Hydrocodone/Apap 5-325mg 1 Each Tab) 1 each PO Q6H PRN PRN Reason: Pain Last Admin: 12/17/19 20:49 Dose: 1 each Documented by: Albuterol/Ipratropium (Ipratropium-Albuterol 3 Ml Neb) 3 ml INHALATION RT-Q2H PRN PRN Reason: Shortness Of Breath Or Wheezing Albuterol/Ipratropium (Ipratropium-Albuterol 3 Ml Neb) 3 ml INHALATION RT-QID [facility] Last Admin: 12/20/19 20:05 Dose: Not Given Documented by: Atorvastatin Calcium (Atorvastatin 10 Mg Tab) 10 mg PO HS@2100 [facility] Last Admin: 12/20/19 21:53 Dose: 10 mg Documented by: Bisacodyl (Bisacodyl 10 Mg Supp) 10 mg RECTAL DAILY PRN PRN Reason: Constipation Calcium Carbonate/Glycine (Calcium Carbonate Liquid 500 Mg/5 Ml Cup) 500 mg PO TID-W/MEALS [facility] Last Admin: 12/20/19 18:21 Dose: 500 mg Documented by: Docusate Sodium (Docusate 100 Mg Cap) 100 mg PO DAILY PRN PRN Reason: Constipation Furosemide (Furosemide 10 Mg/Ml 4 Ml Vial) 40 mg IV Q8HR [facility] Last Admin: 12/20/19 16:51 Dose: 40 mg Documented by: Cefepime HCl 2 gm/ Sodium (Chloride) 100 mls @ 25 mls/hr IVPB Q12HR [facility] Last Admin: 12/20/19 21:54 Dose: 25 mls/hr Documented by: Parenteral Vitamin Supplement 10 ml/ Chromium/Copper/Manganese/Seleni/Zn 1 ml/Magnesium Sulfate 2 gm/ Amino Ac/Electrol/Dextrose/Calcium 1,015 mls @ 50 mls/hr IV .[id number] [facility] Last Admin: 12/20/19 05:55 Dose: 50 mls/hr Documented by: Insulin Aspart (Insulin Aspart (Novolog) 100 Unit/Ml Vial) 0 unit SQ Q6H [facility]; Protocol Last Admin: 12/20/19 18:21 Dose: 4 unit Documented by: Magnesium Hydroxide (Magnesium Hydroxide 2,400 Mg/10 Ml Cup) 2,400 mg PO Q48H PRN PRN Reason: Constipation for 48 hours Melatonin (Melatonin 3 Mg Tablet) 3 mg PO HS [facility] Last Admin: 12/20/19 21:53 Dose: 3 mg Documented by: Metoprolol Succinate (Metoprolol Succinate (Er) 100 Mg Tab.Er.24h) 100 mg PO DAILY@0800 [facility] Last Admin: 12/20/19 08:31 Dose: 100 mg Documented by: Metronidazole (Metronidazole 500 Mg Tab) 500 mg PO TID [facility] Miscellaneous Information (Potassium Replacement Protocol 1 Each Misc) 1 each MISCELLANE DAILY PRN; Protocol PRN Reason: Per Protocol Miscellaneous Information (Warfarin Per Pharmacy) 0 each MISCELLANE DIRECTED PRN PRN Reason: PHARMACY DOSING WARFARIN Naloxone HCl (Naloxone 0.4 Mg/Ml 1 Ml Vial) 0.2 mg IV Q2M PRN PRN Reason: Opioid Reversal Ondansetron HCl (Ondansetron 4 Mg/2 Ml Vial) 4 mg IVP Q6HR PRN PRN Reason: Nausea And Vomiting Pantoprazole Sodium (Pantoprazole 40 Mg/10 Ml Vial) 40 mg IVP DAILY [facility] Last Admin: 12/20/19 08:31 Dose: 40 mg Documented by: Senna/Docusate Sodium (Sennosides-Docusate Sodium 1 Each Tab) 1 each PO BID@0800,1700 [facility] Last Admin: 12/20/19 18:21 Dose: 1 each Documented by: Sodium Chloride (Sodium Chloride 0.9% Flush 10 Ml Syringe) 10 ml IV Q4HR PRN PRN Reason: PICC Line Sodium Chloride (Sodium Chloride 0.9% Flush 10 Ml Syringe) 10 ml IV WEEKLY [facility] Last Admin: 12/20/19 08:32 Dose: 10 ml Documented by: Sodium Chloride (Sodium Chloride 0.9% Flush 10 Ml Syringe) 20 ml IV Q4HR PRN PRN Reason: PICC Line Physical examination: VITAL SIGNS: 98.1, 73, 17, 1 36 x 63, 94% room air GENERAL:, laying in bed, tired. EYES: Pupils equal. Conjunctiva pale. NECK: JVD not raised; masses not palpable. HEART: First and second heart sounds are normal; no edema. LUNGS: Respiratory rate increased; basal crackles. ABDOMEN: Soft, dressing over the epigastric area, , no tenderness, liver spleen not palpable, no masses palpable. MUSCULAR skeletal: Evidence of OA PSYCH: Alert and oriented x3; mood and affect tired. INVESTIGATIONS, reviewed in the clinical context: Potassium 3.7 creatinine 0.4 Chest x-ray film personally reviewed by me-pulmonary edema Admission testing White count 8 hemoglobin 12.3 platelets 172 INR 3.2 potassium 3.8 creatinine 0.49 Albumin 3 Computed tomography scan of the abdomen moderate bilateral pleural effusion heart is enlarged some areas in the anterior biliary tree that is under 3 cm fluid collection of the gallbladder bed. Subcutis fluid over the anterior mid and right side of the abdomen pro-calcitonin 0.09 Wound culture-Klebsiella oxytoca COVID 19 P/Cr-not detected Assessment: -That is significant amount of dark brown fluid/pus coming out of the epigastric incision laparoscopic site. Appears to be subcutaneous abscess collection or old blood. Positive for Klebsiella oxytoca-improving -Status post laparoscopic cholecystectomy a month ago -Advancing medical debility -Mild protein calorie malnutrition from poor oral intake -Persistent atrial fibrillation -Acute on Chronic congestive heart failure from systolic dysfunction EF 30-35%-started on IV Lasix today -AICD pacemaker -Essential hypertension -Hyperlipidemia -Primary osteoarthritis -Significant anorexia. Patient not eating for a few days. -TPN/Lipid Plan: Discussed with Dr. Trinidad. Able to complete oral antibiotics. Start IV Lasix. Today the patient To be weaned off. Patient has not been eating for several days. Had a lengthy talk with the patient. Prognosis guarded. We will revisit the issue tomorrow. Patient not doing well.
[2019-12-21 00:05] LABS: Glucose,Whole Blood 255 mg/dL (75-99)
[2019-12-21] MEDS: FUROSEMIDE 10 MG/ML 4 ML VIAL IV SCH ×3 (00:40→15:24)
[2019-12-21] MEDS: INSULIN ASPART (NovoLOG) 100 UNIT/ML VIAL SQ SCH ×4 (00:43→16:25)
[2019-12-21] MEDS: metroNIDAZOLE 500 MG TAB PO SCH ×4 (01:01→21:24)
[2019-12-21] MEDS: HYDROcodone/APAP 5-325MG 1 EACH TAB PO PRN ×2 (02:04→12:11)
--- NOTE | 2019-12-21 04:58 | PN ---
PROGRESS NOTE DATE OF SERVICE: 12/20/2019 REASON FOR FOLLOWUP: Abdominal wall abscess and cellulitis. INTERVAL HISTORY: The patient is currently afebrile. The patient is breathing comfortably. Oral intake remains to be worse. No nausea, no vomiting. No abdominal pain, no diarrhea. PHYSICAL EXAMINATION: Blood pressure 116/77 with a pulse of 80, temperature 98.1. She is 94% on 2 L nasal cannula. General description is an elderly female lying in bed in no distress. RESPIRATORY SYSTEM: Unlabored breathing, clear to auscultation anteriorly. HEART: S1, S2. Regular rate and rhythm. ABDOMEN: Soft. Abdominal wall wound almost healed. No drainage. LABS: Creatinine 0.49. DIAGNOSTIC IMPRESSION AND PLAN: Patient with abdominal abscess status post spontaneous drainage. Culture positive for Klebsiella and anaerobes. Patient is covered with cefepime and Flagyl to continue. short course of oral Cipro and Flagyl on discharge. Continue supportive care. MMODL / IJN: [id number] /
[2019-12-21] MEDS: [UNRECOGNIZED DRUG - REMARK] IV SCH ×4 (04:59)
[2019-12-21 06:29] LABS: Glucose,Whole Blood 204 mg/dL (75-99)
[2019-12-21] MEDS: IPRATROPIUM-ALBUTEROL 3 ML NEB INHALATION SCH ×4 (07:32→19:25)
[2019-12-21] MEDS: PANTOPRAZOLE 40 MG/10 ML VIAL IVP SCH (09:02)
[2019-12-21] MEDS: CEFEPIME 2 GM in SODIUM CHLORIDE 0.9% 100 ML IVPB SCH ×2 (09:06→20:12)
[2019-12-21] MEDS: METOPROLOL SUCCINATE (ER) 100 MG TAB.ER.24H PO SCH (09:07)
[2019-12-21] MEDS: SENNOSIDES-DOCUSATE SODIUM 1 EACH TAB PO SCH ×2 (09:07→16:17)
[2019-12-21] MEDS: CALCIUM CARBONATE LIQUID 500 MG/5 ML CUP PO SCH ×3 (09:08→16:17)
[2019-12-21 09:11] LABS: INR 1.11 (0.90-1.11); Prothrombin Time 11.8 sec (9.9-11.9)
[2019-12-21 09:36] LABS: African American GFR (CKD) 104.5 (60.0-200.0); Chloride 86 mmol/L (96-109); Glucose 176 mg/dL (70-110); Magnesium 1.8 mg/dL (1.5-2.4); Non-African American GFR(CKD) 90.1 (60.0-200.0); Phosphorus 2.6 mg/dL (2.4-5.1); Potassium 3.5 mmol/L (3.5-5.5); Sodium 140 mmol/L (135-145)
[2019-12-21 11:18] LABS: Glucose,Whole Blood 226 mg/dL (75-99)
--- NOTE | 2019-12-21 13:15 | P.PN ---
Subjective Progress Note Date: 12/21/19 CHIEF COMPLAINT: Drainage from incision site HISTORY OF PRESENT ILLNESS: Patient seen and examined with Dr. Adams. Patient is status post laparoscopic cholecystectomy with ERCP one month ago, 11/03/2019. She comes in with purulent drainage along epigastrium incision. Patient was started on IV Lasix by medicine for fluid overload. Patient denies any shortness of breath. Denies abdominal pain. She sitting up at bedside chair. She is afebrile. PHYSICAL EXAM: VITAL SIGNS: Reviewed. GENERAL: Well-developed in no acute distress. HEENT: No sclera icterus. Extraocular movements grossly intact. Moist buccal mucosa. Head is atraumatic, normocephalic. ABDOMEN: Soft. Upper abdomen incision infection improving. No evidence of erythema NEUROLOGIC: Alert and oriented. Cranial nerves II through XII grossly intact. ASSESSMENT: 1. Surgical site infection with resistance and failed outpatient management 2. Status post laparoscopic cholecystectomy with ERCP one month ago, 11/03/2019 PLAN: -Medicine to manage congestive heart failure -TPN per medicine -Continue local wound care -Continue antibiotics per ID. Dr. Alfred is recommending Cipro and Flagyl for 10 days -Continue carb consistent diet Physician Meat Slicer note has been reviewed by physician. Signing provider agrees with the documented findings, assessment, and plan of care. Objective - Vital Signs Vital signs: Vital Signs Temp 97.8 F 12/21/19 12:06 Pulse 82 12/21/19 12:06 Resp 18 12/21/19 12:06 BP 138/82 12/21/19 12:06 Pulse Ox 95 12/21/19 12:06 Intake & Output 12/20/19 12/21/19 12/21/19 18:59 06:59 18:59 Intake Total 1015 Output Total 1500 1800 0 Balance -1500 -785 0 Weight 97 kg 73 kg Intake: Intake, IV Titration 1015 Amount Mvi, Adult No.4 with Vit 1015 K 10 ml Trace (Conc-1Ml/ Dose) 1 ml Magnesium Sulfate gm 2 gm In Amino Acid 5%-D15w+Lytes*E* 1, 000 ml @ 50 mls/hr IV . [id number] ANUJA Rx#:[id number] Oral 0 Output: Urine 1500 1800 Stool 0 0 Other: Voiding Method Indwelling Catheter # Voids 0 3 - Labs CBC & Chem 7: 12/18/19 05:50 12/21/19 05:18 Labs: Abnormal Lab Results - Last 24 Hours (Table) 12/20/19 12/21/19 12/21/19 Range/Units 18:05 00:03 05:18 Chloride 86 L (96-109) mmol/L Carbon Dioxide >40.0 H* (21.6-31.8) mmol/L BUN 36.0 H (9.0-27.0) mg/dL Creatinine 0.5 L (0.6-1.5) mg/dL BUN/Creatinine Ratio 72.00 H (12.00-20.00) Ratio Glucose 176 H (70-110) mg/dL POC Glucose (mg/dL) 266 H 255 H (75-99) mg/dL Albumin 3.00 L (3.80-4.90) g/dL 12/21/19 12/21/19 Range/Units 06:28 11:17 Chloride (96-109) mmol/L Carbon Dioxide (21.6-31.8) mmol/L BUN (9.0-27.0) mg/dL Creatinine (0.6-1.5) mg/dL BUN/Creatinine Ratio (12.00-20.00) Ratio Glucose (70-110) mg/dL POC Glucose (mg/dL) 204 H 226 H (75-99) mg/dL Albumin (3.80-4.90) g/dL
[2019-12-21] MEDS: POTASSIUM CHLORIDE 20 MEQ in WATER FOR INJECTION 1 100ML.BAG IVPB SCH ×2 (15:23→17:44)
[2019-12-21 15:56] LABS: Anion Gap 13.9 mmol/L (4.00-12.00); Carbon Dioxide >40.0 mmol/L (21.6-31.8)
[2019-12-21] MEDS ORDERED: [UNRECOGNIZED DRUG - REMARK] IV SCH ×8 (16:00)
[2019-12-21 16:19] LABS: Glucose,Whole Blood 257 mg/dL (75-99)
[2019-12-21] MEDS ORDERED: WARFARIN 5 MG TAB PO ONE (18:00)
[2019-12-21] MEDS: ATORVASTATIN 10 MG TAB PO SCH (20:13)
[2019-12-21] MEDS: MELATONIN 3 MG TABLET PO SCH (20:13)
--- NOTE | 2019-12-21 21:29 | PN ---
PROGRESS NOTE DATE OF SERVICE: 01/08/2020 REASON FOR FOLLOWUP: Abdominal wall abscess and cellulitis. INTERVAL HISTORY: The patient is currently afebrile. The patient is breathing comfortably. The patient denies having any chest pain. No shortness of breath or cough. Oral intake remains to be poor. No vomiting or diarrhea. PHYSICAL EXAMINATION: Blood pressure 132/80 with a pulse of 82, temperature 97.8. She is 95% on 3 L nasal cannula. General description is an elderly female lying in bed in no distress. Respiratory system: Unlabored breathing, decreased breath sounds in the bases. No wheeze. Heart S1, S2. Regular rate and rhythm. Abdomen soft, no tenderness. LABS: Creatinine 0.50. DIAGNOSTIC IMPRESSION AND PLAN: Patient with acute abdominal wall abscess, cellulitis, culture positive for Klebsiella and anaerobes. The patient received about 2 weeks of IV cefepime and Flagyl, that will be enough and can be safely discontinued on discharge. Local care to continue with dry Aquacel Silver dressing. MMODL / IJN: [id number] /
--- NOTE | 2019-12-21 21:37 | P.PN ---
Progress Note - Text Progress Note Date: 12/21/19 - Chief Complaint Drainage from the abdominal wound Consultation: This is a pleasant 84-year-old patient of Dr. Pimentel. Patient November 02 has undergone laparoscopic cholecystectomy by Dr. Adams. For cholecystitis and cholelithiasis. Patient was discharged to the [facility] about a month ago. Patient has been rather weak and tired. If not much of an appetite. Does not really ambulate because of weakness. Chronic stable medical conditions include atrial fibrillation, CHF, hypertension, hyperlipidemia, osteoarthritis, pacemaker with AICD. Patient was noted to have drainage from the epigastric laparoscopic insertion site. Was present in the room dark brown pus was coming out. Special squeezing surrounding. Patient has very limited tenderness. Denies any fever and chills. Appetite has been poor. Midline place. Placed on TPN and lipids. Subsequently patient is put on IV steroids by surgery for the nausea. Became hyperglycemic and insulin drip was placed . Some pulmonary edema started on IV Lasix. Today-remains to have poor to no appetite. Weak and tired and rundown. Review of systems: Was done for constitutional, cardiovascular, GI, pulmonary. relevant finding as above Active Medications Acetaminophen (Acetaminophen Tab 325 Mg Tab) 650 mg PO Q6HR PRN PRN Reason: Mild Pain or Fever > 100.5 Hydrocodone Bitart/Acetaminophen (Hydrocodone/Apap 5-325mg 1 Each Tab) 1 each PO Q6H PRN PRN Reason: Pain Last Admin: 12/21/19 12:11 Dose: 1 each Documented by: Albuterol/Ipratropium (Ipratropium-Albuterol 3 Ml Neb) 3 ml INHALATION RT-Q2H PRN PRN Reason: Shortness Of Breath Or Wheezing Albuterol/Ipratropium (Ipratropium-Albuterol 3 Ml Neb) 3 ml INHALATION RT-QID [facility] Last Admin: 12/21/19 19:25 Dose: Not Given Documented by: Atorvastatin Calcium (Atorvastatin 10 Mg Tab) 10 mg PO HS@2100 [facility] Last Admin: 12/21/19 20:13 Dose: Not Given Documented by: Bisacodyl (Bisacodyl 10 Mg Supp) 10 mg RECTAL DAILY PRN PRN Reason: Constipation Calcium Carbonate/Glycine (Calcium Carbonate Liquid 500 Mg/5 Ml Cup) 500 mg PO TID-W/MEALS [facility] Last Admin: 12/21/19 16:17 Dose: 500 mg Documented by: Docusate Sodium (Docusate 100 Mg Cap) 100 mg PO DAILY PRN PRN Reason: Constipation Furosemide (Furosemide 10 Mg/Ml 4 Ml Vial) 40 mg IV Q8HR [facility] Last Admin: 12/21/19 15:24 Dose: 40 mg Documented by: Cefepime HCl 2 gm/ Sodium (Chloride) 100 mls @ 25 mls/hr IVPB Q12HR [facility] Last Admin: 12/21/19 20:12 Dose: 25 mls/hr Documented by: Parenteral Vitamin Supplement 10 ml/ Chromium/Copper/Manganese/Seleni/Zn 1 ml/Potassium Phosphate 10 mmol/Sodium Chloride 25 meq/Potassium Chloride 20 meq/Magnesium Sulfate 2.5 gm/Calcium Gluconate 1 gm/ Amino Acids/Dextrose 1,049.3333 mls @ 50 mls/hr IV .Q21H [facility] Last Admin: 12/21/19 16:08 Dose: 50 mls/hr Documented by: Insulin Aspart (Insulin Aspart (Novolog) 100 Unit/Ml Vial) 0 unit SQ Q6H [facility]; Protocol Last Admin: 12/21/19 16:25 Dose: 3 unit Documented by: Magnesium Hydroxide (Magnesium Hydroxide 2,400 Mg/10 Ml Cup) 2,400 mg PO Q48H PRN PRN Reason: Constipation for 48 hours Melatonin (Melatonin 3 Mg Tablet) 3 mg PO HS [facility] Last Admin: 12/21/19 20:13 Dose: Not Given Documented by: Metoprolol Succinate (Metoprolol Succinate (Er) 100 Mg Tab.Er.24h) 100 mg PO DAILY@0800 [facility] Last Admin: 12/21/19 09:07 Dose: 100 mg Documented by: Metronidazole (Metronidazole 500 Mg Tab) 500 mg PO TID [facility] Last Admin: 12/21/19 21:24 Dose: Not Given Documented by: Miscellaneous Information (Potassium Replacement Protocol 1 Each Misc) 1 each MISCELLANE DAILY PRN; Protocol PRN Reason: Per Protocol Miscellaneous Information (Warfarin Per Pharmacy) 0 each MISCELLANE DIRECTED PRN PRN Reason: PHARMACY DOSING WARFARIN Naloxone HCl (Naloxone 0.4 Mg/Ml 1 Ml Vial) 0.2 mg IV Q2M PRN PRN Reason: Opioid Reversal Ondansetron HCl (Ondansetron 4 Mg/2 Ml Vial) 4 mg IVP Q6HR PRN PRN Reason: Nausea And Vomiting Pantoprazole Sodium (Pantoprazole 40 Mg/10 Ml Vial) 40 mg IVP DAILY [facility] Last Admin: 12/21/19 09:02 Dose: 40 mg Documented by: Senna/Docusate Sodium (Sennosides-Docusate Sodium 1 Each Tab) 1 each PO BID@0800,1700 [facility] Last Admin: 12/21/19 16:17 Dose: 1 each Documented by: Sodium Chloride (Sodium Chloride 0.9% Flush 10 Ml Syringe) 10 ml IV Q4HR PRN PRN Reason: PICC Line Sodium Chloride (Sodium Chloride 0.9% Flush 10 Ml Syringe) 10 ml IV WEEKLY [facility] Last Admin: 12/20/19 08:32 Dose: 10 ml Documented by: Sodium Chloride (Sodium Chloride 0.9% Flush 10 Ml Syringe) 20 ml IV Q4HR PRN PRN Reason: PICC Line Physical examination: VITAL SIGNS: 97.8, 82, 18, 138/82, 95% on 3 L GENERAL:, laying in bed, tired. EYES: Pupils equal. Conjunctiva pale. NECK: JVD not raised; masses not palpable. HEART: First and second heart sounds are normal; no edema. LUNGS: Respiratory rate increased; basal crackles. ABDOMEN: Soft, dressing over the epigastric area, , no tenderness, liver spleen not palpable, no masses palpable. MUSCULAR skeletal: Evidence of OA PSYCH: Alert and oriented x3; mood and affect tired. INVESTIGATIONS, reviewed in the clinical context: Potassium 3.5 by cup greater than 40 BUN 36 Admission testing White count 8 hemoglobin 12.3 platelets 172 INR 3.2 potassium 3.8 creatinine 0.49 Albumin 3 Computed tomography scan of the abdomen moderate bilateral pleural effusion heart is enlarged some areas in the anterior biliary tree that is under 3 cm fluid collection of the gallbladder bed. Subcutis fluid over the anterior mid and right side of the abdomen pro-calcitonin 0.09 Wound culture-Klebsiella oxytoca COVID 19 P/Cr-not detected Chest x-ray film personally reviewed by me-pulmonary edema Assessment: - subcutaneous abscess - Positive for Klebsiella oxytoca-improving -Status post laparoscopic cholecystectomy a month ago -Advancing medical debility -Mild protein calorie malnutrition from poor oral intake -Persistent atrial fibrillation -Acute on Chronic congestive heart failure from systolic dysfunction EF 30-35%-started on IV Lasix today -AICD pacemaker -Essential hypertension -Hyperlipidemia -Primary osteoarthritis -Significant anorexia. Patient not eating for a few days. -TPN/Lipid -Metabolic alkalosis from diuresis Plan: Patient continues to do poorly. Not eating now for several days. Becoming prerenal. Tired and rundown. Will DC IV Lasix. Advanced care planning: Discussed at length with the patient. Also with patient's 2 sons and [id number]. Patient is not eating. Now for several days. TPN and lipids were also given. No change in clinical status. Progressive disease getting much worse. Practically no activity. Patient understands all oral guarded p rognosis. She is also to protect course of antibiotics. She agrees to proceed with hospice, if things continue to get worse. Several questions were answered including with the family members. Patient's [id number] wishes down the road to follow-up with [facility] as a family member works in the hospice house. Total time spent today about was 40 minutes .
[2019-12-22] MEDS: INSULIN ASPART (NovoLOG) 100 UNIT/ML VIAL SQ SCH ×3 (00:55→12:36)
[2019-12-22 05:33] LABS: Glucose,Whole Blood 275 mg/dL (75-99)
[2019-12-22] MEDS: HYDROcodone/APAP 5-325MG 1 EACH TAB PO PRN (05:54)
[2019-12-22] MEDS: IPRATROPIUM-ALBUTEROL 3 ML NEB INHALATION SCH ×3 (07:30→15:32)
[2019-12-22] MEDS: CALCIUM CARBONATE LIQUID 500 MG/5 ML CUP PO SCH ×2 (08:47→12:35)
[2019-12-22] MEDS: metroNIDAZOLE 500 MG TAB PO SCH (08:48)
[2019-12-22] MEDS: SENNOSIDES-DOCUSATE SODIUM 1 EACH TAB PO SCH (08:48)
[2019-12-22] MEDS: METOPROLOL SUCCINATE (ER) 100 MG TAB.ER.24H PO SCH (08:48)
[2019-12-22 09:29] LABS: INR 1.12 (0.90-1.11); Prothrombin Time 11.9 sec (9.9-11.9)
--- NOTE | 2019-12-22 09:42 | P.PN ---
Progress Note - Text Progress Note Date: 12/22/19 Patient is resting comfortably rebound. On exam vitals are stable. Abdomen soft. Epigastric port wound site is clean. Status post incision and drainage of epigastric abscess. Patient will continue receive local wound care.
[2019-12-22 09:57] LABS: African American GFR (CKD) 98.4 (60.0-200.0); BUN/Creat Ratio 61.67 Ratio (12.00-20.00); Calcium 8.8 mg/dL (8.7-10.3); Chloride 85 mmol/L (96-109); Glucose 267 mg/dL (70-110); Magnesium 1.9 mg/dL (1.5-2.4); Phosphorus 2.4 mg/dL (2.4-5.1); Potassium 3.7 mmol/L (3.5-5.5); Sodium 139 mmol/L (135-145)
[2019-12-22 12:13] LABS: Glucose,Whole Blood 231 mg/dL (75-99)
[2019-12-22 12:27] VITALS: BP 113/64; PULSE 78; RESP 18; TEMP 97.6
--- NOTE | 2019-12-22 13:03 | P.DS ---
Providers Date of admission: 12/09/19 10:12 Expected date of discharge: 12/22/19 Attending physician: Kenneth Anthony Consults: 12/08/19 13:40 Consult Physician Routine Consulting Provider: Lb Alfred Consult Reason/Comments: Failed outpatient antibiotic management Do you want consulting provider notified?: Yes 12/14/19 11:35 Consult Physician Routine Consulting Provider: Ariel Adams Consult Reason/Comments: surgical incision drainage Do you want consulting provider notified?: Already Contacted Primary care physician: [facility] Course: - Chief Complaint Drainage from the abdominal wound Consultation: This is a pleasant 84-year-old patient of Dr. Pimentel. Patient November 02 has undergone laparoscopic cholecystectomy by Dr. Adams. For cholecystitis and cholelithiasis. Patient was discharged to the [facility] about a month ago. Patient has been rather weak and tired. If not much of an appetite. Does not really ambulate because of weakness. Chronic stable medical conditions include atrial fibrillation, CHF, hypertension, hyperlipidemia, osteoarthritis, pacemaker with AICD. Patient was noted to have drainage from the epigastric laparoscopic insertion site. Was present in the room dark brown pus was coming out. Special squeezing surrounding. Patient has very limited tenderness. Denies any fever and chills. Appetite has been poor. Midline place. Placed on TPN and lipids. Subsequently patient is put on IV steroids by surgery for the nausea. Became hyperglycemic and insulin drip was placed . Some pulm onary edema started on IV Lasix. Patient still not eating drinking at all. Weak diet and rundown. Had a long talk with the patient and 2 sons and [id number]. Patient be transferred back to the [facility]. And depending how she does she'll proceed to hospice if there is no further improvement. Informational visit was done with [facility] hospice. Patient's family then decided they might proceed with [facility] hospice and may consider switching the patient over to hospice house in [place]. Consultation: Dr. Adams from general surgery Dr. Trinidad from [place] Physical examination: VITAL SIGNS: 97.6, 78, 18, 113/64, 99% on 3 L GENERAL:, laying in bed, tired. EYES: Pupils equal. Conjunctiva pale. NECK: JVD not raised; masses not palpable. HEART: First and second heart sounds are normal; no edema. LUNGS: Respiratory rate increased; basal crackles. ABDOMEN: Soft, dressing over the epigastric area, , no tenderness, liver spleen not palpable, no masses palpable. MUSCULAR skeletal: Evidence of OA PSYCH: Alert and oriented x3; mood and affect tired. INVESTIGATIONS, reviewed in the clinical context: Potassium 3.7 bicarb 40 creatinine 0.6 Admission testing White count 8 hemoglobin 12.3 platelets 172 INR 3.2 potassium 3.8 creatinine 0.49 Albumin 3 Computed tomography scan of the abdomen moderate bilateral pleural effusion heart is enlarged some areas in the anterior biliary tree that is under 3 cm fluid collection of the gallbladder bed. Subcutis fluid over the anterior mid and right side of the abdomen pro-calcitonin 0.09 Wound culture-Klebsiella oxytoca COVID 19 P/Cr-not detected Chest x-ray film personally reviewed by me-pulmonary edema Assessment: - subcutaneous epigastric abscess - Positive for Klebsiella oxytoca-improved -Status post laparoscopic cholecystectomy a month ago -Advancing medical debility -Mild protein calorie malnutrition from poor oral intake -Persistent atrial fibrillation -Acute on Chronic congestive heart failure from systolic dysfunction EF 30-35%-started on IV Lasix today -AICD pacemaker -Essential hypertension -Hyperlipidemia -Primary osteoarthritis -Significant anorexia. Patient not eating for a few days. -TPN/Lipid -Metabolic alkalosis from diuresis -DO NOT RESUSCITATE Disposition: [facility]CF/[place] Patient Condition at Discharge: Stable Plan - Discharge Summary New Discharge Prescriptions: New Ciprofloxacin HCl [Cipro] 500 mg PO Q12HR 10 Days #20 tab metroNIDAZOLE [Flagyl] 500 mg PO TID 10 Days #30 tab Melatonin 3 mg PO HS tablet Continue Atorvastatin [Lipitor] 10 mg PO HS@2100 Ipratropium-Albuterol Nebulize [Duoneb 0.5 mg-3 mg/3 ml Soln] 3 ml INHALATION RT-TID ml Ipratropium-Albuterol Nebulize [Duoneb 0.5 mg-3 mg/3 ml Soln] 3 ml INHALATION RT-TID PRN ml PRN Reason: Shortness Of Breath Or Wheezing Phenyleph/Pramoxin/Glycr/W.pet [Preparation H Cream] 1 applic RECTAL DAILY PRN PRN Reason: Pain Ondansetron HCl [Zofran] 4 mg PO Q8H PRN PRN Reason: Nausea Magnesium Hydroxide [Milk of Magnesia Concentrate] 7,200 mg PO Q48H PRN PRN Reason: Constipation for 48 hours bisacodyL [Bisacodyl] 10 mg RECTAL DAILY PRN PRN Reason: Constipation Acetaminophen Tab [Tylenol] 500 mg PO Q6H PRN PRN Reason: Pain Calcium Carbonate [Tums] 500 mg PO AC-TID Pantoprazole [Protonix] 40 mg PO DAILY@0600 Lactose-Reduced Food [Ensure Plus] 120 ml PO BID@0800,1700 Warfarin [Coumadin] 2.5 mg PO DAILY@1700 Metoprolol Succinate (ER) [Toprol XL] 100 mg PO DAILY@0800 HYDROcodone/APAP 5-325MG [[place] 5-325] 1 tab PO Q6H PRN #12 tab PRN Reason: Pain Discontinued Docusate [Colace] 100 mg PO DAILY PRN cap PRN Reason: Constipation Sennosides/Docusate Sodium [Senna-S 8.6-50 mg Tablet] 1 tab PO DAILY PRN PRN Reason: Constipation Maalox Plus Suspension 30 ml PO Q6H PRN PRN Reason: Indigestion Na Phos,M-B/Na Phos,Di-Ba [Fleet Adult] 133 ml RECTAL DAILY PRN PRN Reason: Constipation INSULIN ASPART (NovoLOG) [NovoLOG (formulary)] See Protocol SQ ACHS Sennosides-Docusate Sodium [Senokot-S] 1 tab PO BID@0800,1700 Ciprofloxacin HCl [Cipro] 500 mg PO Q12H Discharge Medication List Atorvastatin [Lipitor] 10 mg PO HS@2100 08/20/13 [History] Ipratropium-Albuterol Nebulize [Duoneb 0.5 mg-3 mg/3 ml Soln] 3 ml INHALATION RT-TID ml 11/06/19 [Rx] Ipratropium-Albuterol Nebulize [Duoneb 0.5 mg-3 mg/3 ml Soln] 3 ml INHALATION RT-TID PRN ml 11/06/19 [Rx] Acetaminophen Tab [Tylenol] 500 mg PO Q6H PRN 11/28/19 [History] Calcium Carbonate [Tums] 500 mg PO AC-TID 11/28/19 [History] Lactose-Reduced Food [Ensure Plus] 120 ml PO BID@0800,1700 11/28/19 [History] Magnesium Hydroxide [Milk of Magnesia Concentrate] 7,200 mg PO Q48H PRN 11/28/19 [History] Metoprolol Succinate (ER) [Toprol XL] 100 mg PO DAILY@0800 11/28/19 [History] Ondansetron HCl [Zofran] 4 mg PO Q8H PRN 11/28/19 [History] Pantoprazole [Protonix] 40 mg PO DAILY@0600 11/28/19 [History] Phenyleph/Pramoxin/Glycr/W.pet [Preparation H Cream] 1 applic RECTAL DAILY PRN 11/28/19 [History] Warfarin [Coumadin] 2.5 mg PO DAILY@17011/28/19 [History] bisacodyL [Bisacodyl] 10 mg RECTAL DAILY PRN 11/28/19 [History] Ciprofloxacin HCl [Cipro] 500 mg PO Q12HR 10 Days #20 tab 12/14/19 [Rx] Melatonin 3 mg PO HS tablet 12/14/19 [Rx] metroNIDAZOLE [Flagyl] 500 mg PO TID 10 Days #30 tab 12/14/19 [Rx] HYDROcodone/APAP 5-325MG [[place] 5-325] 1 tab PO Q6H PRN #12 tab 12/22/19 [Rx] Follow up Appointment(s)/Referral(s): Kermit Pimentel DO [Primary Care Provider] - 1-2 days Ariel Adams MD [STAFF PHYSICIAN] - 1 Week Patient Instructions/Handouts: Heart Failure (DC), Wound Healing and Your Diet (DC) Activity/Diet/Wound Care/Special Instructions: Diet: Consistent Carbohydrate Activity: limited, maintain comfort CBC, BMP, INR-3 days Discharge Disposition: TRANSFER TO SNF/ECF
[2019-12-22] MEDS ORDERED: WARFARIN 5 MG TAB PO ONE (18:00)
[2019-12-24 06:54] LABS: Carbon Dioxide >40.0 mmol/L (21.6-31.8); Non-African American GFR(CKD) 84.9 (60.0-200.0)
== END 2019-12-22 16:37 | DRG 862 ==
LOC: EC 15:32 → 6NMEDSUR 19:26 → OBSVTOIN 12-09 10:12
PROVIDERS: ADMIT Hospitalist; ATTEND Hospitalist
PROC: 0J980ZX Drainage of Abdomen Subcutaneous Tissue and Fascia, Open Approach, Diagnostic (ICD-10-PCS; principal; 2019-12-08)
PROC: 3E0436Z Introduction of Nutritional Substance into Central Vein, Percutaneous Approach (ICD-10-PCS; 2019-12-13)
PROC: 02HV33Z Insertion of Infusion Device into Superior Vena Cava, Percutaneous Approach (ICD-10-PCS; 2019-12-13)
DX: T81.41XA Infection following a procedure, superficial incisional surgical site, initial encounter (principal); I50.23 Acute on chronic systolic (congestive) heart failure; L03.311 Cellulitis of abdominal wall; E44.1 Mild protein-calorie malnutrition; E87.3 Alkalosis; I48.19 Other persistent atrial fibrillation; L02.211 Cutaneous abscess of abdominal wall; Z20.828 Contact with and (suspected) exposure to other viral communicable diseases; M19.91 Primary osteoarthritis, unspecified site; Z66 Do not resuscitate; D63.8 Anemia in other chronic diseases classified elsewhere; D69.6 Thrombocytopenia, unspecified; Z68.28 Body mass index [BMI] 28.0-28.9, adult; E78.5 Hyperlipidemia, unspecified; E83.42 Hypomagnesemia; E87.6 Hypokalemia; I11.0 Hypertensive heart disease with heart failure; Z90.49 Acquired absence of other specified parts of digestive tract; Z79.01 Long term (current) use of anticoagulants; Z79.4 Long term (current) use of insulin; Z79.899 Other long term (current) drug therapy; Z87.891 Personal history of nicotine dependence; Z90.710 Acquired absence of both cervix and uterus; R73.9 Hyperglycemia, unspecified; T50.2X5A Adverse effect of carbonic-anhydrase inhibitors, benzothiadiazides and other diuretics, initial encounter; T38.0X5A Adverse effect of glucocorticoids and synthetic analogues, initial encounter; Z88.8 Allergy status to other drugs, medicaments and biological substances; Z95.810 Presence of automatic (implantable) cardiac defibrillator; R53.81 Other malaise; R63.0 Anorexia
CPT/HCPCS: 36415; 36573; 71045; 74177; 76705; 80048; 80053; 80202; 82040; 82330; 83036; 83605; 83690; 83735; 84100; 84132; 84145; 84478; 85025; 85027; 85610; 85730; 87070; 87075; 87077; 87186; 87205; 87635; 94640; 94760; 96361; 96365; 99285